=== PATIENT | male | born 1950 | race Caucasian/White ===

== ENCOUNTER → 2016-07-05 | Outpatient (CLI) | payer MEDICAID ==
--- NOTE | 2016-07-05 11:54 | ECHOF ---
Referral Reason:Z95.2 LV functioning bioprosthetic atrial valve replacement MEASUREMENTS -------- HEIGHT: 172.7 cm WEIGHT: 90.7 kg BP: 154/71 RVIDd: 3.3 cm (< 3.3) IVSd: 1.1 cm (0.6 - 1.1) LVIDd: 5.1 cm (3.9 - 5.3) LVPWd: 1.1 cm (0.6 - 1.1) IVSs: 1.7 cm LVIDs: 3.7 cm LVPWs: 2.0 cm LA Diam: 4.1 cm (2.7 - 3.8) LAESV Index (A-L): 22.52 ml/m Ao Diam: 3.2 cm (2.0 - 3.7) AV Cusp: 1.7 cm (1.5 - 2.6) LA Diam: 3.6 cm (2.7 - 3.8) MV EXCURSION: 23.948 mm (> 18.000) MV EF SLOPE: 116 mm/s (70 - 150) EPSS: 1.9 cm MV E Reid: 0.85 m/s MV DecT: 240 ms MV A Reid: 0.82 m/s MV E/A Ratio: 1.04 AV maxP.24 mmHg AV meanP.84 mmHg RAP: 5.00 mmHg RVSP: 23.72 mmHg FINDINGS -------- Sinus rhythm with extra systolic beats. This was a technically adequate study. The left ventricular size is normal. There is borderline concentric left ventricular hypertrophy. Overall left ventricular systolic function is low-normal with, an EF between 50 - 55 %. Basal inferior LV wall motion is hypokinetic. Basal inferoseptal LV wall motion is hypokinetic. The right ventricle is mildly enlarged. The left atrium is normal in size. Normal LA size by volume 22+/-6 ml/m2. The right atrium is normal in size. Peak/mean gradient across the Aortic Valve is 31.24mmHg / 15.84mmHg. There is mild regurgitation of the bioprosthetic aortic valve. The mitral valve leaflets are mildly thickened. Mild mitral annular calcification present. Trace tricuspid regurgitation present. Right ventricular systolic pressure is normal at < 35 mmHg. Trace/mild (physiologic) pulmonic regurgitation. The aortic root size is normal. There is no pericardial effusion. CONCLUSIONS -------- 1. Sinus rhythm with extra systolic beats. 2. The right atrium is normal in size. 3. Peak/mean gradient across the Aortic Valve is 31.24mmHg / 15.84mmHg. 4. There is mild regurgitation of the bioprosthetic aortic valve. 5. The mitral valve leaflets are mildly thickened. 6. Mild mitral annular calcification present. 7. Trace tricuspid regurgitation present. 8. Right ventricular systolic pressure is normal at < 35 mmHg. 9. Trace/mild (physiologic) pulmonic regurgitation. 10. The aortic root size is normal. 11. There is no pericardial effusion. 12. This was a technically adequate study. 13. The left ventricular size is normal. 14. There is borderline concentric left ventricular hypertrophy. 15. Overall left ventricular systolic function is low-normal with, an EF between 50 - 55 %. 16. Basal inferior LV wall motion is hypokinetic. 17. Basal inferoseptal LV wall motion is hypokinetic. 18. The right ventricle is mildly enlarged. 19. Normal LA size by volume 22+/-6 ml/m2. STEREOPLOTTER OPERATOR: Lay Castillo RDCS
== END | disposition home or self-care (01) ==
LOC: RADECHMAIN 08:09
PROVIDERS: ATTEND Internal Medicine Pulmonary Disease
DX: Z09 Encounter for follow-up examination after completed treatment for conditions other than malignant neoplasm (principal); I08.8 Other rheumatic multiple valve diseases; Z95.2 Presence of prosthetic heart valve
CPT/HCPCS: 93306

== ENCOUNTER 2016-07-29 08:07 | Day surgery (SDC) | payer MEDICAID ==
[2016-07-26 14:38] VITALS: BMI 30.4
[~2016-07-29 08:07] MED LIST: LACTATED RINGERS 1,000 ML IV SCH
[2016-07-29 08:36] VITALS: RESP 16; TEMP 98.6
[2016-07-29] MEDS ORDERED: LIDOCAINE 1% 20 ML VIAL (10MG/ML) FOR IV START SQ ONE (08:38)
[2016-07-29] MEDS ORDERED: GLYCOPYRROLATE 0.2 MG/ML 2 ML VIAL ONE (08:54)
[2016-07-29] MEDS ORDERED: ATROPINE SULFATE 0.4 MG/ML 1 ML VIAL ONE (08:54)
[2016-07-29] MEDS ORDERED: PROPOFOL 10 MG/ML 20 ML VIAL IV ONE (08:54)
--- NOTE | 2016-07-29 09:12 | P.PCN ---
Date of Procedure: 07/29/16 Procedure(s) Performed: BRIEF HISTORY: Patient is a 65-year-old pleasant white male, scheduled for an elective colonoscopy as a part of screening for colorectal neoplasia. PROCEDURE PERFORMED: Colonoscopy. PREOPERATIVE DIAGNOSIS: Screening for colon cancer. IV sedation per Anesthesia. PROCEDURE: After informed consent was obtained, the patient, was brought into the endoscopy unit. IV conscious sedation was administered by Anesthesia under continuous monitoring. Digital rectal examination was normal. Initially the Olympus CF-160 flexible video colonoscope was then inserted in the rectum, gradually advanced into the cecum without any difficulty. Careful examination was performed as the scope was gradually being withdrawn. Ileocecal valve and the appendiceal orifice were visualized and appeared normal. Prep was excellent. Mucosa of the cecum, ascending colon, transverse colon, descending colon, sigmoid colon, and rectum appeared normal. Retroflexion was performed in the rectum and no lesions were seen. The patient tolerated the procedure well. IMPRESSION: Normal-appearing colon from rectum to cecum with no evidence of colorectal neoplasia . RECOMMENDATIONS: Findings of this examination were discussed with the patient as well as his family. He was advised to have a repeat screening colonoscopy in 10 years.
[2016-07-29 09:37] VITALS: BP 105/66; PULSE 61
== END 2016-07-29 09:49 | disposition home or self-care (01) ==
LOC: ORWHC2ENDO 08:07
PROVIDERS: ATTEND Internal Medicine Gastroenterology
DX: Z12.11 Encounter for screening for malignant neoplasm of colon (principal); I10 Essential (primary) hypertension; E78.5 Hyperlipidemia, unspecified; I49.9 Cardiac arrhythmia, unspecified; K21.9 Gastro-esophageal reflux disease without esophagitis; Z79.899 Other long term (current) drug therapy
CPT/HCPCS: J0461; J2704; G0121

== ENCOUNTER → 2016-12-23 | Outpatient (CLI) | payer MEDICAID ==
--- NOTE | 2016-12-23 11:26 | EST ---
DATE OF SERVICE: 12/23/2016 CARDIOLITE STRESS TEST INDICATION: Cardiomyopathy BASELINE HEART RATE: 85 BASELINE BLOOD PRESSURE: 134/93 MAXIMUM HEART RATE: 135 MAXIMUM BLOOD PRESSURE: 150/75 85% MPHR: 132 100% MPHR: 156 METS: 10.0 MAXIMUM STAGE REACHED: III TOTAL EXERCISE TIME: 9:00 Baseline EKG shows atrial flutter with nonspecific ST-T wave changes. Patient exercised on Narayan protocol for a total of 9:00 minutes achieving 10 METS, 86% or predicted maximum heart rate without chest pain or diagnostic ST-segment depression. CONCLUSION: 1. Good exercise tolerance. 2. Inconclusive EKG part of the stress test due to baseline EKG abnormalities. MTDD
--- NOTE | 2016-12-23 12:22 | NM ---
EXAMINATION TYPE: NM stress cardiolite complete DATE OF EXAM: 12/23/2016 COMPARISON: NONE HISTORY: 66-year-old male with cardiomyopathy. TECHNIQUE: After the intravenous administration of 10.8 mCi Tc 99m Sestamibi - Rest images obtained 50 minutes post injection. The patient exercised using a MARCELINA protocol and 1 minute prior to peak exercise was injected with 26.7 mCi Tc 99m Sestamibi - Stress images obtained 45 minutes post injecti on. FINDINGS: Targeted heart rate was achieved during performance of the study, 135 bpm (target 132 BPM). Total exe rcise time 9 minutes. The technologist reports shortness of breath after exercise but no chest pain. Review of stress and rest SPECT images show extensive perfusion defect along the inferior and inferol ateral wall. However, this is pronounced on the rest images and improved on stress images. There is a lso subtle left ventricular chamber enlargement. There may be a small area of persistent defect along the apical inferolateral wall on stress images. Gated analysis shows normal global hypokinesis with an estimated left ventricular ejection fraction of 40 %. TID is calculated at 1.05, within normal li mits. IMPRESSION: 1. Dilated cardiomyopathy with global hypokinesis and LVEF of 40%. 2. Suspect prominent diaphragmatic attenuation artifact. A small inferolateral apical wall infarct is difficult to exclude. 3. No convincing scintigraphic evidence for reversible ischemia
== END | disposition home or self-care (01) ==
LOC: RADNMMAIN 07:56
PROVIDERS: ATTEND Internal Medicine Clinical Cardiac Electrophysiology
DX: I42.0 Dilated cardiomyopathy (principal); Z95.3 Presence of xenogenic heart valve
CPT/HCPCS: 93017; 78452; A9500

== ENCOUNTER → 2016-12-29 | Outpatient (CLI) | payer MEDICAID | END | disposition home or self-care (01) | LOC: RADECHMAIN 11:52 | PROVIDERS: ATTEND Internal Medicine Clinical Cardiac Electrophysiology | DX: I49.3 Ventricular premature depolarization (principal); I48.91 Unspecified atrial fibrillation; I47.1 Supraventricular tachycardia; I48.92 Unspecified atrial flutter; I42.9 Cardiomyopathy, unspecified; R00.8 Other abnormalities of heart beat | CPT/HCPCS: 93270; 93271 ==

== ENCOUNTER → 2017-07-11 | Outpatient (CLI) | payer MEDICAID ==
--- NOTE | 2017-07-14 13:52 | HM ---
HOLTER MONITOR REPORT DATE OF SERVICE: 07/11/2017 INDICATION: Arrhythmia. The patient was monitored for 24 hours. The baseline rhythm appeared to be sinus mechanism with a minimum heart rate of 42 beats per minute, max heart rate 130 beats per minute, and average heart rate of average heart rate of 68 beats per minute. Ventricular ectopic events were presented very frequently and presented as ventricular ectopy, including couplets, triplets, bigeminy, and trigeminy. Supraventricular ectopic events were presented as well during this 24 hour monitoring, but it was occasional only. No evidence of sinus pause or sinus arrest. No evidence of sustained tachy or bradyarrhythmia. The patient marker was associated with ventricular ectopy and supraventricular ectopy as well. CONCLUSION: 1. Sinus rhythm as a baseline mechanism. 2. Rare supraventricular ectopic events. 3. Very frequent ventricular ectopic events in the terms of premature ventricular contraction, couplets, triplets, bigeminy, and trigeminy. 4. The patient marker was correlated with the ventricular ectopy. 5. No evidence of sinus pause or sinus arrest. MMODL / IJN: [id number] /
== END | disposition home or self-care (01) ==
LOC: RADECHMAIN 12:18
PROVIDERS: ATTEND Internal Medicine Clinical Cardiac Electrophysiology
DX: I49.3 Ventricular premature depolarization (principal); I48.91 Unspecified atrial fibrillation
CPT/HCPCS: 93225; 93226

== ENCOUNTER 2018-01-16 11:31 | Day surgery (SDC) | payer MEDICAID ==
[~2018-01-16 11:31] MED LIST changes: +MIDAZOLAM 2 MG/2 ML VIAL IV PRN; +ONDANSETRON 4 MG/2 ML VIAL IVP ONE; +SODIUM CHLORIDE 0.9% 1,000 ML IV SCH; +fentaNYL (PF) 50 MCG/ML 2 ML AMP IV PRN
[2018-01-16 12:12] LABS: Basophils % (A) 0 %; Eosinophils # (A) 0.1 k/uL (0-0.7); Eosinophils % (A) 2 %; HCT 47.4 % (39.0-53.0); HGB 15.7 gm/dL (13.0-17.5); Lymphocytes # (A) 1.8 k/uL (1.0-4.8); Lymphocytes % (A) 29 %; MCH 29.3 pg (25.0-35.0); MCV 88.8 fL (80.0-100.0); Mean Platelet Volume 8.7; Monocytes # (A) 0.4 k/uL (0-1.0); Monocytes % (A) 6 %; Neutrophils # (A) 3.8 k/uL (1.3-7.7); Neutrophils % (A) 61 %; Platelet Count 130 k/uL (150-450); RBC 5.34 m/uL (4.30-5.90); RDW 13.5 % (11.5-15.5); WBC 6.2 k/uL (3.8-10.6)
[2018-01-16] MEDS ORDERED: PROPOFOL 10 MG/ML 20 ML VIAL IV ONE (12:32)
[2018-01-16] MEDS ORDERED: MIDAZOLAM 2 MG/2 ML VIAL ONE (12:32)
[2018-01-16] MEDS ORDERED: PROTAMINE SULFATE 10 MG/ML 5 ML VIAL IV ONE (12:32)
[2018-01-16] MEDS ORDERED: LIDOCAINE 1% INJ 10MG/ML (20 ML MDV) ONE ×3 (12:32→13:25)
[2018-01-16] MEDS ORDERED: HEPARIN SODIUM,PORCINE 10,000 UNIT/ML 1 ML VIAL ONE (12:32)
[2018-01-16] MEDS ORDERED: fentaNYL (PF) 50 MCG/ML 2 ML AMP ONE (12:32)
[2018-01-16] MEDS ORDERED: HYDROmorphone (PF) 1 MG/ML ONE (12:32)
[2018-01-16] MEDS ORDERED: ISOPROTERENOL 250 MCG/1.25 ML SYR IV ONE (12:32)
[2018-01-16] MEDS ORDERED: ceFAZolin IN SWFI 2 GM/20 ML SYRINGE IVP STA (13:17)
[2018-01-16] MEDS ORDERED: LIDOCAINE 1% INJ 10MG/ML (20 ML MDV) SQ ONE ×2 (13:31→13:35)
[2018-01-16] MEDS ORDERED: HEPARIN SOD,PORK IN 0.45% NACL 25,000 UNIT in 0.45% NACL 1 500ML.BAG IV ONE (13:45)
[2018-01-16] MEDS ORDERED: HEPARIN SODIUM (1,000 UNIT/ML) 1,000 UNIT in SODIUM CHLORIDE 0.9% 1,000 ML IRRIGATION ONE (14:26)
[2018-01-16] MEDS ORDERED: HYDROcodone/APAP 5-325MG 1 EACH TAB PO PRN (16:48)
[2018-01-16] MEDS ORDERED: ACETAMINOPHEN TAB 325 MG TAB PO PRN (16:48)
[2018-01-16] MEDS ORDERED: LACTATED RINGERS 1,000 ML IV ONE (17:10)
[2018-01-16] MEDS ORDERED: SODIUM CHLORIDE 0.9% 1,000 ML IV ONE (17:10)
--- NOTE | 2018-01-16 17:41 | LTR ---
Dear Dr. Lopez: Wali Monreal has frequent nonsustained ventricular tachycardia and a high PVC burden and he underwent a diagnostic EP study and ablation of this ventricular focus. However, since he has a bioprosthetic aortic valve, the retrograde approach into the left ventricle was avoided and the left ventricle was accessed transseptally and then across the mitral valve. This was a deep focus evident on ECG as well as with intracardiac mapping, but a successful ablation was performed and he should experience a significant reduction in his PVC burden and definitely a reduction in his nonsustained ventricular tachycardia. He will continue all his cardiac medications and I will reassess his LV function in the future. If his LV function does not improve, then he would be a candidate for an ICD implant in the future. Thank you for entrusting me with the care of your patient. Warm regards. Sincerely, TERRANCE / LUTHER: [id number] /
[2018-01-16 17:53] VITALS: BMI 30.2
[2018-01-16] MEDS ORDERED: ACETAMINOPHEN IV (For NPO) 1,000 MG in EMPTY BAG 1 BAG IVPB ONE (18:00)
[2018-01-16] MEDS: CARVEDILOL 6.25 MG TAB PO SCH (18:06)
--- NOTE | 2018-01-16 18:53 | CE ---
CARDIAC ELECTROPHYSIOLOGY REPORT This is a 67-year-old male patient who has valvular heart disease, cardiomyopathy, ejection fraction 35% to 40%, with very frequent PVCs. He has already undergone SVT ablation successfully as well as atrial flutter ablation. He is on anticoagulation. He is brought in because of a high PVC burden and nonsustained ventricular tachycardia and for radiofrequency ablation mostly of the monomorphic PVCs in an attempt to facilitate improvement in LV systolic function and cardiomyopathy. Patient has a bioprosthetic aortic valve; therefore these PVCs are originating in the left ventricle. Since the retrograde route is to be avoided, a transseptal route was planned. Edoxaban was held for 2 days prior to the procedure. The patient was brought to the EP lab in a fasting state. Written informed consent was obtained prior to the procedure. The right and left groins were prepped and draped as per protocol. A 5-Setswana arterial sheath was placed in the right femoral artery for continuous hemodynamic monitoring as well as sampling for maintaining heparin ACT at greater than 300. Venous sheaths were placed in the right and left femoral veins. Diagnostic catheters catheters were positioned in the coronary sinus, high right atrium, His bundle area and RV. Intracardiac echo catheter was used. Mapping and ablation catheter was used. A long sheath was used. First a full diagnostic EP study was performed to see if he had any inducible ventricular tachycardia. The patient was in sinus rhythm at the start of the study. Sinus cycle length 855 milliseconds, QRS 110 milliseconds, AL 179 milliseconds, QT 390 milliseconds. Sinus node recovery times at 600, 500 and 400 milliseconds were 1389, 1299 and 1554 milliseconds, respectively. Corresponding corrected sinus node recovery times were mildly prolonged at the paced cycle length of 400 milliseconds. AV node Wenckebach block 520 milliseconds, VA Wenckebach block 380 milliseconds. Ventricular extrastimulation was performed up to double extrastimuli at [address] No sustained ventricular tachycardia was induced. Burst stimulation was performed from 400 milliseconds down to 200 milliseconds from the RV apex. No sustained arrhythmias were induced. Later, Isuprel was started and burst stimulation was performed. Short bursts of nonsustained VT were induced, but no sustained VT was induced. The HV interval was 58 milliseconds on Isuprel. The patient went into atrial fibrillation and could not be cardioverted back to sinus rhythm. Thereafter, intracardiac echocardiography was performed. Three-D mapping of the left ventricle was performed. The mitral anulus and the papillary muscles were identified and mapped. The inferior wall of the ventricle where the PVCs were originating was mapped in detail. [id number] transseptal catheterization was performed. RA pressure 19/-2/5 mmHg. LA pressure 26/-1/18 mm Hg. Using 120 L HeartSpan sheath after accessing the left atrium on heparin, the catheter was placed across the mitral anulus and the inferior wall was mapped. Three-D electroanatomic mapping was performed. Activation mapping was performed. Scar mapping was performed. The earliest activation was in the base of the inferior wall between the papillary muscle and the mitral anulus, and this area was definitely more hypokinetic as compared to the other segments of the left ventricle. However, there was no evidence for scar in this area, either on bipolar or on unipolar voltage mapping. The PVC morphology was a right bundle branch block morphology with Q-waves in the inferior leads. There was clear delay in the onset of the QRS in the inferior leads and there was a slow slope at the onset of the QRS in the precordial leads consistent with a deep myocardial focus, although overall QRS width was 138 milliseconds. Activation mapping was performed and an early site was noted with a good unipolar electrogram that was just about 10 milliseconds earlier than the onset of the QRS as well as a bipolar signal of similar prematurity. Very early bipolar and unipolar signals could not be seen, and this is consistent with our opinion that this was a deep myocardial focus. RF ablation was applied at this site and lesion was applied around this. Initially with RF ablation slow ventricular tachycardia was consistently induced, whose morphology resembled the clinical PVCs. Slowly this would terminate. When RF ablation was completed in this area, there was no evidence for any further inducible VT with RF. However, the patient continued to have infrequent PVCs. This area was well ablated with good contact force between 7 and 15 grams with a power of up to 35 arguelles. Following that, Isuprel was then started and the patient went into atrial fibrillation. Nonsustained VT could be induced of totally reformed morphology, but sustained VT could not be induced. All catheters were then removed, Isuprel stopped. Heparin was stopped. Sheaths were removed. Hemostasis was assured. RESULT: Successful mapping and ablation of VT/PVC focus in the inferior base of the left ventricle between the mitral anulus and the proximal portion of the posterior septal papillary muscle. PROCEDURES PERFORMED: 1. Comprehensive diagnostic EP study with attempted induction of arrhythmia. 2. Left atrial pacing and recording. 3. Drug stimulation. 4. Three-D mapping. 5. Percutaneous arterial cannulation and catheterization for sampling and monitoring. 6. Ablation for ventricular tachycardia 29460. 7. Intracardiac echocardiography and transseptal puncture. The patient tolerated the procedure well without any acute complications. MMODL / IJN: [id number] /
[2018-01-16] MEDS ORDERED: EDOXABAN TOSYLATE 60 MG TABLET PO SCH (21:00)
[2018-01-17 07:51] VITALS: BP 115/74; PULSE 58; RESP 18; TEMP 98.1
--- NOTE | 2018-01-17 08:18 | P.DS ---
Providers Attending physician: Selvin Perrin Primary care physician: [facility] Course: Patient is doing well. No chest discomfort dizziness lightheadedness or palpitations. He has not had any significant number of PVCs post ablation. He is back in sinus rhythm. 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 I don't see any PVCs on the monitor today his twelve-lead ECG does not show any PVCs either. T- wave inversions are noted in the lateral precordial leads. 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 Patient has valvular heart disease and technically should be on Coumadin. 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 However his insurance company will not cover Savaysa but will cover either Xarelto Pradaxa. I have given her a prescription for Xarelto 20 mg by mouth daily. He will continue his current myopathy medications as before and will see me on January 19. Future plan is a follow-up referral to [place] follow-up 2-D echo in about 8 weeks or so. If his LV function does not improve after reduction of his PVC burden then an ICD should be considered Patient Condition at Discharge: Stable Plan - Discharge Summary Discharge Rx Participant: Yes New Discharge Prescriptions: No Action Spironolactone [Aldactone] 25 mg PO DAILY Rosuvastatin [Crestor] 20 mg PO DAILY Carvedilol [Coreg] 6.25 mg PO BID Aspirin [Adult Low Dose Aspirin EC] 81 mg PO DAILY Edoxaban Tosylate [Savaysa] 60 mg PO HS Losartan [Cozaar] 12.5 mg PO DAILY Duo Fusion 1 tab PO BID PRN PRN Reason: gerd Discharge Medication List Aspirin [Adult Low Dose Aspirin EC] 81 mg PO DAILY 07/26/16 [History] Carvedilol [Coreg] 6.25 mg PO BID 07/26/16 [History] Rosuvastatin [Crestor] 20 mg PO DAILY 07/26/16 [History] Spironolactone [Aldactone] 25 mg PO DAILY 07/26/16 [History] Edoxaban Tosylate [Savaysa] 60 mg PO HS 03/22/17 [History] Losartan [Cozaar] 12.5 mg PO DAILY 03/28/17 [History] Duo Fusion 1 tab PO BID PRN 01/08/18 [History]
[2018-01-17] MEDS: SPIRONOLACTONE 25 MG TAB PO SCH ×2 (08:58→10:31)
[2018-01-17] MEDS: CARVEDILOL 6.25 MG TAB PO SCH (08:58)
[2018-01-17] MEDS ORDERED: LOSARTAN 25 MG TAB PO SCH (09:00)
[2018-01-17] MEDS ORDERED: ASPIRIN 81 MG PO SCH (09:00)
== END 2018-01-17 12:35 | disposition home or self-care (01) ==
LOC: CATHEP 11:31 → 3OBS 16:40 → CATHEP 01-17 12:35
PROVIDERS: ATTEND Internal Medicine Clinical Cardiac Electrophysiology
DX: I49.3 Ventricular premature depolarization (principal); I42.9 Cardiomyopathy, unspecified; E78.5 Hyperlipidemia, unspecified; E78.00 Pure hypercholesterolemia, unspecified; I48.91 Unspecified atrial fibrillation; L40.9 Psoriasis, unspecified; I10 Essential (primary) hypertension; Z95.2 Presence of prosthetic heart valve; I48.0 Paroxysmal atrial fibrillation; Z79.82 Long term (current) use of aspirin; Z79.899 Other long term (current) drug therapy; Z79.01 Long term (current) use of anticoagulants; I47.2 Ventricular tachycardia; Z88.8 Allergy status to other drugs, medicaments and biological substances; E11.9 Type 2 diabetes mellitus without complications; K21.9 Gastro-esophageal reflux disease without esophagitis
CPT/HCPCS: 93623; 93662; 93654; 85347; 85025; C1894 ×2; C1769 ×3; C1730 ×2; C1759; C1893; C1732; J2001; J1644 ×2; J0690

== ENCOUNTER → 2018-04-02 | Outpatient (CLI) | payer MEDICAID ==
--- NOTE | 2018-04-02 19:06 | ECHOF ---
Referral Reason:PVCS I49 MEASUREMENTS -------- HEIGHT: 172.7 cm WEIGHT: 90.7 kg BP: IVSd: 1.2 cm (0.6 - 1.1) LVIDd: 5.2 cm (3.9 - 5.3) LVPWd: 1.5 cm (0.6 - 1.1) IVSs: 1.8 cm LVIDs: 3.4 cm LVPWs: 1.9 cm LA Diam: 4.0 cm (2.7 - 3.8) RVIDd: 3.1 cm (< 3.3) Ao Diam: 4.0 cm (2.0 - 3.7) LA Diam: 3.4 cm (2.7 - 3.8) AV Cusp: 0.7 cm (1.5 - 2.6) EPSS: 1.6 cm MV E Reid: 0.33 m/s MV DecT: 333 ms MV A Reid: 0.72 m/s MV E/A Ratio: 0.46 AV maxP.19 mmHg AV meanP.71 mmHg AR PHT: 457 ms RAP: 5.00 mmHg RVSP: 17.74 mmHg MV EF SLOPE: 65.66 mm/s (70 - 150) MV EXCURSION: 22.13 mm (> 18.000) FINDINGS -------- Undetermined rhythm. This was a techncally difficult study with suboptimal views, , Lumason utilized for enhancement of im ages. There is mild concentric left ventricular hypertrophy. Overall left ventricular systolic function i s mild-moderately impaired with, an EF between 40 - 45 %. Basal inferior LV wall motion is hypokine tic. The right ventricle is normal in size. The left atrial size is normal. The right atrial size is normal. 5.0mg OF Lumason UTLIZED: 2 OR MORE WALL SEGMENTS NOT VISUALIZED. There is mild aortic regurgitation. Peak/mean gradient across the Aortic Valve is 32.19mmHg / 20.71 mmHg. There is mild-moderate stenosis of the bioprosthetic aortic valve. Mild mitral annular calcification present. Mild mitral regurgitation is present. Mild tricuspid regurgitation present. There is mild pulmonary hypertension. The right ventricular systolic pressure, as measured by Doppler, is 17.74mmHg. The pulmonic valve was not well visualized. There is no pericardial effusion. CONCLUSIONS -------- 1. This was a techncally difficult study with suboptimal views, , Lumason utilized for enhancement of images. 2. There is mild concentric left ventricular hypertrophy. 3. Overall left ventricular systolic function is mild-moderately impaired with, an EF between 40 - 45 %. 4. Basal inferior LV wall motion is hypokinetic. 5. The right ventricle is normal in size. 6. The left atrial size is normal. 7. The right atrial size is normal. 8. 5.0mg OF Lumason UTLIZED: 2 OR MORE WALL SEGMENTS NOT VISUALIZED. 9. There is mild aortic regurgitation. 10. Peak/mean gradient across the Aortic Valve is 32.19mmHg / 20.71mmHg. 11. There is mild-moderate stenosis of the bioprosthetic aortic valve. 12. Mild mitral annular calcification present. 13. Mild mitral regurgitation is present. 14. Mild tricuspid regurgitation present. 15. There is mild pulmonary hypertension. 16. The right ventricular systolic pressure, as measured by Doppler, is 17.74mmHg. 17. The pulmonic valve was not well visualized. 18. There is no pericardial effusion. ENGINEER GAS PUMPING STATION: Jessica Neely RDCS
== END | disposition home or self-care (01) ==
LOC: RADECHMAIN 11:29
PROVIDERS: ATTEND Internal Medicine Clinical Cardiac Electrophysiology
DX: I08.3 Combined rheumatic disorders of mitral, aortic and tricuspid valves (principal); I27.20 Pulmonary hypertension, unspecified
CPT/HCPCS: 93225; 93226; 93306; Q9950

== ENCOUNTER → 2019-04-01 | Outpatient (CLI) | payer MEDICAID ==
--- NOTE | 2019-04-05 18:32 | P.PN ---
Subjective Progress Note Date: 04/05/19 This is a report on the 24-hour DCG done on April 01. Baseline rhythm is sinus. Patient remained in sinus rhythm throughout the recording with an average heart rate of 72. The minimum is 49. The maximal 109. There were occasional to frequent PVCs. There were rare couplets and bigeminal pattern. There were occasional APCs. No sustained arrhythmias were noted. Patient did not maintain a diary. Patient Zachary correlated with sinus rhythm. Final impression: #1. Sinus rhythm. #2 episodes of sinus tachycardia and bradycardia #3 occasional APCs. #4. Occasional to frequent PVCs with the occasional couplets and triplets #5. Patient did not maintain a diary
== END | disposition home or self-care (01) ==
LOC: RADECHMAIN 12:06
PROVIDERS: ATTEND Internal Medicine Clinical Cardiac Electrophysiology
DX: R00.0 Tachycardia, unspecified (principal); I49.3 Ventricular premature depolarization
CPT/HCPCS: 93225; 93226

== ENCOUNTER → 2019-04-26 | Outpatient (CLI) | payer MEDICAID ==
--- NOTE | 2019-04-27 15:01 | ECHOF ---
Referral Reason:cardiomyopathy MEASUREMENTS -------- HEIGHT: 172.7 cm WEIGHT: 93.0 kg BP: RVIDd: 3.3 cm (< 3.3) IVSd: 1.1 cm (0.6 - 1.1) LVIDd: 5.2 cm (3.9 - 5.3) LVPWd: 1.9 cm (0.6 - 1.1) IVSs: 1.2 cm LVIDs: 4.4 cm LVPWs: 1.5 cm Ao Diam: 3.1 cm (2.0 - 3.7) AV Cusp: 1.5 cm (1.5 - 2.6) LA Diam: 4.1 cm (2.7 - 3.8) MV EXCURSION: 19.783 mm (> 18.000) MV EF SLOPE: 60 mm/s (70 - 150) EPSS: 1.8 cm MV E Reid: 0.47 m/s MV DecT: 114 ms MV A Reid: 0.60 m/s MV E/A Ratio: 0.79 AV maxP.84 mmHg AV meanP.24 mmHg AR PHT: 653 ms RAP: 5.00 mmHg RVSP: 25.06 mmHg FINDINGS -------- Sinus rhythm. This was a technically difficult study with suboptimal views. The left ventricular size is normal. There is mild concentric left ventricular hypertrophy. Overa ll left ventricular systolic function is mild-moderately impaired with, an EF between 40 - 45 %. The right ventricle is mildly enlarged. The left atrium is mildly dilated. The right atrial size is normal. xx ml of Lumason was utilized for enhancement of images. Aortic valve is trileaflet and is mildly thickened. Peak/mean gradient across the Aortic Valve is 3 4.84mmHg / 23.24mmHg. There is mild regurgitation of the bioprosthetic aortic valve. There is mil d stenosis of the bioprosthetic aortic valve. The mitral valve is normal. There is trace mitral regurgitation. The tricuspid valve appears structurally normal. Trace tricuspid regurgitation present. Right nerissa tricular systolic pressure is normal at < 35 mmHg. Trace/mild (physiologic) pulmonic regurgitation. The aortic root size is normal. Normal inferior vena cava with normal inspiratory collapse consistent with estimated right atrial pre ssure of 5 mmHg. There is no pericardial effusion. CONCLUSIONS -------- 1. Sinus rhythm. 2. This was a technically difficult study with suboptimal views. 3. The left ventricular size is normal. 4. There is mild concentric left ventricular hypertrophy. 5. Overall left ventricular systolic function is mild-moderately impaired with, an EF between 40 - 45 %. 6. The right ventricle is mildly enlarged. 7. The left atrium is mildly dilated. 8. The right atrial size is normal. 9. xx ml of Lumason was utilized for enhancement of images. 10. Aortic valve is trileaflet and is mildly thickened. 11. Peak/mean gradient across the Aortic Valve is 34.84mmHg / 23.24mmHg. 12. There is mild regurgitation of the bioprosthetic aortic valve. 13. There is mild stenosis of the bioprosthetic aortic valve. 14. The mitral valve is normal. 15. There is trace mitral regurgitation. 16. The tricuspid valve appears structurally normal. 17. Trace tricuspid regurgitation present. 18. Right ventricular systolic pressure is normal at < 35 mmHg. 19. Trace/mild (physiologic) pulmonic regurgitation. 20. The aortic root size is normal. 21. Normal inferior vena cava with normal inspiratory collapse consistent with estimated right atrial pressure of 5 mmHg. 22. There is no pericardial effusion. WHEEL MILL OPERATOR: Ludivina Clement RDCS
== END | disposition home or self-care (01) ==
LOC: RADECHMAIN 14:22
PROVIDERS: ATTEND Family Medicine
DX: I37.1 Nonrheumatic pulmonary valve insufficiency (principal); I35.1 Nonrheumatic aortic (valve) insufficiency
CPT/HCPCS: 93306; Q9950

== ENCOUNTER → 2020-04-27 | Outpatient (CLI) | payer MEDICAID ==
--- NOTE | 2020-04-27 15:37 | P.STRESS ---
- Stress Test Note Stress Test Results/Findings: Exam Performed: stress echo exercise with con Exam Date: 04/27/20 Reason for Exam: SVT Height: 5 ft 8 in Weight: 190 kg Protocol: STRESS ECHO Stage: 3 Duration of Exercise: 9 MIN 15 SEC Resting Heart Rate: 68 Resting Blood Pressure: 142/45 Maximum Achieved Heart Rate: 124 Maximum Achieved Blood Pressure: 210/52 85% PMHR: 68 100% PMHR: 152 METS: 10.7 Technologist Comment: Stress Test Results/Findings: Baseline heart rate 68 beats a minute, Baseline blood pressure 142/49 mmHg The Stentor ECG shows sinus rhythm with occasional PVCs, nonspecific flattening of the ST segments inferolaterally Patient exercised on a Narayan protocol for 9 minutes 15 seconds He achieved a peak heart rate of 151 beats a minute Hypertensive response to exercise 210/[address] segment depression with T-wave inversions noted PVCs ventricular couplets and ventricular triplets are noted No sustained ventricular tachycardia noted At peak exercise and early into recovery exercise induced sustained SVT was noted, likely atrial tachycardia This abruptly terminated well into recovery. Baseline echo images were suboptimal. Difficulty contrast was used There was augmentation of over LV contractility without development of any wall motion abnormalities @Recovery regional global LV systolic function with normal Impression Abnormal ECG response with ST depression and T-wave inversions but baseline ST segment abnormalities also noted No clearcut echocardiographic abnormalities of ischemia Good exercise capacity Hypertensive response PVCs ventricular couplets and ventricular triplets noted Sustained SVT likely atrial tachycardia with abrupt termination well into recovery
== END | disposition home or self-care (01) ==
LOC: RADNMMAIN 08:36
PROVIDERS: ATTEND Internal Medicine Clinical Cardiac Electrophysiology
DX: I47.2 Ventricular tachycardia (principal); I42.0 Dilated cardiomyopathy
CPT/HCPCS: 93351; Q9950

== ENCOUNTER 2020-07-21 06:20 | Day surgery (SDC) | payer MEDICAID ==
[2020-07-17 15:35] VITALS: BMI 28.8
[2020-07-21] MEDS ORDERED: LACTATED RINGERS 1,000 ML IV SCH (06:29)
[2020-07-21] MEDS ORDERED: SODIUM CHLORIDE 0.9% 1,000 ML IV SCH (06:29)
[2020-07-21 06:52] LABS: Glucose,Whole Blood 146 mg/dL (75-99)
[2020-07-21] MEDS ORDERED: SODIUM CHLORIDE 0.9% 500 ML 500 ML IV ONE (06:52)
[2020-07-21] MEDS ORDERED: PROPOFOL 10 MG/ML 20 ML VIAL IV ONE (07:25)
[2020-07-21 08:15] VITALS: TEMP 97.1
[2020-07-21 08:16] VITALS: RESP 16
--- NOTE | 2020-07-21 08:33 | P.TEE ---
Description of Procedure(s): Procedure performed: Transesophageal Echocardiogram with color flow doppler, pulsed wave doppler and continuous wave doppler, moderate conscious sedation Moderate conscious sedation: Moderate conscious sedation was supplied by anesthesia, see anesthesia note for full details Complications: none Indications: Symptomatic Afib, CLARK History: Patient is a pleasant 69-year-old male with history of atrial fibrillation, SVT, PVCs status post ablation, hypertension, status post bioprosthetic aortic valve replacement in 2004 who presents for worsening shortness of breath with mild to moderate activity over the past 2 months. He did have echocardiogram performed in 2019 which showed ejection fraction 40-45% with mild aortic stenosis. PROCEDURE: After the risks, benefits and alternatives of the above mentioned procedure was explained in detail with the patient, informed consent was obtained. Patient was brought to the lab in a fasting state. Patient was given sedation by anesthesia. The throat was sprayed with Hurricane to anesthetize the throat. A lubricated Omni probe was then introduced into the esophagus and stomach and multiple views were obtained. 2D echo with color flow doppler, pulsed wave doppler and continuous wave doppler was utilized. Agitated saline bubbles were injected to assess for any intra-atrial shunt. The probe was then removed. Cardioversion was performed by Dr Perrin. Patient tolerated the procedure well. Patient was transferred to the post procedure area in stable and satisfactory condition. FINDINGS: 1. There a bioprosthetic aortic valve with moderate to severe aortic stenosis. Vmax of 3.23m/s, mean gradient of 23.27 however somewhat off angle, planimeter KATY of 1.2cm2 however dimensionless index of 0.22 with possibility of low flow low gradient aortic stenosis. 2. The mitral valve is normal-appearing with moderate central mitral regurgitation. There is systolic blunting of the left upper pulmonary vein however no systolic flow reversal. 3. Tricuspid valve appears to be normal with trace tricuspid regurgitation. 4. The interatrial septum is intact. No evidence of PFO. 5. Left atrial appendage has no thrombus. 6. Left ventricular size appears to be normal. There is global hypokinesis with left ventricular ejection fraction 40-45% 7. Left atrium is mild to moderately dilated.
--- NOTE | 2020-07-21 09:29 | CE ---
CARDIAC ELECTROPHYSIOLOGY REPORT Mr. Monreal is a 69-year-old male patient who has valvular heart disease, status post aortic valve replacement with cardiomyopathy ejection fraction 40% to 45%, who is in atrial fibrillation. It also seen that his bioprosthetic aortic valve showed greater deterioration for the aortic stenosis on transthoracic echo and therefore he was brought in for a PAULINE to evaluate the aortic valve, to assess for left atrial appendage clot, prior to cardioversion and electrical cardioversion. He has symptomatic atrial fibrillation and feels worn down, tired, fatigued. Following PAULINE, which revealed absence of any left atrial appendage thrombus, no evidence for PFO and moderate bioprosthetic valve stenosis and cardiomyopathy ejection fraction of about 40% (please read Dr. Camargo's full dictation). Electrical cardioversion was performed. A 360 joule biphasic shock was used. The patient was successfully cardioverted. However, within the next 15 seconds he had a burst of atrial tachycardia and then went back into atrial fibrillation. Immediate recurrence of atrial fibrillation. He was rate controlled during atrial fibrillation. RESULT: 1. Moderate bioprosthetic valve stenosis. 2. Cardiomyopathy ejection fraction 40%. 3. Moderate mitral regurgitation. 4. No left atrial appendage thrombus. 5. Successful electrical cardioversion but immediate recurrence of atrial fibrillation with a burst of atrial tachycardia (IRAF). PLAN: Consider atrial fibrillation ablation. Continue anticoagulation. Continue all other cardiac medications. I discussed this with the patient and with his . TERRANCE / LUTHER: [id number] /
[2020-07-21 10:34] VITALS: PULSE 86
[2020-07-21 11:03] VITALS: BP 120/58
== END 2020-07-21 10:02 | disposition home or self-care (01) ==
LOC: CATHCVL 06:20
PROVIDERS: ATTEND Internal Medicine
DX: T82.857A Stenosis of other cardiac prosthetic devices, implants and grafts, initial encounter (principal); I08.1 Rheumatic disorders of both mitral and tricuspid valves; I47.1 Supraventricular tachycardia; I10 Essential (primary) hypertension; I49.3 Ventricular premature depolarization; E78.00 Pure hypercholesterolemia, unspecified; E78.5 Hyperlipidemia, unspecified; I50.22 Chronic systolic (congestive) heart failure; I42.0 Dilated cardiomyopathy; Z88.8 Allergy status to other drugs, medicaments and biological substances
CPT/HCPCS: 93312; 93320; 93325; 92960; J2704

== ENCOUNTER 2020-08-02 10:17 | Emergency (ER) | payer MEDICAID, MEDICARE ==
--- NOTE | 2020-08-02 10:40 | ED ---
SOB HPI - General Chief Complaint: Shortness of Breath Stated Complaint: SOB Time Seen by Provider: 08/02/20 10:29 Source: patient, RN notes reviewed Mode of arrival: wheelchair Limitations: no limitations - History of Present Illness Initial Comments: Patient is a 69-year-old male that presents to the emergency department complaining of increased dyspnea. He noted that for the last couple days she's become short of breath with simple test such as running or tight shoes, he can't lay in bed did become shortness restlessness sleeping in a recliner. He noted that he did not sleep at all even in the recliner last night. He does have a past history of atrial fibrillation, recent cardioversion, bovine valve status post 15 years. He noted that he does takes xarelto. She denied any history of clots or pulmonary embolus. He denied any chest pain headache nausea vomiting diarrhea constipation lightheadedness syncope. Patient does have an appointment for ablation on August 31. - Related Data Home Medications Medication Instructions Recorded Confirmed Aspirin [Adult Low Dose Aspirin EC] 81 mg PO DAILY 07/26/16 07/21/20 Spironolactone [Aldactone] 25 mg PO DAILY@1200 07/26/16 07/21/20 Losartan [Cozaar] 12.5 mg PO DAILY 03/28/17 07/21/20 Duo Fusion 1 tab PO BID PRN 01/08/18 07/21/20 Ergocalciferol [Vitamin D2 (1250 1,250 mcg PO WEEKLY 07/17/20 07/21/20 Mcg = 13089 Iu)] Rivaroxaban [Xarelto] 20 mg PO HS 07/17/20 07/21/20 metFORMIN HCL [Glucophage] 1,000 mg PO BID 07/17/20 07/21/20 Metoprolol Succinate [Toprol XL] 100 mg PO DAILY 08/02/20 08/02/20 Rosuvastatin [Crestor] 20 mg PO HS 08/02/20 08/02/20 metFORMIN HCL 1,000 mg PO DAILY@1200 08/02/20 08/02/20 Previous Rx's Medication Instructions Recorded Levofloxacin [Levaquin] 500 mg PO DAILY #10 tab 08/02/20 Allergies Allergy/AdvReac Type Severity Reaction Status Date / Time atorvastatin [From Lipitor] AdvReac muscle Verified 08/02/20 11:32 weakness Review of Systems ROS Statement: Those systems with pertinent positive or pertinent negative responses have been documented in the HPI. ROS Other: All systems not noted in ROS Statement are negative. Past Medical History Past Medical History: Atrial Fibrillation, Diabetes Mellitus, GERD/Reflux, Hyperlipidemia, Hypertension, Musculoskeletal Disorder, Osteoarthritis (OA), Prostate Disorder, Skin Disorder Additional Past Medical History / Comment(s): Bovine Aortic heart valve. 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 Having increased shortness of breath w/ exertion, ongoing AFib. History of Any Multi-Drug Resistant Organisms: None Reported Past Surgical History: Cardiac Ablation, Cardiac Valve Replacement, Heart Catheterization Additional Past Surgical History / Comment(s): Aortic Valve-2005, Anal Fistula Repair, Cardiac Ablation x2 Past Anesthesia/Blood Transfusion Reactions: Family History of Problems w/ Anest hesia Additional Past Anesthesia/Blood Transfusion Reaction / Comment(s): Mother - PONV Past Psychological History: No Psychological Hx Reported Smoking Status: Never smoker Past Alcohol Use History: None Reported Past Drug Use History: None Reported - Past Family History Mother Family Medical History: No Reported History General Exam Limitations: no limitations General appearance: alert, in no apparent distress Head exam: Present: atraumatic, normocephalic, normal inspection Eye exam: Present: normal appearance, PERRL, EOMI. Absent: scleral icterus, conjunctival injection, periorbital swelling ENT exam: Present: normal exam, mucous membranes moist Neck exam: Present: normal inspection. Absent: tenderness, meningismus, lymphadenopathy Respiratory exam: Present: decreased breath sounds (And right lower lobe, progressive lung exam was clear to auscultation bilaterally). Absent: respiratory distress, wheezes, rales, rhonchi, stridor Cardiovascular Exam: Present: normal rhythm, tachycardia, normal heart sounds. Absent: systolic murmur, diastolic murmur, rubs, gallop, clicks GI/Abdominal exam: Present: soft, normal bowel sounds. Absent: distended, tenderness, guarding, rebound, rigid Extremities exam: Present: normal inspection, full ROM, normal capillary refill. Absent: tenderness, pedal edema, joint swelling, calf tenderness Neurological exam: Present: alert, oriented X3, CN II-XII intact Psychiatric exam: Present: normal affect, normal mood Skin exam: Present: warm, dry, intact, normal color. Absent: rash Course Vital Signs 08/02/20 08/02/20 10:23 10:36 Temperature 98.4 F Pulse Rate 102 H Respiratory 20 22 Rate Blood Pressure 146/77 O2 Sat by Pulse 98 Oximetry Medical Decision Making - Medical Decision Making 69-year-old male complaining of increased dyspnea for the past couple days. 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 - Lab Data Result diagrams: 08/02/20 10:53 08/02/20 10:53 Lab Results 08/02/20 08/02/20 08/02/20 Range/Units 10:53 10:53 10:53 WBC 6.8 (3.8-10.6) k/uL RBC 5.08 (4.30-5.90) m/uL Hgb 14.6 (13.0-17.5) gm/dL Hct 44.7 (39.0-53.0) % MCV 88.1 (80.0-100.0) fL MCH 28.7 (25.0-35.0) pg MCHC 32.6 (31.0-37.0) g/dL RDW 14.5 (11.5-15.5) % Plt Count 149 L (150-450) k/uL MPV 10.1 Neutrophils % 69 % Lymphocytes % 22 % Monocytes % 6 % Eosinophils % 1 % Basophils % 0 % Neutrophils # 4.7 (1.3-7.7) k/uL Lymphocytes # 1.5 (1.0-4.8) k/uL Monocytes # 0.4 (0-1.0) k/uL Eosinophils # 0.1 (0-0.7) k/uL Basophils # 0.0 (0-0.2) k/uL PT 12.1 H (9.0-12.0) sec INR 1.2 H (<1.2) APTT 28.3 (22.0-30.0) sec D-Dimer 0.36 (<0.60) mg/L FEU Sodium 135 L (137-145) mmol/L Potassium 4.6 (3.5-5.1) mmol/L Chloride 103 (98-107) mmol/L Carbon Dioxide 24 (22-30) mmol/L Anion Gap 8 mmol/L BUN 20 (9-20) mg/dL Creatinine 0.59 L (0.66-1.25) mg/dL Est GFR (CKD-EPI)AfAm >90 (>60 ml/min/1.73 sqM) Est GFR (CKD-EPI)NonAf >90 (>60 ml/min/1.73 sqM) Glucose 119 H (74-99) mg/dL Plasma Lactic Acid Ham (0.7-2.0) mmol/L Calcium 9.4 (8.4-10.2) mg/dL Magnesium 1.9 (1.6-2.3) mg/dL Total Bilirubin 0.9 (0.2-1.3) mg/dL AST 30 (17-59) U/L ALT 36 (4-49) U/L Alkaline Phosphatase 54 (38-126) U/L Troponin I (0.000-0.034) ng/mL Total Protein 6.9 (6.3-8.2) g/dL Albumin 4.3 (3.5-5.0) g/dL 08/02/20 08/02/20 Range/Units 10:53 10:53 WBC (3.8-10.6) k/uL RBC (4.30-5.90) m/uL Hgb (13.0-17.5) gm/dL Hct (39.0-53.0) % MCV (80.0-100.0) fL MCH (25.0-35.0) pg MCHC (31.0-37.0) g/dL RDW (11.5-15.5) % Plt Count (150-450) k/uL MPV Neutrophils % % Lymphocytes % % Monocytes % % Eosinophils % % Basophils % % Neutrophils # (1.3-7.7) k/uL Lymphocytes # (1.0-4.8) k/uL Monocytes # (0-1.0) k/uL Eosinophils # (0-0.7) k/uL Basophils # (0-0.2) k/uL PT (9.0-12.0) sec INR (<1.2) APTT (22.0-30.0) sec D-Dimer (<0.60) mg/L FEU Sodium (137-145) mmol/L Potassium (3.5-5.1) mmol/L Chloride (98-107) mmol/L Carbon Dioxide (22-30) mmol/L Anion Gap mmol/L BUN (9-20) mg/dL Creatinine (0.66-1.25) mg/dL Est GFR (CKD-EPI)AfAm (>60 ml/min/1.73 sqM) Est GFR (CKD-EPI)NonAf (>60 ml/min/1.73 sqM) Glucose (74-99) mg/dL Plasma Lactic Acid Ham 1.0 (0.7-2.0) mmol/L Calcium (8.4-10.2) mg/dL Magnesium (1.6-2.3) mg/dL Total Bilirubin (0.2-1.3) mg/dL AST (17-59) U/L ALT (4-49) U/L Alkaline Phosphatase (38-126) U/L Troponin I <0.012 (0.000-0.034) ng/mL Total Protein (6.3-8.2) g/dL Albumin (3.5-5.0) g/dL - EKG Data -: EKG Interpreted by Co EKG Comments: Ventricular rate 101 bpm, MI interval *, QRS duration on milliseconds, QT/QTC 360/409 ms, PheartT axes */119/3. Atrial flutter with variable AV block, low voltage QRS, septal infarct age undetermined, lateral infarct age undetermined, abnormal ECG. - Radiology Data Radiology results: report reviewed, image reviewed Correlate for CHF, otherwise consider atypical or interstitial pneumonia. Disposition Clinical Impression: Atypical pneumonia Disposition: HOME SELF-CARE Condition: Stable Instructions (If sedation given, give patient instructions): Pneumonia (ED) Additional Instructions: Please return to the Emergency Department if symptoms worsen or any other concerns. Follow-up with primary care 1-2 days. 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 Take antibiotics as prescribed until complete. Prescriptions: Levofloxacin [Levaquin] 500 mg PO DAILY #10 tab Is patient prescribed a controlled substance at d/c from ED?: No Referrals: Vance Lopez DO [Primary Care Provider] - 1-2 days Time of Disposition: 11:41
[2020-08-02 11:08] LABS: Basophils % (A) 0 %; Eosinophils # (A) 0.1 k/uL (0-0.7); Eosinophils % (A) 1 %; HCT 44.7 % (39.0-53.0); HGB 14.6 gm/dL (13.0-17.5); Lymphocytes # (A) 1.5 k/uL (1.0-4.8); Lymphocytes % (A) 22 %; MCH 28.7 pg (25.0-35.0); MCHC 32.6 g/dL (31.0-37.0); MCV 88.1 fL (80.0-100.0); Mean Platelet Volume 10.1; Monocytes # (A) 0.4 k/uL (0-1.0); Monocytes % (A) 6 %; Neutrophils # (A) 4.7 k/uL (1.3-7.7); Neutrophils % (A) 69 %; Platelet Count 149 k/uL (150-450); RBC 5.08 m/uL (4.30-5.90); RDW 14.5 % (11.5-15.5); WBC 6.8 k/uL (3.8-10.6)
--- NOTE | 2020-08-02 11:08 | XR ---
EXAMINATION TYPE: XR chest 2V DATE OF EXAM: 08/02/2020 COMPARISON: NONE TECHNIQUE: PA and lateral views submitted. HISTORY: Shortness of breath FINDINGS: Heart is enlarged and there is a diffuse interstitial pattern with bilateral infiltrate and small eff usion. No sizable pneumothorax. Arthropathy of the shoulders and diffuse osteopenia. Postsurgical tiffanie nges including prosthetic heart valve. Degenerative change of the spine. IMPRESSION: 1. Correlate for CHF, otherwise consider atypical or interstitial pneumonia.
[2020-08-02 11:17] LABS: ALT 36 U/L (4-49); AST 30 U/L (17-59); African American GFR (CKD) >90 (>60 ml/min/1.73 sqM); Albumin 4.3 g/dL (3.5-5.0); Alkaline Phosphatase 54 U/L (38-126); Anion Gap 8 mmol/L; Blood Urea Nitrogen 20 mg/dL (9-20); Calcium 9.4 mg/dL (8.4-10.2); Carbon Dioxide 24 mmol/L (22-30); Chloride 103 mmol/L (98-107); Glucose 119 mg/dL (74-99); Magnesium 1.9 mg/dL (1.6-2.3); Non-African American GFR(CKD) >90 (>60 ml/min/1.73 sqM); Potassium 4.6 mmol/L (3.5-5.1); Sodium 135 mmol/L (137-145); Total Bilirubin 0.9 mg/dL (0.2-1.3); Total Protein 6.9 g/dL (6.3-8.2)
[2020-08-02 11:26] LABS: D-Dimer 0.36 mg/L FEU (<0.60); INR 1.2 (<1.2); Partial Thromboplastin Time 28.3 sec (22.0-30.0); Prothrombin Time 12.1 sec (9.0-12.0)
[2020-08-02] MEDS ORDERED: cefTRIAXone IN SWFI 1,000 MG/10 ML SYRINGE IVP STA (11:34)
[2020-08-02 12:09] VITALS: BP 110/62; PULSE 84; RESP 18; TEMP 97.9
== END 2020-08-02 12:08 | disposition home or self-care (01) ==
LOC: EC 10:17
DX: J18.9 Pneumonia, unspecified organism (principal); R00.0 Tachycardia, unspecified; I48.91 Unspecified atrial fibrillation; E11.9 Type 2 diabetes mellitus without complications; K21.9 Gastro-esophageal reflux disease without esophagitis; E78.5 Hyperlipidemia, unspecified; I10 Essential (primary) hypertension; M19.90 Unspecified osteoarthritis, unspecified site; N40.0 Benign prostatic hyperplasia without lower urinary tract symptoms; Z79.82 Long term (current) use of aspirin; Z79.84 Long term (current) use of oral hypoglycemic drugs; Z79.899 Other long term (current) drug therapy; Z79.01 Long term (current) use of anticoagulants; Z88.8 Allergy status to other drugs, medicaments and biological substances; Z86.69 Personal history of other diseases of the nervous system and sense organs; Z95.5 Presence of coronary angioplasty implant and graft; Z95.3 Presence of xenogenic heart valve
CPT/HCPCS: 36415; 93005; 85379; 80053; 83605; 83735; 84484; 85025; 85610; 85730; 71046; 99285; 96374; J0696

== ENCOUNTER 2020-09-03 06:45 | Inpatient (IN) | payer MEDICAID, MEDICARE ==
--- NOTE | 2020-09-03 07:07 | ED ---
General Adult HPI - General Chief complaint: Extremity Problem,Nontraumatic Stated complaint: leg swelling Time Seen by Provider: 09/03/20 06:48 Source: patient Mode of arrival: ambulatory Limitations: no limitations - History of Present Illness Initial comments: 69-year-old male patient with past medical history significant for atrial fibrillation, diabetes mellitus, hyperlipidemia, hypertension, cardiac ablation, valve replacements presents to the emergency department today for evaluation of dizziness. He states he was in the shower he became dizzy. States is generally does not happen to him. We will also is reporting increased swelling to the lower extremities. States he has been treated for pneumonia over the last 5 weeks, completed a 10 day course of Levaquin. States he is still coughing and bringing up sputum. States his sputum is clear. Denies significant shortness of breath. States he has been in atrial fibrillation with elevated heart rates and Dr. Perrin wanted to do another ablation but was waiting until the pneumonia was clear. Patient denies any recent rash, fever, chills, chest pain, abdominal pain, nausea, vomiting, diarrhea, constipation, back pain, numbness, tingling, hematuria, dysuria, urinary urgency, urinary frequency, headache, visual changes, or any other complaints. - Related Data Home Medications Medication Instructions Recorded Confirmed Aspirin [Adult Low Dose Aspirin EC] 81 mg PO DAILY@1200 07/26/16 08/02/20 Spironolactone [Aldactone] 25 mg PO DAILY@1200 07/26/16 08/02/20 Losartan [Cozaar] 12.5 mg PO DAILY 03/28/17 08/02/20 Duo Fusion 1 tab PO BID PRN 01/08/18 08/02/20 Ergocalciferol [Vitamin D2 (1250 1,250 mcg PO TU 07/17/20 08/02/20 Mcg = 05981 Iu)] Rivaroxaban [Xarelto] 20 mg PO HS 07/17/20 08/02/20 metFORMIN HCL [Glucophage] 500 mg PO BID 07/17/20 08/02/20 Metoprolol Succinate [Toprol XL] 100 mg PO DAILY 08/02/20 08/02/20 Rosuvastatin [Crestor] 20 mg PO HS 08/02/20 08/02/20 metFORMIN HCL 1,000 mg PO DAILY@1200 08/02/20 08/02/20 Previous Rx's Medication Instructions Recorded Levofloxacin [Levaquin] 500 mg PO DAILY #10 tab 08/02/20 Allergies Allergy/AdvReac Type Severity Reaction Status Date / Time atorvastatin [From Lipitor] AdvReac muscle Verified 09/03/20 06:54 weakness Review of Systems ROS Statement: Those systems with pertinent positive or pertinent negative responses have been documented in the HPI. ROS Other: All systems not noted in ROS Statement are negative. Past Medical History Past Medical History: Atrial Fibrillation, Diabetes Mellitus, GERD/Reflux, Hyperlipidemia, Hypertension, Musculoskeletal Disorder, Osteoarthritis (OA), Prostate Disorder, Skin Disorder Additional Past Medical History / Comment(s): Bovine Aortic heart valve. 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 Having increased shortness of breath w/ exertion, ongoing AFib. History of Any Multi-Drug Resistant Organisms: None Reported Past Surgical History: Cardiac Ablation, Cardiac Valve Replacement, Heart Catheterization Additional Past Surgical History / Comment(s): Aortic Valve-2004, Anal Fistula Repair, Cardiac Ablation x2 Past Anesthesia/Blood Transfusion Reactions: Family History of Problems w/ Anesthesia Additional Past Anesthesia/Blood Transfusion Reaction / Comment(s): Mother - PONV Past Psychological History: No Psychological Hx Reported Smoking Status: Never smoker Past Alcohol Use History: None Reported Past Drug Use History: None Reported - Past Family History Mother Family Medical History: No Reported History General Exam Limitations: no limitations General appearance: alert, in no apparent distress, other (Physical well- developed, well-nourished adult male patient in no acute distress. Vital signs upon presentation are temperature 97.9F, pulse 114, respirations 20, blood pressure 119/84, pulse ox 97% on room air.) Eye exam: Present: normal appearance, PERRL, EOMI. Absent: scleral icterus, conjunctival injection, periorbital swelling ENT exam: Present: normal exam, normal oropharynx, mucous membranes moist Respiratory exam: Present: rales (Left lower lobe). Absent: normal lung sounds bilaterally, respiratory distress, wheezes, rhonchi, stridor Cardiovascular Exam: Present: regular rate, normal rhythm, normal heart sounds. Absent: systolic murmur, diastolic murmur, rubs, gallop, clicks GI/Abdominal exam: Present: soft, normal bowel sounds. Absent: distended, te nderness, guarding, rebound, rigid Extremities exam: Present: full ROM, normal capillary refill, other (Swelling to the lower legs and feet, 2+ pitting. Skin is pink, warm, dry. Cap refill less than 3 seconds. Pedal pulses 2+.). Absent: tenderness, pedal edema, joint swe lling, calf tenderness Neurological exam: Present: alert, oriented X3, CN II-XII intact Psychiatric exam: Present: normal affect, normal mood Skin exam: Present: warm, dry, intact, normal color. Absent: rash Course Vital Signs 09/03/20 09/03/20 06:48 09:06 Temperature 97.9 F Pulse Rate 114 H 98 Respiratory 20 Rate Blood Pressure 119/84 105/84 O2 Sat by Pulse 97 Oximetry EKG Findings - EKG Comments: EKG Findings:: EKG obtained at 659 shows A. fib with RVR. Ventricular rate is 108, QRS duration 100, QT 306, QTc 410. No evidence of ST elevation or depression. Medical Decision Making - Medical Decision Making 69-year-old male patient presents to the emergency department today for evaluation of dizziness, shortness of breath, and lower extremity swelling. Physical examination did reveal 2+ pitting edema to the lower legs. Labs reviewed and did reveal normal white blood cell count. BNP is 12,300, troponin is negative. Tested negative for COVID-19. Chest x-ray did show a nonspecific infiltrates with mild cardiomegaly. Patient symptoms consistent with congestive heart failure. He did have a previous echo that was 40-45% ejection fraction. He does currently take Lasix so his dose was decreased recently. We'll give dose of Lasix here in the emergency department. He'll be admitted to the hospital for further evaluation by cardiology. Dr. Dodson is accepting. Case discussed with Dr. Vega. - Lab Data Result diagrams: 09/03/20 07:07 09/03/20 07:07 Lab Results 09/03/20 09/03/20 09/03/20 Range/Units 07:07 07:07 07:07 WBC 7.2 (3.8-10.6) k/uL RBC 5.06 (4.30-5.90) m/uL Hgb 14.9 (13.0-17.5) gm/dL Hct 45.1 (39.0-53.0) % MCV 89.3 (80.0-100.0) fL MCH 29.4 (25.0-35.0) pg MCHC 32.9 (31.0-37.0) g/dL RDW 14.6 (11.5-15.5) % Plt Count 104 L (150-450) k/uL MPV 11.0 Neutrophils % 73 % Lymphocytes % 18 % Monocytes % 6 % Eosinophils % 1 % Basophils % 1 % Neutrophils # 5.3 (1.3-7.7) k/uL Lymphocytes # 1.3 (1.0-4.8) k/uL Monocytes # 0.4 (0-1.0) k/uL Eosinophils # 0.1 (0-0.7) k/uL Basophils # 0.0 (0-0.2) k/uL PT 14.8 H (9.0-12.0) sec INR 1.5 H (<1.2) APTT 28.2 (22.0-30.0) sec Sodium (137-145) mmol/L Potassium (3.5-5.1) mmol/L Chloride (98-107) mmol/L Carbon Dioxide (22-30) mmol/L Anion Gap mmol/L BUN (9-20) mg/dL Creatinine (0.66-1.25) mg/dL Est GFR (CKD-EPI)AfAm (>60 ml/min/1.73 sqM) Est GFR (CKD-EPI)NonAf (>60 ml/min/1.73 sqM) Glucose (74-99) mg/dL Calcium (8.4-10.2) mg/dL Total Bilirubin (0.2-1.3) mg/dL AST (17-59) U/L ALT (4-49) U/L Alkaline Phosphatase (38-126) U/L Troponin I (0.000-0.034) ng/mL NT-Pro-B Natriuret Pep pg/mL Total Protein (6.3-8.2) g/dL Albumin (3.5-5.0) g/dL Urine Color Yellow Urine Appearance Clear (Clear) Urine pH 5.5 (5.0-8.0) Ur Specific [place] 1.013 (1.001-1.035) Urine Protein 1+ H (Negative) Urine Glucose (UA) Negative (Negative) Urine Ketones Negative (Negative) Urine Blood Negative (Negative) Urine Nitrite Negative (Negative) Urine Bilirubin Negative (Negative) Urine Urobilinogen <2.0 (<2.0) mg/dL Ur Leukocyte Esterase Negative (Negative) Urine RBC 1 (0-5) /hpf Urine WBC 4 (0-5) /hpf Ur Squamous Epith Cells <1 (0-4) /hpf Hyaline Casts 11 H (0-2) /lpf Urine Mucus Few H (None) /hpf Coronavirus (PCR) (Not Detectd) 09/03/20 09/03/20 09/03/20 Range/Units 07:07 07:07 07:07 WBC (3.8-10.6) k/uL RBC (4.30-5.90) m/uL Hgb (13.0-17.5) gm/dL Hct (39.0-53.0) % MCV (80.0-100.0) fL MCH (25.0-35.0) pg MCHC (31.0-37.0) g/dL RDW (11.5-15.5) % Plt Count (150-450) k/uL MPV Neutrophils % % Lymphocytes % % Monocytes % % Eosinophils % % Basophils % % Neutrophils # (1.3-7.7) k/uL Lymphocytes # (1.0-4.8) k/uL Monocytes # (0-1.0) k/uL Eosinophils # (0-0.7) k/uL Basophils # (0-0.2) k/uL PT (9.0-12.0) sec INR (<1.2) APTT (22.0-30.0) sec Sodium 131 L (137-145) mmol/L Potassium 4.5 (3.5-5.1) mmol/L Chloride 101 (98-107) mmol/L Carbon Dioxide 21 L (22-30) mmol/L Anion Gap 9 mmol/L BUN 26 H (9-20) mg/dL Creatinine 0.71 (0.66-1.25) mg/dL Est GFR (CKD-EPI)AfAm >90 (>60 ml/min/1.73 sqM) Est GFR (CKD-EPI)NonAf >90 (>60 ml/min/1.73 sqM) Glucose 204 H (74-99) mg/dL Calcium 8.8 (8.4-10.2) mg/dL Total Bilirubin 1.4 H (0.2-1.3) mg/dL AST 57 (17-59) U/L ALT 78 H (4-49) U/L Alkaline Phosphatase 107 (38-126) U/L Troponin I <0.012 (0.000-0.034) ng/mL NT-Pro-B Natriuret Pep 09578 pg/mL Total Protein 6.4 (6.3-8.2) g/dL Albumin 4.0 (3.5-5.0) g/dL Urine Color Urine Appearance (Clear) Urine pH (5.0-8.0) Ur Specific [place] (1.001-1.035) Urine Protein (Negative) Urine Glucose (UA) (Negative) Urine Ketones (Negative) Urine Blood (Negative) Urine Nitrite (Negative) Urine Bilirubin (Negative) Urine Urobilinogen (<2.0) mg/dL Ur Leukocyte Esterase (Negative) Urine RBC (0-5) /hpf Urine WBC (0-5) /hpf Ur Squamous Epith Cells (0-4) /hpf Hyaline Casts (0-2) /lpf Urine Mucus (None) /hpf Coronavirus (PCR) (Not Detectd) 09/03/20 Range/Units 07:07 WBC (3.8-10.6) k/uL RBC (4.30-5.90) m/uL Hgb (13.0-17.5) gm/dL Hct (39.0-53.0) % MCV (80.0-100.0) fL MCH (25.0-35.0) pg MCHC (31.0-37.0) g/dL RDW (11.5-15.5) % Plt Count (150-450) k/uL MPV Neutrophils % % Lymphocytes % % Monocytes % % Eosinophils % % Basophils % % Neutrophils # (1.3-7.7) k/uL Lymphocytes # (1.0-4.8) k/uL Monocytes # (0-1.0) k/uL Eosinophils # (0-0.7) k/uL Basophils # (0-0.2) k/uL PT (9.0-12.0) sec INR (<1.2) APTT (22.0-30.0) sec Sodium (137-145) mmol/L Potassium (3.5-5.1) mmol/L Chloride (98-107) mmol/L Carbon Dioxide (22-30) mmol/L Anion Gap mmol/L BUN (9-20) mg/dL Creatinine (0.66-1.25) mg/dL Est GFR (CKD-EPI)AfAm (>60 ml/min/1.73 sqM) Est GFR (CKD-EPI)NonAf (>60 ml/min/1.73 sqM) Glucose (74-99) mg/dL Calcium (8.4-10.2) mg/dL Total Bilirubin (0.2-1.3) mg/dL AST (17-59) U/L ALT (4-49) U/L Alkaline Phosphatase (38-126) U/L Troponin I (0.000-0.034) ng/mL NT-Pro-B Natriuret Pep pg/mL Total Protein (6.3-8.2) g/dL Albumin (3.5-5.0) g/dL Urine Color Urine Appearance (Clear) Urine pH (5.0-8.0) Ur Specific [place] (1.001-1.035) Urine Protein (Negative) Urine Glucose (UA) (Negative) Urine Ketones (Negative) Urine Blood (Negative) Urine Nitrite (Negative) Urine Bilirubin (Negative) Urine Urobilinogen (<2.0) mg/dL Ur Leukocyte Esterase (Negative) Urine RBC (0-5) /hpf Urine WBC (0-5) /hpf Ur Squamous Epith Cells (0-4) /hpf Hyaline Casts (0-2) /lpf Urine Mucus (None) /hpf Coronavirus (PCR) Not Detected (Not Detectd) - Radiology Data Radiology results: report reviewed, image reviewed One view x-ray of the chest is obtained. Report was reviewed in its entirety. Impression by Dr. Hartmann shows nonspecific basilar infiltrates. Correlate for atypical pneumonia and subsegmental atelectasis. Mild cardiomegaly. Disposition Clinical Impression: CHF (congestive heart failure), Afib Disposition: ADMITTED IP TO THIS [facility] Condition: Serious Decision to Admit Reason: Admit from EC Decision Date: 09/03/20 Decision Time: 08:53
[2020-09-03 07:29] LABS: Basophils % (A) 1 %; Eosinophils # (A) 0.1 k/uL (0-0.7); Eosinophils % (A) 1 %; HCT 45.1 % (39.0-53.0); HGB 14.9 gm/dL (13.0-17.5); Lymphocytes # (A) 1.3 k/uL (1.0-4.8); Lymphocytes % (A) 18 %; MCH 29.4 pg (25.0-35.0); MCHC 32.9 g/dL (31.0-37.0); MCV 89.3 fL (80.0-100.0); Monocytes # (A) 0.4 k/uL (0-1.0); Monocytes % (A) 6 %; Neutrophils # (A) 5.3 k/uL (1.3-7.7); Neutrophils % (A) 73 %; Platelet Count 104 k/uL (150-450); RBC 5.06 m/uL (4.30-5.90); RDW 14.6 % (11.5-15.5); WBC 7.2 k/uL (3.8-10.6)
[2020-09-03 07:38] LABS: ALT 78 U/L (4-49); African American GFR (CKD) >90 (>60 ml/min/1.73 sqM); Anion Gap 9 mmol/L; Blood Urea Nitrogen 26 mg/dL (9-20); Calcium 8.8 mg/dL (8.4-10.2); Carbon Dioxide 21 mmol/L (22-30); Chloride 101 mmol/L (98-107); Glucose 204 mg/dL (74-99); Non-African American GFR(CKD) >90 (>60 ml/min/1.73 sqM); Sodium 131 mmol/L (137-145); Total Bilirubin 1.4 mg/dL (0.2-1.3); Total Protein 6.4 g/dL (6.3-8.2)
[2020-09-03 07:44] LABS: AST 57 U/L (17-59); Alkaline Phosphatase 107 U/L (38-126); Potassium 4.5 mmol/L (3.5-5.1)
[2020-09-03 07:45] LABS: INR 1.5 (<1.2); Partial Thromboplastin Time 28.2 sec (22.0-30.0); Prothrombin Time 14.8 sec (9.0-12.0)
--- NOTE | 2020-09-03 07:54 | XR ---
EXAMINATION TYPE: XR chest 1V portable DATE OF EXAM: 09/03/2020 COMPARISON: 08/02/2020 INDICATION: Cough and sputum production TECHNIQUE: Single frontal view of the chest is obtained. FINDINGS: The heart size is enlarged. The pulmonary vasculature is normal. Bibasilar infiltrates are present which are nonspecific. Correlate for atelectasis. Atypical pneumoni a could be considered. IMPRESSION: 1. Nonspecific bibasilar infiltrates. Correlate for atypical pneumonia and subsegmental atelectasis. 2. Mild cardiomegaly
[2020-09-03 07:59] LABS: Appearance,Urine Clear (Clear); Bilirubin,Urine Negative (Negative); Blood,Urine Negative (Negative); Color,Urine Yellow; Glucose,Urine (UA) Negative (Negative); Hyaline Casts,Urine 11 /lpf (0-2); Ketones,Urine Negative (Negative); Leukocyte Esterase,Urine Negative (Negative); Mucus,Urine Few /hpf; Nitrite,Urine Negative (Negative); PH, Urine 5.5 (5.0-8.0); Protein,Urine 1+ (Negative); RBC,Urine 1 /hpf (0-5); Specific Gravity,Urine 1.013 (1.001-1.035); Squamous Epithelial Cell,Urine <1 /hpf (0-4); Urobilinogen,Urine <2.0 mg/dL (<2.0); WBC,Urine 4 /hpf (0-5)
[2020-09-03] MEDS ORDERED: FUROSEMIDE 10 MG/ML 4 ML VIAL IV STA (08:03)
[2020-09-03] MEDS ORDERED: NALOXONE 0.4 MG/ML 1 ML VIAL IV PRN (08:50)
[2020-09-03] MEDS ORDERED: METOPROLOL SUCCINATE (ER) 100 MG TAB.ER.24H PO STA (08:50)
[2020-09-03] MEDS ORDERED: LOSARTAN 25 MG TAB PO STA (08:50)
[2020-09-03] MEDS: METOPROLOL SUCCINATE (ER) 100 MG TAB.ER.24H PO SCH (10:56)
[2020-09-03 12:24] LABS: Glucose,Whole Blood 115 mg/dL (75-99)
[2020-09-03] MEDS: POTASSIUM CHLORIDE ER 20 MEQ TAB.ER PO SCH (12:38)
[2020-09-03] MEDS: INSULIN ASPART (NovoLOG) 100 UNIT/ML VIAL SQ SCH ×3 (12:39→21:22)
--- NOTE | 2020-09-03 13:59 | ECHOF ---
Referral Reason:CHF MEASUREMENTS -------- HEIGHT: 172.7 cm WEIGHT: 86.2 kg BP: 119/84 RVIDd: 4.1 cm (< 3.3) IVSd: 1.3 cm (0.6 - 1.1) LVIDd: 6.3 cm (3.9 - 5.3) LVPWd: 1.5 cm (0.6 - 1.1) IVSs: 1.8 cm LVIDs: 4.8 cm LVPWs: 1.6 cm LAESV Index (A-L): 63.54 ml/m IVSd: 1.3 cm (0.6 - 1.1) LVIDd: 7.2 cm (3.9 - 5.3) LVPWd: 1.4 cm (0.6 - 1.1) IVSs: 2.0 cm LVIDs: 5.6 cm LVPWs: 1.8 cm EDV(Teich): 268 ml ESV(Teich): 155 ml EF(Teich): 42 % %FS: 21 % SV(Teich): 113 ml Ao Diam: 3.7 cm (2.0 - 3.7) AV Cusp: 1.0 cm (1.5 - 2.6) MV EXCURSION: 18.742 mm (> 18.000) MV EF SLOPE: 147 mm/s (70 - 150) EPSS: 2.1 cm AV maxP.71 mmHg AV meanP.92 mmHg AR PHT: 317 ms RAP: 5.00 mmHg RVSP: 31.30 mmHg FINDINGS -------- Atrial fibrillation. This was a technically difficult study with suboptimal apical views. The left ventricle is moderately dilated. There is mild concentric left ventricular hypertrophy. Overall left ventricular systolic function is severely impaired with, an EF between 25 - 30 %. Mitr al Doppler inflow pattern suggests diastolic filling abnormality {E/E'}. Global hypokinesis The right ventricle is moderate to severely enlarged. LA is severely dilated >40 ml/m2 The right atrium was not well visualized. Lumason used Interatrial and interventricular septum intact. There is mild regurgitation of the bioprosthetic aortic valve. There is moderate-severe stenosis of the bioprosthetic aortic valve, however dimensionless index of 0.18 concerning for low flow low grad ient severe aortic stenosis. Would recommend low dose dobutamine stress echo or PAULINE to further inves tigate if clinically warranted. Ilchoqol-iv-fhmqnt mitral regurgitation is present. Mild tricuspid regurgitation present. There is no evidence of pulmonary hypertension. The right v entricular systolic pressure, as measured by Doppler, is 31.30mmHg. There is no pulmonic regurgitation present. The aortic root size is normal. IVC Not well visulized. There is a trivial pericardial effusion present. Large Pleural Effusion. CONCLUSIONS -------- 1. The left ventricle is moderately dilated. 2. There is mild concentric left ventricular hypertrophy. 3. Overall left ventricular systolic function is severely impaired with, an EF between 25 - 30 %. 4. Mitral Doppler inflow pattern suggest diastolic filling abnormality {E/E'}. 5. Global hypokinesis 6. The right ventricle is moderate to severely enlarged. 7. LA is severely dilated >40 ml/m2 8. There is mild regurgitation of the bioprosthetic aortic valve. 9. There is moderate-severe stenosis of the bioprosthetic aortic valve, however dimensionless index o f 0.18 concerning for low flow low gradient severe aortic stenosis. Would recommend low dose dobutam ine stress echo or PAULINE to further investigate if clinically warranted. 10. Nhhsagry-fm-fpfqcq mitral regurgitation is present. 11. Mild tricuspid regurgitation present. 12. There is a trivial pericardial effusion present. 13. Large Pleural Effusion. PARTITION ASSEMBLY MACHINE OPERATOR: Niecy Ray RDCS
--- NOTE | 2020-09-03 14:49 | P.HPIM ---
History of Present Illness 69-year-old male came in with complaints of increasing pedal edema orthopnea proximal nocturnal dyspnea exertional shortness of breath with the cough with brownish sputum production. All the symptoms started about 5 weeks ago patient was diagnosed with atypical pneumonia was on levofloxacin for 10 days without any significant improvement. Patient does have history of congestive heart failure previous EF of around 40-45%. Echocardiogram was repeated today which showed EF of around 30-35% patient has a highly elevated BNP elevated JVD elevated to an increased pedal edema. Patient was started on IV Lasix. Review of Systems REVIEW OF SYSTEMS: CONSTITUTIONAL: No fever, no malaise, no fatigue. HEENT: No recent visual problems or hearing problems. Denied any sore throat. CARDIOVASCULAR: No chest pain, no palpitations, no syncope. PULMONARY: no hemoptysis. GASTROINTESTINAL: No diarrhea, no nausea, no vomiting, no abdominal pain. NEUROLOGICAL: No headaches, no weakness, no numbness. HEMATOLOGICAL: Denies any bleeding or petechiae. GENITOURINARY: Denies any burning micturition, frequency, or urgency. MUSCULOSKELETAL/RHEUMATOLOGICAL: Denies any joint pain, swelling, or any muscle pain. ENDOCRINE: Denies any polyuria or polydipsia. The rest of the 14-point review of systems is negative. Past Medical History Past Medical History: Atrial Fibrillation, Diabetes Mellitus, GERD/Reflux, Hyperlipidemia, Hypertension, Musculoskeletal Disorder, Osteoarthritis (OA), Prostate Disorder, Skin Disorder Additional Past Medical History / Comment(s): Bovine Aortic heart valve. 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 Having increased shortness of breath w/ exertion, ongoing AFib. History of Any Multi-Drug Resistant Organisms: None Reported Past Surgical History: Cardiac Ablation, Cardiac Valve Replacement, Heart Catheterization Additional Past Surgical History / Comment(s): Aortic Valve-2004, Anal Fistula Repair, Cardiac Ablation x2 Past Anesthesia/Blood Transfusion Reactions: Family History of Problems w/ Anesthesia Additional Past Anesthesia/Blood Transfusion Reaction / Comment(s): Mother - PONV Past Psychological History: No Psychological Hx Reported Smoking Status: Never smoker Past Alcohol Use History: None Reported Past Drug Use History: None Reported - Past Family History Mother Family Medical History: No Reported History Medications and Allergies Home Medications Medication Instructions Recorded Confirmed Type Aspirin [Adult Low Dose Aspirin EC] 81 mg PO DAILY 07/26/16 09/03/20 History Losartan [Cozaar] 12.5 mg PO DAILY 03/28/17 09/03/20 History Rivaroxaban [Xarelto] 20 mg PO HS 07/17/20 09/03/20 History metFORMIN HCL [Glucophage] 500 mg PO BID 07/17/20 09/03/20 History Metoprolol Succinate [Toprol XL] 100 mg PO DAILY 08/02/20 09/03/20 History Rosuvastatin [Crestor] 20 mg PO HS 08/02/20 09/03/20 History metFORMIN HCL 1,000 mg PO DAILY@1200 08/02/20 09/03/20 History Cholecalciferol [Vitamin D3 (25 50 mcg PO DAILY 09/03/20 09/03/20 History Mcg = 1000 Iu)] Furosemide [Lasix] 40 mg PO BID@0530,1200 09/03/20 09/03/20 History Potassium Chloride [Klor-Con 20] 20 meq PO BID@0530,1200 09/03/20 09/03/20 History Allergies Allergy/AdvReac Type Severity Reaction Status Date / Time atorvastatin [From Lipitor] AdvReac muscle Verified 09/03/20 10:21 weakness Physical Exam Vitals: Vital Signs Temp Pulse Resp BP Pulse Ox 09/03/20 14:00 90 18 98/61 96 09/03/20 13:00 88 18 94/65 96 09/03/20 12:00 88 18 102/61 96 09/03/20 11:15 88 18 102/70 96 09/03/20 09:06 98 105/84 09/03/20 06:48 97.9 F 114 H 20 119/84 97 Intake and Output 09/02/20 09/03/20 09/03/20 22:59 06:59 14:59 Other: Weight 86.183 kg PHYSICAL EXAMINATION: GENERAL: The patient is alert and oriented x3, not in any acute distress. Well developed, well nourished. HEENT: Pupils are round and equally reacting to light. EOMI. No scleral icterus. No conjunctival pallor. Normocephalic, atraumatic. No pharyngeal erythema. No thyromegaly. CARDIOVASCULAR: S1 and S2 present. No murmurs, rubs, or gallops. Elevated JVD irregularly irregular rhythm tachycardic PULMONARY: Chest is clear to auscultation, no wheezing or crackles. ABDOMEN: Soft, nontender, nondistended, normoactive bowel sounds. No palpable organomegaly. MUSCULOSKELETAL: No joint swelling or deformity. EXTREMITIES: No cyanosis, clubbing, 2+ pitting pedal edema extending up to bilat eral knees NEUROLOGICAL: Gross neurological examination did not reveal any focal deficits. SKIN: No rashes. Results CBC & Chem 7: 09/03/20 07:07 09/03/20 07:07 Labs: Abnormal Lab Results - Last 24 Hours (Table) 09/03/20 09/03/20 09/03/20 Range/Units 07:07 07:07 07:07 Plt Count 104 L (150-450) k/uL PT 14.8 H (9.0-12.0) sec INR 1.5 H (<1.2) Sodium (137-145) mmol/L Carbon Dioxide (22-30) mmol/L BUN (9-20) mg/dL Glucose (74-99) mg/dL POC Glucose (mg/dL) (75-99) mg/dL Total Bilirubin (0.2-1.3) mg/dL ALT (4-49) U/L Urine Protein 1+ H (Negative) Hyaline Casts 11 H (0-2) /lpf Urine Mucus Few H (None) /hpf 09/03/20 09/03/20 Range/Units 07:07 12:22 Plt Count (150-450) k/uL PT (9.0-12.0) sec INR (<1.2) Sodium 131 L (137-145) mmol/L Carbon Dioxide 21 L (22-30) mmol/L BUN 26 H (9-20) mg/dL Glucose 204 H (74-99) mg/dL POC Glucose (mg/dL) 115 H (75-99) mg/dL Total Bilirubin 1.4 H (0.2-1.3) mg/dL ALT 78 H (4-49) U/L Urine Protein (Negative) Hyaline Casts (0-2) /lpf Urine Mucus (None) /hpf Assessment and Plan Plan: -Congestive heart failure chronic systolic dysfunction EF of around 30-35% with acute exacerbation: Patient will be continued on IV Lasix because of hypotension patient's losartan will be held temporarily. -Atrial fibrillation with rapid ventricular rate. Patient heart rate is a low 100s at this time will resume metoprolol. Resume anticoagulation. -Gastroesophageal reflux disease 11 hyperlipidemia -Hypertension and patient is presently hypotensive heart failure. Hypervolemic hyponatremia expected improvement IV Lasix -Benign prostatic hypertrophy -History of aortic stenosis with valve replacement and cardiac ablation in the past
[2020-09-03 17:05] LABS: Glucose,Whole Blood 164 mg/dL (75-99)
[2020-09-03] MEDS ORDERED: FUROSEMIDE 10 MG/ML 4 ML VIAL IV SCH (21:00)
[2020-09-03] MEDS: NON FORMULARY DRUG (Rosuvastatin 20 MG Tablet) PO SCH (21:04)
[2020-09-03 21:14] LABS: Glucose,Whole Blood 111 mg/dL (75-99)
[2020-09-03] MEDS: RIVAROXABAN 20 MG TAB PO SCH (21:21)
[2020-09-04 05:34] LABS: ALT 59 U/L (4-49); AST 31 U/L (17-59); African American GFR (CKD) >90 (>60 ml/min/1.73 sqM); Albumin 3.5 g/dL (3.5-5.0); Alkaline Phosphatase 74 U/L (38-126); Anion Gap 5 mmol/L; Blood Urea Nitrogen 29 mg/dL (9-20); Calcium 8.8 mg/dL (8.4-10.2); Carbon Dioxide 29 mmol/L (22-30); Chloride 98 mmol/L (98-107); Glucose 171 mg/dL (74-99); Non-African American GFR(CKD) 89 (>60 ml/min/1.73 sqM); Potassium 4.3 mmol/L (3.5-5.1); Sodium 132 mmol/L (137-145); Total Bilirubin 1.2 mg/dL (0.2-1.3); Total Protein 5.8 g/dL (6.3-8.2)
[2020-09-04 08:55] LABS: Glucose,Whole Blood 135 mg/dL (75-99)
[2020-09-04] MEDS: SPIRONOLACTONE 25 MG TAB PO SCH (09:03)
[2020-09-04] MEDS: POTASSIUM CHLORIDE ER 20 MEQ TAB.ER PO SCH ×2 (09:03→11:25)
[2020-09-04] MEDS: ASPIRIN 81 MG PO SCH (09:03)
[2020-09-04] MEDS: INSULIN ASPART (NovoLOG) 100 UNIT/ML VIAL SQ SCH ×4 (09:04→21:45)
[2020-09-04] MEDS: FUROSEMIDE 10 MG/ML 4 ML VIAL IV SCH ×3 (09:04→23:38)
[2020-09-04] MEDS: METOPROLOL SUCCINATE (ER) 100 MG TAB.ER.24H PO SCH (09:18)
--- NOTE | 2020-09-04 10:07 | P.CRDCN ---
History of Present Illness History of present illness: HISTORY OF PRESENTING ILLNESS This is a pleasant 69-year-old male past medical history significant for bicuspid aortic valve status post bioprosthetic aortic valve replacement, persistent atrial fibrillation s/p failed cardioversion, diabetes mellitus, hypertension, dyslipidemia, SVT s/p ablation, PVC ablation and recent worsening non-ischemic cardiomyopathy thought to be related to afib. He follows in the office with Dr. Perrin. We have been asked to see in consultation for heart failure. He was first noted to be in atrial fibrillation July 03 in the office. His murmur at that time also sounded worse. PAULINE/CV was recommended. PAULINE 07/21/20 revealed bioprosthetic valve with moderate to severe aortic stenosis, a V-max 3.23 with a mean gradient of 23 mmHg with possibility of low flow gradient aortic stenosis. Mitral valve is normal-appearing with moderate central mitral regurgitation. LV systolic function was 40-45% with global hypokinesia noted. The cardioversion was initially successful however he had immediate recurrence of afib. He has been in afib since that time. He has been in and out of the hospital frequently due to pneumonia, afib and heart failure. He states since June he has been tired, weak, short of breath and no appetitie. He has been adjusting his diuretics with his PCP and also finished a course of antibiotics for pneumonia. Last week he was feeling exhausted and still had no appetite so he started drinking pedilyte for a few days. He then started noticing an increase in lower extremity edema, worsening shortness of breath, PND, orthopnea and increased fatigue with even simple activities. Repeat echocardiogram obtained on this admission reveals impaired LV systolic function with EF 25-30%, global LV hypokinesia, moderate-severely enlarged LA and RV, mild regurgitation of the prosthetic aortic valve, moderate-severe stenosis of the AV with dimensions of 0.18 concerning for low flow low gradient severe , moderate- severe MR, mild TR and large pleural effusion noted on the left. He also underwent a stress echo 04/2020 revealing EKG abnormalities with no echocardiographic evidence of ischemia and sustained SVT into recovery. DIAGNOSTICS EKG reveals atrial fibrillation with rate of 108, poor R-wave progression and right axis deviation. Telemetry tracings indicate atrial fibrillation with variable ventricular rates. Chest xray basilar infiltrates, atypical pneumonia. Laboratory reviewed, WBC 7.2, hgb 14.9, plt 104, INR 1.5, sodium 132, potassium 4.3, creatinine 0.87, NTproBNP 12,300 and cardiac enzymes negative x3. Current cardiac medications include losartan 12.5 mg daily, aspirin 81 mg daily, xarelto 20 mg daily, toprol 100 mg daily, rosuvastatin 20 mg daily, lasix 40 mg BID and daily potassium supplementation. REVIEW OF SYSTEMS At the time of my exam: CONSTITUTIONAL: Denies fever or chills. CARDIOVASCULAR: Complains of shortness of breath, orthopnea and PND. Denies chest pain or palpitations. RESPIRATORY: Denies cough. GASTROINTESTINAL: Denies abdominal pain, diarrhea, constipation, nausea or vomiting. MUSCULOSKELETAL: Denies myalgias. NEUROLOGIC: Denies numbness, tingling, headacbe or weakness. ENDOCRINE: Denies fatigue, weight change, polydipsia or polyurina. GENITOURINARY: Denies burning, hematuria or urgency with micturation. HEMATOLOGIC: Denies history of anemia or bleeding. PHYSICAL EXAMINATION Blood pressure 109/55 heart rate 88 afebrile and maintaining oxygen saturation on room air. CONSTITUTIONAL: No apparent distress. HEENT: Head is normocephalic. Pupils are equal, round. Sclerae anicteric. Mucous membranes of the mouth are moist. No JVD. No carotid bruit. CHEST EXAMINATION: Crackles on the left, no wheezes or rhonchi. Clear on the right. No chest wall tenderness is noted on palpation or with deep breathing. HEART EXAMINATION: Irregular rate and rhythm. S1, S2 heard. Systolic and diastolic murmur at the base, no gallops or rub. ABDOMEN: Soft, nontender. Positive bowel sounds. EXTREMITIES: 1+ peripheral pulses, 2+ bilateral lower extremity pitting edema up to the knee and no calf tenderness. NEUROLOGIC EXAMINATION: Patient is awake, alert and oriented x3. ASSESSMENT Acute on chronic systolic heart failure with worsening LV function Non-ischenic cardiomyopathy Possible pneumonia with left sided pleural effusion Persistent atrial fibrillation s/p failed cardioversion Aortic stenosis s/p bioprostheic aortic valve replacement 2004 Mitral regurgitation Hypertension Dyslipidemia PLAN Given his significant symptoms with afib Dr. Perrin has him scheduled for an ablation in early September. Increase lasix to 40 mg TID and add aldactone. Decrease daily potassium intake. Follow renal function and electrolytes in the morning. Document accurate intake and output along with daily weights. Further recommendations to follow based on clinical course. Thank you kindly for this consultation. Nurse Practitioner note has been reviewed, I agree with a documented findings and plan of care. Patient was seen and examined. Past Medical History Past Medical History: Atrial Fibrillation, Diabetes Mellitus, GERD/Reflux, Hyper lipidemia, Hypertension, Musculoskeletal Disorder, Osteoarthritis (OA), Prostate Disorder, Skin Disorder Additional Past Medical History / Comment(s): Recent pneumonia treated with antibiotic, nonischemic cardiomyopathy, mitral valve regurg, NIDDM type II, BPH, occasional migraines, occasional cervical/shoulder pain, lower back pain/DDD, psoriasis, vitamin D deficiency. History of Any Multi-Drug Resistant Organisms: None Reported Past Surgical History: Cardiac Ablation, Cardiac Valve Replacement, Heart Catheterization Additional Past Surgical History / Comment(s): 07/21/20 PAULINE/cardioverson, 2004 Bovine aortic valve, cardiac ablation for SVT and another for PVCs, colonoscopies, anal fistula repair. Past Anesthesia/Blood Transfusion Reactions: Family History of Problems w/ Anesthesia Additional Past Anesthesia/Blood Transfusion Reaction / Comment(s): Mother - PONV Smoking Status: Never smoker - Past Family History Mother Family Medical History: AFIB Additional Family Medical History / Comment(s): Mother lived to be 86yrs old. Father Family Medical History: Congestive Heart Failure (CHF) Medications and Allergies Home Medications Medication Instructions Recorded Confirmed Type Aspirin [Adult Low Dose Aspirin EC] 81 mg PO DAILY 07/26/16 09/03/20 History Losartan [Cozaar] 12.5 mg PO DAILY 03/28/17 09/03/20 History Rivaroxaban [Xarelto] 20 mg PO HS 07/17/20 09/03/20 History metFORMIN HCL [Glucophage] 500 mg PO BID 07/17/20 09/03/20 History Metoprolol Succinate [Toprol XL] 100 mg PO DAILY 08/02/20 09/03/20 History Rosuvastatin [Crestor] 20 mg PO HS 08/02/20 09/03/20 History metFORMIN HCL 1,000 mg PO DAILY@1200 08/02/20 09/03/20 History Cholecalciferol [Vitamin D3 (25 50 mcg PO DAILY 09/03/20 09/03/20 History Mcg = 1000 Iu)] Furosemide [Lasix] 40 mg PO BID@0530,1200 09/03/20 09/03/20 History Potassium Chloride [Klor-Con 20] 20 meq PO BID@0530,1200 09/03/20 09/03/20 History Allergies Allergy/AdvReac Type Severity Reaction Status Date / Time atorvastatin [From Lipitor] AdvReac muscle Verified 09/03/20 10:21 weakness Physical Exam Vitals: Vital Signs Temp Pulse Pulse Resp BP BP Pulse Ox 09/04/20 06:54 97.6 F 88 16 109/55 98 09/04/20 02:00 85 16 107/62 96 09/03/20 20:00 98.1 F 99 19 98/64 97 09/03/20 16:02 97.9 F 87 18 98/67 96 09/03/20 15:00 87 18 98/67 96 09/03/20 14:00 90 18 98/61 96 09/03/20 13:00 88 18 94/65 96 09/03/20 12:00 88 18 102/61 96 09/03/20 11:15 88 18 102/70 96 Intake and Output 09/03/20 09/04/20 09/04/20 22:59 06:59 14:59 Intake Total 480 Balance 480 Intake: Oral 480 Other: Voiding Method Toilet Toilet # Voids 3 Weight 86.183 kg Results 09/03/20 07:07 09/04/20 05:01 Cardiac Enzymes 09/03/20 09/03/20 09/04/20 Range/Units 10:00 12:40 05:01 AST 31 (17-59) U/L Troponin I <0.012 0.013 (0.000-0.034) ng/mL Comprehensive Metabolic Panel 09/04/20 Range/Units 05:01 Sodium 132 L (137-145) mmol/L Potassium 4.3 (3.5-5.1) mmol/L Chloride 98 (98-107) mmol/L Carbon Dioxide 29 (22-30) mmol/L BUN 29 H (9-20) mg/dL Creatinine 0.87 (0.66-1.25) mg/dL Glucose 171 H (74-99) mg/dL Calcium 8.8 (8.4-10.2) mg/dL AST 31 (17-59) U/L ALT 59 H (4-49) U/L Alkaline Phosphatase 74 (38-126) U/L Total Protein 5.8 L (6.3-8.2) g/dL Albumin 3.5 (3.5-5.0) g/dL Current Medications Generic Name Dose Route Start Last Admin Trade Name Freq PRN Reason Stop Dose Admin Aspirin 81 mg 09/04/20 09:00 09/04/20 09:03 Aspirin 81 Mg PO 81 mg DAILY ERIK Administration Furosemide 40 mg 09/04/20 08:00 09/04/20 09:04 Furosemide 10 Mg/Ml 4 Ml Vial IV 40 mg Q8HR ERIK Administration Insulin Aspart 0 unit 09/03/20 12:30 09/03/20 21:22 Insulin Aspart (Novolog) 100 Unit/Ml Vial SQ Not Given ACHS ERIK Protocol Metoprolol Succinate 100 mg 09/03/20 10:30 09/03/20 10:56 Metoprolol Succinate (Er) 100 Mg Tab.Er.24h PO Not Given DAILY ERIK Naloxone HCl 0.2 mg 09/03/20 08:50 Naloxone 0.4 Mg/Ml 1 Ml Vial IV Q2M PRN Opioid Reversal Non-Formulary Medication 20 mg 09/03/20 21:00 09/03/20 21:04 Rosuvastatin PO Not Given HS ERIK Potassium Chloride 20 meq 09/04/20 09:00 09/04/20 09:03 Potassium Chloride Er 20 Meq Tab.Er PO 20 meq DAILY ERIK Administration Rivaroxaban 20 mg 09/03/20 21:00 09/03/20 21:21 Rivaroxaban 20 Mg Tab PO 20 mg HS ERIK Administration Spironolactone 25 mg 09/04/20 09:00 09/04/20 09:03 Spironolactone 25 Mg Tab PO 25 mg DAILY ERIK Administration Intake and Output 09/03/20 09/04/20 09/04/20 22:59 06:59 14:59 Intake Total 480 Balance 480 Intake: Oral 480 Other: Voiding Method Toilet Toilet # Voids 3 Weight 86.183 kg 09/03/20 07:07 09/04/20 05:01
--- NOTE | 2020-09-04 10:40 | US ---
EXAMINATION TYPE: US chest DATE OF EXAM: 09/04/2020 COMPARISON: NONE CLINICAL HISTORY: pleural effusion. TECHNIQUE: Targeted ultrasound of the posterior lower bilateral hemithoraces EXAM MEASUREMENTS: Right Pleural Effusion pocket size: 10.2 cm Right skin surface to fluid distance: 2.2 cm Left Pleural Effusion pocket size: 5.7 cm Left skin surface to fluid distance: 1.8 cm Right side marked for possible thoracentesis outside the dept. Left side marked for possible thoracentesis outside the dept. Pulmonologists are able to review the images in the patient?s EMR. IMPRESSIONS: 1. Bilateral pleural effusions
[2020-09-04 12:03] LABS: Glucose,Whole Blood 176 mg/dL (75-99)
--- NOTE | 2020-09-04 13:45 | P.PN ---
Subjective Patient is admitted for CHF exacerbation patient had an echocardiogram which was repeated again as today which showed EF of around 25-30%. Patient remains on IV Lasix. Patient pedal edema significantly improved patient has significant urine output serum sodium did improve a bit from 131-132. Patient feels much better cough improved. Constitutional: Denied any fatigue denied any fever. Cardio vascular: denied any chest pain, palpitations Gastrointestinal denied any nausea vomiting Pulmonary: Denied any shortness of breath cough Neurologic denied any new focal deficits All inpatient medications were reviewed and appropriate changes in these medications as dictated in the interval history and assessment and plan. Objective - Vital Signs Vital signs: Vital Signs Temp 97.6 F 09/04/20 06:54 Pulse 88 09/04/20 10:52 Resp 16 09/04/20 10:52 BP 109/55 09/04/20 06:54 Pulse Ox 98 09/04/20 06:54 Intake & Output 09/03/20 09/04/20 09/04/20 18:59 06:59 18:59 Intake Total 480 475 Balance 480 475 Weight 86.183 kg Intake: Oral 480 475 Other: Voiding Method Toilet Toilet Toilet # Voids 3 3 # Bowel Movements 0 - Exam PHYSICAL EXAMINATION: GENERAL: The patient is alert and oriented x3, not in any acute distress. Well developed, well nourished. HEENT: Pupils are round and equally reacting to light. EOMI. No scleral icterus. No conjunctival pallor. Normocephalic, atraumatic. No pharyngeal erythema. No thyromegaly. CARDIOVASCULAR: S1 and S2 present. No murmurs, rubs, or gallops. Elevated JVD irregularly irregular rhythm tachycardic PULMONARY: Chest is clear to auscultation, no wheezing or crackles. ABDOMEN: Soft, nontender, nondistended, normoactive bowel sounds. No palpable organomegaly. MUSCULOSKELETAL: No joint swelling or deformity. EXTREMITIES: No cyanosis, clubbing, 2+ pitting pedal edema extending up to bilateral knees, improved compared to yesterday. NEUROLOGICAL: Gross neurological examination did not reveal any focal deficits. SKIN: No rashes. - Labs CBC & Chem 7: 09/03/20 07:07 09/04/20 05:01 Labs: Abnormal Lab Results - Last 24 Hours (Table) 09/03/20 09/03/20 09/04/20 Range/Units 17:04 21:12 05:01 Sodium 132 L (137-145) mmol/L BUN 29 H (9-20) mg/dL Glucose 171 H (74-99) mg/dL POC Glucose (mg/dL) 164 H 111 H (75-99) mg/dL ALT 59 H (4-49) U/L Total Protein 5.8 L (6.3-8.2) g/dL 09/04/20 09/04/20 Range/Units 08:50 12:01 Sodium (137-145) mmol/L BUN (9-20) mg/dL Glucose (74-99) mg/dL POC Glucose (mg/dL) 135 H 176 H (75-99) mg/dL ALT (4-49) U/L Total Protein (6.3-8.2) g/dL Assessment and Plan Plan: -Congestive heart failure chronic systolic dysfunction EF of around 25-30% with acute exacerbation: Patient will be continued on IV Lasix because of hypotension patient's losartan will be held temporarily. Patient has nonischemic cardiomyopathy -Atrial fibrillation with rapid ventricular rate on admission presently better c ontrolledl. On anticoagulation. -Gastroesophageal reflux disease 11 hyperlipidemia -Hypertension and patient is presently hypotensive - aortic stenosis with the bioprosthetic aortic valve replacement. Hypervolemic hyponatremia expected improvement IV Lasix -Benign prostatic hypertrophy -History of aortic stenosis with valve replacement and cardiac ablation in the past
[2020-09-04 18:18] LABS: Glucose,Whole Blood 137 mg/dL (75-99)
[2020-09-04 21:40] LABS: Glucose,Whole Blood 142 mg/dL (75-99)
[2020-09-04] MEDS: RIVAROXABAN 20 MG TAB PO SCH (21:44)
[2020-09-04] MEDS: NON FORMULARY DRUG (Rosuvastatin 20 MG Tablet) PO SCH (21:57)
[2020-09-05 06:19] LABS: Glucose,Whole Blood 141 mg/dL (75-99)
[2020-09-05] MEDS: INSULIN ASPART (NovoLOG) 100 UNIT/ML VIAL SQ SCH ×4 (06:30→20:45)
[2020-09-05 08:27] LABS: African American GFR (CKD) >90 (>60 ml/min/1.73 sqM); Anion Gap 6 mmol/L; Blood Urea Nitrogen 34 mg/dL (9-20); Carbon Dioxide 33 mmol/L (22-30); Chloride 98 mmol/L (98-107); Glucose 130 mg/dL (74-99); Non-African American GFR(CKD) 87 (>60 ml/min/1.73 sqM); Potassium 4.3 mmol/L (3.5-5.1); Sodium 137 mmol/L (137-145)
[2020-09-05] MEDS: METOPROLOL SUCCINATE (ER) 100 MG TAB.ER.24H PO SCH (08:31)
[2020-09-05] MEDS: SPIRONOLACTONE 25 MG TAB PO SCH (08:31)
[2020-09-05] MEDS: POTASSIUM CHLORIDE ER 20 MEQ TAB.ER PO SCH (08:31)
[2020-09-05] MEDS: FUROSEMIDE 10 MG/ML 4 ML VIAL IV SCH ×2 (08:31→16:53)
[2020-09-05] MEDS: ASPIRIN 81 MG PO SCH (08:31)
--- NOTE | 2020-09-05 11:12 | P.CNPUL ---
History of Present Illness Consult date: 09/05/20 Reason for consult: dyspnea, cough, hypoxemia, pleural effusion Chief complaint: Shortness of breath History of present illness: Patient is a pleasant 69-year-old male with the significant history of chronic atrial fibrillation patient has a history of the chronic systolic heart failure ejection fraction now 30-35% patient came in with progressive shortness of breath swelling of the lower extremity not responding to treatment as outpatient, patient noted to have a increase in pulmonary edema has been on Lasix, x-ray and ultrasound of the chest scan shows bilateral pleural effusion right more than the left side, patient is on direct oral anticoagulants Review of Systems All systems: negative Past Medical History Past Medical History: Atrial Fibrillation, Diabetes Mellitus, GERD/Reflux, Hyperlipidemia, Hypertension, Musculoskeletal Disorder, Osteoarthritis (OA), Prostate Disorder, Skin Disorder Additional Past Medical History / Comment(s): Recent pneumonia treated with antibiotic, nonischemic cardiomyopathy, mitral valve regurg, NIDDM type II, BPH, occasional migraines, occasional cervical/shoulder pain, lower back pain/DDD, psoriasis, vitamin D deficiency. History of Any Multi-Drug Resistant Organisms: None Reported Past Surgical History: Cardiac Ablation, Cardiac Valve Replacement, Heart Catheterization Additional Past Surgical History / Comment(s): 07/21/20 PAULINE/cardioverson, 2005 Bovine aortic valve, cardiac ablation for SVT and another for PVCs, colonoscopies, anal fistula repair. Past Anesthesia/Blood Transfusion Reactions: Family History of Problems w/ Anesthesia Additional Past Anesthesia/Blood Transfusion Reaction / Comment(s): Mother - PONV Smoking Status: Never smoker - Past Family History Mother Family Medical History: AFIB Additional Family Medical History / Comment(s): Mother lived to be 86yrs old. Father Family Medical History: Congestive Heart Failure (CHF) Medications and Allergies Home Medications Medication Instructions Recorded Confirmed Type Aspirin [Adult Low Dose Aspirin EC] 81 mg PO DAILY 07/26/16 09/03/20 History Losartan [Cozaar] 12.5 mg PO DAILY 03/28/17 09/03/20 History Rivaroxaban [Xarelto] 20 mg PO HS 07/17/20 09/03/20 History metFORMIN HCL [Glucophage] 500 mg PO BID 07/17/20 09/03/20 History Metoprolol Succinate [Toprol XL] 100 mg PO DAILY 08/02/20 09/03/20 History Rosuvastatin [Crestor] 20 mg PO HS 08/02/20 09/03/20 History metFORMIN HCL 1,000 mg PO DAILY@1200 08/02/20 09/03/20 History Cholecalciferol [Vitamin D3 (25 50 mcg PO DAILY 09/03/20 09/03/20 History Mcg = 1000 Iu)] Furosemide [Lasix] 40 mg PO BID@0530,1200 09/03/20 09/03/20 History Potassium Chloride [Klor-Con 20] 20 meq PO BID@0530,1200 09/03/20 09/03/20 History Allergies Allergy/AdvReac Type Severity Reaction Status Date / Time atorvastatin [From Lipitor] AdvReac muscle Verified 09/03/20 10:21 weakness Physical Exam Vitals: Vital Signs Temp Pulse Resp BP Pulse Ox 09/05/20 04:00 98.0 F 87 16 109/72 99 09/05/20 02:00 89 17 09/05/20 00:00 97.9 F 89 17 103/64 99 09/04/20 20:00 97.7 F 84 18 101/56 97 09/04/20 15:00 98.6 F 92 16 115/55 98 09/04/20 14:00 88 16 Intake and Output 09/04/20 09/05/20 09/05/20 22:59 06:59 14:59 Intake Total 600 Output Total 2275 800 Balance -1675 -800 Intake: Oral 600 Output: Urine 2275 800 Other: Voiding Method Toilet Toilet # Voids 1 - Constitutional General appearance: average body habitus, cooperative, disheveled - EENT Eyes: PERRLA Ears: bilateral: normal - Neck Neck: normal ROM Carotids: bilateral: upstroke normal - Respiratory Respiratory: bilateral: diminished, dullness - Cardiovascular Rhythm: irregularly irregular Heart sounds: normal: S1, S2 - Gastrointestinal General gastrointestinal: normal bowel sounds, soft - Integumentary Integumentary: normal turgor - Neurologic Neurologic: CNII-XII intact - Musculoskeletal Musculoskeletal: gait normal, generalized weakness, strength equal bilaterally - Psychiatric Psychiatric: A&O x's 3, appropriate affect, intact judgment & insight Results - Laboratory Findings CBC and BMP: 09/03/20 07:07 09/05/20 07:38 PT/INR, D-dimer PT 14.8 sec (9.0-12.0) H 09/03/20 07:07 INR 1.5 (<1.2) H 09/03/20 07:07 Abnormal lab findings: Abnormal Labs 09/03/20 09/03/20 09/03/20 07:07 07:07 07:07 Plt Count 104 L PT 14.8 H INR 1.5 H Sodium Carbon Dioxide BUN Glucose POC Glucose (mg/dL) Total Bilirubin ALT Total Protein Urine Protein 1+ H Hyaline Casts 11 H Urine Mucus Few H 09/03/20 09/03/20 09/03/20 07:07 12:22 17:04 Plt Count PT INR Sodium 131 L Carbon Dioxide 21 L BUN 26 H Glucose 204 H POC Glucose (mg/dL) 115 H 164 H Total Bilirubin 1.4 H ALT 78 H Total Protein Urine Protein Hyaline Casts Urine Mucus 09/03/20 09/04/20 09/04/20 21:12 05:01 08:50 Plt Count PT INR Sodium 132 L Carbon Dioxide BUN 29 H Glucose 171 H POC Glucose (mg/dL) 111 H 135 H Total Bilirubin ALT 59 H Total Protein 5.8 L Urine Protein Hyaline Casts Urine Mucus 09/04/20 09/04/20 09/04/20 12:01 18:08 21:36 Plt Count PT INR Sodium Carbon Dioxide BUN Glucose POC Glucose (mg/dL) 176 H 137 H 142 H Total Bilirubin ALT Total Protein Urine Protein Hyaline Casts Urine Mucus 09/05/20 09/05/20 06:18 07:38 Plt Count PT INR Sodium Carbon Dioxide 33 H BUN 34 H Glucose 130 H POC Glucose (mg/dL) 141 H Total Bilirubin ALT Total Protein Urine Protein Hyaline Casts Urine Mucus - Diagnostic Findings Chest x-ray: report reviewed, image reviewed (Finding as noted above) Assessment and Plan Assessment: Bilateral pleural effusion right more than the left Cardiomyopathy with acute on chronic systolic heart failure ejection fraction of 30% now Ongoing progressive shortness of breath Atrial fibrillation with RVR Hypertension hypertensive cardiovascular disease History of aortic stenosis status post valve replacement History of ablation in the past Plan: Continue maximal medical therapy for heart failure Gentle diuresis We will hold direct oral anticoagulant start Lovenox with the last dose on Monday night Ultrasound of the chest bilateral on Monday morning If significant fluid is present plan to do a thoracentesis on Monday, procedure alternative risks and complication explained to the patient Further recommendations pending plan of care as per clinical response of patient Time with Patient: Greater than 30
[2020-09-05 12:02] LABS: Glucose,Whole Blood 140 mg/dL (75-99)
--- NOTE | 2020-09-05 14:47 | P.PN ---
Subjective Progress Note Date: 09/05/20 HISTORY OF PRESENT ILLNESS: his is a pleasant 69-year-old male past medical history significant for bicuspid aortic valve status post bioprosthetic aortic valve replacement, persistent atrial fibrillation s/p failed cardioversion, diabetes mellitus, hypertension, dyslipidemia, SVT s/p ablation, PVC ablation and recent worsening non-ischemic cardiomyopathy thought to be related to afib. He follows in the office with Dr. Perrin. We have been asked to see in consultation for heart failure. He was first noted to be in atrial fibrillation July 03 in the office. His murmur at that time also sounded worse. PAULINE/CV was recommended. PAULINE 07/21/20 revealed bioprosthetic valve with moderate to severe aortic stenosis, a V-max 3.23 with a mean gradient of 23 mmHg with possibility of low flow gradient aortic stenosis. Mitral valve is normal-appearing with moderate central mitral regurgitation. LV systolic function was 40-45% with global hypokinesia noted. The cardioversion was initially successful however he had immediate recurrence of afib. He has been in afib since that time. He has been in and out of the hospital frequently due to pneumonia, afib and heart failure. He states since June he has been tired, weak, short of breath and no appetitie. He has been a djusting his diuretics with his PCP and also finished a course of antibiotics for pneumonia. Last week he was feeling exhausted and still had no appetite so he started drinking pedilyte for a few days. He then started noticing an increase in lower extremity edema, worsening shortness of breath, PND, orthopnea and increased fatigue with even simple activities. Repeat echocardiogram obtained on this admission reveals impaired LV systolic function with EF 25-30%, global LV hypokinesia, moderate-severely enlarged LA and RV, mild regurgitation of the prosthetic aortic valve, moderate-severe stenosis of the AV with dimensions of 0.18 concerning for low flow low gradient severe , moderate- severe MR, mild TR and large pleural effusion noted on the left. He also underwent a stress echo 04/2020 revealing EKG abnormalities with no echocardiographic evidence of ischemia and sustained SVT into recovery. DIAGNOSTICS EKG reveals atrial fibrillation with rate of 108, poor R-wave progression and right axis deviation. Telemetry tracings indicate atrial fibrillation with variable ventricular rates. Chest xray basilar infiltrates, atypical pneumonia. Laboratory reviewed, WBC 7.2, hgb 14.9, plt 104, INR 1.5, sodium 132, potassium 4.3, creatinine 0.87, NTproBNP 12,300 and cardiac enzymes negative x3. Current cardiac medications include losartan 12.5 mg daily, aspirin 81 mg daily, xarelto 20 mg daily, toprol 100 mg daily, rosuvastatin 20 mg daily, lasix 40 mg BID and daily potassium supplementation. 09/05/2020 Patient examined this morning. He is sitting up in the chair. He continues to report shortness of breath. He reports minimal improvement in his lower extremity edema. Patient remains in atrial fibrillation with controlled ventricular rate. He remains on IV Lasix 40 mg every 8 hours. Creatinine 0.90. Fluid balance over the last 24 hours is -2000 mL. PHYSICAL EXAM: VITAL SIGNS: Reviewed. GENERAL: Well-developed in no acute distress. NECK: Supple. No JVD or thyromegaly LUNGS: Respirations even and unlabored. Lungs diminished bilaterally HEART: Irregular rate and rhythm. S1 and S2 heard. Systolic and diastolic murmur noted. EXTREMITIES: Normal range of motion. No clubbing or cyanosis. Peripheral pulses intact. Bilateral lower extremity edema, right greater than left ASSESSMENT: Acute on chronic systolic heart failure with worsening LV function Non-ischenic cardiomyopathy Possible pneumonia with left sided pleural effusion Persistent atrial fibrillation s/p failed cardioversion Aortic stenosis s/p bioprostheic aortic valve replacement 2004 Mitral regurgitation Hypertension Dyslipidemia PLAN: Continue IV Lasix every 8 hours Continue Aldactone Daily weights Accurate I&O Monitor kidney function Pulmonary following. Patient's Xarelto placed on hold. Patient to have ultrasound of the chest on Monday and possible thoracentesis on Monday Further recommendations per patient's course Nurse practitioner note has been reviewed by physician. Signing provider agrees with the documented findings, assessment, and plan of care. Objective - Vital Signs Vital signs: Vital Signs Temp 97.8 F 09/05/20 08:00 Pulse 83 09/05/20 08:00 Resp 16 09/05/20 04:00 BP 100/64 09/05/20 08:00 Pulse Ox 97 09/05/20 08:00 Intake & Output 09/04/20 09/05/20 09/05/20 18:59 06:59 18:59 Intake Total 1075 Output Total 1750 1325 Balance -675 -1325 Weight 87.952 kg Intake: Oral 1075 Output: Urine 1750 1325 Other: Voiding Method Toilet Toilet Toilet # Voids 6 1 # Bowel Movements 0 - Labs CBC & Chem 7: 09/03/20 07:07 09/05/20 07:38 Labs: Abnormal Lab Results - Last 24 Hours (Table) 09/04/20 09/04/20 09/05/20 Range/Units 18:08 21:36 06:18 Carbon Dioxide (22-30) mmol/L BUN (9-20) mg/dL Glucose (74-99) mg/dL POC Glucose (mg/dL) 137 H 142 H 141 H (75-99) mg/dL 09/05/20 09/05/20 Range/Units 07:38 12:00 Carbon Dioxide 33 H (22-30) mmol/L BUN 34 H (9-20) mg/dL Glucose 130 H (74-99) mg/dL POC Glucose (mg/dL) 140 H (75-99) mg/dL
[2020-09-05 17:12] LABS: Glucose,Whole Blood 165 mg/dL (75-99)
--- NOTE | 2020-09-05 17:39 | P.PN ---
Subjective Patient is admitted for CHF exacerbation patient had an echocardiogram which was repeated again as today which showed EF of around 25-30%. Patient remains on IV Lasix. Patient pedal edema significantly improved patient has significant urine output serum sodium did improve a bit from 131-132. Patient feels much better cough improved. 09/05/2020 Patient serum sodium improved patient overall heart failure improved patient has bilateral pleural effusions because of which are pulmonary evaluated the patient plan is to continue with aggressive diuresis and if he continues to have pleural effusions by Monday or Monday patient will undergo paracentesis at that time. Constitutional: Denied any fatigue denied any fever. Cardio vascular: denied any chest pain, palpitations Gastrointestinal denied any nausea vomiting Pulmonary: Denied any shortness of breath cough Neurologic denied any new focal deficits All inpatient medications were reviewed and appropriate changes in these medications as dictated in the interval history and assessment and plan. Objective - Vital Signs Vital signs: Vital Signs Temp 97.8 F 09/05/20 08:00 Pulse 102 H 09/05/20 12:00 Resp 16 09/05/20 04:00 BP 107/57 09/05/20 12:00 Pulse Ox 98 09/05/20 12:00 Intake & Output 09/04/20 09/05/20 09/05/20 18:59 06:59 18:59 Intake Total 1075 480 Output Total 1750 1325 Balance -675 -1325 480 Weight 87.952 kg Intake: Oral 1075 480 Output: Urine 1750 1325 Other: Voiding Method Toilet Toilet Toilet # Voids 6 1 1 # Bowel Movements 0 - Exam PHYSICAL EXAMINATION: GENERAL: The patient is alert and oriented x3, not in any acute distress. Well developed, well nourished. HEENT: Pupils are round and equally reacting to light. EOMI. No scleral icterus. No conjunctival pallor. Normocephalic, atraumatic. No pharyngeal erythema. No thyromegaly. CARDIOVASCULAR: S1 and S2 present. No murmurs, rubs, or gallops. JVD resolved tachycardia resolved PULMONARY: Chest is clear to auscultation, no wheezing or crackles. ABDOMEN: Soft, nontender, nondistended, normoactive bowel sounds. No palpable or ganomegaly. MUSCULOSKELETAL: No joint swelling or deformity. EXTREMITIES: No cyanosis, clubbing, 2+ pitting pedal edema extending up to bilateral knees, improved compared to yesterday. NEUROLOGICAL: Gross neurological examination did not reveal any focal deficits. SKIN: No rashes. - Labs CBC & Chem 7: 09/03/20 07:07 09/05/20 07:38 Labs: Abnormal Lab Results - Last 24 Hours (Table) 09/04/20 09/04/20 09/05/20 Range/Units 18:08 21:36 06:18 Carbon Dioxide (22-30) mmol/L BUN (9-20) mg/dL Glucose (74-99) mg/dL POC Glucose (mg/dL) 137 H 142 H 141 H (75-99) mg/dL 09/05/20 09/05/20 09/05/20 Range/Units 07:38 12:00 17:03 Carbon Dioxide 33 H (22-30) mmol/L BUN 34 H (9-20) mg/dL Glucose 130 H (74-99) mg/dL POC Glucose (mg/dL) 140 H 165 H (75-99) mg/dL Assessment and Plan Plan: -Congestive heart failure chronic systolic dysfunction EF of around 25-30% with acute exacerbation: Patient will be continued on IV Lasix because of hypotension patient's losartan will be held temporarily. Patient has nonischemic cardiomyopathy -Atrial fibrillation with rapid ventricular rate on admission presently better controlledl. On anticoagulation. -Bilateral pleural effusions secondary to CHF patient may or may not need thoracentesis depending on his response to Lasix -Gastroesophageal reflux disease 11 hyperlipidemia -Hypertension and patient is presently hypotensive - aortic stenosis with the bioprosthetic aortic valve replacement. Hypervolemic hyponatremia improved with IV Lasix -Benign prostatic hypertrophy -History of aortic stenosis with valve replacement and cardiac ablation in the past
[2020-09-05 20:19] LABS: Glucose,Whole Blood 202 mg/dL (75-99)
[2020-09-05] MEDS: ENOXAPARIN 40 MG/0.4 ML SYRINGE SQ SCH (20:45)
[2020-09-05] MEDS: NON FORMULARY DRUG (Rosuvastatin 20 MG Tablet) PO SCH (21:00)
[2020-09-06] MEDS: FUROSEMIDE 10 MG/ML 4 ML VIAL IV SCH ×4 (00:04→21:04)
[2020-09-06] MEDS: INSULIN ASPART (NovoLOG) 100 UNIT/ML VIAL SQ SCH ×4 (06:16→21:07)
[2020-09-06 06:47] LABS: Glucose,Whole Blood 122 mg/dL (75-99)
[2020-09-06 08:10] LABS: African American GFR (CKD) >90 (>60 ml/min/1.73 sqM); Anion Gap 5 mmol/L; Blood Urea Nitrogen 32 mg/dL (9-20); Calcium 8.8 mg/dL (8.4-10.2); Carbon Dioxide 33 mmol/L (22-30); Chloride 98 mmol/L (98-107); Glucose 138 mg/dL (74-99); Magnesium 2.2 mg/dL (1.6-2.3); Non-African American GFR(CKD) 88 (>60 ml/min/1.73 sqM); Potassium 3.9 mmol/L (3.5-5.1); Sodium 136 mmol/L (137-145)
--- NOTE | 2020-09-06 08:46 | P.PN ---
Subjective Patient is admitted for CHF exacerbation patient had an echocardiogram which was repeated again as today which showed EF of around 25-30%. Patient remains on IV Lasix. Patient pedal edema significantly improved patient has significant urine output serum sodium did improve a bit from 131-132. Patient feels much better cough improved. 09/05/2020 Patient serum sodium improved patient overall heart failure improved patient has bilateral pleural effusions because of which are pulmonary evaluated the patient plan is to continue with aggressive diuresis and if he continues to have pleural effusions by Monday or Monday patient will undergo paracentesis at that time. 09/06/2020 The patient has significant improvement in CHF still has some edema patient will undergo ultrasound tomorrow if it doesn't show significant pleural effusions then he may not need the procedure patient will be continued on IV Lasix but I'll cut it down to twice a day. Constitutional: Denied any fatigue denied any fever. Cardio vascular: denied any chest pain, palpitations Gastrointestinal denied any nausea vomiting Pulmonary: Denied any shortness of breath cough Neurologic denied any new focal deficits All inpatient medications were reviewed and appropriate changes in these medications as dictated in the interval history and assessment and plan. Objective - Vital Signs Vital signs: Vital Signs Temp 97.9 F 09/06/20 04:00 Pulse 97 09/06/20 04:00 Resp 16 09/06/20 04:00 BP 103/69 09/06/20 04:00 Pulse Ox 98 09/06/20 04:00 Intake & Output 09/05/20 09/06/20 09/06/20 18:59 06:59 18:59 Intake Total 720 Balance 720 Weight 85.6 kg Intake: Oral 720 Other: Voiding Method Toilet Toilet # Voids 1 - Exam PHYSICAL EXAMINATION: GENERAL: The patient is alert and oriented x3, not in any acute distress. Well developed, well nourished. HEENT: Pupils are round and equally reacting to light. EOMI. No scleral icterus. No conjunctival pallor. Normocephalic, atraumatic. No pharyngeal erythema. No thyromegaly. CARDIOVASCULAR: S1 and S2 present. No murmurs, rubs, or gallops. JVD resolved tachycardia resolved PULMONARY: Chest is clear to auscultation, no wheezing or crackles. ABDOMEN: Soft, nontender, nondistended, normoactive bowel sounds. No palpable organomegaly. MUSCULOSKELETAL: No joint swelling or deformity. EXTREMITIES: No cyanosis, clubbing, 2+ pitting pedal edema extending up to bilateral knees, improved compared to yesterday. NEUROLOGICAL: Gross neurological examination did not reveal any focal deficits. SKIN: No rashes. - Labs CBC & Chem 7: 09/03/20 07:07 09/06/20 07:19 Labs: Abnormal Lab Results - Last 24 Hours (Table) 09/05/20 09/05/20 09/05/20 Range/Units 12:00 17:03 20:08 Sodium (137-145) mmol/L Carbon Dioxide (22-30) mmol/L BUN (9-20) mg/dL Glucose (74-99) mg/dL POC Glucose (mg/dL) 140 H 165 H 202 H (75-99) mg/dL 09/06/20 09/06/20 Range/Units 06:08 07:19 Sodium 136 L (137-145) mmol/L Carbon Dioxide 33 H (22-30) mmol/L BUN 32 H (9-20) mg/dL Glucose 138 H (74-99) mg/dL POC Glucose (mg/dL) 122 H (75-99) mg/dL Assessment and Plan Plan: -Congestive heart failure chronic systolic dysfunction EF of around 25-30% with acute exacerbation: Patient will be continued on IV Lasix because of hypotension patient's losartan will be held temporarily. Patient has nonischemic cardiomyopathy -Atrial fibrillation with rapid ventricular rate on admission presently better controlledl. On anticoagulation. -Bilateral pleural effusions secondary to CHF patient may or may not need thoracentesis depending on his response to Lasix -Gastroesophageal reflux disease 11 hyperlipidemia -Hypertension and patient is presently hypotensive - aortic stenosis with the bioprosthetic aortic valve replacement. Hypervolemic hyponatremia improved with IV Lasix -Benign prostatic hypertrophy -History of aortic stenosis with valve replacement and cardiac ablation in the past
[2020-09-06] MEDS: METOPROLOL SUCCINATE (ER) 100 MG TAB.ER.24H PO SCH (08:48)
[2020-09-06] MEDS: ASPIRIN 81 MG PO SCH (08:48)
[2020-09-06] MEDS: SPIRONOLACTONE 25 MG TAB PO SCH (08:48)
[2020-09-06] MEDS: POTASSIUM CHLORIDE ER 20 MEQ TAB.ER PO SCH (08:49)
[2020-09-06] MEDS ORDERED: ENOXAPARIN 40 MG/0.4 ML SYRINGE SQ STA (09:06)
[2020-09-06] MEDS: LOSARTAN 25 MG TAB PO SCH (09:41)
[2020-09-06 12:03] LABS: Glucose,Whole Blood 125 mg/dL (75-99)
--- NOTE | 2020-09-06 12:56 | P.PN ---
Subjective Progress Note Date: 09/06/20 HISTORY OF PRESENT ILLNESS: his is a pleasant 69-year-old male past medical history significant for bicuspid aortic valve status post bioprosthetic aortic valve replacement, persistent atrial fibrillation s/p failed cardioversion, diabetes mellitus, hypertension, dyslipidemia, SVT s/p ablation, PVC ablation and recent worsening non-ischemic cardiomyopathy thought to be related to afib. He follows in the office with Dr. Perrin. We have been asked to see in consultation for heart failure. He was first noted to be in atrial fibrillation July 03 in the office. His murmur at that time also sounded worse. PAULINE/CV was recommended. PAULINE 07/21/20 revealed bioprosthetic valve with moderate to severe aortic stenosis, a V-max 3.23 with a mean gradient of 23 mmHg with possibility of low flow gradient aortic stenosis. Mitral valve is normal-appearing with moderate central mitral regurgitation. LV systolic function was 40-45% with global hypokinesia noted. The cardioversion was initially successful however he had immediate recurrence of afib. He has been in afib since that time. He has been in and out of the hospital frequently due to pneumonia, afib and heart failure. He states since June he has been tired, weak, short of breath and no appetitie. He has been a djusting his diuretics with his PCP and also finished a course of antibiotics for pneumonia. Last week he was feeling exhausted and still had no appetite so he started drinking pedilyte for a few days. He then started noticing an increase in lower extremity edema, worsening shortness of breath, PND, orthopnea and increased fatigue with even simple activities. Repeat echocardiogram obtained on this admission reveals impaired LV systolic function with EF 25-30%, global LV hypokinesia, moderate-severely enlarged LA and RV, mild regurgitation of the prosthetic aortic valve, moderate-severe stenosis of the AV with dimensions of 0.18 concerning for low flow low gradient severe , moderate- severe MR, mild TR and large pleural effusion noted on the left. He also underwent a stress echo 04/2020 revealing EKG abnormalities with no echocardiographic evidence of ischemia and sustained SVT into recovery. DIAGNOSTICS EKG reveals atrial fibrillation with rate of 108, poor R-wave progression and right axis deviation. Telemetry tracings indicate atrial fibrillation with variable ventricular rates. Chest xray basilar infiltrates, atypical pneumonia. Laboratory reviewed, WBC 7.2, hgb 14.9, plt 104, INR 1.5, sodium 132, potassium 4.3, creatinine 0.87, NTproBNP 12,300 and cardiac enzymes negative x3. Current cardiac medications include losartan 12.5 mg daily, aspirin 81 mg daily, xarelto 20 mg daily, toprol 100 mg daily, rosuvastatin 20 mg daily, lasix 40 mg BID and daily potassium supplementation. 09/05/2020 Patient examined this morning. He is sitting up in the chair. He continues to report shortness of breath. He reports minimal improvement in his lower extremity edema. Patient remains in atrial fibrillation with controlled ventricular rate. He remains on IV Lasix 40 mg every 8 hours. Creatinine 0.90. Fluid balance over the last 24 hours is -2000 mL. 09/06/2020 Patient examined this morning. Patient is sitting up in the chair. He appears very comfortable. However he continues to report occasional shortness of breath. He remains on IV Lasix 40 mg every 8 hours. Creatinine 0.89. BUN 32. PHYSICAL EXAM: VITAL SIGNS: Reviewed. GENERAL: Well-developed in no acute distress. NECK: Supple. No JVD or thyromegaly LUNGS: Respirations even and unlabored. Lungs diminished bilaterally HEART: Irregular rate and rhythm. S1 and S2 heard. Systolic and diastolic murmur noted. EXTREMITIES: Normal range of motion. No clubbing or cyanosis. Peripheral pulses intact. 1+ edema of right lower extremity. ASSESSMENT: Acute on chronic systolic heart failure with worsening LV function Nonischemic cardiomyopathy Possible pneumonia with left sided pleural effusion Persistent atrial fibrillation s/p failed cardioversion Aortic stenosis s/p bioprostheic aortic valve replacement 2004 Mitral regurgitation Hypertension Dyslipidemia PLAN: Decrease Lasix to 40 mg every 12 hours Continue Aldactone Daily weights Accurate I&O Monitor kidney function Pulmonary following. Patient's Xarelto placed on hold. Patient to have ultrasound of the chest on Monday and possible thoracentesis on Monday Further recommendations per patient's course Nurse practitioner note has been reviewed by physician. Signing provider agrees with the documented findings, assessment, and plan of care. Objective - Vital Signs Vital signs: Vital Signs Temp 97.1 F L 09/06/20 08:00 Pulse 82 09/06/20 08:00 Resp 16 09/06/20 04:00 BP 110/63 09/06/20 08:00 Pulse Ox 97 09/06/20 08:00 Intake & Output 09/05/20 09/06/20 09/06/20 18:59 06:59 18:59 Intake Total 720 Balance 720 Weight 85.6 kg Intake: Oral 720 Other: Voiding Method Toilet Toilet # Voids 1 - Labs CBC & Chem 7: 09/03/20 07:07 09/06/20 07:19 Labs: Abnormal Lab Results - Last 24 Hours (Table) 09/05/20 09/05/20 09/06/20 Range/Units 17:03 20:08 06:08 Sodium (137-145) mmol/L Carbon Dioxide (22-30) mmol/L BUN (9-20) mg/dL Glucose (74-99) mg/dL POC Glucose (mg/dL) 165 H 202 H 122 H (75-99) mg/dL 09/06/20 09/06/20 Range/Units 07:19 12:02 Sodium 136 L (137-145) mmol/L Carbon Dioxide 33 H (22-30) mmol/L BUN 32 H (9-20) mg/dL Glucose 138 H (74-99) mg/dL POC Glucose (mg/dL) 125 H (75-99) mg/dL
[2020-09-06 17:04] LABS: Glucose,Whole Blood 146 mg/dL (75-99)
--- NOTE | 2020-09-06 19:54 | P.PN ---
Subjective Progress Note Date: 09/06/20 Principal diagnosis: Bilateral pleural effusion right more than the left Cardiomyopathy with acute on chronic systolic heart failure ejection fraction of 30% now Ongoing progressive shortness of breath Atrial fibrillation with RVR Hypertension hypertensive cardiovascular disease History of aortic stenosis status post valve replacement History of ablation in the past 09/06/2020, patient seen eval examined during rounds labs reviewed medications reviewed patient does get short of breath on activity and exertion swelling in the lower extremity appears to have improved, patient is off of direct oral anticoagulants in place he is on Lovenox, patient is scheduled to get her ultrasound tomorrow off chest to look depth of fluid depending upon findings of the ultrasound and amount of fluid consider doing thoracentesis, Patient is a pleasant 69-year-old male with the significant history of chronic atrial fibrillation patient has a history of the chronic systolic heart failure ejection fraction now 30-35% patient came in with progressive shortness of breath swelling of the lower extremity not responding to treatment as outpatient, patient noted to have a increase in pulmonary edema has been on Lasix, x-ray and ultrasound of the chest scan shows bilateral pleural effusion right more than the left side, patient is on direct oral anticoagulants Objective - Vital Signs Vital signs: Vital Signs Temp 97.1 F L 09/06/20 08:00 Pulse 87 09/06/20 16:00 Resp 16 09/06/20 04:00 BP 103/57 09/06/20 16:00 Pulse Ox 95 09/06/20 16:00 Intake & Output 09/06/20 09/06/20 09/07/20 06:59 18:59 06:59 Intake Total 620 Output Total 900 Balance -280 Weight 85.6 kg Intake: Oral 620 Output: Urine 900 Other: Voiding Method Toilet # Voids 1 # Bowel Movements 0 - Exam - Constitutional General appearance: average body habitus, cooperative, disheveled - EENT Eyes: PERRLA Ears: bilateral: normal - Neck Neck: normal ROM Carotids: bilateral: upstroke normal - Respiratory Respiratory: bilateral: diminished, dullness - Cardiovascular Rhythm: irregularly irregular Heart sounds: normal: S1, S2 - Gastrointestinal General gastrointestinal: normal bowel sounds, soft - Integumentary Integumentary: normal turgor - Neurologic Neurologic: CNII-XII intact - Musculoskeletal Musculoskeletal: gait normal, generalized weakness, strength equal bilaterally - Psychiatric Psychiatric: A&O x's 3, appropriate affect, intact judgment & insight - Labs CBC & Chem 7: 09/03/20 07:07 09/06/20 07:19 Labs: Abnormal Lab Results - Last 24 Hours (Table) 09/05/20 09/06/20 09/06/20 Range/Units 20:08 06:08 07:19 Sodium 136 L (137-145) mmol/L Carbon Dioxide 33 H (22-30) mmol/L BUN 32 H (9-20) mg/dL Glucose 138 H (74-99) mg/dL POC Glucose (mg/dL) 202 H 122 H (75-99) mg/dL 09/06/20 09/06/20 Range/Units 12:02 17:02 Sodium (137-145) mmol/L Carbon Dioxide (22-30) mmol/L BUN (9-20) mg/dL Glucose (74-99) mg/dL POC Glucose (mg/dL) 125 H 146 H (75-99) mg/dL Assessment and Plan Assessment: Bilateral pleural effusion right more than the left Cardiomyopathy with acute on chronic systolic heart failure ejection fraction of 30% now Ongoing progressive shortness of breath Atrial fibrillation with RVR Hypertension hypertensive cardiovascular disease History of aortic stenosis status post valve replacement History of ablation in the past Plan: Continue maximal medical therapy for heart failure Gentle diuresis We will hold direct oral anticoagulant continue Lovenox with the last dose tonight Ultrasound of the chest bilateral on tomorrow morning If significant fluid is present plan to do a thoracentesis tomorrow, procedure alternative risks and complication explained to the patient Further recommendations pending plan of care as per clinical response of patient Time with Patient: Greater than 30
[2020-09-06 20:41] LABS: Glucose,Whole Blood 195 mg/dL (75-99)
[2020-09-06] MEDS: NON FORMULARY DRUG (Rosuvastatin 20 MG Tablet) PO SCH (21:07)
[2020-09-06] MEDS: ENOXAPARIN 40 MG/0.4 ML SYRINGE SQ SCH (21:07)
[2020-09-07 06:11] LABS: Glucose,Whole Blood 125 mg/dL (75-99)
[2020-09-07] MEDS: INSULIN ASPART (NovoLOG) 100 UNIT/ML VIAL SQ SCH ×4 (06:30→21:03)
[2020-09-07] MEDS: ASPIRIN 81 MG PO SCH (08:09)
[2020-09-07] MEDS: LOSARTAN 25 MG TAB PO SCH (08:09)
[2020-09-07] MEDS: METOPROLOL SUCCINATE (ER) 100 MG TAB.ER.24H PO SCH (08:09)
[2020-09-07] MEDS: SPIRONOLACTONE 25 MG TAB PO SCH (08:09)
[2020-09-07] MEDS: POTASSIUM CHLORIDE ER 20 MEQ TAB.ER PO SCH (08:09)
[2020-09-07] MEDS: FUROSEMIDE 10 MG/ML 4 ML VIAL IV SCH ×2 (08:11→21:02)
--- NOTE | 2020-09-07 08:35 | US ---
EXAMINATION TYPE: US chest DATE OF EXAM: 09/07/2020 COMPARISON: NONE CLINICAL HISTORY: evaluation of bilateral effusions. TECHNIQUE: Targeted ultrasound of the posterior lower EXAM MEASUREMENTS: Right Pleural Effusion pocket size: 2.7 cm Right skin surface to fluid distance: 7.9 cm Left Pleural Effusion pocket size: 5.7 cm Left skin surface to fluid distance: 2.9 cm Lung within pocket at: 4.3cm Right side marked for possible thoracentesis outside the dept. Left side marked for possible thoracentesis outside the dept. Pulmonologists are able to review the images in the patient?s EMR. IMPRESSIONS: 1. Bilateral pleural effusions
--- NOTE | 2020-09-07 10:16 | P.PN ---
Subjective HISTORY OF PRESENTING ILLNESS This is a pleasant 69-year-old male past medical history significant for bicuspid aortic valve status post bioprosthetic aortic valve replacement, persistent atrial fibrillation s/p failed cardioversion, diabetes mellitus, hypertension, dyslipidemia, SVT s/p ablation, PVC ablation and recent worsening non-ischemic cardiomyopathy thought to be related to afib. He follows in the office with Dr. Perrin. We have been asked to see in consultation for heart failure. He was first noted to be in atrial fibrillation July 03 in the office. His murmur at that time also sounded worse. PAULINE/CV was recommended. PAULINE 07/21/20 revealed bioprosthetic valve with moderate to severe aortic stenosis, a V-max 3.23 with a mean gradient of 23 mmHg with possibility of low flow gradient aortic stenosis. Mitral valve is normal-appearing with moderate central mitral regurgitation. LV systolic function was 40-45% with global hypokinesia noted. The cardioversion was initially successful however he had immediate recurrence of afib. He has been in afib since that time. He has been in and out of the hospital frequently due to pneumonia, afib and heart failure. He states since June he has been tired, weak, short of breath and no appetitie. He has been adjusting his diuretics with his PCP and also finished a course of antibiotics for pneumonia. Last week he was feeling exhausted and still had no appetite so he started drinking pedilyte for a few days. He then started noticing an increase in lower extremity edema, worsening shortness of breath, PND, orthopnea and increased fatigue with even simple activities. Repeat echocardiogram obtained on this admission reveals impaired LV systolic function with EF 25-30%, global LV hypokinesia, moderate-severely enlarged LA and RV, mild regurgitation of the prosthetic aortic valve, moderate-severe stenosis of the AV with dimensions of 0.18 concerning for low flow low gradient severe , moderate- severe MR, mild TR and large pleural effusion noted on the left. He also underwent a stress echo 04/2020 revealing EKG abnormalities with no echocardiographic evidence of ischemia and sustained SVT into recovery. 09/07/2020 Patient is seen and examined sitting up at the bedside eating breakfast in no acute distress. His lower extremity edema has almost entirely resolved however he states he still becomes short of breath and tired with minimal activity. He denies chest pain, dizziness or palpitations. Blood pressure 123/70 heart rate 108 afebrile maintaining oxygen saturation on room air. He continues to be in atrial fibrillation on telemetry. Repeat chest ultrasound this morning revealed right pleural effusion 2.7 and left pleural effusion 5.7. His anticoagulation continues to be on hold pending Dr. Contreras's evaluation for possible thoracentesis. PHYSICAL EXAMINATION CONSTITUTIONAL: No apparent distress. HEENT: Head is normocephalic. Pupils are equal, round. Sclerae anicteric. Mucous membranes of the mouth are moist. No JVD. No carotid bruit. CHEST EXAMINATION: Bibasilar rales, no wheezes or rhonchi. No chest wall tenderness is noted on palpation or with deep breathing. HEART EXAMINATION: Irregular rate and rhythm. S1, S2 heard. Systolic and di astolic murmur at the base, no gallops or rub. EXTREMITIES: 1+ peripheral pulses, no lower extremity edema and no calf tenderness. ASSESSMENT Acute on chronic systolic heart failure with worsening LV function Non-ischenic cardiomyopathy Possible pneumonia with left sided pleural effusion Persistent atrial fibrillation s/p failed cardioversion Aortic stenosis s/p bioprostheic aortic valve replacement 2004 Mitral regurgitation Hypertension Dyslipidemia PLAN Discontinue losartan and initiate entresto 24/26 mg BID tomorrow. Ongoing monitoring and diuresis. Await Dr. Contreras's opinion regarding thoracentesis. Follow renal function and electrolytes in the morning. Accurate documentation of intake and output. Nurse Practitioner note has been reviewed, I agree with a documented findings and plan of care. Patient was seen and examined. Objective - Vital Signs Vital signs: Vital Signs Temp 97.4 F L 09/07/20 08:00 Pulse 108 H 09/07/20 08:00 Resp 18 09/07/20 08:00 BP 123/70 09/07/20 08:00 Pulse Ox 97 09/07/20 08:00 Intake & Output 09/06/20 09/07/20 09/07/20 18:59 06:59 18:59 Intake Total 620 240 Output Total 900 400 950 Balance -280 -400 -710 Weight 85.5 kg Intake: Oral 620 240 Output: Urine 900 400 950 Other: Voiding Method Toilet # Voids 1 1 # Bowel Movements 0 - Labs CBC & Chem 7: 09/03/20 07:07 09/06/20 07:19 Labs: Abnormal Lab Results - Last 24 Hours (Table) 09/06/20 09/06/20 09/06/20 Range/Units 12:02 17:02 20:25 POC Glucose (mg/dL) 125 H 146 H 195 H (75-99) mg/dL 09/07/20 Range/Units 06:02 POC Glucose (mg/dL) 125 H (75-99) mg/dL
--- NOTE | 2020-09-07 11:31 | P.PN ---
Subjective Progress Note Date: 09/07/20 Principal diagnosis: Bilateral pleural effusion right more than the left Cardiomyopathy with acute on chronic systolic heart failure ejection fraction of 30% now Ongoing progressive shortness of breath Atrial fibrillation with RVR Hypertension hypertensive cardiovascular disease History of aortic stenosis status post valve replacement History of ablation in the past 09/07/2020, patient seen eval examined during the rounds labs reviewed medications reviewed ultrasound of the chest reviewed as well small bilateral pleural effusion is present more so on the right side compared to left side, patient has been diuresing well swelling in the lower extremity has improved sh ortness of breath improved will recommend to hold on thoracentesis and continue maximal medical therapy 09/06/2020, patient seen eval examined during rounds labs reviewed medications reviewed patient does get short of breath on activity and exertion swelling in the lower extremity appears to have improved, patient is off of direct oral anticoagulants in place he is on Lovenox, patient is scheduled to get her ultrasound tomorrow off chest to look depth of fluid depending upon findings of the ultrasound and amount of fluid consider doing thoracentesis, Patient is a pleasant 69-year-old male with the significant history of chronic atrial fibrillation patient has a history of the chronic systolic heart failure ejection fraction now 30-35% patient came in with progressive shortness of breath swelling of the lower extremity not responding to treatment as outpatient, patient noted to have a increase in pulmonary edema has been on Lasix, x-ray and ultrasound of the chest scan shows bilateral pleural effusion right more than the left side, patient is on direct oral anticoagulants Objective - Vital Signs Vital signs: Vital Signs Temp 97.4 F L 09/07/20 08:00 Pulse 108 H 09/07/20 08:00 Resp 18 09/07/20 08:00 BP 123/70 09/07/20 08:00 Pulse Ox 97 09/07/20 08:00 Intake & Output 09/06/20 09/07/20 09/07/20 18:59 06:59 18:59 Intake Total 620 240 Output Total 900 400 950 Balance -280 -400 -710 Weight 85.5 kg Intake: Oral 620 240 Output: Urine 900 400 950 Other: Voiding Method Toilet # Voids 1 1 # Bowel Movements 0 - Exam - Constitutional General appearance: average body habitus, cooperative, disheveled - EENT Eyes: PERRLA Ears: bilateral: normal - Neck Neck: normal ROM Carotids: bilateral: upstroke normal - Respiratory Respiratory: bilateral: diminished, dullness - Cardiovascular Rhythm: irregularly irregular Heart sounds: normal: S1, S2 - Gastrointestinal General gastrointestinal: normal bowel sounds, soft - Integumentary Integumentary: normal turgor - Neurologic Neurologic: CNII-XII intact - Musculoskeletal Musculoskeletal: gait normal, generalized weakness, strength equal bilaterally - Psychiatric Psychiatric: A&O x's 3, appropriate affect, intact judgment & insight - Labs CBC & Chem 7: 09/03/20 07:07 09/06/20 07:19 Labs: Abnormal Lab Results - Last 24 Hours (Table) 09/06/20 09/06/20 09/06/20 Range/Units 12:02 17:02 20:25 POC Glucose (mg/dL) 125 H 146 H 195 H (75-99) mg/dL 09/07/20 Range/Units 06:02 POC Glucose (mg/dL) 125 H (75-99) mg/dL Assessment and Plan Assessment: Small Bilateral pleural effusion right more than the left Cardiomyopathy with acute on chronic systolic heart failure ejection fraction of 30% now Ongoing progressive shortness of breath Atrial fibrillation with RVR Hypertension hypertensive cardiovascular disease History of aortic stenosis status post valve replacement History of ablation in the past Plan: Continue maximal medical therapy for heart failure Gentle diuresis P can resume diet oral anticoagulant Ultrasound of the chest bilateral reviewed no plans for thoracentesis given the small amount of fluid Further recommendations pending plan of care as per clinical response of patient Time with Patient: Greater than 30
[2020-09-07 12:02] LABS: Glucose,Whole Blood 170 mg/dL (75-99)
[2020-09-07 17:11] LABS: Glucose,Whole Blood 120 mg/dL (75-99)
[2020-09-07 20:38] LABS: Glucose,Whole Blood 138 mg/dL (75-99)
[2020-09-07] MEDS: NON FORMULARY DRUG (Rosuvastatin 20 MG Tablet) PO SCH (21:02)
[2020-09-07] MEDS: RIVAROXABAN 20 MG TAB PO SCH (21:03)
--- NOTE | 2020-09-07 22:21 | P.PN ---
Subjective Progress Note Date: 09/07/20 Principal diagnosis: CHF Exacerbation Mr. Monreal is 69-year-old male with a past medical history of atrial fibrillation, diabetes mellitus, hypertension, hyperlipidemia, GERD, osteoarthritis coming to the hospital with a chief complaint of lower extremity edema. He was also complaining of exertional dyspnea and cough with brownish sputum production. Patient was recently diagnosed with atypical pneumonia was on levofloxacin for 10 days without significant improvement. Patient has history of congestive heart failure with ejection fraction of 40 to 45%. On 09/07/2020 -patient is seen and examined at bedside. Patient states that his lower extremity edema is improving. He complains of difficulty in breathing with minimal activity. He denies having any chest pain, dizziness or palpitations. Patient is still in atrial fibrillation but rate controlled. He had a chest ultrasound done this morning showing right pleural effusion pocket size 2.7 cm, left pleural effusion pocket size 5.7 cm. As there was a plan for thoracentesis, Xarelto was held. After the patient had the chest ultrasound pulmonary Dr. Contreras decided that he would not proceed with thoracentesis due to small amount of fluid. So the patient's anticoagulation has been restarted again. On reviewing his vital signs patient is saturating at 97% on room air, T-max 97.7, heart rate 100s to 110s atrial fibrillation, blood pressure 123 x 70. No new labs from this morning. On review of systems Constitutional: Denied any fatigue denied any fever. Cardio vascular: denied any chest pain, palpitations Gastrointestinal denied any nausea vomiting Pulmonary: as above Active Medications Aspirin (Aspirin 81 Mg) 81 mg PO DAILY COUNTS INCLUDE 234 BEDS AT THE [facility] Last Admin: 09/07/20 08:09 Dose: 81 mg Documented by: Furosemide (Furosemide 10 Mg/Ml 4 Ml Vial) 40 mg IV BID COUNTS INCLUDE 234 BEDS AT THE [facility] Last Admin: 09/07/20 21:02 Dose: 40 mg Documented by: Insulin Aspart (Insulin Aspart (Novolog) 100 Unit/Ml Vial) 0 unit SQ ACHS COUNTS INCLUDE 234 BEDS AT THE [facility]; Protocol Last Admin: 09/07/20 21:03 Dose: 1 unit Documented by: Metoprolol Succinate (Metoprolol Succinate (Er) 100 Mg Tab.Er.24h) 100 mg PO DAILY COUNTS INCLUDE 234 BEDS AT THE [facility] Last Admin: 09/07/20 08:09 Dose: 100 mg Documented by: Naloxone HCl (Naloxone 0.4 Mg/Ml 1 Ml Vial) 0.2 mg IV Q2M PRN PRN Reason: Opioid Reversal Non-Formulary Medication (Rosuvastatin) 20 mg PO [facility] Last Admin: 09/07/20 21:02 Dose: 20 mg Documented by: Potassium Chloride (Potassium Chloride Er 20 Meq Tab.Er) 20 meq PO DAILY COUNTS INCLUDE 234 BEDS AT THE [facility] Last Admin: 09/07/20 08:09 Dose: 20 meq Documented by: Rivaroxaban (Rivaroxaban 20 Mg Tab) 20 mg PO [facility] Last Admin: 09/07/20 21:03 Dose: 20 mg Documented by: Sacubitril/Valsartan (Sacubitril/Valsartan 24 Mg-26 Mg Tablet) 1 each PO BID COUNTS INCLUDE 234 BEDS AT THE [facility] Spironolactone (Spironolactone 25 Mg Tab) 25 mg PO DAILY COUNTS INCLUDE 234 BEDS AT THE [facility] Last Admin: 09/07/20 08:09 Dose: 25 mg Documented by: Objective - Vital Signs Vital signs: Vital Signs Temp 97.4 F L 09/07/20 08:00 Pulse 93 09/07/20 12:00 Resp 16 09/07/20 12:00 BP 105/69 09/07/20 12:00 Pulse Ox 100 09/07/20 12:00 Intake & Output 09/06/20 09/07/20 09/07/20 18:59 06:59 18:59 Intake Total 620 420 Output Total 900 400 950 Balance -280 -400 -530 Weight 85.5 kg Intake: Oral 620 420 Output: Urine 900 400 950 Other: Voiding Method Toilet # Voids 1 1 # Bowel Movements 0 - Exam PHYSICAL EXAMINATION: GENERAL: The patient is alert and oriented x3, not in any acute distress. Well developed, well nourished. HEENT: Pupils are round and equally reacting to light. EOMI. No scleral icterus. No conjunctival pallor. Normocephalic, atraumatic. No pharyngeal erythema. No thyromegaly. CARDIOVASCULAR: A fibrillation PULMONARY: Chest is clear to auscultation, no wheezing or crackles. ABDOMEN: Soft, nontender, nondistended, normoactive bowel sounds. No palpable organomegaly. MUSCULOSKELETAL: No joint swelling or deformity. EXTREMITIES: No cyanosis, clubbing, 2+ pitting pedal edema extending up to bilateral knees, improving NEUROLOGICAL: Gross neurological examination did not reveal any focal deficits. SKIN: No rashes. - Labs CBC & Chem 7: 09/08/20 06:42 09/08/20 06:42 Labs: Abnormal Lab Results - Last 24 Hours (Table) 09/06/20 09/06/20 09/07/20 Range/Units 17:02 20:25 06:02 POC Glucose (mg/dL) 146 H 195 H 125 H (75-99) mg/dL 09/07/20 Range/Units 12:00 POC Glucose (mg/dL) 170 H (75-99) mg/dL Assessment and Plan Assessment: ASSESSMENT Acute on chronic systolic congestive heart failure Nonischemic cardiomyopathy Bilateral pleural effusion more on left than right next Persistent atrial fibrillation status post failed cardioversion Aortic stenosis status post bioprosthetic aortic valve replacement done in 2004 Mitral regurgitation Hypertension Dyslipidemia Benign prostatic hypertrophy PLAN: As there was a plan for thoracentesis yesterday, patient Xarelto was held. As the chest ultrasound showed small side pleural effusion, the plan for thoracentesis was discontinued. Patient has been restarted on Xarelto. Cardiology discontinued losartan and to initiate Entresto tomorrow morning. Continue with the rest of his current medication regimen. Further recommendations to follow depending on the progress of the patient.
[2020-09-08 06:15] LABS: Glucose,Whole Blood 100 mg/dL (75-99)
[2020-09-08] MEDS: INSULIN ASPART (NovoLOG) 100 UNIT/ML VIAL SQ SCH ×4 (06:31→20:22)
[2020-09-08 07:23] LABS: Basophils % (A) 1 %; Eosinophils # (A) 0.1 k/uL (0-0.7); Eosinophils % (A) 1 %; HCT 46.3 % (39.0-53.0); HGB 14.6 gm/dL (13.0-17.5); Lymphocytes # (A) 2.2 k/uL (1.0-4.8); Lymphocytes % (A) 34 %; MCH 28.5 pg (25.0-35.0); MCHC 31.6 g/dL (31.0-37.0); MCV 90.2 fL (80.0-100.0); Mean Platelet Volume 10.3; Monocytes # (A) 0.5 k/uL (0-1.0); Monocytes % (A) 7 %; Neutrophils # (A) 3.5 k/uL (1.3-7.7); Neutrophils % (A) 55 %; Platelet Count 101 k/uL (150-450); RBC 5.13 m/uL (4.30-5.90); RDW 14.9 % (11.5-15.5); WBC 6.4 k/uL (3.8-10.6)
[2020-09-08 07:49] LABS: African American GFR (CKD) >90 (>60 ml/min/1.73 sqM); Anion Gap 6 mmol/L; Blood Urea Nitrogen 38 mg/dL (9-20); Calcium 8.9 mg/dL (8.4-10.2); Carbon Dioxide 31 mmol/L (22-30); Chloride 100 mmol/L (98-107); Glucose 114 mg/dL (74-99); Non-African American GFR(CKD) >90 (>60 ml/min/1.73 sqM); Potassium 4.4 mmol/L (3.5-5.1); Sodium 137 mmol/L (137-145)
[2020-09-08] MEDS: FUROSEMIDE 10 MG/ML 4 ML VIAL IV SCH (08:50)
[2020-09-08] MEDS: METOPROLOL SUCCINATE (ER) 100 MG TAB.ER.24H PO SCH (08:50)
[2020-09-08] MEDS: SACUBITRIL/VALSARTAN 24 MG-26 MG TABLET PO SCH ×2 (08:50→20:27)
[2020-09-08] MEDS: SPIRONOLACTONE 25 MG TAB PO SCH (08:50)
[2020-09-08] MEDS: ASPIRIN 81 MG PO SCH (08:50)
[2020-09-08] MEDS: POTASSIUM CHLORIDE ER 20 MEQ TAB.ER PO SCH (08:51)
[2020-09-08 12:09] LABS: Glucose,Whole Blood 120 mg/dL (75-99)
--- NOTE | 2020-09-08 13:06 | P.PN ---
Subjective HISTORY OF PRESENTING ILLNESS This is a pleasant 69-year-old male past medical history significant for bicuspid aortic valve status post bioprosthetic aortic valve replacement, persistent atrial fibrillation s/p failed cardioversion, diabetes mellitus, hypertension, dyslipidemia, SVT s/p ablation, PVC ablation and recent worsening non-ischemic cardiomyopathy thought to be related to afib. He follows in the office with Dr. Perrin. We have been asked to see in consultation for heart failure. He was first noted to be in atrial fibrillation July 03 in the office. His murmur at that time also sounded worse. PAULINE/CV was recommended. PAULINE 07/21/20 revealed bioprosthetic valve with moderate to severe aortic stenosis, a V-max 3.23 with a mean gradient of 23 mmHg with possibility of low flow gradient aortic stenosis. Mitral valve is normal-appearing with moderate central mitral regurgitation. LV systolic function was 40-45% with global hypokinesia noted. The cardioversion was initially successful however he had immediate recurrence of afib. He has been in afib since that time. He has been in and out of the hospital frequently due to pneumonia, afib and heart failure. He states since June he has been tired, weak, short of breath and no appetitie. He has been adjusting his diuretics with his PCP and also finished a course of antibiotics for pneumonia. Last week he was feeling exhausted and still had no appetite so he started drinking pedilyte for a few days. He then started noticing an increase in lower extremity edema, worsening shortness of breath, PND, orthopnea and increased fatigue with even simple activities. Repeat echocardiogram obtained on this admission reveals impaired LV systolic function with EF 25-30%, global LV hypokinesia, moderate-severely enlarged LA and RV, mild regurgitation of the prosthetic aortic valve, moderate-severe stenosis of the AV with dimensions of 0.18 concerning for low flow low gradient severe , moderate- severe MR, mild TR and large pleural effusion noted on the left. He also underwent a stress echo 04/2020 revealing EKG abnormalities with no echocardiographic evidence of ischemia and sustained SVT into recovery. 09/08/2020 Patient was seen and examined up ambulating around the room in no acute distress. He states in the previous 24 hours his exertional dyspnea seems to have improved. He denies chest pain, dizziness or palpitations. Blood pressure 98/60 heart rate 88 afebrile maintaining oxygen saturation on room air. Laboratory data reviewed, WBC 6.4, hemoglobin 14.6, platelets 101, sodium 137, potassium 4.4 and creatinine 0.83. PHYSICAL EXAMINATION CONSTITUTIONAL: No apparent distress. HEENT: Head is normocephalic. Pupils are equal, round. Sclerae anicteric. Mucous membranes of the mouth are moist. No JVD. No carotid bruit. CHEST EXAMINATION: Clear to auscultation bilaterally, no rales, wheezes or rhonchi. No chest wall tenderness is noted on palpation or with deep breathing. HEART EXAMINATION: Irregular rate and rhythm. S1, S2 heard. Systolic and diastolic murmur at the base, no gallops or rub. EXTREMITIES: 1+ peripheral pulses, no lower extremity edema and no calf tenderness. ASSESSMENT Acute on chronic systolic heart failure with worsening LV function Non-ischenic cardiomyopathy Possible pneumonia with left sided pleural effusion Persistent atrial fibrillation s/p failed cardioversion Aortic stenosis s/p bioprostheic aortic valve replacement 2004 Mitral regurgitation Hypertension Dyslipidemia PLAN Transition to oral Lasix. No plans for thoracentesis, xarelto has been resumed per pulmonary care team. Continue Entresto as previously ordered. Follow blood pressure and renal function closely. If he continues to improve, expect discharge tomorrow. Nurse Practitioner note has been reviewed, I agree with a documented findings and plan of care. Patient was seen and examined. Objective - Vital Signs Vital signs: Vital Signs Temp 97.6 F 09/08/20 11:54 Pulse 80 09/08/20 11:54 Resp 16 09/08/20 11:54 BP 98/60 09/08/20 11:54 Pulse Ox 96 09/08/20 11:54 Intake & Output 09/07/20 09/08/20 09/08/20 18:59 06:59 18:59 Intake Total 660 240 Output Total 1700 Balance -1040 240 Weight 85.1 kg Intake: Oral 660 240 Output: Urine 1700 Other: Voiding Method Toilet Toilet # Bowel Movements 0 - Labs CBC & Chem 7: 09/08/20 06:42 09/08/20 06:42 Labs: Abnormal Lab Results - Last 24 Hours (Table) 09/07/20 09/07/20 09/08/20 Range/Units 17:09 20:36 06:11 Plt Count (150-450) k/uL Carbon Dioxide (22-30) mmol/L BUN (9-20) mg/dL Glucose (74-99) mg/dL POC Glucose (mg/dL) 120 H 138 H 100 H (75-99) mg/dL 09/08/20 09/08/20 09/08/20 Range/Units 06:42 06:42 12:08 Plt Count 101 L (150-450) k/uL Carbon Dioxide 31 H (22-30) mmol/L BUN 38 H (9-20) mg/dL Glucose 114 H (74-99) mg/dL POC Glucose (mg/dL) 120 H (75-99) mg/dL
--- NOTE | 2020-09-08 13:24 | P.PN ---
Subjective Progress Note Date: 09/08/20 Principal diagnosis: CHF Exacerbation Mr. Monreal is 69-year-old male with a past medical history of atrial fibrillation, diabetes mellitus, hypertension, hyperlipidemia, GERD, osteoarthritis coming to the hospital with a chief complaint of lower extremity edema. He was also complaining of exertional dyspnea and cough with brownish sputum production. Patient was recently diagnosed with atypical pneumonia was on levofloxacin for 10 days without significant improvement. Patient has history of congestive heart failure with ejection fraction of 40 to 45%. On 09/07/2020 -patient is seen and examined at bedside. Patient states that his lower extremity edema is improving. He complains of difficulty in breathing with minimal activity. He denies having any chest pain, dizziness or palpitations. Patient is still in atrial fibrillation but rate controlled. He had a chest ultrasound done this morning showing right pleural effusion pocket size 2.7 cm, left pleural effusion pocket size 5.7 cm. As there was a plan for thoracentesis, Xarelto was held. After the patient had the chest ultrasound pulmonary Dr. Contreras decided that he would not proceed with thoracentesis due to small amount of fluid. So the patient's anticoagulation has been restarted again. 09/08/2020 - S1 was seen and examined at bedside. Patient is comfortably resting in his bed. He states that his lower extremity swelling is improved. He also mentions that his breathing is much better compared to yesterday. He feels like he has less fluid in his lungs. Patient denies having any chest pain or palpitations. No cough or difficulty in breathing. On reviewing his vital signs patient is saturating at 98% on room air, T-max 97.8, heart rate 100s to 110s atrial fibrillation, blood pressure 10 7 x 59, slightly less compared to yesterday. Reviewing his labs hemoglobin 14.6, platelets 101. Sodium 137, potassium 4.4, prior 100, bicarbonate 31, BUN 38, creatinine 0.83. Patient has been started on Entresto this morning by cardiology. On review of systems Constitutional: Denied any fatigue denied any fever. Cardio vascular: denied any chest pain, palpitations Gastrointestinal denied any nausea vomiting Pulmonary: as above Active Medications Aspirin (Aspirin 81 Mg) 81 mg PO DAILY [facility] Last Admin: 09/08/20 08:50 Dose: 81 mg Documented by: Furosemide (Furosemide 40 Mg Tab) 40 mg PO BID@0900,1600 [facility] Insulin Aspart (Insulin Aspart (Novolog) 100 Unit/Ml Vial) 0 unit SQ ACHS [facility]; Protocol Last Admin: 09/08/20 12:21 Dose: Not Given Documented by: Metoprolol Succinate (Metoprolol Succinate (Er) 100 Mg Tab.Er.24h) 100 mg PO DA [facility] Last Admin: 09/08/20 08:50 Dose: 100 mg Documented by: Naloxone HCl (Naloxone 0.4 Mg/Ml 1 Ml Vial) 0.2 mg IV Q2M PRN PRN Reason: Opioid Reversal Non-Formulary Medication (Rosuvastatin) 20 mg PO [facility] Last Admin: 09/07/20 21:02 Dose: 20 mg Documented by: Potassium Chloride (Potassium Chloride Er 20 Meq Tab.Er) 20 meq PO DAILY [facility] Last Admin: 09/08/20 08:51 Dose: 20 meq Documented by: Rivaroxaban (Rivaroxaban 20 Mg Tab) 20 mg PO [facility] Last Admin: 09/07/20 21:03 Dose: 20 mg Documented by: Sacubitril/Valsartan (Sacubitril/Valsartan 24 Mg-26 Mg Tablet) 1 each PO BID [facility] Last Admin: 09/08/20 08:50 Dose: 1 each Documented by: Spironolactone (Spironolactone 25 Mg Tab) 25 mg PO DAILY [facility] Last Admin: 09/08/20 08:50 Dose: 25 mg Documented by: Objective - Vital Signs Vital signs: Vital Signs Temp 97.6 F 09/08/20 11:54 Pulse 80 09/08/20 11:54 Resp 16 09/08/20 11:54 BP 98/60 09/08/20 11:54 Pulse Ox 96 09/08/20 11:54 Intake & Output 09/07/20 09/08/20 09/08/20 18:59 06:59 18:59 Intake Total 660 240 Output Total 1700 Balance -1040 240 Weight 85.1 kg Intake: Oral 660 240 Output: Urine 1700 Other: Voiding Method Toilet Toilet # Bowel Movements 0 - Exam PHYSICAL EXAMINATION: GENERAL: The patient is alert and oriented x3, not in any acute distress. Well developed, well nourished. HEENT: Pupils are round and equally reacting to light. EOMI. No scleral icterus. No conjunctival pallor. CARDIOVASCULAR: A fibrillation PULMONARY: Chest is clear to auscultation, no wheezing or crackles. ABDOMEN: Soft, nontender, nondistended, normoactive bowel sounds. MUSCULOSKELETAL: No joint swelling or deformity. EXTREMITIES: No cyanosis, clubbing, no pedal edema NEUROLOGICAL: Gross neurological examination did not reveal any focal deficits. SKIN: No rashes. - Labs CBC & Chem 7: 09/08/20 06:42 09/08/20 06:42 Labs: Abnormal Lab Results - Last 24 Hours (Table) 09/07/20 09/07/20 09/08/20 Range/Units 17:09 20:36 06:11 Plt Count (150-450) k/uL Carbon Dioxide (22-30) mmol/L BUN (9-20) mg/dL Glucose (74-99) mg/dL POC Glucose (mg/dL) 120 H 138 H 100 H (75-99) mg/dL 09/08/20 09/08/20 09/08/20 Range/Units 06:42 06:42 12:08 Plt Count 101 L (150-450) k/uL Carbon Dioxide 31 H (22-30) mmol/L BUN 38 H (9-20) mg/dL Glucose 114 H (74-99) mg/dL POC Glucose (mg/dL) 120 H (75-99) mg/dL Assessment and Plan Assessment: ASSESSMENT Acute on chronic systolic congestive heart failure Nonischemic cardiomyopathy Bilateral pleural effusion more on left than right next Persistent atrial fibrillation status post failed cardioversion Aortic stenosis status post bioprosthetic aortic valve replacement done in 2004 Mitral regurgitation Hypertension Dyslipidemia Benign prostatic hypertrophy PLAN: As the chest ultrasound showed small side pleural effusion, the plan for thoracentesis was discontinued. Patient has been restarted on Xarelto yesterday. Cardiology discontinued losartan . He has been started on Entrestro this morning, will monitor Blood pressure and Renal function closely. Continue with the rest of his current medication regimen. Further recommendations to follow depending on the progress of the patient.
[2020-09-08] MEDS: FUROSEMIDE 40 MG TAB PO SCH (15:21)
--- NOTE | 2020-09-08 15:31 | P.PN ---
Subjective Progress Note Date: 09/08/20 Principal diagnosis: Bilateral pleural effusion right more than the left Cardiomyopathy with acute on chronic systolic heart failure ejection fraction of 30% now Ongoing progressive shortness of breath Atrial fibrillation with RVR Hypertension hypertensive cardiovascular disease History of aortic stenosis status post valve replacement History of ablation in the past 09/08/2020, patient seen eval examined during the rounds labs reviewed medications reviewed in shortness of breath slightly better now she extremity swelling continued to improve, noted between continue to go up creatinine however is stable, patient continued to be diuresed 09/07/2020, patient seen eval examined during the rounds labs reviewed medications reviewed ultrasound of the chest reviewed as well small bilateral pleural effusion is present more so on the right side compared to left side, p atient has been diuresing well swelling in the lower extremity has improved shortness of breath improved will recommend to hold on thoracentesis and continue maximal medical therapy 09/06/2020, patient seen eval examined during rounds labs reviewed medications reviewed patient does get short of breath on activity and exertion swelling in the lower extremity appears to have improved, patient is off of direct oral anticoagulants in place he is on Lovenox, patient is scheduled to get her ultrasound tomorrow off chest to look depth of fluid depending upon findings of the ultrasound and amount of fluid consider doing thoracentesis, Patient is a pleasant 69-year-old male with the significant history of chronic atrial fibrillation patient has a history of the chronic systolic heart failure ejection fraction now 30-35% patient came in with progressive shortness of breath swelling of the lower extremity not responding to treatment as outpatient, patient noted to have a increase in pulmonary edema has been on Lasix, x-ray and ultrasound of the chest scan shows bilateral pleural effusion right more than the left side, patient is on direct oral anticoagulants Objective - Vital Signs Vital signs: Vital Signs Temp 97.6 F 09/08/20 11:54 Pulse 80 09/08/20 13:22 Resp 16 09/08/20 13:22 BP 98/60 09/08/20 11:54 Pulse Ox 96 09/08/20 11:54 Intake & Output 09/07/20 09/08/20 09/08/20 18:59 06:59 18:59 Intake Total 660 480 Output Total 1700 1000 Balance -1040 -520 Weight 85.1 kg Intake: Oral 660 480 Output: Urine 1700 1000 Other: Voiding Method Toilet Toilet # Bowel Movements 0 - Exam - Constitutional General appearance: average body habitus, cooperative, disheveled - EENT Eyes: PERRLA Ears: bilateral: normal - Neck Neck: normal ROM Carotids: bilateral: upstroke normal - Respiratory Respiratory: bilateral: diminished, dullness - Cardiovascular Rhythm: irregularly irregular Heart sounds: normal: S1, S2 - Gastrointestinal General gastrointestinal: normal bowel sounds, soft - Integumentary Integumentary: normal turgor - Neurologic Neurologic: CNII-XII intact - Musculoskeletal Musculoskeletal: gait normal, generalized weakness, strength equal bilaterally - Psychiatric Psychiatric: A&O x's 3, appropriate affect, intact judgment & insight - Labs CBC & Chem 7: 09/08/20 06:42 09/08/20 06:42 Labs: Abnormal Lab Results - Last 24 Hours (Table) 09/07/20 09/07/20 09/08/20 Range/Units 17:09 20:36 06:11 Plt Count (150-450) k/uL Carbon Dioxide (22-30) mmol/L BUN (9-20) mg/dL Glucose (74-99) mg/dL POC Glucose (mg/dL) 120 H 138 H 100 H (75-99) mg/dL 09/08/20 09/08/20 09/08/20 Range/Units 06:42 06:42 12:08 Plt Count 101 L (150-450) k/uL Carbon Dioxide 31 H (22-30) mmol/L BUN 38 H (9-20) mg/dL Glucose 114 H (74-99) mg/dL POC Glucose (mg/dL) 120 H (75-99) mg/dL Assessment and Plan Assessment: Small Bilateral pleural effusion right more than the left Cardiomyopathy with acute on chronic systolic heart failure ejection fraction of 30% now Ongoing progressive shortness of breath Atrial fibrillation with RVR Hypertension hypertensive cardiovascular disease History of aortic stenosis status post valve replacement History of ablation in the past Plan: Continue maximal medical therapy for heart failure Gentle diuresis P can resume diet oral anticoagulant Ultrasound of the chest bilateral reviewed no plans for thoracentesis given the small amount of fluid Further recommendations pending plan of care as per clinical response of patient Time with Patient: Greater than 30
[2020-09-08 16:46] LABS: Glucose,Whole Blood 293 mg/dL (75-99)
[2020-09-08 19:56] LABS: Glucose,Whole Blood 111 mg/dL (75-99)
[2020-09-08] MEDS: RIVAROXABAN 20 MG TAB PO SCH (20:27)
[2020-09-08] MEDS: NON FORMULARY DRUG (Rosuvastatin 20 MG Tablet) PO SCH (20:27)
[2020-09-09 05:53] LABS: Glucose,Whole Blood 119 mg/dL (75-99)
[2020-09-09] MEDS: INSULIN ASPART (NovoLOG) 100 UNIT/ML VIAL SQ SCH ×2 (06:36→12:04)
[2020-09-09 08:23] VITALS: RESP 16
[2020-09-09] MEDS: ASPIRIN 81 MG PO SCH (08:27)
[2020-09-09] MEDS: FUROSEMIDE 40 MG TAB PO SCH (08:27)
[2020-09-09] MEDS: SACUBITRIL/VALSARTAN 24 MG-26 MG TABLET PO SCH (08:27)
[2020-09-09] MEDS: METOPROLOL SUCCINATE (ER) 100 MG TAB.ER.24H PO SCH (08:27)
[2020-09-09] MEDS: POTASSIUM CHLORIDE ER 20 MEQ TAB.ER PO SCH (08:27)
[2020-09-09] MEDS: SPIRONOLACTONE 25 MG TAB PO SCH (08:27)
[2020-09-09 10:17] LABS: African American GFR (CKD) >90 (>60 ml/min/1.73 sqM); Anion Gap 8 mmol/L; Blood Urea Nitrogen 38 mg/dL (9-20); Calcium 8.6 mg/dL (8.4-10.2); Carbon Dioxide 29 mmol/L (22-30); Chloride 96 mmol/L (98-107); Glucose 277 mg/dL (74-99); Non-African American GFR(CKD) >90 (>60 ml/min/1.73 sqM); Potassium 4.3 mmol/L (3.5-5.1); Sodium 133 mmol/L (137-145)
[2020-09-09 11:38] VITALS: BP 127/58; PULSE 87; TEMP 97.9
[2020-09-09 11:47] LABS: Glucose,Whole Blood 245 mg/dL (75-99)
--- NOTE | 2020-09-09 12:37 | P.PN ---
Progress Note - Text Patient admitted with congestive heart failure and further reduction in LV systolic function EF 25-30%, global hypokinesis LV moderately dilated Microcytic aortic valve Moderate to severe mitral regurgitation Likely low flow across the aortic valve on account of severe LV dysfunction Persistent atrial fibrillation Sodium 133, potassium 4.3, BUN 38 and creatinine 0.77 Started on ENTRESTO. Losartan stopped Today the dose of Lasix was reduced to 40 mg once daily Aldactone continued Beta blockers continue The patient is awaiting ablation on september, A. fib ablation I will reassess him in a week's time Past history of PVCs Past history of AV antelmo reentry status post ablation Past history of atrial flutter status post successful ablation Past history of adenopathy with an ejection fraction of 40-45% Bioprosthetic aortic valve Mildly enlarged ascending aorta Consideration for dofetilide versus A. fib ablation
--- NOTE | 2020-09-09 13:58 | P.PN ---
Subjective HISTORY OF PRESENTING ILLNESS This is a pleasant 69-year-old male past medical history significant for bicuspid aortic valve status post bioprosthetic aortic valve replacement, persistent atrial fibrillation s/p failed cardioversion, diabetes mellitus, hypertension, dyslipidemia, SVT s/p ablation, PVC ablation and recent worsening non-ischemic cardiomyopathy thought to be related to afib. He follows in the office with Dr. Perrin. We have been asked to see in consultation for heart failure. He was first noted to be in atrial fibrillation July 03 in the office. His murmur at that time also sounded worse. PAULINE/CV was recommended. PAULINE 07/21/20 revealed bioprosthetic valve with moderate to severe aortic stenosis, a V-max 3.23 with a mean gradient of 23 mmHg with possibility of low flow gradient aortic stenosis. Mitral valve is normal-appearing with moderate central mitral regurgitation. LV systolic function was 40-45% with global hypokinesia noted. The cardioversion was initially successful however he had immediate recurrence of afib. He has been in afib since that time. He has been in and out of the hospital frequently due to pneumonia, afib and heart failure. He states since June he has been tired, weak, short of breath and no appetitie. He has been adjusting his diuretics with his PCP and also finished a course of antibiotics for pneumonia. Last week he was feeling exhausted and still had no appetite so he started drinking pedilyte for a few days. He then started noticing an increase in lower extremity edema, worsening shortness of breath, PND, orthopnea and increased fatigue with even simple activities. Repeat echocardiogram obtained on this admission reveals impaired LV systolic function with EF 25-30%, global LV hypokinesia, moderate-severely enlarged LA and RV, mild regurgitation of the prosthetic aortic valve, moderate-severe stenosis of the AV with dimensions of 0.18 concerning for low flow low gradient severe , moderate- severe MR, mild TR and large pleural effusion noted on the left. He also underwent a stress echo 04/2020 revealing EKG abnormalities with no echocardiographic evidence of ischemia and sustained SVT into recovery. 09/09/2020 Patient seen and examined up ambulating in the room in no acute distress. He feels like his tongue is dry and he feels mildly weak. He has no chest pain, shortness of breath, dizziness or palpitations. Blood pressure 127/58 heart rate 87 afebrile maintaining oxygen saturation on room air. Laboratory data reviewed, sodium 133, potassium 4.3, creatinine 0.77 and magnesium 2.3. PHYSICAL EXAMINATION CONSTITUTIONAL: No apparent distress. HEENT: Head is normocephalic. Pupils are equal, round. Sclerae anicteric. Mucous membranes of the mouth are moist. No JVD. No carotid bruit. CHEST EXAMINATION: Clear to auscultation bilaterally, no rales, wheezes or rhonchi. No chest wall tenderness is noted on palpation or with deep breathing. HEART EXAMINATION: Irregular rate and rhythm. S1, S2 heard. Systolic and diastolic murmur at the base, no gallops or rub. EXTREMITIES: 1+ peripheral pulses, no lower extremity edema and no calf tenderness. ASSESSMENT Acute on chronic systolic heart failure with worsening LV function Non-ischenic cardiomyopathy Possible pneumonia with left sided pleural effusion Persistent atrial fibrillation s/p failed cardioversion Aortic stenosis s/p bioprostheic aortic valve replacement 2004 Mitral regurgitation Hypertension Dyslipidemia Nonsustained ventricular tachycardia PLAN Decrease Lasix to daily dosing. Continue Entresto as previously ordered. Continue Toprol 100 mg daily. Advised the patient to have a BMP drawn in one week and follow-up with Dr. Perrin thereafter. Long-term plan to have A. fib ablation September 24 as previously scheduled. Nurse Practitioner note has been reviewed, I agree with a documented findings and plan of care. Patient was seen and examined. Objective - Vital Signs Vital signs: Vital Signs Temp 97.9 F 09/09/20 11:36 Pulse 87 09/09/20 13:09 Resp 16 09/09/20 13:09 BP 127/58 09/09/20 11:36 Pulse Ox 97 09/09/20 11:36 Intake & Output 09/08/20 09/09/20 09/09/20 18:59 06:59 18:59 Intake Total 720 222 Output Total 1000 Balance -280 222 Weight 85.4 kg Intake: Oral 720 222 Output: Urine 1000 Other: Voiding Method Toilet Toilet Toilet # Voids 1 1 # Bowel Movements 0 - Labs CBC & Chem 7: 09/08/20 06:42 09/09/20 09:16 Labs: Abnormal Lab Results - Last 24 Hours (Table) 09/08/20 09/08/20 09/09/20 Range/Units 16:33 19:54 05:51 Sodium (137-145) mmol/L Chloride (98-107) mmol/L BUN (9-20) mg/dL Glucose (74-99) mg/dL POC Glucose (mg/dL) 293 H 111 H 119 H (75-99) mg/dL 09/09/20 09/09/20 Range/Units 09:16 11:45 Sodium 133 L (137-145) mmol/L Chloride 96 L (98-107) mmol/L BUN 38 H (9-20) mg/dL Glucose 277 H (74-99) mg/dL POC Glucose (mg/dL) 245 H (75-99) mg/dL
--- NOTE | 2020-09-09 15:23 | P.PN ---
Subjective Progress Note Date: 09/09/20 Principal diagnosis: Bilateral pleural effusion right more than the left Cardiomyopathy with acute on chronic systolic heart failure ejection fraction of 30% now Ongoing progressive shortness of breath Atrial fibrillation with RVR Hypertension hypertensive cardiovascular disease History of aortic stenosis status post valve replacement History of ablation in the past 09/09/2020, patient seen eval examined during the rounds labs reviewed medications reviewed care plan discussed with patient and at length, patient has been ambulating at the room without any room air oxygen have been stable hemodynamics stable swelling in the lower extremity improved, shortness of breath on activity and exertion improve, patient is scheduled to get ablation therapy I have discussed with him at length about effusion which appears to be resolving with conservative care will keep an eye on it on the other hand he must be evaluated for sleep disorder breathing and sleep apnea given his significant history of cardiovascular problem atrial fibrillation, patient does have a history of snoring and excessive daytime sleepiness, suggestive of sleep disorder breathing and sleep apnea 09/08/2020, patient seen eval examined during the rounds labs reviewed medications reviewed in shortness of breath slightly better now she extremity swelling continued to improve, noted between continue to go up creatinine however is stable, patient continued to be diuresed 09/07/2020, patient seen eval examined during the rounds labs reviewed medications reviewed ultrasound of the chest reviewed as well small bilateral pleural effusion is present more so on the right side compared to left side, patient has been diuresing well swelling in the lower extremity has improved shortness of breath improved will recommend to hold on thoracentesis and continue maximal medical therapy 09/06/2020, patient seen eval examined during rounds labs reviewed medications reviewed patient does get short of breath on activity and exertion swelling in the lower extremity appears to have improved, patient is off of direct oral anticoagulants in place he is on Lovenox, patient is scheduled to get her u ltrasound tomorrow off chest to look depth of fluid depending upon findings of the ultrasound and amount of fluid consider doing thoracentesis, Patient is a pleasant 69-year-old male with the significant history of chronic atrial fibrillation patient has a history of the chronic systolic heart failure ejection fraction now 30-35% patient came in with progressive shortness of breath swelling of the lower extremity not responding to treatment as outpatient, patient noted to have a increase in pulmonary edema has been on Lasix, x-ray and ultrasound of the chest scan shows bilateral pleural effusion right more than the left side, patient is on direct oral anticoagulants Objective - Vital Signs Vital signs: Vital Signs Temp 97.9 F 09/09/20 11:36 Pulse 87 09/09/20 13:09 Resp 16 09/09/20 13:09 BP 127/58 09/09/20 11:36 Pulse Ox 97 09/09/20 11:36 Intake & Output 09/08/20 09/09/20 09/09/20 18:59 06:59 18:59 Intake Total 720 458 Output Total 1000 950 Balance -280 -492 Weight 85.4 kg Intake: Oral 720 458 Output: Urine 1000 950 Other: Voiding Method Toilet Toilet Toilet # Voids 1 1 # Bowel Movements 0 - Exam - Constitutional General appearance: average body habitus, cooperative, disheveled - EENT Eyes: PERRLA Ears: bilateral: normal - Neck Neck: normal ROM Carotids: bilateral: upstroke normal - Respiratory Respiratory: bilateral: diminished, dullness - Cardiovascular Rhythm: irregularly irregular Heart sounds: normal: S1, S2 - Gastrointestinal General gastrointestinal: normal bowel sounds, soft - Integumentary Integumentary: normal turgor - Neurologic Neurologic: CNII-XII intact - Musculoskeletal Musculoskeletal: gait normal, generalized weakness, strength equal bilaterally - Psychiatric Psychiatric: A&O x's 3, appropriate affect, intact judgment & insight - Labs CBC & Chem 7: 09/08/20 06:42 09/09/20 09:16 Labs: Abnormal Lab Results - Last 24 Hours (Table) 09/08/20 09/08/20 09/09/20 Range/Units 16:33 19:54 05:51 Sodium (137-145) mmol/L Chloride (98-107) mmol/L BUN (9-20) mg/dL Glucose (74-99) mg/dL POC Glucose (mg/dL) 293 H 111 H 119 H (75-99) mg/dL 09/09/20 09/09/20 Range/Units 09:16 11:45 Sodium 133 L (137-145) mmol/L Chloride 96 L (98-107) mmol/L BUN 38 H (9-20) mg/dL Glucose 277 H (74-99) mg/dL POC Glucose (mg/dL) 245 H (75-99) mg/dL Assessment and Plan Assessment: Sleep disorder breathing and sleep apnea Small Bilateral pleural effusion right more than the left Cardiomyopathy with acute on chronic systolic heart failure ejection fraction of 30% now Ongoing progressive shortness of breath Atrial fibrillation with RVR Hypertension hypertensive cardiovascular disease History of aortic stenosis status post valve replacement History of ablation in the past Plan: Continue maximal medical therapy for heart failure Gentle diuresis Continue direct oral anticoagulant Ultrasound of the chest bilateral reviewed no plans for thoracentesis given the small amount of fluid Further recommendations pending plan of care as per clinical response of patient Sleep study as outpatient
--- NOTE | 2020-09-09 17:25 | P.DS ---
Providers Date of admission: 09/05/20 06:40 Expected date of discharge: 09/09/20 Attending physician: Yoseph Dodson MD Consults: 09/03/20 08:51 Consult Physician Routine Consulting Provider: Selvin Perrin Consult Reason/Comments: CHF; AFib w/RVR Do you want consulting provider notified?: Yes 09/04/20 12:39 Consult Physician Routine Consulting Provider: Flip Contreras Consult Reason/Comments: Bilatral Pleural effusions Do you want consulting provider notified?: Yes Primary care physician: Vance Lopez Hospital Course: HPI - This is a pleasant 69-year-old male past medical history significant for bicuspid aortic valve status post bioprosthetic aortic valve replacement, persistent atrial fibrillation s/p failed cardioversion, diabetes mellitus, hypertension, dyslipidemia, SVT s/p ablation, PVC ablation and recent worsening non-ischemic cardiomyopathy thought to be related to afib. He follows in the office with Dr. Perrin. He was first noted to be in atrial fibrillation July 03 in the office. His murmur at that time also sounded worse. PAULINE/CV was recommended. PAULINE 07/21/20 revealed bioprosthetic valve with moderate to severe aortic stenosis, a V-max 3.23 with a mean gradient of 23 mmHg with possibility of low flow gradient aortic stenosis. Mitral valve is normal-appearing with moderate central mitral regurgitation. LV systolic function was 40-45% with global hypokinesia noted. The cardioversion was initially successful however he had immediate recurrence of afib. He has been in afib since that time. He has been in and out of the hospital frequently due to pneumonia, afib and heart failure. He states since June he has been tired, weak, short of breath and no appetitie. He has been adjusting his diuretics with his PCP and also finished a course of antibiotics for pneumonia. Last week he was feeling exhausted and still had no appetite so he started drinking pedilyte for a few days. He then started noticing an increase in lower extremity edema, worsening shortness of breath, PND, orthopnea and increased fatigue with even simple activities. Hospital course - Repeat echocardiogram obtained on this admission reveals impaired LV systolic function with EF 25-30%, global LV hypokinesia, moderate- severely enlarged LA and RV, mild regurgitation of the prosthetic aortic valve, moderate-severe stenosis of the AV with dimensions of 0.18 concerning for low flow low gradient severe , moderate-severe MR, mild TR and large pleural effusion noted on the left. Patient's anticoagulation with Xaralto was on hold as Dr. Contreras was planning for thoracentesis. Then patient had a repeat chest ultrasound revealed right pleural effusion 2.7 and left pleural effusion 5.7. So thoracentesis was held. Patient's symptoms improved. He was also started on Entresto on 09/08/2020. Patient was doing good in terms of his renal function after initiation of this medication. So he was cleared by cardiology to be discharged, and have follow-up in outpatient setting, for possible cardiac ablation. He was also advised to get a BMP checked in 1 week. Vital Signs 09/09/20 09/09/20 11:36 13:09 Temperature 97.9 F Pulse Rate [ 87 87 Pulse Oximetery ] Respiratory 16 16 Rate Blood Pressure 127/58 [Left Arm] O2 Sat by Pulse 97 Oximetry PHYSICAL EXAMINATION CONSTITUTIONAL: No apparent distress. HEENT: Head is normocephalic. Pupils are equal, round. Sclerae anicteric. Mucous membranes of the mouth are moist. No JVD. No carotid bruit. CHEST EXAMINATION: Clear to auscultation bilaterally, no rales, wheezes or rhonchi. No chest wall tenderness is noted on palpation or with deep breathing. HEART EXAMINATION: Irregular rate and rhythm. S1, S2 heard. Systolic and diastolic murmur at the base, no gallops or rub. EXTREMITIES: 1+ peripheral pulses, no lower extremity edema and no calf tenderness. DISCHARGE DIAGNOSIS Acute on chronic systolic congestive heart failure Nonischemic cardiomyopathy Bilateral pleural effusion more on left than right next Persistent atrial fibrillation status post failed cardioversion Aortic stenosis status post bioprosthetic aortic valve replacement done in 2004 Mitral regurgitation Hypertension Dyslipidemia Benign prostatic hypertrophy FOLLOW-up: Patient is advised to get his BMP checked in 1 week's time. He is advised to follow-up with cardiology in one week's time. Advised follow-up with his primary care physician in 2-3 days. More than 35 minutes spent towards the discharge of the patient. Patient Condition at Discharge: Fair Plan - Discharge Summary Discharge Rx Participant: No New Discharge Prescriptions: New Spironolactone [Aldactone] 25 mg PO DAILY #90 tab Sacubitril/Valsartan [Entresto 24 mg-26 mg Tablet] 1 each PO BID #60 tablet Furosemide [Lasix] 40 mg PO DAILY tab Continue Aspirin [Adult Low Dose Aspirin EC] 81 mg PO DAILY metFORMIN HCL [Glucophage] 500 mg PO BID Rivaroxaban [Xarelto] 20 mg PO HS Rosuvastatin [Crestor] 20 mg PO HS Metoprolol Succinate [Toprol XL] 100 mg PO DAILY Potassium Chloride [Klor-Con 20] 20 meq PO BID@0530,1200 Cholecalciferol [Vitamin D3 (25 Mcg = 1000 Iu)] 50 mcg PO DAILY Discontinued Losartan [Cozaar] 12.5 mg PO DAILY metFORMIN HCL 1,000 mg PO DAILY@1200 Furosemide [Lasix] 40 mg PO BID@0530,1200 Discharge Medication List Aspirin [Adult Low Dose Aspirin EC] 81 mg PO DAILY 07/26/16 [History] Rivaroxaban [Xarelto] 20 mg PO HS 07/17/20 [History] metFORMIN HCL [Glucophage] 500 mg PO BID 07/17/20 [History] Metoprolol Succinate [Toprol XL] 100 mg PO DAILY 08/02/20 [History] Rosuvastatin [Crestor] 20 mg PO HS 08/02/20 [History] Cholecalciferol [Vitamin D3 (25 Mcg = 1000 Iu)] 50 mcg PO DAILY 09/03/20 [History] Potassium Chloride [Klor-Con 20] 20 meq PO BID@0530,1200 09/03/20 [History] Furosemide [Lasix] 40 mg PO DAILY tab 09/09/20 [Rx] Sacubitril/Valsartan [Entresto 24 mg-26 mg Tablet] 1 each PO BID #60 tablet 09/09/20 [Rx] Spironolactone [Aldactone] 25 mg PO DAILY #90 tab 09/09/20 [Rx] Follow up Appointment(s)/Referral(s): Selvin Perrin MD [Family Provider] - 1 Week (Office will call with appointment day and time. ) Vance Lopez DO [Primary Care Provider] - 1-2 days Patient Instructions/Handouts: Heart Failure (DC), A-fib (Atrial Fibrillation) (DC) Discharge Disposition: HOME SELF-CARE
[2020-09-10] MEDS ORDERED: FUROSEMIDE 40 MG TAB PO SCH (09:00)
== END 2020-09-09 15:14 | disposition home or self-care (01) | DRG 291 ==
LOC: EC 06:45 → 6NMEDSUR 09:04 → 1SOBS 15:58 → 3SCARD 09-04 22:09 → OBSVTOIN 09-05 06:40
PROVIDERS: ADMIT Internal Medicine; ATTEND Internal Medicine
DX: I11.0 Hypertensive heart disease with heart failure (principal); J18.9 Pneumonia, unspecified organism; I48.19 Other persistent atrial fibrillation; I47.2 Ventricular tachycardia; E87.1 Hypo-osmolality and hyponatremia; I95.9 Hypotension, unspecified; I50.23 Acute on chronic systolic (congestive) heart failure; I42.8 Other cardiomyopathies; E11.9 Type 2 diabetes mellitus without complications; Z20.822 Contact with and (suspected) exposure to COVID-19; E55.9 Vitamin D deficiency, unspecified; G43.909 Migraine, unspecified, not intractable, without status migrainosus; E78.5 Hyperlipidemia, unspecified; G47.30 Sleep apnea, unspecified; I34.0 Nonrheumatic mitral (valve) insufficiency; L40.9 Psoriasis, unspecified; K21.9 Gastro-esophageal reflux disease without esophagitis; M50.30 Other cervical disc degeneration, unspecified cervical region; N40.0 Benign prostatic hyperplasia without lower urinary tract symptoms; M54.5 Low back pain; M19.90 Unspecified osteoarthritis, unspecified site; Z79.82 Long term (current) use of aspirin; Z79.01 Long term (current) use of anticoagulants; Z79.84 Long term (current) use of oral hypoglycemic drugs; Z79.899 Other long term (current) drug therapy; Z95.3 Presence of xenogenic heart valve; Z87.01 Personal history of pneumonia (recurrent); Z86.79 Personal history of other diseases of the circulatory system; Z87.19 Personal history of other diseases of the digestive system; Z98.890 Other specified postprocedural states; Z88.8 Allergy status to other drugs, medicaments and biological substances; Z82.49 Family history of ischemic heart disease and other diseases of the circulatory system
CPT/HCPCS: 36415; 71045; 76604; 80048; 80053; 81001; 83735; 83880; 84484; 85025; 85610; 85730; 87635; 93005; 93306; 96374; 99285

== ENCOUNTER 2020-09-13 05:09 | Inpatient (IN) | payer MEDICARE, MEDICAID ==
--- NOTE | 2020-09-13 06:36 | ED ---
General Adult HPI - General Chief complaint: Shortness of Breath Stated complaint: WAQAS Time Seen by Provider: 09/13/20 06:02 Source: patient, EMS, RN notes reviewed, old records reviewed Mode of arrival: EMS Limitations: no limitations - History of Present Illness Initial comments: Wali is a 69-year-old male presents emergency department today with his for complaints of worsening shortness of breath. He reports he was recently admitted for acute exacerbation of chronic heart failure. He reports he has a history of atrial fibrillation and is planning to have a ablation completed early September. At his recent hospitalization and he was placed on IV Lasix and started on interest toe. He reports since his discharge she feels that he is "filling up with fluid in his lungs". He reports coughing up white frothy sputum. He states that he has not had a significant weight gain on his home scale however questions a differential between the scale the hospital. Patient reports that he has been feeling significantly winded with short exertional distances. - Related Data Home Medications Medication Instructions Recorded Confirmed Aspirin [Adult Low Dose Aspirin EC] 81 mg PO DAILY 07/26/16 09/13/20 Rivaroxaban [Xarelto] 20 mg PO HS 07/17/20 09/13/20 metFORMIN HCL [Glucophage] 500 mg PO BID@0800,1200 07/17/20 09/13/20 Metoprolol Succinate [Toprol XL] 100 mg PO DAILY 08/02/20 09/13/20 Rosuvastatin [Crestor] 20 mg PO HS 08/02/20 09/13/20 Cholecalciferol [Vitamin D3 (25 50 mcg PO DAILY 09/03/20 09/13/20 Mcg = 1000 Iu)] Potassium Chloride [Klor-Con 20] 20 meq PO BID@0530,1200 09/03/20 09/13/20 Sacubitril/Valsartan [Entresto 24 1 tab PO BID 09/13/20 09/13/20 mg-26 mg Tablet] Previous Rx's Medication Instructions Recorded Furosemide [Lasix] 40 mg PO DAILY tab 09/09/20 Spironolactone [Aldactone] 25 mg PO DAILY #90 tab 09/09/20 Allergies Allergy/AdvReac Type Severity Reaction Status Date / Time atorvastatin [From Lipitor] AdvReac muscle Verified 09/13/20 07:43 weakness Review of Systems ROS Statement: Those systems with pertinent positive or pertinent negative responses have been documented in the HPI. ROS Other: All systems not noted in ROS Statement are negative. Past Medical History Past Medical History: Atrial Fibrillation, Diabetes Mellitus, GERD/Reflux, Hyperlipidemia, Hypertension, Musculoskeletal Disorder, Osteoarthritis (OA), Prostate Disorder, Skin Disorder Additional Past Medical History / Comment(s): Recent pneumonia treated with antibiotic, nonischemic cardiomyopathy, mitral valve regurg, NIDDM type II, BPH, occasional migraines, occasional cervical/shoulder pain, lower back pain/DDD, psoriasis, vitamin D deficiency. History of Any Multi-Drug Resistant Organisms: None Reported Past Surgical History: Cardiac Ablation, Cardiac Valve Replacement, Heart Catheterization Additional Past Surgical History / Comment(s): 07/21/20 PAULINE/cardioverson, 2005 Bovine aortic valve, cardiac ablation for SVT and another for PVCs, colonoscopies, anal fistula repair. Past Anesthesia/Blood Transfusion Reactions: Family History of Problems w/ Anesthesia Additional Past Anesthesia/Blood Transfusion Reaction / Comment(s): Mother - PONV Past Psychological History: No Psychological Hx Reported Smoking Status: Never smoker Past Alcohol Use History: Occasional Past Drug Use History: None Reported - Past Family History Mother Family Medical History: AFIB Additional Family Medical History / Comment(s): Mother lived to be 86yrs old. Father Family Medical History: Congestive Heart Failure (CHF) General Exam - General Exam Comments Initial Comments: 69-year-old male. No distress Limitations: no limitations General appearance: alert, in no apparent distress Head exam: Present: atraumatic, normocephalic, normal inspection Eye exam: Present: normal appearance ENT exam: Present: normal exam, mucous membranes moist Neck exam: Present: normal inspection. Absent: tenderness, meningismus, lymphadenopathy Respiratory exam: Present: decreased breath sounds. Absent: normal lung sounds bilaterally, respiratory distress, wheezes, rales, rhonchi, stridor Cardiovascular Exam: Present: regular rate GI/Abdominal exam: Present: soft, normal bowel sounds. Absent: distended, tenderness, guarding, rebound, rigid Extremities exam: Present: normal inspection, full ROM, normal capillary refill. Absent: tenderness, pedal edema, joint swelling, calf tenderness Back exam: Present: normal inspection Neurological exam: Present: alert Psychiatric exam: Present: normal affect, normal mood Skin exam: Present: warm, dry, intact, normal color. Absent: rash Course Vital Signs 09/13/20 09/13/20 09/13/20 05:20 06:04 06:33 Temperature 97.4 F L Pulse Rate 98 76 Respiratory 18 18 18 Rate Blood Pressure 103/68 97/67 O2 Sat by Pulse 94 L 94 L Oximetry Medical Decision Making - Medical Decision Making 61-year-old male with a history of CHF recent admission for CHF exacerbation as well as pneumonia. He states he is now having worsening shortness of breath with exertion, but denies any chest pain. Patient's chest x-ray shows evidence of right lower lobe opacity concerning for atelectasis. Does have elevated BNP 15,000. He was given low-dose Lasix 2 to lower blood pressure 97/60 and started on 50 mL's an hour of normal saline. Patient advised concern for acute CHF exacerbation will be admitted. Discussed this with Dr. Dodson. Will consult Dr. Perrin. - Lab Data Result diagrams: 09/13/20 06:30 09/13/20 07:29 Lab Results 09/13/20 09/13/20 09/13/20 Range/Units 06:30 06:30 06:30 WBC 7.0 (3.8-10.6) k/uL RBC 5.39 (4.30-5.90) m/uL Hgb 15.8 (13.0-17.5) gm/dL Hct 47.4 (39.0-53.0) % MCV 88.0 (80.0-100.0) fL MCH 29.4 (25.0-35.0) pg MCHC 33.4 (31.0-37.0) g/dL RDW 14.9 (11.5-15.5) % Plt Count 112 L (150-450) k/uL MPV 11.5 Neutrophils % 70 % Lymphocytes % 21 % Monocytes % 7 % Eosinophils % 1 % Basophils % 1 % Neutrophils # 4.9 (1.3-7.7) k/uL Lymphocytes # 1.5 (1.0-4.8) k/uL Monocytes # 0.5 (0-1.0) k/uL Eosinophils # 0.1 (0-0.7) k/uL Basophils # 0.0 (0-0.2) k/uL PT 14.4 H (9.0-12.0) sec INR 1.4 H (<1.2) APTT 28.0 (22.0-30.0) sec Sodium (137-145) mmol/L Potassium (3.5-5.1) mmol/L Chloride (98-107) mmol/L Carbon Dioxide (22-30) mmol/L Anion Gap mmol/L BUN (9-20) mg/dL Creatinine (0.66-1.25) mg/dL Est GFR (CKD-EPI)AfAm (>60 ml/min/1.73 sqM) Est GFR (CKD-EPI)NonAf (>60 ml/min/1.73 sqM) Glucose (74-99) mg/dL Plasma Lactic Acid Ham 1.6 (0.7-2.0) mmol/L Calcium (8.4-10.2) mg/dL Magnesium (1.6-2.3) mg/dL Total Bilirubin (0.2-1.3) mg/dL AST (17-59) U/L ALT (4-49) U/L Alkaline Phosphatase (38-126) U/L Troponin I (0.000-0.034) ng/mL NT-Pro-B Natriuret Pep pg/mL Total Protein (6.3-8.2) g/dL Albumin (3.5-5.0) g/dL 09/13/20 09/13/20 09/13/20 Range/Units 06:30 06:30 07:29 WBC (3.8-10.6) k/uL RBC (4.30-5.90) m/uL Hgb (13.0-17.5) gm/dL Hct (39.0-53.0) % MCV (80.0-100.0) fL MCH (25.0-35.0) pg MCHC (31.0-37.0) g/dL RDW (11.5-15.5) % Plt Count (150-450) k/uL MPV Neutrophils % % Lymphocytes % % Monocytes % % Eosinophils % % Basophils % % Neutrophils # (1.3-7.7) k/uL Lymphocytes # (1.0-4.8) k/uL Monocytes # (0-1.0) k/uL Eosinophils # (0-0.7) k/uL Basophils # (0-0.2) k/uL PT (9.0-12.0) sec INR (<1.2) APTT (22.0-30.0) sec Sodium 135 L (137-145) mmol/L Potassium 5.1 (3.5-5.1) mmol/L Chloride 104 (98-107) mmol/L Carbon Dioxide 22 (22-30) mmol/L Anion Gap 9 mmol/L BUN 28 H (9-20) mg/dL Creatinine 0.84 (0.66-1.25) mg/dL Est GFR (CKD-EPI)AfAm >90 (>60 ml/min/1.73 sqM) Est GFR (CKD-EPI)NonAf >90 (>60 ml/min/1.73 sqM) Glucose 144 H (74-99) mg/dL Plasma Lactic Acid Ham (0.7-2.0) mmol/L Calcium 9.2 (8.4-10.2) mg/dL Magnesium 2.3 (1.6-2.3) mg/dL Total Bilirubin 1.1 (0.2-1.3) mg/dL AST 45 (17-59) U/L ALT 63 H (4-49) U/L Alkaline Phosphatase 87 (38-126) U/L Troponin I 0.013 (0.000-0.034) ng/mL NT-Pro-B Natriuret Pep 83528 pg/mL Total Protein 6.2 L (6.3-8.2) g/dL Albumin 3.8 (3.5-5.0) g/dL 09/13/20 07:08 EKG performed at 542 shows atrial flutter with AV block with premature in Yassine conducted complex's. Low voltage QRS. Septal infarct age undetermined. Lateral infarct age undetermined. Abnormal EKG. Jugular rate of 96 bpm. Goals unaffected. QRS duration is 102 ms. QT QTc is 370/477 ms. - Radiology Data Radiology results: report reviewed Abnormal opacification of the medial posterior aspect of the right lower lobe which may represent infiltration or atelectasis. Disposition Clinical Impression: CHF (congestive heart failure), A-fib, Pleural effusion Disposition: ADMITTED IP TO THIS HOSP Condition: Stable Is patient prescribed a controlled substance at d/c from ED?: No Referrals: Vance Lopez DO [Primary Care Provider] - 1-2 days Time of Disposition: 08:10
[2020-09-13 06:39] LABS: Basophils % (A) 1 %; Eosinophils # (A) 0.1 k/uL (0-0.7); Eosinophils % (A) 1 %; HCT 47.4 % (39.0-53.0); HGB 15.8 gm/dL (13.0-17.5); Lymphocytes # (A) 1.5 k/uL (1.0-4.8); Lymphocytes % (A) 21 %; MCH 29.4 pg (25.0-35.0); MCHC 33.4 g/dL (31.0-37.0); Mean Platelet Volume 11.5; Monocytes # (A) 0.5 k/uL (0-1.0); Monocytes % (A) 7 %; Neutrophils # (A) 4.9 k/uL (1.3-7.7); Neutrophils % (A) 70 %; Platelet Count 112 k/uL (150-450); RBC 5.39 m/uL (4.30-5.90); RDW 14.9 % (11.5-15.5)
[2020-09-13] MEDS: FUROSEMIDE 10 MG/ML 4 ML VIAL IV STA ×2 (06:48→07:46)
[2020-09-13 06:59] LABS: INR 1.4 (<1.2); Prothrombin Time 14.4 sec (9.0-12.0)
--- NOTE | 2020-09-13 07:01 | XR ---
EXAM: XR Chest, 2 Views CLINICAL HISTORY: : difficulty breathing TECHNIQUE: Frontal and lateral views of the chest. COMPARISON: No relevant prior studies available. FINDINGS: Lungs: Abnormal opacification of the medial posterior aspect of the right lower lobe which may represent infiltration or atelectasis. Pleural space: Unremarkable. No pneumothorax. No pleural fluid. Heart: Cardiomegaly. Heart valve replacement. Mediastinum: Unremarkable. Bones/joints: Previous sternotomy. IMPRESSION: Abnormal opacification of the medial posterior aspect of the right lower lobe which may represent infiltration or atelectasis.
[2020-09-13] MEDS ORDERED: FUROSEMIDE 10 MG/ML 2 ML VIAL IV STA (07:28)
[2020-09-13] MEDS ORDERED: ACETAMINOPHEN TAB 500 MG TAB PO STA (07:36)
[2020-09-13 07:45] LABS: ALT 63 U/L (4-49); AST 45 U/L (17-59); African American GFR (CKD) >90 (>60 ml/min/1.73 sqM); Albumin 3.8 g/dL (3.5-5.0); Alkaline Phosphatase 87 U/L (38-126); Anion Gap 9 mmol/L; Blood Urea Nitrogen 28 mg/dL (9-20); Calcium 9.2 mg/dL (8.4-10.2); Carbon Dioxide 22 mmol/L (22-30); Chloride 104 mmol/L (98-107); Glucose 144 mg/dL (74-99); Magnesium 2.3 mg/dL (1.6-2.3); Non-African American GFR(CKD) >90 (>60 ml/min/1.73 sqM); Potassium 5.1 mmol/L (3.5-5.1); Sodium 135 mmol/L (137-145); Total Bilirubin 1.1 mg/dL (0.2-1.3); Total Protein 6.2 g/dL (6.3-8.2)
[2020-09-13] MEDS: SODIUM CHLORIDE 0.9% 1,000 ML IV SCH (07:48)
[2020-09-13] MEDS ORDERED: ASPIRIN 325 MG TAB PO STA (08:10)
[2020-09-13] MEDS: CHOLECALCIFEROL 25 MCG (1000 IU) TABLET PO SCH (09:42)
[2020-09-13] MEDS: SPIRONOLACTONE 25 MG TAB PO SCH (09:43)
[2020-09-13] MEDS: RIVAROXABAN 20 MG TAB PO SCH (09:43)
[2020-09-13] MEDS: SACUBITRIL/VALSARTAN 24 MG-26 MG TABLET PO SCH (09:44)
[2020-09-13] MEDS: METOPROLOL SUCCINATE (ER) 100 MG TAB.ER.24H PO SCH (09:45)
[2020-09-13] MEDS: NITROGLYCERIN OINT 1 INCH/GM PACKET TOPICAL SCH ×3 (09:48→21:07)
[2020-09-13] MEDS: metFORMIN 500 MG TAB PO SCH (12:32)
[2020-09-13] MEDS: POTASSIUM CHLORIDE ER 20 MEQ TAB.ER PO SCH (12:32)
[2020-09-13] MEDS: FUROSEMIDE 10 MG/ML 4 ML VIAL IV SCH (16:00)
--- NOTE | 2020-09-13 18:41 | P.HPIM ---
History of Present Illness H&P Date: 09/13/20 Chief Complaint: Exertional dyspnea Mr. Monreal is a history pleasant 69-year-old male with a past medical history of bicuspid aortic wall status post bioprosthetic aortic wall replacement, persistent atrial fibrillation status post failed cardioversion, diabetes mellitus, hypertension, dyslipidemia, SVT s/p ablation, PVC ablation and recent worsening non-ischemic cardiomyopathy thought to be related to afib, who follows in the office with Dr. Perrin coming in with a chief complaint of exertional dyspnea. Patient was recently in the hospital from 09/05/2020 to 09/09/2020. During his hospital stay patient had large left pleural effusion. He was managed with IV Lasix, his symptoms improved and eventually the patient was started on Entresto, by cardiology and discharged home. Patient states that since being discharged he noticed that his difficulty in breathing has worsened along with his cough. Patient states that his cough that he has been having for the past 1 month is improving. He is bringing up white thick sputum. Patient denies having any fevers chills or rigors. He denies having orthopnea PND. He states that his lower extremity swelling has worsened. Patient denies having any abdominal pain, but states that he has feeling of butterflies in his belly when he takes metformin. He also states that for the past 2-3 days he has been having generalized weakness and fatigue. Patient denies having any nausea vomiting or diarrhea. No dysuria or hematuria. Denies having any sick contacts. In the ER, patient had a chest x-ray showing evidence of right lower lobe opacity concerning for atelectasis and an elevated BNP of 15,000. He was given a low dose of Lasix due to his low blood pressure and eventually started on 50 mL of IV normal saline and admitted for further management. On reviewing his labs white count of 7 hemoglobin 15.8, platelets 112. Sodium 135, potassium 5.14, chloride 104, bicarbonate 22, BUN 20, [place] [address]. Troponin 0.013. Review of Systems REVIEW OF SYSTEMS: CONSTITUTIONAL: No fever, no malaise, no fatigue. HEENT: No recent visual problems or hearing problems. Denied any sore throat. CARDIOVASCULAR: As per HPI PULMONARY: As per HPI GASTROINTESTINAL: No diarrhea, no nausea, no vomiting, no abdominal pain. NEUROLOGICAL: No headaches, no weakness, no numbness. HEMATOLOGICAL: Denies any bleeding or petechiae. GENITOURINARY: Denies any burning micturition, frequency, or urgency. MUSCULOSKELETAL/RHEUMATOLOGICAL: Denies any joint pain, swelling, or any muscle pain. ENDOCRINE: Denies any polyuria or polydipsia. The rest of the 14-point review of systems is negative. Past Medical History Past Medical History: Atrial Fibrillation, Diabetes Mellitus, GERD/Reflux, Hyperlipidemia, Hypertension, Musculoskeletal Disorder, Osteoarthritis (OA), Prostate Disorder, Skin Disorder Additional Past Medical History / Comment(s): Recent pneumonia treated with antibiotic, nonischemic cardiomyopathy, mitral valve regurg, NIDDM type II, BPH, occasional migraines, occasional cervical/shoulder pain, lower back pain/DDD, psoriasis, vitamin D deficiency. History of Any Multi-Drug Resistant Organisms: None Reported Past Surgical History: Cardiac Ablation, Cardiac Valve Replacement, Heart Catheterization Additional Past Surgical History / Comment(s): 07/21/20 PAULINE/cardioverson, 2005 Bovine aortic valve, cardiac ablation for SVT and another for PVCs, colonoscopies, anal fistula repair. Past Anesthesia/Blood Transfusion Reactions: Family History of Problems w/ Anesthesia Additional Past Anesthesia/Blood Transfusion Reaction / Comment(s): Mother - PONV Past Psychological History: No Psychological Hx Reported Smoking Status: Never smoker Past Alcohol Use History: Occasional Past Drug Use History: None Reported - Past Family History Mother Family Medical History: AFIB Additional Family Medical History / Comment(s): Mother lived to be 86yrs old. Father Family Medical History: Congestive Heart Failure (CHF) Medications and Allergies Home Medications Medication Instructions Recorded Confirmed Type Aspirin [Adult Low Dose Aspirin EC] 81 mg PO DAILY 07/26/16 09/13/20 History Rivaroxaban [Xarelto] 20 mg PO HS 07/17/20 09/13/20 History metFORMIN HCL [Glucophage] 500 mg PO BID@0800,1200 07/17/20 09/13/20 History Metoprolol Succinate [Toprol XL] 100 mg PO DAILY 08/02/20 09/13/20 History Rosuvastatin [Crestor] 20 mg PO HS 08/02/20 09/13/20 History Cholecalciferol [Vitamin D3 (25 50 mcg PO DAILY 09/03/20 09/13/20 History Mcg = 1000 Iu)] Potassium Chloride [Klor-Con 20] 20 meq PO BID@0530,1200 09/03/20 09/13/20 History Furosemide [Lasix] 40 mg PO DAILY tab 09/09/20 09/13/20 Rx Spironolactone [Aldactone] 25 mg PO DAILY #90 tab 09/09/20 09/13/20 Rx Sacubitril/Valsartan [Entresto 24 1 tab PO BID 09/13/20 09/13/20 History mg-26 mg Tablet] Allergies Allergy/AdvReac Type Severity Reaction Status Date / Time atorvastatin [From Lipitor] AdvReac muscle Verified 09/13/20 07:43 weakness Physical Exam Vitals: Vital Signs Temp Pulse Resp BP Pulse Ox 09/13/20 15:59 92 18 105/62 97 09/13/20 12:33 92 18 100/62 97 09/13/20 09:49 97.6 F 82 18 106/62 98 09/13/20 09:18 97.6 F 77 18 108/65 99 09/13/20 06:33 76 18 97/67 94 L 09/13/20 06:04 18 09/13/20 05:20 97.4 F L 98 18 103/68 94 L Intake and Output 09/13/20 09/13/20 09/13/20 06:59 14:59 22:59 Other: Weight 85.275 kg PHYSICAL EXAMINATION: GENERAL: The patient is alert and oriented x3, not in any acute distress. Well developed, well nourished. HEENT: Pupils are round and equally reacting to light. EOMI. No scleral icterus. No conjunctival pallor. Normocephalic, atraumatic. CARDIOVASCULAR: Elevated JVD. Irregularly irregular. PULMONARY: Bilateral basilar crackles. ABDOMEN: Soft, nontender, nondistended, normoactive bowel sounds. No palpable organomegaly. MUSCULOSKELETAL: No joint swelling or deformity. EXTREMITIES: No cyanosis, clubbing, pitting edema about the level of compression stockings that he is wearing NEUROLOGICAL: Gross neurological examination did not reveal any focal deficits. SKIN: No rashes. Results CBC & Chem 7: 09/13/20 06:30 09/13/20 07:29 Labs: Abnormal Lab Results - Last 24 Hours (Table) 09/13/20 09/13/20 09/13/20 Range/Units 06:30 06:30 07:29 Plt Count 112 L (150-450) k/uL PT 14.4 H (9.0-12.0) sec INR 1.4 H (<1.2) Sodium 135 L (137-145) mmol/L BUN 28 H (9-20) mg/dL Glucose 144 H (74-99) mg/dL ALT 63 H (4-49) U/L Total Protein 6.2 L (6.3-8.2) g/dL Assessment and Plan Assessment: ASSESSMENT Acute exacerbation of chronic systolic heart failure Systolic heart failure with ejection fraction 30-35% Nonischemic cardiomyopathy Persistent atrial fibrillation Thrombocytopenia Hypertension GERD Diabetes mellitus Recent pleural effusion BPH Migraine headaches Scoliosis Chronic low back pain Vitamin D deficiency PLAN: Patient coming in with exertional dyspnea could be exacerbation of his underlying congestive heart failure, which could be due to persistent atrial fibrillation versus recent initiation of Entresto (started on 09/08/2020). Patient was given a dose of low-dose of Lasix and started on IV fluids due to low blood pressures. We will stop Entresto, until cardiology evaluation. Patient will be restarted on his home medications. Further recommendations to follow depending on the progress of the patient.
[2020-09-13] MEDS: NON FORMULARY DRUG (Rosuvastatin 20 MG Tablet) PO SCH (21:07)
[2020-09-14] MEDS: NITROGLYCERIN OINT 1 INCH/GM PACKET TOPICAL SCH ×2 (00:32→08:55)
[2020-09-14] MEDS: FUROSEMIDE 10 MG/ML 4 ML VIAL IV SCH ×4 (01:00→20:48)
[2020-09-14] MEDS ORDERED: ONDANSETRON 4 MG/2 ML VIAL IVP STA (01:15)
[2020-09-14] MEDS: SODIUM CHLORIDE 0.9% 1,000 ML IV SCH (05:41)
[2020-09-14] MEDS: POTASSIUM CHLORIDE ER 20 MEQ TAB.ER PO SCH ×2 (05:41→15:11)
[2020-09-14] MEDS: ASPIRIN 81 MG PO SCH (08:54)
[2020-09-14] MEDS: metFORMIN 500 MG TAB PO SCH ×2 (08:54→15:10)
[2020-09-14] MEDS: SPIRONOLACTONE 25 MG TAB PO SCH (08:54)
[2020-09-14] MEDS: CHOLECALCIFEROL 25 MCG (1000 IU) TABLET PO SCH (08:54)
[2020-09-14] MEDS ORDERED: ASPIRIN 325 MG TAB PO SCH (09:00)
[2020-09-14 09:13] LABS: Glucose,Whole Blood 128 mg/dL (75-99)
[2020-09-14 09:24] LABS: African American GFR (CKD) 106.4 (60.0-200.0); Anion Gap 7.7 mmol/L (4.00-12.00); BUN/Creat Ratio 36.25 Ratio (12.00-20.00); Calcium 8.7 mg/dL (8.7-10.3); Carbon Dioxide 21.3 mmol/L (21.6-31.8); Non-African American GFR(CKD) 91.8 (60.0-200.0); Potassium 4.7 mmol/L (3.5-5.5)
[2020-09-14] MEDS: METOPROLOL SUCCINATE (ER) 100 MG TAB.ER.24H PO SCH (10:09)
--- NOTE | 2020-09-14 14:05 | P.CRDCN ---
History of Present Illness History of present illness: HISTORY OF PRESENTING ILLNESS This is a pleasant 69-year-old male past medical history significant for bicuspid aortic valve status post bioprosthetic aortic valve replacement, persistent atrial fibrillation s/p failed cardioversion, diabetes mellitus, hypertension, dyslipidemia, SVT s/p ablation, PVC ablation and recent worsening non-ischemic cardiomyopathy thought to be related to afib. He follows in the office with Dr. Perrin. We have been asked to see in consultation for heart failure. He was first noted to be in atrial fibrillation July 03 in the office. His murmur at that time also sounded worse. PAULINE/CV was recommended. PAULINE 07/21/20 revealed bioprosthetic valve with moderate to severe aortic stenosis, a V-max 3.23 with a mean gradient of 23 mmHg with possibility of low flow gradient aortic stenosis. Mitral valve is normal-appearing with moderate central mitral regurgitation. LV systolic function was 40-45% with global hypokinesia noted. The cardioversion was initially successful however he had immediate recurrence of afib. He has been in and out of the hospital frequently due to pneumonia, afib and heart failure. Recent admission 09/04/2020-09/09/2020- Echocardiogram obtained on 09/03/2020- revealed impaired LV systolic function with EF 25-30%, global LV hypokinesia, moderate-severely enlarged LA and RV, mild regurgitation of the prosthetic aortic valve, moderate-severe stenosis of the AV with dimensions of 0.18 concerning for low flow low gradient severe , moderate- severe MR, mild TR and large pleural effusion noted on the left. Patient was ma naged on IV Lasix. He was discharged with the plan to decrease Lasix to daily dosing, continue Entresto and Toprol 100 mg daily. Patient was advised to follow up with Dr. Perrin with the Long-term plan to have A. fib ablation September 24 as previously scheduled. Patient states since his discharge he has been feeling increased shortness of breath and abdominal pain. He feels as if his abdomen is more full. He hasnt been sleeping well, increased shortness of breath when lying flat. Denies chest pain, palpitations, dizziness, lightheadedness, or worsening lower extremity edema. DIAGNOSTICS EKG reveals atrial fibrillation with rate of 96, poor R-wave progression and right axis deviation. Telemetry tracings indicate atrial fibrillation with variable ventricular rates. At bedside appears to be in the 80s. Chest xray- RLL infilatration vs atelectasis Laboratory reviewed sodium 133, potassium 4.7, creatinine 0.8, troponin negative 1, BNP 06713, covid-19 negative Current cardiac medications include spinonolactone 25mg daily, Entrestor 24mg- 26mg BID, Rosuvastatin 20mg nightly, Xarelto 20mg nightly, Potassium chloride 20meq BID, Toprol 100mg daily, Lasix 40mg daily, Aspirin 81mg daily. REVIEW OF SYSTEMS At the time of my exam: CONSTITUTIONAL: Denies fever or chills. CARDIOVASCULAR: Complains of shortness of breath, orthopnea and PND. Denies chest pain or palpitations. RESPIRATORY: Denies cough. GASTROINTESTINAL: Denies abdominal pain, diarrhea, constipation, nausea or vomiting. MUSCULOSKELETAL: Denies myalgias. NEUROLOGIC: Denies numbness, tingling, headacbe or weakness. ENDOCRINE: Denies fatigue, weight change, polydipsia or polyurina. GENITOURINARY: Denies burning, hematuria or urgency with micturation. HEMATOLOGIC: Denies history of anemia or bleeding. PHYSICAL EXAMINATION Blood pressure 110/70 heart rate 85 afebrile and maintaining oxygen saturation on room air. CONSTITUTIONAL: No apparent distress. HEENT: Head is normocephalic. Pupils are equal, round. Sclerae anicteric. Mucous membranes of the mouth are moist. No JVD. No carotid bruit. CHEST EXAMINATION: Crackles on the left base, no wheezes or rhonchi. Clear on the right. No chest wall tenderness is noted on palpation or with deep breathing. HEART EXAMINATION: Irregular rate and rhythm. S1, S2 heard. Systolic and diastolic murmur at the base, no gallops or rub. ABDOMEN: Soft, some tenderness with palpation. Positive bowel sounds. EXTREMITIES: 2+ peripheral pulses, no bilateral lower extremity pitting edema up to the knee and no calf tenderness. NEUROLOGIC EXAMINATION: Patient is awake, alert and oriented x3. ASSESSMENT Acute on chronic systolic heart failure with worsening LV function Non-ischenic cardiomyopathy Possible pneumonia with left sided pleural effusion Persistent atrial fibrillation s/p failed cardioversion Aortic stenosis s/p bioprostheic aortic valve replacement 2004 Mitral regurgitation Hypertension Dyslipidemia PLAN -Spoke to Dr. Perrin, Patient will be admitted to [facility] and be started on Dofetil carlos enrique. -Continue aspirin 81mg daily, Toprol 100mg daily, statin, Xarelto 20mg nightly, spironolactone 25mg daily -Will continue IV Lasix today -Follow renal function and electrolytes in the morning. -Document accurate intake and output along with daily weights. -Further recommendations to follow based on clinical course. Thank you kindly for this consultation. Nurse Practitioner note has been reviewed, I agree with a documented findings and plan of care. Patient was seen and examined. Past Medical History Past Medical History: Atrial Fibrillation, Diabetes Mellitus, GERD/Reflux, Hyperlipidemia, Hypertension, Musculoskeletal Disorder, Osteoarthritis (OA), Prostate Disorder, Skin Disorder Additional Past Medical History / Comment(s): Recent pneumonia treated with antibiotic, nonischemic cardiomyopathy, mitral valve regurg, NIDDM type II, BPH, occasional migraines, occasional cervical/shoulder pain, lower back pain/DDD, psoriasis, vitamin D deficiency. History of Any Multi-Drug Resistant Organisms: None Reported Past Surgical History: Cardiac Ablation, Cardiac Valve Replacement, Heart Catheterization Additional Past Surgical History / Comment(s): 07/21/20 PAULINE/cardioverson, 2005 Bovine aortic valve, cardiac ablation for SVT and another for PVCs, colonoscopies, anal fistula repair. Past Anesthesia/Blood Transfusion Reactions: Family History of Problems w/ Anesthesia Additional Past Anesthesia/Blood Transfusion Reaction / Comment(s): Mother - PONV Past Psychological History: No Psychological Hx Reported Smoking Status: Never smoker Past Alcohol Use History: Occasional Past Drug Use History: None Reported - Past Family History Mother Family Medical History: AFIB Additional Family Medical History / Comment(s): Mother lived to be 86yrs old. Father Family Medical History: Congestive Heart Failure (CHF) Medications and Allergies Home Medications Medication Instructions Recorded Confirmed Type Aspirin [Adult Low Dose Aspirin EC] 81 mg PO DAILY 07/26/16 09/13/20 History Rivaroxaban [Xarelto] 20 mg PO HS 07/17/20 09/13/20 History metFORMIN HCL [Glucophage] 500 mg PO BID@0800,1200 07/17/20 09/13/20 History Metoprolol Succinate [Toprol XL] 100 mg PO DAILY 08/02/20 09/13/20 History Rosuvastatin [Crestor] 20 mg PO HS 08/02/20 09/13/20 History Cholecalciferol [Vitamin D3 (25 50 mcg PO DAILY 09/03/20 09/13/20 History Mcg = 1000 Iu)] Potassium Chloride [Klor-Con 20] 20 meq PO BID@0530,1200 09/03/20 09/13/20 History Furosemide [Lasix] 40 mg PO DAILY tab 09/09/20 09/13/20 Rx Spironolactone [Aldactone] 25 mg PO DAILY #90 tab 09/09/20 09/13/20 Rx Sacubitril/Valsartan [Entresto 24 1 tab PO BID 09/13/20 09/13/20 History mg-26 mg Tablet] Allergies Allergy/AdvReac Type Severity Reaction Status Date / Time atorvastatin [From Lipitor] AdvReac muscle Verified 09/13/20 07:43 weakness Physical Exam Vitals: Vital Signs Temp Pulse Resp BP Pulse Ox 09/13/20 12:33 92 18 100/62 97 09/13/20 09:49 97.6 F 82 18 106/62 98 09/13/20 09:18 97.6 F 77 18 108/65 99 09/13/20 06:33 76 18 97/67 94 L 09/13/20 06:04 18 09/13/20 05:20 97.4 F L 98 18 103/68 94 L Intake and Output 09/13/20 09/13/20 09/13/20 06:59 14:59 22:59 Other: Weight 85.275 kg Results 09/13/20 06:30 09/14/20 05:33 Cardiac Enzymes 09/13/20 09/13/20 Range/Units 06:30 07:29 AST 45 (17-59) U/L Troponin I 0.013 (0.000-0.034) ng/mL Coagulation 09/13/20 Range/Units 06:30 PT 14.4 H (9.0-12.0) sec APTT 28.0 (22.0-30.0) sec CBC 09/13/20 Range/Units 06:30 WBC 7.0 (3.8-10.6) k/uL RBC 5.39 (4.30-5.90) m/uL Hgb 15.8 (13.0-17.5) gm/dL Hct 47.4 (39.0-53.0) % Plt Count 112 L (150-450) k/uL Comprehensive Metabolic Panel 09/13/20 Range/Units 07:29 Sodium 135 L (137-145) mmol/L Potassium 5.1 (3.5-5.1) mmol/L Chloride 104 (98-107) mmol/L Carbon Dioxide 22 (22-30) mmol/L BUN 28 H (9-20) mg/dL Creatinine 0.84 (0.66-1.25) mg/dL Glucose 144 H (74-99) mg/dL Calcium 9.2 (8.4-10.2) mg/dL AST 45 (17-59) U/L ALT 63 H (4-49) U/L Alkaline Phosphatase 87 (38-126) U/L Total Protein 6.2 L (6.3-8.2) g/dL Albumin 3.8 (3.5-5.0) g/dL Current Medications Generic Name Dose Route Start Last Admin Trade Name Freq PRN Reason Stop Dose Admin Aspirin 81 mg 09/14/20 09:00 Aspirin 81 Mg PO DAILY ERIK Cholecalciferol 50 mcg 09/13/20 09:00 09/13/20 09:42 Cholecalciferol 25 Mcg (1000 Iu) Tablet PO 50 mcg DAILY ERIK Administration Furosemide 40 mg 09/13/20 16:00 Furosemide 10 Mg/Ml 4 Ml Vial IV Q8HR ERIK Sodium Chloride 1,000 mls @ 50 mls/hr 09/13/20 07:30 09/13/20 07:48 Saline 0.9% IV 50 mls/hr .Q20H ERIK Administration Metformin HCl 500 mg 09/13/20 12:00 09/13/20 12:32 Metformin 500 Mg Tab PO 500 mg BID@0800,1200 ERIK Administration Metoprolol Succinate 100 mg 09/13/20 09:00 09/13/20 09:45 Metoprolol Succinate (Er) 100 Mg Tab.Er.24h PO 100 mg DAILY ERIK Administration Nitroglycerin 0.5 inch 09/13/20 09:00 09/13/20 09:48 Nitroglycerin Oint 1 Inch/Gm Packet TOPICAL 0.5 inch QID ERIK Administration Non-Formulary Medication 20 mg 09/13/20 21:00 Rosuvastatin PO HS ERIK Potassium Chloride 20 meq 09/13/20 12:00 09/13/20 12:32 Potassium Chloride Er 20 Meq Tab.Er PO 20 meq BID@0530,1200 ERIK Administration Rivaroxaban 20 mg 09/13/20 21:00 09/13/20 09:43 Rivaroxaban 20 Mg Tab PO 20 mg HS ERIK Administration Sacubitril/Valsartan 1 each 09/13/20 09:00 09/13/20 09:44 Sacubitril/Valsartan 24 Mg-26 Mg Tablet PO 1 each BID ERIK Administration Spironolactone 25 mg 09/13/20 09:00 09/13/20 09:43 Spironolactone 25 Mg Tab PO 25 mg DAILY ERIK Administration Intake and Output 09/13/20 09/13/20 09/13/20 06:59 14:59 22:59 Other: Weight 85.275 kg 09/13/20 06:30 09/13/20 07:29
--- NOTE | 2020-09-14 15:01 | P.PN ---
Subjective Mr. Monreal is a history pleasant 69-year-old male with a past medical history of bicuspid aortic wall status post bioprosthetic aortic wall replacement, persistent atrial fibrillation status post failed cardioversion, diabetes mellitus, hypertension, dyslipidemia, SVT s/p ablation, PVC ablation and recent worsening non-ischemic cardiomyopathy thought to be related to afib, who follows in the office with Dr. Perrin coming in with a chief complaint of exertional dyspnea. Patient was recently in the hospital from 09/05/2020 to 09/09/2020. During his hospital stay patient had large left pleural effusion. He was managed with IV Lasix, his symptoms improved and eventually the patient was started on Entresto, by cardiology and discharged home. Patient states that since being discharged he noticed that his difficulty in breathing has worsened along with his cough. Patient states that his cough that he has been having for the past 1 month is improving. He is bringing up white thick sputum. Patient denies having any fevers chills or rigors. He denies having orthopnea PND. He states that his lower extremity swelling has worsened. Patient denies having any abdominal pain, but states that he has feeling of butterflies in his belly when he takes metformin. He also states that for the past 2-3 days he has been having generalized weakness and fatigue. Patient denies having any nausea vomiting or diarrhea. No dysuria or hematuria. Denies having any sick contacts. In the ER, patient had a chest x-ray showing evidence of right lower lobe opacity concerning for atelectasis and an elevated BNP of 15,000. He was given a low dose of Lasix due to his low blood pressure and eventually started on 50 mL of IV normal saline and admitted for further management. On reviewing his labs white count of 7 hemoglobin 15.8, platelets 112. Sodium 135, potassium 5.14, chloride 104, bicarbonate 22, BUN 20, [place] [address]. Troponin 0.013. 09/14/2020 Patient remains on IV Lasix patient still has significant swelling in bilateral lower extremities patient is found to have persistent atrial fibrillation which may be contributing to his heart failure exacerbations. Cardiology evaluated the patient is recommending admitting the patient and starting patient on dofetilide. Patient was started back on Entresto. Patient the shortness of breath significantly improved and patient was apparently having abdominal discom fort at home and he believes it secondary to metformin and this discomfort completely resolved Constitutional: Denied any fatigue denied any fever. Cardio vascular: denied any chest pain, palpitations Gastrointestinal denied any nausea vomiting Pulmonary: As mentioned in HPI Neurologic denied any new focal deficits All inpatient medications were reviewed and appropriate changes in these medications as dictated in the interval history and assessment and plan. Objective - Vital Signs Vital signs: Vital Signs Temp 97.7 F 09/14/20 01:05 Pulse 98 09/14/20 14:19 Resp 18 09/14/20 14:19 BP 108/70 09/14/20 14:19 Pulse Ox 97 09/14/20 14:19 Intake & Output 09/13/20 09/14/20 09/14/20 18:59 06:59 18:59 Output Total 1100 Balance -1100 Output: Urine 1100 - Exam PHYSICAL EXAMINATION: GENERAL: The patient is alert and oriented x3, not in any acute distress. Well developed, well nourished. HEENT: Pupils are round and equally reacting to light. EOMI. No scleral icterus. No conjunctival pallor. Normocephalic, atraumatic. No pharyngeal erythema. No thyromegaly. CARDIOVASCULAR: S1 and S2 present. No murmurs, rubs, or gallops. PULMONARY: Chest is clear to auscultation, no wheezing or crackles. ABDOMEN: Soft, nontender, nondistended, normoactive bowel sounds. No palpable organomegaly. MUSCULOSKELETAL: No joint swelling or deformity. EXTREMITIES: No cyanosis, clubbing, significant pedal edema bilateral lower expertise 2+ extending up to bilateral knees NEUROLOGICAL: Gross neurological examination did not reveal any focal deficits. SKIN: No rashes. - Labs CBC & Chem 7: 09/13/20 06:30 09/14/20 05:33 Labs: Abnormal Lab Results - Last 24 Hours (Table) 09/14/20 09/14/20 Range/Units 05:33 08:53 Sodium 133 L (135-145) mmol/L Carbon Dioxide 21.3 L (21.6-31.8) mmol/L BUN 29.0 H (9.0-27.0) mg/dL BUN/Creatinine Ratio 36.25 H (12.00-20.00) Ratio Glucose 123 H (70-110) mg/dL POC Glucose (mg/dL) 128 H (75-99) mg/dL Assessment and Plan Plan: Acute exacerbation of chronic systolic heart failure: The patient has significant improvement in her symptoms patient is presently on IV Lasix which will be continued and patient was started back on an Entresto. Continue to closely monitor Systolic heart failure with ejection fraction 30-35% Nonischemic cardiomyopathy Persistent atrial fibrillation and patient will be started on dofetilide. Thrombocytopenia Hypertension GERD Diabetes mellitus Recent pleural effusion BPH Migraine headaches Scoliosis Chronic low back pain Vitamin D deficiency
[2020-09-14 17:11] LABS: Glucose,Whole Blood 232 mg/dL (75-99)
[2020-09-14] MEDS: FAMOTIDINE 20 MG TAB PO SCH (17:29)
[2020-09-14] MEDS: MAGNESIUM OXIDE 400 MG TAB PO SCH (17:29)
[2020-09-14] MEDS: INSULIN ASPART (NovoLOG) 100 UNIT/ML VIAL SQ SCH ×2 (17:29→20:41)
[2020-09-14] MEDS: DOFETILIDE 250 MCG CAP PO SCH (18:24)
[2020-09-14] MEDS ORDERED: MAGNESIUM SULFATE-D5W PMX 1 GM in DEXTROSE/WATER 1 100ML.BAG IVPB ONE (18:37)
[2020-09-14 20:25] LABS: Glucose,Whole Blood 89 mg/dL (75-99)
[2020-09-14] MEDS: NON FORMULARY DRUG (Rosuvastatin 20 MG Tablet) PO SCH (20:42)
[2020-09-14] MEDS: RIVAROXABAN 20 MG TAB PO SCH (20:48)
[2020-09-14] MEDS: SACUBITRIL/VALSARTAN 24 MG-26 MG TABLET PO SCH (21:33)
[2020-09-15] MEDS: DOFETILIDE 250 MCG CAP PO SCH ×2 (06:10→18:02)
[2020-09-15] MEDS: POTASSIUM CHLORIDE ER 20 MEQ TAB.ER PO SCH ×2 (06:10→12:26)
[2020-09-15 06:16] LABS: Glucose,Whole Blood 116 mg/dL (75-99)
[2020-09-15] MEDS: INSULIN ASPART (NovoLOG) 100 UNIT/ML VIAL SQ SCH ×4 (06:27→22:55)
[2020-09-15] MEDS: FUROSEMIDE 10 MG/ML 4 ML VIAL IV SCH ×2 (08:02→22:09)
[2020-09-15] MEDS: FAMOTIDINE 20 MG TAB PO SCH (08:02)
[2020-09-15] MEDS: METOPROLOL SUCCINATE (ER) 100 MG TAB.ER.24H PO SCH (08:02)
[2020-09-15] MEDS: ASPIRIN 81 MG PO SCH (08:02)
[2020-09-15] MEDS: SPIRONOLACTONE 25 MG TAB PO SCH (08:02)
[2020-09-15] MEDS: MAGNESIUM OXIDE 400 MG TAB PO SCH (08:03)
--- NOTE | 2020-09-15 08:22 | PN ---
PROGRESS NOTE Wali Monreal is my patient who came back once again with heart failure symptoms despite being maximized on Entresto. He remains in atrial fibrillation with mild RVR. His BNP has increased. Yesterday I evaluated him and started dofetilide 250 mcg twice daily. Potassium is normal. Renal function was normal. Magnesium was normal. Baseline QT interval was less than 440 milliseconds. He received a dose last evening and then again this morning. The EKG from last evening was evaluated and absolute QT interval was about 440, although it was difficult to see where the T wave ends on account of his coarse fibrillatory waves. The plan is to continue dofetilide and perhaps perform an electrical cardioversion either on or Monday after about 5 doses. Thereafter re-evaluate him from a heart failure standpoint. He has aortic regurgitation and his diastolic murmur is quite evident on examination. He did have a PAULINE recently which suggested moderate AI, but I think we need to reassess this because he is behaving clinically as severe AI. He does have a bioprosthetic aortic valve that was implanted many years back. I will re-evaluate his PAULINE and once he is in sinus rhythm, his aortic valve will be re-evaluated once again with transthoracic echo. Please see the full dictation by the nurse practitioner. MMODL / IJN: [id number] /
[2020-09-15 08:59] LABS: African American GFR (CKD) >90 (>60 ml/min/1.73 sqM); Anion Gap 8 mmol/L; Blood Urea Nitrogen 29 mg/dL (9-20); Carbon Dioxide 25 mmol/L (22-30); Chloride 102 mmol/L (98-107); Glucose 137 mg/dL (74-99); Potassium 4.7 mmol/L (3.5-5.1); Sodium 135 mmol/L (137-145)
[2020-09-15 09:00] LABS: Calcium 8.9 mg/dL (8.4-10.2); Non-African American GFR(CKD) 87 (>60 ml/min/1.73 sqM)
[2020-09-15] MEDS: CHOLECALCIFEROL 25 MCG (1000 IU) TABLET PO SCH (09:30)
[2020-09-15] MEDS: SACUBITRIL/VALSARTAN 24 MG-26 MG TABLET PO SCH ×2 (09:30→23:50)
[2020-09-15 11:11] VITALS: BMI 28.3
[2020-09-15 12:13] LABS: Glucose,Whole Blood 119 mg/dL (75-99)
[2020-09-15] MEDS: metFORMIN 500 MG TAB PO SCH (12:26)
[2020-09-15 17:27] LABS: Glucose,Whole Blood 219 mg/dL (75-99)
[2020-09-15 20:04] LABS: Glucose,Whole Blood 107 mg/dL (75-99)
[2020-09-15] MEDS: RIVAROXABAN 20 MG TAB PO SCH (22:09)
[2020-09-15] MEDS: NON FORMULARY DRUG (Rosuvastatin 20 MG Tablet) PO SCH (23:50)
[2020-09-16] MEDS: DOFETILIDE 250 MCG CAP PO SCH ×2 (06:07→18:07)
[2020-09-16] MEDS: POTASSIUM CHLORIDE ER 20 MEQ TAB.ER PO SCH ×2 (06:07→12:06)
[2020-09-16] MEDS: INSULIN ASPART (NovoLOG) 100 UNIT/ML VIAL SQ SCH ×4 (06:09→21:09)
[2020-09-16 06:14] LABS: Glucose,Whole Blood 88 mg/dL (75-99)
[2020-09-16 08:00] LABS: Anion Gap 5 mmol/L; Blood Urea Nitrogen 33 mg/dL (9-20); Carbon Dioxide 28 mmol/L (22-30); Chloride 100 mmol/L (98-107); Glucose 91 mg/dL (74-99); Potassium 4.9 mmol/L (3.5-5.1); Sodium 133 mmol/L (137-145)
[2020-09-16 08:19] LABS: African American GFR (CKD) >90 (>60 ml/min/1.73 sqM); Non-African American GFR(CKD) 80 (>60 ml/min/1.73 sqM)
[2020-09-16] MEDS: ASPIRIN 81 MG PO SCH (09:45)
[2020-09-16] MEDS: METOPROLOL SUCCINATE (ER) 100 MG TAB.ER.24H PO SCH (09:45)
[2020-09-16] MEDS: MAGNESIUM OXIDE 400 MG TAB PO SCH (09:45)
[2020-09-16] MEDS: FUROSEMIDE 10 MG/ML 4 ML VIAL IV SCH (09:46)
[2020-09-16] MEDS: FAMOTIDINE 20 MG TAB PO SCH (09:46)
[2020-09-16] MEDS: SPIRONOLACTONE 25 MG TAB PO SCH (09:46)
[2020-09-16] MEDS: metFORMIN 500 MG TAB PO SCH ×2 (09:46→12:06)
[2020-09-16] MEDS: CHOLECALCIFEROL 25 MCG (1000 IU) TABLET PO SCH (09:46)
--- NOTE | 2020-09-16 10:50 | P.PN ---
Subjective This is a pleasant 69-year-old male past medical history significant for systolic heart failure, atrial fibrillation and valvular heart disease s/p aortic valve replacement. He follows in the office with Dr. Perrin. He is currently admitted to the hospital for initiation of tikosyn. He is currently in atrial flutter with rates in the 70-80s. Blood pressure 95/50 heart rate 71 afebrile and maintaining oxygen saturation on room air. He denies chest pain, dizziness or shortness of breath. Laboratory data reviewed, sodium 133, potassi um 4.9, BUN 33, creatinine 0.98, magnesium 2.0. QT intervals approximately 420ms. GENERAL: Well-appearing, well-nourished and in no acute distress. NECK: Supple without JVD or thyromegaly. LUNGS: Breath sounds clear to auscultation bilaterally. Respiration equal and unlabored. No wheezes, rales or rhonchi. HEART: Irregular rate and rhythm with systolic and diastolic murmur at the base and apex, no rubs or gallops. S1 and S2 heard. EXTREMITIES: Normal range of motion, no edema. No clubbing or cyanosis. Peripheral pulses intact. ASSESSMENT Acute on chronic systolic heart failure Non-ischemic cardiomyopathy Persistent atrial fibrillation s/p failed cardioversion Valvular heart disease s/p aortic valve replacement Mitral regurgitation Hypertension Dyslipidemia PLAN Continue tikosyn at 250 mcg BID. Plan for cardioversion tomorrow if he does not convert on his own. NPO after midnight tonight, however tikosyn and xarelto should be given. This has been communicated to the nursing staff. Transition to oral diuretics. Follow renal function and electrolytes in the morning. Nurse Practitioner note has been reviewed, I agree with a documented findings and plan of care. Patient was seen and examined. Objective - Vital Signs Vital signs: Vital Signs Temp 97.5 F L 09/16/20 04:00 Pulse 71 09/16/20 04:00 Resp 16 09/16/20 04:00 BP 95/50 09/16/20 04:00 Pulse Ox 95 09/16/20 04:00 Intake & Output 09/15/20 09/16/20 09/16/20 18:59 06:59 18:59 Intake Total 210 240 Output Total 875 1311 Balance -875 -1101 240 Weight 84.5 kg 84.368 kg Intake: Oral 210 240 Output: Urine 875 1311 Other: Voiding Method Toilet Toilet Urinal Urinal # Voids 1 - Labs CBC & Chem 7: 09/13/20 06:30 09/16/20 07:19 Labs: Abnormal Lab Results - Last 24 Hours (Table) 09/15/20 09/15/20 09/15/20 Range/Units 11:45 17:07 20:02 Sodium (137-145) mmol/L BUN (9-20) mg/dL POC Glucose (mg/dL) 119 H 219 H 107 H (75-99) mg/dL 09/16/20 Range/Units 07:19 Sodium 133 L (137-145) mmol/L BUN 33 H (9-20) mg/dL POC Glucose (mg/dL) (75-99) mg/dL
[2020-09-16 11:49] LABS: Glucose,Whole Blood 206 mg/dL (75-99)
[2020-09-16] MEDS: SACUBITRIL/VALSARTAN 24 MG-26 MG TABLET PO SCH ×2 (12:12→21:09)
--- NOTE | 2020-09-16 14:41 | P.PN ---
Subjective Progress Note Date: 09/15/20 Mr. Monreal is a history pleasant 69-year-old male with a past medical history of bicuspid aortic wall status post bioprosthetic aortic wall replacement, persistent atrial fibrillation status post failed cardioversion, diabetes mellitus, hypertension, dyslipidemia, SVT s/p ablation, PVC ablation and recent worsening non-ischemic cardiomyopathy thought to be related to afib, who follows in the office with Dr. Perrin coming in with a chief complaint of exertional dyspnea. Patient was recently in the hospital from 09/05/2020 to 09/09/2020. During his hospital stay patient had large left pleural effusion. He was managed with IV Lasix, his symptoms improved and eventually the patient was started on Entresto, by cardiology and discharged home. Patient states that since being discharged he noticed that his difficulty in breathing has worsened along with his cough. Patient states that his cough that he has been having for the past 1 month is improving. He is bringing up white thick sputum. Patient denies having any fevers chills or rigors. He denies having orthopnea PND. He states that his lower extremity swelling has worsened. Patient denies having any abdominal pain, but states that he has feeling of butterflies in his belly when he takes metformin. He also states that for the past 2-3 days he has been having generalized weakness and fatigue. Patient denies having any nausea vom iting or diarrhea. No dysuria or hematuria. Denies having any sick contacts. In the ER, patient had a chest x-ray showing evidence of right lower lobe opacity concerning for atelectasis and an elevated BNP of 15,000. He was given a low dose of Lasix due to his low blood pressure and eventually started on 50 mL of IV normal saline and admitted for further management. On reviewing his labs white count of 7 hemoglobin 15.8, platelets 112. Sodium 135, potassium 5.14, chloride 104, bicarbonate 22, BUN 20, [place] [address]. Troponin 0.013. 09/14/2020 Patient remains on IV Lasix patient still has significant swelling in bilateral lower extremities patient is found to have persistent atrial fibrillation which may be contributing to his heart failure exacerbations. Cardiology evaluated the patient is recommending admitting the patient and starting patient on dofetilide. Patient was started back on Entresto. Patient the shortness of breath significantly improved and patient was apparently having abdominal discomfort at home and he believes it secondary to metformin and this discomfort completely resolved 09/15/2020 Patient's pedal edema significant improved. Patient is being started on dofetilide Constitutional: Denied any fatigue denied any fever. Cardio vascular: denied any chest pain, palpitations Gastrointestinal denied any nausea vomiting Pulmonary: As mentioned in HPI Neurologic denied any new focal deficits All inpatient medications were reviewed and appropriate changes in these medications as dictated in the interval history and assessment and plan. Objective - Vital Signs Vital signs: Vital Signs Temp 97.5 F L 09/16/20 04:00 Pulse 71 09/16/20 04:00 Resp 16 09/16/20 04:00 BP 95/50 09/16/20 04:00 Pulse Ox 95 09/16/20 04:00 Intake & Output 09/15/20 09/16/20 09/16/20 18:59 06:59 18:59 Intake Total 210 240 Output Total 875 1311 Balance -875 -1101 240 Weight 84.5 kg 84.368 kg Intake: Oral 210 240 Output: Urine 875 1311 Other: Voiding Method Toilet Toilet Urinal Urinal # Voids 1 - Exam PHYSICAL EXAMINATION: GENERAL: The patient is alert and oriented x3, not in any acute distress. Well developed, well nourished. HEENT: Pupils are round and equally reacting to light. EOMI. No scleral icterus. No conjunctival pallor. Normocephalic, atraumatic. No pharyngeal erythema. No thyromegaly. CARDIOVASCULAR: S1 and S2 present. No murmurs, rubs, or gallops. PULMONARY: Chest is clear to auscultation, no wheezing or crackles. ABDOMEN: Soft, nontender, nondistended, normoactive bowel sounds. No palpable organomegaly. MUSCULOSKELETAL: No joint swelling or deformity. EXTREMITIES: No cyanosis, clubbing, significant pedal edema bilateral lower expertise 2+ extending up to bilateral knees NEUROLOGICAL: Gross neurological examination did not reveal any focal deficits. SKIN: No rashes. - Labs CBC & Chem 7: 09/13/20 06:30 09/16/20 07:19 Labs: Abnormal Lab Results - Last 24 Hours (Table) 09/15/20 09/15/20 09/16/20 Range/Units 17:07 20:02 07:19 Sodium 133 L (137-145) mmol/L BUN 33 H (9-20) mg/dL POC Glucose (mg/dL) 219 H 107 H (75-99) mg/dL 09/16/20 Range/Units 11:47 Sodium (137-145) mmol/L BUN (9-20) mg/dL POC Glucose (mg/dL) 206 H (75-99) mg/dL Assessment and Plan Plan: Acute exacerbation of chronic systolic heart failure: The patient has significant improvement in her symptoms patient is presently on IV Lasix which will be continued and patient was started back on an Entresto. Continue to closely monitor Systolic heart failure with ejection fraction 30-35% Nonischemic cardiomyopathy Persistent atrial fibrillation and patient will be started on dofetilide. Thrombocytopenia Hypertension GERD Diabetes mellitus Recent pleural effusion BPH Migraine headaches Scoliosis Chronic low back pain Vitamin D deficiency
--- NOTE | 2020-09-16 14:44 | P.PN ---
Subjective Mr. Monreal is a history pleasant 69-year-old male with a past medical history of bicuspid aortic wall status post bioprosthetic aortic wall replacement, persistent atrial fibrillation status post failed cardioversion, diabetes mellitus, hypertension, dyslipidemia, SVT s/p ablation, PVC ablation and recent worsening non-ischemic cardiomyopathy thought to be related to afib, who follows in the office with Dr. Perrin coming in with a chief complaint of exertional dyspnea. Patient was recently in the hospital from 09/05/2020 to 09/09/2020. During his hospital stay patient had large left pleural effusion. He was managed with IV Lasix, his symptoms improved and eventually the patient was started on Entresto, by cardiology and discharged home. Patient states that since being discharged he noticed that his difficulty in breathing has worsened along with his cough. Patient states that his cough that he has been having for the past 1 month is improving. He is bringing up white thick sputum. Patient denies having any fevers chills or rigors. He denies having orthopnea PND. He states that his lower extremity swelling has worsened. Patient denies having any abdominal pain, but states that he has feeling of butterflies in his belly when he takes metformin. He also states that for the past 2-3 days he has been having generalized weakness and fatigue. Patient denies having any nausea vomiting or diarrhea. No dysuria or hematuria. Denies having any sick contacts. In the ER, patient had a chest x-ray showing evidence of right lower lobe opacity concerning for atelectasis and an elevated BNP of 15,000. He was given a low dose of Lasix due to his low blood pressure and eventually started on 50 mL of IV normal saline and admitted for further management. On reviewing his labs white count of 7 hemoglobin 15.8, platelets 112. Sodium 135, potassium 5.14, chloride 104, bicarbonate 22, BUN 20, [place] [address]. Troponin 0.013. 09/14/2020 Patient remains on IV Lasix patient still has significant swelling in bilateral lower extremities patient is found to have persistent atrial fibrillation which may be contributing to his heart failure exacerbations. Cardiology evaluated the patient is recommending admitting the patient and starting patient on dofetilide. Patient was started back on Entresto. Patient the shortness of breath significantly improved and patient was apparently having abdominal discom fort at home and he believes it secondary to metformin and this discomfort completely resolved 09/15/2020 Patient's pedal edema significant improved. Patient is being started on dofetilide 09/16/2020 Patient will undergo cardioversion tomorrow patient is euvolemic patient was switched to oral Lasix. Constitutional: Denied any fatigue denied any fever. Cardio vascular: denied any chest pain, palpitations Gastrointestinal denied any nausea vomiting Pulmonary: As mentioned in HPI Neurologic denied any new focal deficits All inpatient medications were reviewed and appropriate changes in these medications as dictated in the interval history and assessment and plan. Objective - Vital Signs Vital signs: Vital Signs Temp 97.5 F L 09/16/20 04:00 Pulse 71 09/16/20 04:00 Resp 16 09/16/20 04:00 BP 95/50 09/16/20 04:00 Pulse Ox 95 09/16/20 04:00 Intake & Output 09/15/20 09/16/20 09/16/20 18:59 06:59 18:59 Intake Total 210 240 Output Total 875 1311 Balance -875 -1101 240 Weight 84.5 kg 84.368 kg Intake: Oral 210 240 Output: Urine 875 1311 Other: Voiding Method Toilet Toilet Urinal Urinal # Voids 1 - Exam PHYSICAL EXAMINATION: GENERAL: The patient is alert and oriented x3, not in any acute distress. Well d eveloped, well nourished. HEENT: Pupils are round and equally reacting to light. EOMI. No scleral icterus. No conjunctival pallor. Normocephalic, atraumatic. No pharyngeal erythema. No thyromegaly. CARDIOVASCULAR: S1 and S2 present. No murmurs, rubs, or gallops. PULMONARY: Chest is clear to auscultation, no wheezing or crackles. ABDOMEN: Soft, nontender, nondistended, normoactive bowel sounds. No palpable organomegaly. MUSCULOSKELETAL: No joint swelling or deformity. EXTREMITIES: No cyanosis, clubbing, significant pedal edema bilateral lower expertise 2+ extending up to bilateral knees NEUROLOGICAL: Gross neurological examination did not reveal any focal deficits. SKIN: No rashes. - Labs CBC & Chem 7: 09/13/20 06:30 09/16/20 07:19 Labs: Abnormal Lab Results - Last 24 Hours (Table) 09/15/20 09/15/20 09/16/20 Range/Units 17:07 20:02 07:19 Sodium 133 L (137-145) mmol/L BUN 33 H (9-20) mg/dL POC Glucose (mg/dL) 219 H 107 H (75-99) mg/dL 09/16/20 Range/Units 11:47 Sodium (137-145) mmol/L BUN (9-20) mg/dL POC Glucose (mg/dL) 206 H (75-99) mg/dL Assessment and Plan Plan: Acute exacerbation of chronic systolic heart failure: The patient has significant improvement in her symptoms patient is presently on IV Lasix which will be continued and patient was started back on an Entresto. Continue to closely monitor Systolic heart failure with ejection fraction 30-35% Nonischemic cardiomyopathy Persistent atrial fibrillation and patient will be started on dofetilide. Thrombocytopenia Hypertension GERD Diabetes mellitus Recent pleural effusion BPH Migraine headaches Scoliosis Chronic low back pain Vitamin D deficiency
[2020-09-16] MEDS ORDERED: MAGNESIUM SULFATE-D5W PMX 1 GM in DEXTROSE/WATER 1 100ML.BAG IVPB ONE (15:12)
[2020-09-16 17:03] LABS: Glucose,Whole Blood 112 mg/dL (75-99)
[2020-09-16 20:32] LABS: Glucose,Whole Blood 202 mg/dL (75-99)
[2020-09-16] MEDS: NON FORMULARY DRUG (Rosuvastatin 20 MG Tablet) PO SCH (21:09)
[2020-09-16] MEDS: RIVAROXABAN 20 MG TAB PO SCH (21:09)
[2020-09-17] MEDS: POTASSIUM CHLORIDE ER 20 MEQ TAB.ER PO SCH ×2 (06:01→13:40)
[2020-09-17] MEDS: DOFETILIDE 250 MCG CAP PO SCH ×2 (06:01→17:55)
[2020-09-17] MEDS: INSULIN ASPART (NovoLOG) 100 UNIT/ML VIAL SQ SCH ×4 (06:20→21:50)
[2020-09-17 06:23] LABS: Glucose,Whole Blood 102 mg/dL (75-99)
[2020-09-17 10:41] LABS: African American GFR (CKD) >90 (>60 ml/min/1.73 sqM); Anion Gap 4 mmol/L; Blood Urea Nitrogen 30 mg/dL (9-20); Calcium 8.9 mg/dL (8.4-10.2); Carbon Dioxide 29 mmol/L (22-30); Chloride 101 mmol/L (98-107); Glucose 104 mg/dL (74-99); Magnesium 2.2 mg/dL (1.6-2.3); Non-African American GFR(CKD) 90 (>60 ml/min/1.73 sqM); Potassium 4.9 mmol/L (3.5-5.1); Sodium 134 mmol/L (137-145)
[2020-09-17] MEDS ORDERED: PROPOFOL 10 MG/ML 20 ML VIAL IV ONE (11:50)
[2020-09-17] MEDS ORDERED: IV FLUID CONTINUATION 500 ML IV ONE (11:50)
[2020-09-17] MEDS ORDERED: PHENYLEPHRINE-0.9% NACL SYG 1,000 MCG/10 ML SYRINGE ONE (11:50)
[2020-09-17] MEDS ORDERED: fentaNYL (PF) 50 MCG/ML 2 ML AMP ONE (11:50)
[2020-09-17] MEDS ORDERED: MIDAZOLAM 2 MG/2 ML VIAL ONE (11:50)
--- NOTE | 2020-09-17 13:04 | P.EPPROC ---
- EP Procedure Note Electrophysiology Procedure Note: Procedure Electrical cardioversion after dofetilide indecision, 250 g twice daily Diagnoses Symptomatic persistent atrial fibrillation Congestive heart failure, acute on chronic exacerbation Systolic LV dysfunction Bioprosthetic aortic valve with aortic regurgitation Details 360 J biphasic shock in the AP configuration converted the patient to sinus rhythm Short runs of slow atrial tachycardia post cardioversion PVCs noted Conscious sedation provided by [employer] Twelve-lead EKG postprocedure shows sinus rhythm with occasional PVCs Absolute QT interval less than 440 ms Plan Heart failure assessment while in sinus rhythm Reassessment of the aortic valve, bioprosthetic, with regurgitation while in sinus rhythm Limited 2-D echo Doppler ordered for today
[2020-09-17] MEDS: metFORMIN 500 MG TAB PO SCH ×2 (13:24→13:40)
[2020-09-17] MEDS: SACUBITRIL/VALSARTAN 24 MG-26 MG TABLET PO SCH ×2 (13:25→21:49)
[2020-09-17] MEDS: METOPROLOL SUCCINATE (ER) 100 MG TAB.ER.24H PO SCH ×2 (13:38→18:42)
[2020-09-17] MEDS: MAGNESIUM OXIDE 400 MG TAB PO SCH (13:40)
[2020-09-17] MEDS: FAMOTIDINE 20 MG TAB PO SCH (13:40)
[2020-09-17] MEDS: CHOLECALCIFEROL 25 MCG (1000 IU) TABLET PO SCH (13:40)
[2020-09-17] MEDS: ASPIRIN 81 MG PO SCH (13:40)
[2020-09-17] MEDS: SPIRONOLACTONE 25 MG TAB PO SCH (14:38)
[2020-09-17] MEDS: FUROSEMIDE 40 MG TAB PO SCH (14:38)
--- NOTE | 2020-09-17 16:43 | P.PN ---
Subjective Mr. Monreal is a history pleasant 69-year-old male with a past medical history of bicuspid aortic wall status post bioprosthetic aortic wall replacement, persistent atrial fibrillation status post failed cardioversion, diabetes mellitus, hypertension, dyslipidemia, SVT s/p ablation, PVC ablation and recent worsening non-ischemic cardiomyopathy thought to be related to afib, who follows in the office with Dr. Perrin coming in with a chief complaint of exertional dyspnea. Patient was recently in the hospital from 09/05/2020 to 09/09/2020. During his hospital stay patient had large left pleural effusion. He was managed with IV Lasix, his symptoms improved and eventually the patient was started on Entresto, by cardiology and discharged home. Patient states that since being discharged he noticed that his difficulty in breathing has worsened along with his cough. Patient states that his cough that he has been having for the past 1 month is improving. He is bringing up white thick sputum. Patient denies having any fevers chills or rigors. He denies having orthopnea PND. He states that his lower extremity swelling has worsened. Patient denies having any abdominal pain, but states that he has feeling of butterflies in his belly when he takes metformin. He also states that for the past 2-3 days he has been having generalized weakness and fatigue. Patient denies having any nausea vomiting or diarrhea. No dysuria or hematuria. Denies having any sick contacts. In the ER, patient had a chest x-ray showing evidence of right lower lobe opacity concerning for atelectasis and an elevated BNP of 15,000. He was given a low dose of Lasix due to his low blood pressure and eventually started on 50 mL of IV normal saline and admitted for further management. On reviewing his labs white count of 7 hemoglobin 15.8, platelets 112. Sodium 135, potassium 5.14, chloride 104, bicarbonate 22, BUN 20, [place] [address]. Troponin 0.013. 09/14/2020 Patient remains on IV Lasix patient still has significant swelling in bilateral lower extremities patient is found to have persistent atrial fibrillation which may be contributing to his heart failure exacerbations. Cardiology evaluated the patient is recommending admitting the patient and starting patient on dofetilide. Patient was started back on Entresto. Patient the shortness of breath significantly improved and patient was apparently having abdominal discom fort at home and he believes it secondary to metformin and this discomfort completely resolved 09/15/2020 Patient's pedal edema significant improved. Patient is being started on dofetilide 09/16/2020 Patient will undergo cardioversion tomorrow patient is euvolemic patient was switched to oral Lasix. 09/17/2020 Patient underwent cardioversion presently and opiate allied which will be continued presently sinus rhythm patient will be monitored overnight possibility of discharge tomorrow patient remains on oral Lasix Constitutional: Denied any fatigue denied any fever. Cardio vascular: denied any chest pain, palpitations Gastrointestinal denied any nausea vomiting Pulmonary: As mentioned in HPI Neurologic denied any new focal deficits All inpatient medications were reviewed and appropriate changes in these medications as dictated in the interval history and assessment and plan. Objective - Vital Signs Vital signs: Vital Signs Temp 97.5 F L 09/17/20 16:24 Pulse 84 09/17/20 16:24 Resp 18 09/17/20 16:24 BP 96/54 09/17/20 16:24 Pulse Ox 89 L 09/17/20 16:24 Intake & Output 09/16/20 09/17/20 09/17/20 18:59 06:59 18:59 Intake Total 890 222 Output Total 775 900 180 Balance 115 -900 42 Intake: IV 30 Invasive Line 1 30 Oral 860 222 Output: Urine 775 900 180 Other: Voiding Method Toilet Toilet Urinal Urinal - Exam PHYSICAL EXAMINATION: GENERAL: The patient is alert and oriented x3, not in any acute distress. Well developed, well nourished. HEENT: Pupils are round and equally reacting to light. EOMI. No scleral icterus. No conjunctival pallor. Normocephalic, atraumatic. No pharyngeal erythema. No thyromegaly. CARDIOVASCULAR: S1 and S2 present. No murmurs, rubs, or gallops. Patient is presently sinus rhythm PULMONARY: Chest is clear to auscultation, no wheezing or crackles. ABDOMEN: Soft, nontender, nondistended, normoactive bowel sounds. No palpable organomegaly. MUSCULOSKELETAL: No joint swelling or deformity. EXTREMITIES: No cyanosis, clubbing, significant pedal edema bilateral lower expertise 2+ extending up to bilateral knees NEUROLOGICAL: Gross neurological examination did not reveal any focal deficits. SKIN: No rashes. - Labs CBC & Chem 7: 09/13/20 06:30 09/17/20 10:02 Labs: Abnormal Lab Results - Last 24 Hours (Table) 09/16/20 09/16/20 09/17/20 Range/Units 16:59 20:31 06:13 Sodium (137-145) mmol/L BUN (9-20) mg/dL Glucose (74-99) mg/dL POC Glucose (mg/dL) 112 H 202 H 102 H (75-99) mg/dL 09/17/20 Range/Units 10:02 Sodium 134 L (137-145) mmol/L BUN 30 H (9-20) mg/dL Glucose 104 H (74-99) mg/dL POC Glucose (mg/dL) (75-99) mg/dL Assessment and Plan Plan: Acute exacerbation of chronic systolic heart failure: She is presently on oral Lasix patient is status post cardioversion, sinus rhythm, patient is on dofetilide Systolic heart failure with ejection fraction 30-35% Nonischemic cardiomyopathy Persistent atrial fibrillation on dofetilide. Thrombocytopenia Hypertension GERD Diabetes mellitus Recent pleural effusion BPH Migraine headaches Scoliosis Chronic low back pain Vitamin D deficiency
[2020-09-17 17:15] LABS: Glucose,Whole Blood 117 mg/dL (75-99)
[2020-09-17 21:14] LABS: Glucose,Whole Blood 189 mg/dL (75-99)
[2020-09-17] MEDS: RIVAROXABAN 20 MG TAB PO SCH (21:49)
[2020-09-17] MEDS: NON FORMULARY DRUG (Rosuvastatin 20 MG Tablet) PO SCH (21:50)
[2020-09-18] MEDS: DOFETILIDE 250 MCG CAP PO SCH ×2 (06:15→17:42)
[2020-09-18] MEDS: POTASSIUM CHLORIDE ER 20 MEQ TAB.ER PO SCH (06:15)
[2020-09-18 06:18] LABS: Glucose,Whole Blood 150 mg/dL (75-99)
[2020-09-18] MEDS: INSULIN ASPART (NovoLOG) 100 UNIT/ML VIAL SQ SCH ×4 (06:33→20:43)
[2020-09-18] MEDS: ASPIRIN 81 MG PO SCH (08:59)
[2020-09-18] MEDS: CHOLECALCIFEROL 25 MCG (1000 IU) TABLET PO SCH (08:59)
[2020-09-18] MEDS: FUROSEMIDE 40 MG TAB PO SCH (09:00)
[2020-09-18] MEDS: MAGNESIUM OXIDE 400 MG TAB PO SCH (09:00)
[2020-09-18] MEDS: FAMOTIDINE 20 MG TAB PO SCH (09:00)
[2020-09-18] MEDS: METOPROLOL SUCCINATE (ER) 100 MG TAB.ER.24H PO SCH (09:01)
[2020-09-18] MEDS: SACUBITRIL/VALSARTAN 24 MG-26 MG TABLET PO SCH (09:01)
[2020-09-18] MEDS: SPIRONOLACTONE 25 MG TAB PO SCH (09:02)
[2020-09-18] MEDS: metFORMIN 500 MG TAB PO SCH ×2 (09:05→11:10)
[2020-09-18 09:30] LABS: Basophils # (A) 0.1 k/uL (0-0.2); Basophils % (A) 1 %; Eosinophils # (A) 0.1 k/uL (0-0.7); Eosinophils % (A) 1 %; HCT 49.2 % (39.0-53.0); HGB 15.9 gm/dL (13.0-17.5); Lymphocytes # (A) 1.8 k/uL (1.0-4.8); Lymphocytes % (A) 26 %; MCH 29.1 pg (25.0-35.0); MCHC 32.3 g/dL (31.0-37.0); MCV 90.2 fL (80.0-100.0); Mean Platelet Volume 10.6; Monocytes # (A) 0.5 k/uL (0-1.0); Monocytes % (A) 7 %; Neutrophils # (A) 4.3 k/uL (1.3-7.7); Neutrophils % (A) 64 %; Platelet Count 120 k/uL (150-450); RBC 5.46 m/uL (4.30-5.90); RDW 14.9 % (11.5-15.5); WBC 6.8 k/uL (3.8-10.6)
[2020-09-18 09:38] LABS: African American GFR (CKD) >90 (>60 ml/min/1.73 sqM); Anion Gap 7 mmol/L; Blood Urea Nitrogen 35 mg/dL (9-20); Calcium 9.2 mg/dL (8.4-10.2); Carbon Dioxide 25 mmol/L (22-30); Chloride 101 mmol/L (98-107); Glucose 129 mg/dL (74-99); Non-African American GFR(CKD) 85 (>60 ml/min/1.73 sqM); Sodium 133 mmol/L (137-145)
[2020-09-18 09:53] LABS: Magnesium 2.4 mg/dL (1.6-2.3); Potassium 6.2 mmol/L (3.5-5.1)
--- NOTE | 2020-09-18 10:00 | ECHOF ---
Referral Reason:assess bioprosthetic aortic valve, AI MEASUREMENTS -------- HEIGHT: 172.7 cm WEIGHT: 84.4 kg BP: AV maxP.86 mmHg AV meanP.05 mmHg FINDINGS -------- Pt had Echo 09/03/20, John 07/21/20: Limited Echo to access Bioprosthetic Valve. There is severe global hypokinesis of LV . Overall left ventricular systolic function is severely i mpaired with, an EF < 20%. Peak/mean gradient across the Aortic Valve is 41.86mmHg / 29.05mmHg. Bioprosthetic Stenosis: Gradie nt is underestimated due to decrease EF. Small Pleural Effusion. CONCLUSIONS -------- 1. Pt had Echo 09/03/20, John 07/21/20: Limited Echo to access Bioprosthetic Valve. 2. There is severe global hypokinesis of LV . 3. Overall left ventricular systolic function is severely impaired with, an EF < 20%. 4. Peak/mean gradient across the Aortic Valve is 41.86mmHg / 29.05mmHg. 5. Bioprosthetic Stenosis: Gradient is underestimated due to decrease EF. 6. Small Pleural Effusion. CRM FUNCTIONAL ANALYST: Jessica Neely RDCS
[2020-09-18 11:43] LABS: Glucose,Whole Blood 155 mg/dL (75-99)
[2020-09-18] MEDS ORDERED: SODIUM POLYSTYRENE SULFONATE 15 GM/60 ML BOTTLE PO STA (12:02)
--- NOTE | 2020-09-18 13:20 | P.PN ---
Subjective Mr. Monreal is a history pleasant 69-year-old male with a past medical history of bicuspid aortic wall status post bioprosthetic aortic wall replacement, persistent atrial fibrillation status post failed cardioversion, diabetes mellitus, hypertension, dyslipidemia, SVT s/p ablation, PVC ablation and recent worsening non-ischemic cardiomyopathy thought to be related to afib, who follows in the office with Dr. Perrin coming in with a chief complaint of exertional dyspnea. Patient was recently in the hospital from 09/05/2020 to 09/09/2020. During his hospital stay patient had large left pleural effusion. He was managed with IV Lasix, his symptoms improved and eventually the patient was started on Entresto, by cardiology and discharged home. Patient states that since being discharged he noticed that his difficulty in breathing has worsened along with his cough. Patient states that his cough that he has been having for the past 1 month is improving. He is bringing up white thick sputum. Patient denies having any fevers chills or rigors. He denies having orthopnea PND. He states that his lower extremity swelling has worsened. Patient denies having any abdominal pain, but states that he has feeling of butterflies in his belly when he takes metformin. He also states that for the past 2-3 days he has been having generalized weakness and fatigue. Patient denies having any nausea vomiting or diarrhea. No dysuria or hematuria. Denies having any sick contacts. In the ER, patient had a chest x-ray showing evidence of right lower lobe opacity concerning for atelectasis and an elevated BNP of 15,000. He was given a low dose of Lasix due to his low blood pressure and eventually started on 50 mL of IV normal saline and admitted for further management. On reviewing his labs white count of 7 hemoglobin 15.8, platelets 112. Sodium 135, potassium 5.14, chloride 104, bicarbonate 22, BUN 20, [place] [address]. Troponin 0.013. 09/14/2020 Patient remains on IV Lasix patient still has significant swelling in bilateral lower extremities patient is found to have persistent atrial fibrillation which may be contributing to his heart failure exacerbations. Cardiology evaluated the patient is recommending admitting the patient and starting patient on dofetilide. Patient was started back on Entresto. Patient the shortness of breath significantly improved and patient was apparently having abdominal discom fort at home and he believes it secondary to metformin and this discomfort completely resolved 09/15/2020 Patient's pedal edema significant improved. Patient is being started on dofetilide 09/16/2020 Patient will undergo cardioversion tomorrow patient is euvolemic patient was switched to oral Lasix. 09/17/2020 Patient underwent cardioversion presently and opiate allied which will be continued presently sinus rhythm patient will be monitored overnight possibility of discharge tomorrow patient remains on oral Lasix. 09/18/2020 Patient potassium is high at around 6 mildly hemolyzed. We will hold off on Entresto and Aldactone for now. Constitutional: Denied any fatigue denied any fever. Cardio vascular: denied any chest pain, palpitations Gastrointestinal denied any nausea vomiting Pulmonary: As mentioned in HPI Neurologic denied any new focal deficits All inpatient medications were reviewed and appropriate changes in these medications as dictated in the interval history and assessment and plan. Objective - Vital Signs Vital signs: Vital Signs Temp 97.8 F 09/18/20 13:07 Pulse 78 09/18/20 13:07 Resp 17 09/18/20 13:07 BP 112/68 09/18/20 13:07 Pulse Ox 100 09/18/20 13:07 Intake & Output 09/17/20 09/18/20 09/18/20 18:59 06:59 18:59 Intake Total 346 0 Output Total 180 Balance 166 0 Intake: Oral 346 0 Output: Urine 180 Other: Voiding Method Toilet Toilet Toilet - Exam PHYSICAL EXAMINATION: GENERAL: The patient is alert and oriented x3, not in any acute distress. Well developed, well nourished. HEENT: Pupils are round and equally reacting to light. EOMI. No scleral icterus. No conjunctival pallor. Normocephalic, atraumatic. No pharyngeal erythema. No thyromegaly. CARDIOVASCULAR: S1 and S2 present. No murmurs, rubs, or gallops. Patient is presently sinus rhythm PULMONARY: Chest is clear to auscultation, no wheezing or crackles. ABDOMEN: Soft, nontender, nondistended, normoactive bowel sounds. No palpable organomegaly. MUSCULOSKELETAL: No joint swelling or deformity. EXTREMITIES: No cyanosis, clubbing, significant pedal edema bilateral lower expertise 2+ extending up to bilateral knees NEUROLOGICAL: Gross neurological examination did not reveal any focal deficits. SKIN: No rashes. - Labs CBC & Chem 7: 09/18/20 08:34 09/18/20 10:23 Labs: Abnormal Lab Results - Last 24 Hours (Table) 09/17/20 09/17/20 09/18/20 Range/Units 17:13 21:13 06:15 Plt Count (150-450) k/uL Sodium (137-145) mmol/L Potassium (3.5-5.1) mmol/L BUN (9-20) mg/dL Glucose (74-99) mg/dL POC Glucose (mg/dL) 117 H 189 H 150 H (75-99) mg/dL Magnesium (1.6-2.3) mg/dL 09/18/20 09/18/20 09/18/20 Range/Units 08:34 08:34 10:23 Plt Count 120 L (150-450) k/uL Sodium 133 L (137-145) mmol/L Potassium 6.2 H* 6.0 H (3.5-5.1) mmol/L BUN 35 H (9-20) mg/dL Glucose 129 H (74-99) mg/dL POC Glucose (mg/dL) (75-99) mg/dL Magnesium 2.4 H (1.6-2.3) mg/dL 09/18/20 Range/Units 11:40 Plt Count (150-450) k/uL Sodium (137-145) mmol/L Potassium (3.5-5.1) mmol/L BUN (9-20) mg/dL Glucose (74-99) mg/dL POC Glucose (mg/dL) 155 H (75-99) mg/dL Magnesium (1.6-2.3) mg/dL Assessment and Plan Plan: Acute exacerbation of chronic systolic heart failure: She is presently on oral Lasix patient is status post cardioversion, sinus rhythm, patient is on dofetilide Systolic heart failure with ejection fraction 30-35% was treated for heart failure exacerbation -Hyperkalemia: Hold off on Aldactone and Entresto Nonischemic cardiomyopathy Persistent atrial fibrillation on dofetilide. Thrombocytopenia Hypertension GERD Diabetes mellitus Recent pleural effusion BPH Migraine headaches Scoliosis Chronic low back pain Vitamin D deficiency
--- NOTE | 2020-09-18 14:16 | P.PN ---
Subjective Progress Note Date: 09/18/20 HISTORY OF PRESENT ILLNESS: Patient examined this morning at the bedside. He is status post cardioversion yesterday. He remains in sinus mechanism. He continues to report shortness of breath with exertion. He also reports feeling nauseated today. He remains on Xarelto. Echocardiogram completed reveals severe global hypokinesis of LV, ejection fraction less than 20%, small pleural effusion. Potassium 6.0. Patient is due to receive Kayexalate today. Blood pressure this morning with a systolic in the 90s. PHYSICAL EXAM: VITAL SIGNS: Reviewed. GENERAL: Well-developed in no acute distress. NECK: Supple. No JVD or thyromegaly LUNGS: Respirations even and unlabored. Lungs diminished bilaterally. HEART: Regular rate and rhythm. S1 and S2 heard. Systolic murmur noted. EXTREMITIES: Normal range of motion. No clubbing or cyanosis. Peripheral pulse s intact. Trace bilateral lower extremity edema ASSESSMENT: Acute on chronic systolic heart failure Non-ischemic cardiomyopathy Persistent atrial fibrillation, s/p cardioversion, maintaining sinus mechanism History of failed cardioversion Valvular heart disease s/p aortic valve replacement Mitral regurgitation Hypertension Dyslipidemia PLAN: Continue current cardiac medications Continue Dofetilide. EKG to be performed at 2100 Monitor potassium Further recommendations pending patient course Nurse practitioner note has been reviewed by physician. Signing provider agrees with the documented findings, assessment, and plan of care. Objective - Vital Signs Vital signs: Vital Signs Temp 97.8 F 09/18/20 13:07 Pulse 78 09/18/20 13:07 Resp 17 09/18/20 13:07 BP 112/68 09/18/20 13:07 Pulse Ox 100 09/18/20 13:07 Intake & Output 09/17/20 09/18/20 09/18/20 18:59 06:59 18:59 Intake Total 346 0 Output Total 180 Balance 166 0 Intake: Oral 346 0 Output: Urine 180 Other: Voiding Method Toilet Toilet Toilet - Labs CBC & Chem 7: 09/18/20 08:34 09/18/20 10:23 Labs: Abnormal Lab Results - Last 24 Hours (Table) 09/17/20 09/17/20 09/18/20 Range/Units 17:13 21:13 06:15 Plt Count (150-450) k/uL Sodium (137-145) mmol/L Potassium (3.5-5.1) mmol/L BUN (9-20) mg/dL Glucose (74-99) mg/dL POC Glucose (mg/dL) 117 H 189 H 150 H (75-99) mg/dL Magnesium (1.6-2.3) mg/dL 09/18/20 09/18/20 09/18/20 Range/Units 08:34 08:34 10:23 Plt Count 120 L (150-450) k/uL Sodium 133 L (137-145) mmol/L Potassium 6.2 H* 6.0 H (3.5-5.1) mmol/L BUN 35 H (9-20) mg/dL Glucose 129 H (74-99) mg/dL POC Glucose (mg/dL) (75-99) mg/dL Magnesium 2.4 H (1.6-2.3) mg/dL 09/18/20 Range/Units 11:40 Plt Count (150-450) k/uL Sodium (137-145) mmol/L Potassium (3.5-5.1) mmol/L BUN (9-20) mg/dL Glucose (74-99) mg/dL POC Glucose (mg/dL) 155 H (75-99) mg/dL Magnesium (1.6-2.3) mg/dL
[2020-09-18 17:00] LABS: Glucose,Whole Blood 134 mg/dL (75-99)
[2020-09-18 20:21] LABS: Glucose,Whole Blood 138 mg/dL (75-99)
[2020-09-18] MEDS: RIVAROXABAN 20 MG TAB PO SCH (20:41)
[2020-09-18] MEDS: NON FORMULARY DRUG (Rosuvastatin 20 MG Tablet) PO SCH (20:41)
[2020-09-19] MEDS: DOFETILIDE 250 MCG CAP PO SCH ×2 (06:01→17:14)
[2020-09-19 06:28] LABS: Glucose,Whole Blood 154 mg/dL (75-99)
[2020-09-19] MEDS: INSULIN ASPART (NovoLOG) 100 UNIT/ML VIAL SQ SCH ×4 (06:42→20:08)
[2020-09-19] MEDS: metFORMIN 500 MG TAB PO SCH ×2 (09:10→12:05)
[2020-09-19] MEDS: FAMOTIDINE 20 MG TAB PO SCH (09:10)
[2020-09-19] MEDS: CHOLECALCIFEROL 25 MCG (1000 IU) TABLET PO SCH (09:14)
[2020-09-19] MEDS: MAGNESIUM OXIDE 400 MG TAB PO SCH (09:14)
[2020-09-19] MEDS: FUROSEMIDE 40 MG TAB PO SCH (09:14)
[2020-09-19] MEDS: METOPROLOL SUCCINATE (ER) 100 MG TAB.ER.24H PO SCH (09:14)
[2020-09-19] MEDS: ASPIRIN 81 MG PO SCH (09:14)
[2020-09-19 10:16] LABS: Basophils % (A) 1 %; Eosinophils % (A) 1 %; HCT 47.4 % (39.0-53.0); HGB 15.2 gm/dL (13.0-17.5); Lymphocytes # (A) 1.2 k/uL (1.0-4.8); Lymphocytes % (A) 18 %; MCH 28.8 pg (25.0-35.0); Mean Platelet Volume 10.4; Monocytes # (A) 0.4 k/uL (0-1.0); Monocytes % (A) 6 %; Neutrophils % (A) 74 %; Platelet Count 103 k/uL (150-450); RBC 5.27 m/uL (4.30-5.90); RDW 14.9 % (11.5-15.5); WBC 6.8 k/uL (3.8-10.6)
[2020-09-19 10:24] LABS: African American GFR (CKD) >90 (>60 ml/min/1.73 sqM); Anion Gap 6 mmol/L; Blood Urea Nitrogen 34 mg/dL (9-20); Calcium 8.6 mg/dL (8.4-10.2); Carbon Dioxide 28 mmol/L (22-30); Chloride 98 mmol/L (98-107); Glucose 261 mg/dL (74-99); Magnesium 2.2 mg/dL (1.6-2.3); Non-African American GFR(CKD) 85 (>60 ml/min/1.73 sqM); Potassium 4.3 mmol/L (3.5-5.1); Sodium 132 mmol/L (137-145)
[2020-09-19 11:44] LABS: Glucose,Whole Blood 203 mg/dL (75-99)
--- NOTE | 2020-09-19 13:50 | P.PN ---
Subjective Progress Note Date: 09/19/20 HISTORY OF PRESENT ILLNESS: 09/18/2020 Patient examined this morning at the bedside. He is status post cardioversion yesterday. He remains in sinus mechanism. He continues to report shortness of breath with exertion. He also reports feeling nauseated today. He remains on Xarelto. Echocardiogram completed reveals severe global hypokinesis of LV, ejection fraction less than 20%, small pleural effusion. Potassium 6.0. Patient is due to receive Kayexalate today. Blood pressure this morning with a systolic in the 90s. 09/19/2020 Patient continues to report shortness of breath and nausea this morning. Patient's blood pressure 95/57. Heart rate in the 80s. He remains in sinus mechanism. Patients entresto was held yesterday and Aldactone was discontinued secondary to hyperkalemia. The patient received a dose of Kayexalate. Potassium this morning 4.3. PHYSICAL EXAM: VITAL SIGNS: Reviewed. GENERAL: Well-developed in no acute distress. NECK: Supple. No JVD or thyromegaly LUNGS: Respirations even and unlabored. Lungs diminished bilaterally. HEART: Regular rate and rhythm. S1 and S2 heard. Systolic murmur noted. EXTREMITIES: Normal range of motion. No clubbing or cyanosis. Peripheral pulses intact. Trace bilateral lower extremity edema ASSESSMENT: Acute on chronic systolic heart failure Non-ischemic cardiomyopathy Persistent atrial fibrillation, s/p cardioversion, maintaining sinus mechanism History of failed cardioversion Valvular heart disease s/p aortic valve replacement Mitral regurgitation Hypertension Dyslipidemia PLAN: Continue current cardiac medications Continue telemetry monitoring Dr. Perrin will be in to see patient this afternoon and will make further recommendations pending patients plan of care. Nurse practitioner note has been reviewed by physician. Signing provider agrees with the documented findings, assessment, and plan of care. Objective - Vital Signs Vital signs: Vital Signs Temp 97.5 F L 09/19/20 08:20 Pulse 87 09/19/20 08:20 Resp 16 09/19/20 08:20 BP 95/57 09/19/20 08:20 Pulse Ox 97 09/19/20 08:20 Intake & Output 09/18/20 09/19/20 09/19/20 18:59 06:59 18:59 Intake Total 702 280 Output Total 1000 Balance 702 -1000 280 Weight 84.8 kg Intake: Oral 702 280 Output: Urine 1000 Other: Voiding Method Toilet Toilet # Voids 1 - Labs CBC & Chem 7: 09/19/20 09:16 09/19/20 09:16 Labs: Abnormal Lab Results - Last 24 Hours (Table) 09/18/20 09/18/20 09/19/20 Range/Units 16:40 20:19 06:27 Plt Count (150-450) k/uL Sodium (137-145) mmol/L BUN (9-20) mg/dL Glucose (74-99) mg/dL POC Glucose (mg/dL) 134 H 138 H 154 H (75-99) mg/dL 09/19/20 09/19/20 09/19/20 Range/Units 09:16 09:16 11:43 Plt Count 103 L (150-450) k/uL Sodium 132 L (137-145) mmol/L BUN 34 H (9-20) mg/dL Glucose 261 H (74-99) mg/dL POC Glucose (mg/dL) 203 H (75-99) mg/dL
[2020-09-19 16:47] LABS: Glucose,Whole Blood 180 mg/dL (75-99)
--- NOTE | 2020-09-19 17:21 | P.PN ---
Subjective Mr. Monreal is a history pleasant 69-year-old male with a past medical history of bicuspid aortic wall status post bioprosthetic aortic wall replacement, persistent atrial fibrillation status post failed cardioversion, diabetes mellitus, hypertension, dyslipidemia, SVT s/p ablation, PVC ablation and recent worsening non-ischemic cardiomyopathy thought to be related to afib, who follows in the office with Dr. Perrin coming in with a chief complaint of exertional dyspnea. Patient was recently in the hospital from 09/05/2020 to 09/09/2020. During his hospital stay patient had large left pleural effusion. He was managed with IV Lasix, his symptoms improved and eventually the patient was started on Entresto, by cardiology and discharged home. Patient states that since being discharged he noticed that his difficulty in breathing has worsened along with his cough. Patient states that his cough that he has been having for the past 1 month is improving. He is bringing up white thick sputum. Patient denies having any fevers chills or rigors. He denies having orthopnea PND. He states that his lower extremity swelling has worsened. Patient denies having any abdominal pain, but states that he has feeling of butterflies in his belly when he takes metformin. He also states that for the past 2-3 days he has been having generalized weakness and fatigue. Patient denies having any nausea vomiting or diarrhea. No dysuria or hematuria. Denies having any sick contacts. In the ER, patient had a chest x-ray showing evidence of right lower lobe opacity concerning for atelectasis and an elevated BNP of 15,000. He was given a low dose of Lasix due to his low blood pressure and eventually started on 50 mL of IV normal saline and admitted for further management. On reviewing his labs white count of 7 hemoglobin 15.8, platelets 112. Sodium 135, potassium 5.14, chloride 104, bicarbonate 22, BUN 20, [place] [address]. Troponin 0.013. 09/14/2020 Patient remains on IV Lasix patient still has significant swelling in bilateral lower extremities patient is found to have persistent atrial fibrillation which may be contributing to his heart failure exacerbations. Cardiology evaluated the patient is recommending admitting the patient and starting patient on dofetilide. Patient was started back on Entresto. Patient the shortness of breath significantly improved and patient was apparently having abdominal discom fort at home and he believes it secondary to metformin and this discomfort completely resolved 09/15/2020 Patient's pedal edema significant improved. Patient is being started on dofetilide 09/16/2020 Patient will undergo cardioversion tomorrow patient is euvolemic patient was switched to oral Lasix. 09/17/2020 Patient underwent cardioversion presently and opiate allied which will be continued presently sinus rhythm patient will be monitored overnight possibility of discharge tomorrow patient remains on oral Lasix. 09/18/2020 Patient potassium is high at around 6 mildly hemolyzed. We will hold off on Entresto and Aldactone for now. 09/19/2020 Patient's potassium has come down patient appeared to be evaluated by electrophysiology unfortunately cannot discharge this patient as patient was not evaluated by Dr. Lopez yet. Constitutional: Denied any fatigue denied any fever. Cardio vascular: denied any chest pain, palpitations Gastrointestinal denied any nausea vomiting Pulmonary: As mentioned in HPI Neurologic denied any new focal deficits All inpatient medications were reviewed and appropriate changes in these medications as dictated in the interval history and assessment and plan. Objective - Vital Signs Vital signs: Vital Signs Temp 97.8 F 09/19/20 15:05 Pulse 84 09/19/20 15:05 Resp 18 09/19/20 15:05 BP 113/59 09/19/20 15:05 Pulse Ox 98 09/19/20 15:05 Intake & Output 09/18/20 09/19/20 09/19/20 18:59 06:59 18:59 Intake Total 702 780 Output Total 1000 Balance 702 -1000 780 Weight 84.8 kg Intake: Oral 702 780 Output: Urine 1000 Other: Voiding Method Toilet Toilet # Voids 1 - Exam PHYSICAL EXAMINATION: GENERAL: The patient is alert and oriented x3, not in any acute distress. Well developed, well nourished. HEENT: Pupils are round and equally reacting to light. EOMI. No scleral icterus. No conjunctival pallor. Normocephalic, atraumatic. No pharyngeal erythema. No thyromegaly. CARDIOVASCULAR: S1 and S2 present. No murmurs, rubs, or gallops. Patient is presently sinus rhythm PULMONARY: Chest is clear to auscultation, no wheezing or crackles. ABDOMEN: Soft, nontender, nondistended, normoactive bowel sounds. No palpable organomegaly. MUSCULOSKELETAL: No joint swelling or deformity. EXTREMITIES: No cyanosis, clubbing, significant pedal edema bilateral lower expertise 2+ extending up to bilateral knees NEUROLOGICAL: Gross neurological examination did not reveal any focal deficits. SKIN: No rashes. - Labs CBC & Chem 7: 09/19/20 09:16 09/19/20 09:16 Labs: Abnormal Lab Results - Last 24 Hours (Table) 09/18/20 09/19/20 09/19/20 Range/Units 20:19 06:27 09:16 Plt Count 103 L (150-450) k/uL Sodium (137-145) mmol/L BUN (9-20) mg/dL Glucose (74-99) mg/dL POC Glucose (mg/dL) 138 H 154 H (75-99) mg/dL 09/19/20 09/19/20 09/19/20 Range/Units 09:16 11:43 16:46 Plt Count (150-450) k/uL Sodium 132 L (137-145) mmol/L BUN 34 H (9-20) mg/dL Glucose 261 H (74-99) mg/dL POC Glucose (mg/dL) 203 H 180 H (75-99) mg/dL Assessment and Plan Plan: Acute exacerbation of chronic systolic heart failure: She is presently on oral Lasix patient is status post cardioversion, sinus rhythm, patient is on dofetilide Systolic heart failure with ejection fraction 30-35% was treated for heart failure exacerbation -Hyperkalemia: Hold off on Aldactone and Entresto improved now Nonischemic cardiomyopathy Persistent atrial fibrillation on dofetilide. Thrombocytopenia Hypertension GERD Diabetes mellitus Recent pleural effusion BPH Migraine headaches Scoliosis Chronic low back pain Vitamin D deficiency
[2020-09-19 19:51] LABS: Glucose,Whole Blood 145 mg/dL (75-99)
[2020-09-19] MEDS: NON FORMULARY DRUG (Rosuvastatin 20 MG Tablet) PO SCH (20:07)
[2020-09-19] MEDS: RIVAROXABAN 20 MG TAB PO SCH (20:07)
[2020-09-19] MEDS: MELATONIN 3 MG TABLET PO SCH (23:16)
[2020-09-20] MEDS: DOFETILIDE 250 MCG CAP PO SCH ×2 (05:59→18:38)
[2020-09-20 06:14] LABS: Glucose,Whole Blood 132 mg/dL (75-99)
[2020-09-20] MEDS: INSULIN ASPART (NovoLOG) 100 UNIT/ML VIAL SQ SCH ×4 (06:40→21:40)
[2020-09-20 08:11] LABS: Albumin 3.4 g/dL (3.5-5.0); Calcium 8.9 mg/dL (8.4-10.2); Magnesium 2.3 mg/dL (1.6-2.3); Total Bilirubin 1.1 mg/dL (0.2-1.3); Total Protein 5.8 g/dL (6.3-8.2)
[2020-09-20] MEDS: metFORMIN 500 MG TAB PO SCH ×2 (08:20→13:30)
[2020-09-20 08:27] LABS: Basophils % (A) 1 %; Eosinophils % (A) 1 %; HCT 46.8 % (39.0-53.0); HGB 14.8 gm/dL (13.0-17.5); Lymphocytes # (A) 1.4 k/uL (1.0-4.8); Lymphocytes % (A) 22 %; MCH 28.4 pg (25.0-35.0); MCHC 31.7 g/dL (31.0-37.0); MCV 89.5 fL (80.0-100.0); Mean Platelet Volume 10.3; Monocytes # (A) 0.5 k/uL (0-1.0); Monocytes % (A) 9 %; Neutrophils # (A) 4.1 k/uL (1.3-7.7); Neutrophils % (A) 66 %; Platelet Count 103 k/uL (150-450); RBC 5.23 m/uL (4.30-5.90); RDW 15.3 % (11.5-15.5); WBC 6.1 k/uL (3.8-10.6)
[2020-09-20] MEDS: CHOLECALCIFEROL 25 MCG (1000 IU) TABLET PO SCH (09:46)
[2020-09-20] MEDS: ASPIRIN 81 MG PO SCH (09:46)
[2020-09-20] MEDS: MAGNESIUM OXIDE 400 MG TAB PO SCH (09:46)
[2020-09-20] MEDS: FAMOTIDINE 20 MG TAB PO SCH (09:47)
[2020-09-20] MEDS: METOPROLOL SUCCINATE (ER) 100 MG TAB.ER.24H PO SCH (09:47)
[2020-09-20] MEDS: FUROSEMIDE 40 MG TAB PO SCH (09:47)
[2020-09-20] MEDS ORDERED: ALPRAZolam 0.5 MG TAB PO PRN (10:38)
[2020-09-20] MEDS ORDERED: NITROGLYCERIN SL TABS 0.4 MG TAB SUBLINGUAL PRN (10:38)
--- NOTE | 2020-09-20 11:35 | P.PN ---
Subjective Progress Note Date: 09/20/20 HISTORY OF PRESENT ILLNESS: 09/18/2020 Patient examined this morning at the bedside. He is status post cardioversion yesterday. He remains in sinus mechanism. He continues to report shortness of breath with exertion. He also reports feeling nauseated today. He remains on Xarelto. Echocardiogram completed reveals severe global hypokinesis of LV, ejection fraction less than 20%, small pleural effusion. Potassium 6.0. Patient is due to receive Kayexalate today. Blood pressure this morning with a systolic in the 90s. 09/19/2020 Patient continues to report shortness of breath and nausea this morning. Patient's blood pressure 95/57. Heart rate in the 80s. He remains in sinus mechanism. Patients entresto was held yesterday and Aldactone was discontinued secondary to hyperkalemia. The patient received a dose of Kayexalate. Potassium this morning 4.3. 09/20/2020 Patient examined this morning at the bedside. Patient continues to report shortness of breath. He denies chest pain or pressure. Blood pressure 108/58. Heart rate in the 80s. He is on room air with oxygen saturations greater than 92%. PHYSICAL EXAM: VITAL SIGNS: Reviewed. GENERAL: Well-developed in no acute distress. NECK: Supple. No JVD or thyromegaly LUNGS: Respirations even and unlabored. Lungs diminished bilaterally. HEART: Regular rate and rhythm. S1 and S2 heard. Systolic murmur noted. EXTREMITIES: Normal range of motion. No clubbing or cyanosis. Peripheral pulses intact. Trace bilateral lower extremity edema ASSESSMENT: Acute on chronic systolic heart failure Non-ischemic cardiomyopathy Persistent atrial fibrillation, s/p cardioversion, maintaining sinus mechanism History of failed cardioversion Valvular heart disease s/p aortic valve replacement Mitral regurgitation Hypertension Dyslipidemia PLAN: Continue current cardiac medications Continue telemetry monitoring Hold Xarelto tonight Nothing by mouth at midnight Patient to undergo left and right heart cath tomorrow with Dr. Camargo Further recommendations pending patient's course Nurse practitioner note has been reviewed by physician. Signing provider agrees with the documented findings, assessment, and plan of care. Objective - Vital Signs Vital signs: Vital Signs Temp 97.5 F L 09/20/20 08:00 Pulse 85 09/20/20 08:00 Resp 18 09/20/20 08:00 BP 108/58 09/20/20 08:00 Pulse Ox 95 09/20/20 08:00 Intake & Output 09/19/20 09/20/20 09/20/20 18:59 06:59 18:59 Intake Total 880 240 Balance 880 240 Weight 85.8 kg Intake: Oral 880 240 Other: Voiding Method Toilet Toilet Toilet - Labs CBC & Chem 7: 09/20/20 07:19 09/20/20 07:19 Labs: Abnormal Lab Results - Last 24 Hours (Table) 09/19/20 09/19/20 09/19/20 Range/Units 11:43 16:46 19:49 Plt Count (150-450) k/uL Sodium (137-145) mmol/L BUN (9-20) mg/dL Glucose (74-99) mg/dL POC Glucose (mg/dL) 203 H 180 H 145 H (75-99) mg/dL Total Protein (6.3-8.2) g/dL Albumin (3.5-5.0) g/dL 09/20/20 09/20/20 09/20/20 Range/Units 05:59 07:19 07:19 Plt Count 103 L (150-450) k/uL Sodium 133 L (137-145) mmol/L BUN 38 H (9-20) mg/dL Glucose 131 H (74-99) mg/dL POC Glucose (mg/dL) 132 H (75-99) mg/dL Total Protein 5.8 L (6.3-8.2) g/dL Albumin 3.4 L (3.5-5.0) g/dL
[2020-09-20 11:43] LABS: Glucose,Whole Blood 175 mg/dL (75-99)
--- NOTE | 2020-09-20 15:20 | P.PN ---
Subjective Mr. Monreal is a history pleasant 69-year-old male with a past medical history of bicuspid aortic wall status post bioprosthetic aortic wall replacement, persistent atrial fibrillation status post failed cardioversion, diabetes mellitus, hypertension, dyslipidemia, SVT s/p ablation, PVC ablation and recent worsening non-ischemic cardiomyopathy thought to be related to afib, who follows in the office with Dr. Perrin coming in with a chief complaint of exertional dyspnea. Patient was recently in the hospital from 09/05/2020 to 09/09/2020. During his hospital stay patient had large left pleural effusion. He was managed with IV Lasix, his symptoms improved and eventually the patient was started on Entresto, by cardiology and discharged home. Patient states that since being discharged he noticed that his difficulty in breathing has worsened along with his cough. Patient states that his cough that he has been having for the past 1 month is improving. He is bringing up white thick sputum. Patient denies having any fevers chills or rigors. He denies having orthopnea PND. He states that his lower extremity swelling has worsened. Patient denies having any abdominal pain, but states that he has feeling of butterflies in his belly when he takes metformin. He also states that for the past 2-3 days he has been having generalized weakness and fatigue. Patient denies having any nausea vomiting or diarrhea. No dysuria or hematuria. Denies having any sick contacts. In the ER, patient had a chest x-ray showing evidence of right lower lobe opacity concerning for atelectasis and an elevated BNP of 15,000. He was given a low dose of Lasix due to his low blood pressure and eventually started on 50 mL of IV normal saline and admitted for further management. On reviewing his labs white count of 7 hemoglobin 15.8, platelets 112. Sodium 135, potassium 5.14, chloride 104, bicarbonate 22, BUN 20, [place] [address]. Troponin 0.013. 09/14/2020 Patient remains on IV Lasix patient still has significant swelling in bilateral lower extremities patient is found to have persistent atrial fibrillation which may be contributing to his heart failure exacerbations. Cardiology evaluated the patient is recommending admitting the patient and starting patient on dofetilide. Patient was started back on Entresto. Patient the shortness of breath significantly improved and patient was apparently having abdominal discom fort at home and he believes it secondary to metformin and this discomfort completely resolved 09/15/2020 Patient's pedal edema significant improved. Patient is being started on dofetilide 09/16/2020 Patient will undergo cardioversion tomorrow patient is euvolemic patient was switched to oral Lasix. 09/17/2020 Patient underwent cardioversion presently and opiate allied which will be continued presently sinus rhythm patient will be monitored overnight possibility of discharge tomorrow patient remains on oral Lasix. 09/18/2020 Patient potassium is high at around 6 mildly hemolyzed. We will hold off on Entresto and Aldactone for now. 09/19/2020 Patient's potassium has come down patient appeared to be evaluated by electrophysiology unfortunately cannot discharge this patient as patient was not evaluated by Dr. Lopez yet. 09/20/2020 patient will undergo right heart catheterization patient's sodium is on 133 today. Patient is complaining of constipation and was started on MiraLAX Constitutional: Denied any fatigue denied any fever. Cardio vascular: denied any chest pain, palpitations Gastrointestinal denied any nausea vomiting Pulmonary: As mentioned in HPI Neurologic denied any new focal deficits All inpatient medications were reviewed and appropriate changes in these medications as dictated in the interval history and assessment and plan. Objective - Vital Signs Vital signs: Vital Signs Temp 97.2 F L 09/20/20 11:55 Pulse 89 09/20/20 11:55 Resp 18 09/20/20 11:55 BP 99/57 09/20/20 11:55 Pulse Ox 99 09/20/20 11:55 Intake & Output 09/19/20 09/20/20 09/20/20 18:59 06:59 18:59 Intake Total 880 240 Balance 880 240 Weight 85.8 kg Intake: Oral 880 240 Other: Voiding Method Toilet Toilet Toilet - Exam PHYSICAL EXAMINATION: GENERAL: The patient is alert and oriented x3, not in any acute distress. Well developed, well nourished. HEENT: Pupils are round and equally reacting to light. EOMI. No scleral icterus. No conjunctival pallor. Normocephalic, atraumatic. No pharyngeal erythema. No thyromegaly. CARDIOVASCULAR: S1 and S2 present. No murmurs, rubs, or gallops. Patient is presently sinus rhythm PULMONARY: Chest is clear to auscultation, no wheezing or crackles. ABDOMEN: Soft, nontender, nondistended, normoactive bowel sounds. No palpable organomegaly. MUSCULOSKELETAL: No joint swelling or deformity. EXTREMITIES: No cyanosis, clubbing, significant pedal edema bilateral lower expertise 2+ extending up to bilateral knees NEUROLOGICAL: Gross neurological examination did not reveal any focal deficits. SKIN: No rashes. - Labs CBC & Chem 7: 09/20/20 07:19 09/20/20 07:19 Labs: Abnormal Lab Results - Last 24 Hours (Table) 09/19/20 09/19/20 09/20/20 Range/Units 16:46 19:49 05:59 Plt Count (150-450) k/uL Sodium (137-145) mmol/L BUN (9-20) mg/dL Glucose (74-99) mg/dL POC Glucose (mg/dL) 180 H 145 H 132 H (75-99) mg/dL Total Protein (6.3-8.2) g/dL Albumin (3.5-5.0) g/dL 09/20/20 09/20/20 09/20/20 Range/Units 07:19 07:19 11:42 Plt Count 103 L (150-450) k/uL Sodium 133 L (137-145) mmol/L BUN 38 H (9-20) mg/dL Glucose 131 H (74-99) mg/dL POC Glucose (mg/dL) 175 H (75-99) mg/dL Total Protein 5.8 L (6.3-8.2) g/dL Albumin 3.4 L (3.5-5.0) g/dL Assessment and Plan Plan: Acute exacerbation of chronic systolic heart failure: She is presently on oral Lasix patient is status post cardioversion, sinus rhythm, patient is on dofetilide. Will undergo right heart catheterization tomorrow Systolic heart failure with ejection fraction 30-35% was treated for heart failure exacerbation -Hyperkalemia: Hold off on Aldactone and Entresto improved now Nonischemic cardiomyopathy Persistent atrial fibrillation on dofetilide. Thrombocytopenia Hypertension GERD Diabetes mellitus Recent pleural effusion BPH Migraine headaches Scoliosis Chronic low back pain Vitamin D deficiency
[2020-09-20 16:52] LABS: Glucose,Whole Blood 172 mg/dL (75-99)
[2020-09-20 20:20] LABS: Glucose,Whole Blood 149 mg/dL (75-99)
[2020-09-20] MEDS ORDERED: LORazepam 1 MG TAB PO PRN (21:23)
[2020-09-20] MEDS ORDERED: MAGNESIUM SULFATE-D5W PMX 1 GM in DEXTROSE/WATER 1 100ML.BAG IVPB ONE (21:23)
[2020-09-20] MEDS: NON FORMULARY DRUG (Rosuvastatin 20 MG Tablet) PO SCH (21:40)
[2020-09-20] MEDS ORDERED: SODIUM CHLORIDE 0.9% 1,000 ML in EMPTY BAG 1 BAG IV ONE (23:30)
[2020-09-21] MEDS: MELATONIN 3 MG TABLET PO SCH ×2 (02:28→20:53)
[2020-09-21 06:10] LABS: Glucose,Whole Blood 108 mg/dL (75-99)
[2020-09-21] MEDS: INSULIN ASPART (NovoLOG) 100 UNIT/ML VIAL SQ SCH ×4 (06:16→20:53)
[2020-09-21] MEDS: DOFETILIDE 250 MCG CAP PO SCH ×2 (06:17→13:33)
[2020-09-21] MEDS ORDERED: ASPIRIN 325 MG TAB PO ONE (07:00)
[2020-09-21] MEDS ORDERED: HEPARIN SODIUM,PORCINE 10,000 UNIT in SODIUM CHLORIDE 0.9% 1,000 ML IRRIGATION PRN (07:00)
[2020-09-21] MEDS ORDERED: ATORVASTATIN 80 MG TAB PO ONE (07:00)
[2020-09-21] MEDS ORDERED: HEPARIN SODIUM,PORCINE 2,500 UNIT in SODIUM CHLORIDE 0.9% 250 ML IRRIGATION PRN (07:00)
[2020-09-21] MEDS: metFORMIN 500 MG TAB PO SCH ×2 (07:06→13:33)
[2020-09-21 08:57] LABS: Calcium 9.1 mg/dL (8.4-10.2); Magnesium 2.7 mg/dL (1.6-2.3); Potassium 5.2 mmol/L (3.5-5.1)
[2020-09-21] MEDS ORDERED: IV FLUID CONTINUATION 1,000 ML IV ONE (11:32)
--- NOTE | 2020-09-21 11:34 | P.PN ---
Subjective Mr. Monreal is a history pleasant 69-year-old male with a past medical history of bicuspid aortic wall status post bioprosthetic aortic wall replacement, persistent atrial fibrillation status post failed cardioversion, diabetes mellitus, hypertension, dyslipidemia, SVT s/p ablation, PVC ablation and recent worsening non-ischemic cardiomyopathy thought to be related to afib, who follows in the office with Dr. Perrin coming in with a chief complaint of exertional dyspnea. Patient was recently in the hospital from 09/05/2020 to 09/09/2020. During his hospital stay patient had large left pleural effusion. He was managed with IV Lasix, his symptoms improved and eventually the patient was started on Entresto, by cardiology and discharged home. Patient states that since being discharged he noticed that his difficulty in breathing has worsened along with his cough. Patient states that his cough that he has been having for the past 1 month is improving. He is bringing up white thick sputum. Patient denies having any fevers chills or rigors. He denies having orthopnea PND. He states that his lower extremity swelling has worsened. Patient denies having any abdominal pain, but states that he has feeling of butterflies in his belly when he takes metformin. He also states that for the past 2-3 days he has been having generalized weakness and fatigue. Patient denies having any nausea vomiting or diarrhea. No dysuria or hematuria. Denies having any sick contacts. In the ER, patient had a chest x-ray showing evidence of right lower lobe opacity concerning for atelectasis and an elevated BNP of 15,000. He was given a low dose of Lasix due to his low blood pressure and eventually started on 50 mL of IV normal saline and admitted for further management. On reviewing his labs white count of 7 hemoglobin 15.8, platelets 112. Sodium 135, potassium 5.14, chloride 104, bicarbonate 22, BUN 20, [place] [address]. Troponin 0.013. 09/14/2020 Patient remains on IV Lasix patient still has significant swelling in bilateral lower extremities patient is found to have persistent atrial fibrillation which may be contributing to his heart failure exacerbations. Cardiology evaluated the patient is recommending admitting the patient and starting patient on dofetilide. Patient was started back on Entresto. Patient the shortness of breath significantly improved and patient was apparently having abdominal discom fort at home and he believes it secondary to metformin and this discomfort completely resolved 09/15/2020 Patient's pedal edema significant improved. Patient is being started on dofetilide 09/16/2020 Patient will undergo cardioversion tomorrow patient is euvolemic patient was switched to oral Lasix. 09/17/2020 Patient underwent cardioversion presently and opiate allied which will be continued presently sinus rhythm patient will be monitored overnight possibility of discharge tomorrow patient remains on oral Lasix. 09/18/2020 Patient potassium is high at around 6 mildly hemolyzed. We will hold off on Entresto and Aldactone for now. 09/19/2020 Patient's potassium has come down patient appeared to be evaluated by electrophysiology unfortunately cannot discharge this patient as patient was not evaluated by Dr. Lopez yet. 09/20/2020 patient will undergo right heart catheterization patient's sodium is on 133 today. Patient is complaining of constipation and was started on MiraLAX 09/21/2020 patient will undergo right heart catheterization today, had Bowel movements yesterday. Patient's serum sodium is 133 stable at this level potassium is 5.2. Constitutional: Denied any fatigue denied any fever. Cardio vascular: denied any chest pain, palpitations Gastrointestinal denied any nausea vomiting Pulmonary: As mentioned in HPI Neurologic denied any new focal deficits All inpatient medications were reviewed and appropriate changes in these medications as dictated in the interval history and assessment and plan. Objective - Vital Signs Vital signs: Vital Signs Temp 97.6 F 09/21/20 08:00 Pulse 76 09/21/20 11:23 Resp 18 09/21/20 11:23 BP 108/71 09/21/20 11:23 Pulse Ox 98 09/21/20 11:23 Intake & Output 09/20/20 09/21/20 09/21/20 18:59 06:59 18:59 Intake Total 240 Output Total 100 Balance 240 -100 Weight 86.5 kg Intake: Oral 240 Output: Urine 100 Other: Voiding Method Toilet Toilet Toilet # Voids 1 # Bowel Movements 1 - Exam PHYSICAL EXAMINATION: GENERAL: The patient is alert and oriented x3, not in any acute distress. Well developed, well nourished. HEENT: Pupils are round and equally reacting to light. EOMI. No scleral icterus. No conjunctival pallor. Normocephalic, atraumatic. No pharyngeal erythema. No thyromegaly. CARDIOVASCULAR: S1 and S2 present. No murmurs, rubs, or gallops. Patient is presently sinus rhythm PULMONARY: Chest is clear to auscultation, no wheezing or crackles. ABDOMEN: Soft, nontender, nondistended, normoactive bowel sounds. No palpable organomegaly. MUSCULOSKELETAL: No joint swelling or deformity. EXTREMITIES: No cyanosis, clubbing, significant pedal edema bilateral lower expertise 2+ extending up to bilateral knees NEUROLOGICAL: Gross neurological examination did not reveal any focal deficits. SKIN: No rashes. - Labs CBC & Chem 7: 09/20/20 07:19 09/21/20 07:15 Labs: Abnormal Lab Results - Last 24 Hours (Table) 09/20/20 09/20/20 09/20/20 Range/Units 11:42 16:51 20:19 Sodium (137-145) mmol/L Potassium (3.5-5.1) mmol/L BUN (9-20) mg/dL Glucose (74-99) mg/dL POC Glucose (mg/dL) 175 H 172 H 149 H (75-99) mg/dL Magnesium (1.6-2.3) mg/dL 09/21/20 09/21/20 Range/Units 06:08 07:15 Sodium 133 L (137-145) mmol/L Potassium 5.2 H (3.5-5.1) mmol/L BUN 46 H (9-20) mg/dL Glucose 115 H (74-99) mg/dL POC Glucose (mg/dL) 108 H (75-99) mg/dL Magnesium 2.7 H (1.6-2.3) mg/dL Assessment and Plan Plan: Acute exacerbation of chronic systolic heart failure: She is presently on oral Lasix patient is status post cardioversion, sinus rhythm, patient is on dofetilide. Will undergo right heart catheterization tomorrow Systolic heart failure with ejection fraction 30-35% was treated for heart failu re exacerbation -Hyperkalemia: Hold off on Aldactone and Entresto improved now Nonischemic cardiomyopathy Persistent atrial fibrillation on dofetilide. Thrombocytopenia Hypertension GERD Diabetes mellitus Recent pleural effusion BPH Migraine headaches Scoliosis Chronic low back pain Vitamin D deficiency
[2020-09-21] MEDS ORDERED: MIDAZOLAM 2 MG/2 ML VIAL IV ONE (11:56)
[2020-09-21] MEDS ORDERED: fentaNYL (PF) 50 MCG/ML 2 ML AMP IV ONE (11:57)
[2020-09-21] MEDS ORDERED: LIDOCAINE 1% INJ 10MG/ML (20 ML MDV) SQ ONE ×2 (11:58)
[2020-09-21] MEDS ORDERED: VERAPAMIL SYRINGE (5 MG/10 ML) INTRAARTER ONE (12:04)
[2020-09-21] MEDS ORDERED: HEPARIN SODIUM 1,000 UN/ML (10ML VL) IV ONE (12:22)
[2020-09-21 12:37] LABS: O2 Sat Blood Gas 40.1 %
[2020-09-21 12:39] LABS: O2 Sat Blood Gas 52.1 %
[2020-09-21] MEDS ORDERED: IOPAMIDOL-370 125ML BTL INJ ONE (12:41)
[2020-09-21] MEDS ORDERED: IOPAMIDOL-370 50ML BTL INJ ONE (12:47)
[2020-09-21] MEDS: ASPIRIN 81 MG PO SCH (13:32)
[2020-09-21 13:49] LABS: Glucose,Whole Blood 85 mg/dL (75-99)
[2020-09-21] MEDS: MAGNESIUM OXIDE 400 MG TAB PO SCH (13:56)
[2020-09-21] MEDS: FAMOTIDINE 20 MG TAB PO SCH (14:08)
[2020-09-21] MEDS: FUROSEMIDE 40 MG TAB PO SCH (14:08)
[2020-09-21] MEDS: CHOLECALCIFEROL 25 MCG (1000 IU) TABLET PO SCH (14:08)
[2020-09-21] MEDS: METOPROLOL SUCCINATE (ER) 100 MG TAB.ER.24H PO SCH (14:08)
[2020-09-21 16:34] LABS: Glucose,Whole Blood 154 mg/dL (75-99)
--- NOTE | 2020-09-21 19:37 | P.CARDCATH ---
Description of Procedure: PROCEDURES PERFORMED: Left heart catheterization, bilateral coronary angiography, Aortogram INDICATION: moderate to severe aortic stenosis, cardiomyopathy HISTORY: Patient is a pleasant 69 year old male with history of bioprosthetic aortic valve replacement with at least moderate to severe aortic stenosis, persistent atrial fibrillation, hypertension, hyperlipidemia. He has been having worsened SOB and found to have worsening of LV function. He was attempted to have PAULINE cardioversion a few months back however did not stay in sinus. PAULINE was concerning of low flow gradient and there is concern of aortic insufficiency. Given worsened LV function and what appeared to be significant valvular disease, RHC, LHC and PAULINE were recommended. CONSENT:I have discussed the risks, benefits and alternative therapies for the above-mentioned procedure and for both sedation/analgesia as well as necessary blood product administration, if indicated, as they pertain to this patient. The patient has indicated understanding and acceptance of the risks and procedures discussed. PROCEDURE: After the risks, benefits and alternatives of the above mentioned procedure explained in detail with the patient, informed consent was obtained. Patient was taken to the catheterization lab and prepped and draped in usual fashion. 1% lidocaine was used to anesthetize the right radial artery. A 6- Israeli sheath was placed in the right radial artery using modified Seldinger technique. 1% lidocaine was used to anesthetize the right brachial area. A 6 Fr Brist[place] Aminah catheter was advanced into the RA, RV, PA and PCWP and pressure measurements were obtained. Oxygen saturations were obtained in the PA, RA and from the right radial artery for ANTON CO calculation. The Bristow Aminah catheter was then removed. A 6-Israeli sheath was placed in the right brachial vein using modified Seldinger technique and ultrasound guidance. Left coronary angiography was performed with a 5-Israeli JL 3.5 catheter and right coronary angiography was performed with a 5-Israeli JR5 catheter in various views. A 6Fr pigtail catheter was positioned in the ascending aorta and an aortogram was performed in the HERNANDEZ projection. The right radial sheath was removed and a TR band was placed with hemostasis achieved. The right brachial sheath was removed and pressure was held with hemostasis achieved. Small oxygen saturation "step up" not appreciated until after procedure complete due to saturations being sent to lab and therefore full oxygen saturation not performed. The patient tolerated the procedure well. Patient was transported back to the post catheterization holding area in stable condition. Conscious Sedation: Patient was monitored under the direct supervision of vision of myself for conscious sedation using Versed and fentanyl for a total duration of 55 minutes RIGHT HEART CATHETERIZATION: RA: 14/11 (9) mmHg RV: 45/2, (12) PA: 40/22 (31) mmHg PCWP: 23/24, with a V wave of 37 mmHg Ao: 102/51 (74) mmHg RA oxygen saturation: 40.1% PA oxygen saturation: 52.1% Right radial oxygen saturation: 96% Cardiac output by ANTON: 2.89 L/min Cardiac Index by ANTON: 1.42 L/min/m2 SELECTIVE CORONARY ARTERIOGRAPHY: LEFT MAIN: The left main is a large caliber vessel which bifurcates into the LAD, and circumflex. There is no significant stenosis. LEFT ANTERIOR DESCENDING CORONARY ARTERY: LAD is a large caliber vessel which wraps around to the apex. There is proximal 30% stenosis and otherwise normal coronary arteries. LEFT CIRCUMFLEX CORONARY ARTERY: Left circumflex is a large caliber vessel with no significant stenosis. RIGHT CORONARY ARTERY: The right coronary artery is a moderate caliber vessel which gives off a PDA and is the dominant vessel. There is no significant stenosis. Aortogram: The ascending aorta appears mildly dilated without dissection noted. There are prior surgical clips noted from likely prior aortic root intervention. There is 4+ aortic insufficiency. FINAL IMPRESSION: 1. Relatively normal coronary arteries with only mild proximal LAD 30% stenosis. 2. Elevated left and right sided filling pressures 3. 4+ severe aortic insufficiency 4. Mildly dilated aortic root 5. Decreased cardiac output and cardiac index PLAN: 1. Aggressive risk factor modification per most recent ACC/AHA guidelines. 2. Diuresis as able. May consider inotropes if diuresis not adequate. 3. Would recommend aortic valve intervention given severe symptomatic aortic stenosis/ aortic insufficiency with decreased in LV function.
[2020-09-21] MEDS ORDERED: RX INFO: IV CONTRAST WAS GIVEN 1 EACH MISC MISCELLANE PRN (19:47)
[2020-09-21] MEDS: RIVAROXABAN 20 MG TAB PO SCH (19:53)
--- NOTE | 2020-09-21 20:06 | P.PN ---
Progress Note - Text Spoke to the patient and his Spoke to Dr. Guaman Patient has a 25 mm bovine pericardial heart valve, [employer] Spoke to Dr. Camargo Normal coronary arteries Severity Disease Awaiting final report of right and left heart cath We will proceed with ordering PFT, carotid ultrasound and CT of the chest with contrast and include upper abdomen Patient has severe prosthetic aortic regurgitation, valvular At least moderate MR with projects Severe LV dysfunction Severe worsening recurrent heart failure Hospital admissions for heart failure exacerbation despite maximal medical treatment Early readmission for recurrent heart failure with worsening BNP despite ENTRESTO beta blockers and diuretics No improvement in sinus rhythm with dofetilide Plan Discontinue dofetilide Proceed with aortic valve and mitral valve surgery
[2020-09-21 20:14] LABS: Glucose,Whole Blood 206 mg/dL (75-99)
[2020-09-21] MEDS: NON FORMULARY DRUG (Rosuvastatin 20 MG Tablet) PO SCH (20:53)
[2020-09-21] MEDS: BISMUTH SUBSALICYLATE 4,192 MG/240 ML BOTTLE PO PRN (21:26)
[2020-09-21] MEDS: ALPRAZolam 0.25 MG TAB PO PRN (23:01)
[2020-09-22 06:08] LABS: Glucose,Whole Blood 101 mg/dL (75-99)
[2020-09-22] MEDS: INSULIN ASPART (NovoLOG) 100 UNIT/ML VIAL SQ SCH ×4 (06:16→21:01)
--- NOTE | 2020-09-22 07:38 | CT ---
EXAMINATION TYPE: CT chest abdomen w con DATE OF EXAM: 09/22/2020 COMPARISON: None HISTORY: assess aorta size CT DLP: 1131.3 mGycm CONTRAST: CT scan of the chest, abdomen is performed without Oral Contrast and with IV Contrast, patient inject ed with 100 mL of Isovue 300. CT Chest: LUNGS: The Groundglass nodular density left upper lobe measures 8 mm. Pleural-based nodularity left u pper lobe anteriorly measures 6.5 mm. Scattered groundglass infiltrates of uncertain etiology. Bilate ral pleural effusions right greater than left. Right-sided effusion is moderate in size. Basilar comp ressive atelectasis. MEDIASTINUM: Ascending thoracic aorta is aneurysmal at 4.2 cm. The aortic arch and descending thoraci c aorta are of normal caliber. There is at least moderate cardiomegaly noted. No evidence for mediast inal mass or adenopathy. HILAR STRUCTURES: No evidence for mass. No hilar adenopathy is appreciated. OTHER: No significant abnormality. CONTRAST CT ABDOMEN AND PELVIS FINDINGS: LIVER/GB: No calcified gallstones. No space occupying hepatic lesion. Biliary tree is of normal ca liber. PANCREAS: No inflammation. No distinct mass. SPLEEN: No splenic enlargement. No lesion seen. ADRENALS: No nodule. No thickening. KIDNEYS/BLADDER: No hydronephrosis. No nephrolithiasis. No distinct renal mass. BOWEL: Visualized bowel loops are grossly unremarkable. LYMPH NODES: No greater than 1cm abdominal or pelvic lymph nodes are appreciated. AORTA: No significant abnormality. OSSEOUS STRUCTURES: No significant abnormality is seen. OTHER: Small amount of ascites noted are scattered throughout the abdomen. IMPRESSION: 1. No acute intra-abdominal process seen. Small amounts of ascites noted. 2. Ascending thoracic aortic aneurysm. At least moderate cardiomegaly. 3. Bilateral pleural effusions right greater than left with scattered areas of groundglass opacity co uld reflect acute inflammatory process versus a degree of congestion. Correlate clinically.
[2020-09-22 09:37] LABS: HCT 54.8 % (39.0-53.0); HGB 17.7 gm/dL (13.0-17.5); MCH 29.2 pg (25.0-35.0); MCHC 32.2 g/dL (31.0-37.0); MCV 90.5 fL (80.0-100.0); Mean Platelet Volume 10.7; Platelet Count 105 k/uL (150-450); RBC 6.05 m/uL (4.30-5.90); RDW 15.4 % (11.5-15.5); WBC 8.4 k/uL (3.8-10.6)
[2020-09-22 09:54] LABS: African American GFR (CKD) 76 (>60 ml/min/1.73 sqM); Anion Gap 15 mmol/L; Blood Urea Nitrogen 53 mg/dL (9-20); Calcium 9.1 mg/dL (8.4-10.2); Carbon Dioxide 17 mmol/L (22-30); Chloride 102 mmol/L (98-107); Cholesterol 116 mg/dL (<200); Glucose 117 mg/dL (74-99); HDL Cholesterol 40 mg/dL (40-60); LDL Cholesterol,Calculated 62 mg/dL (0-99); Non-African American GFR(CKD) 66 (>60 ml/min/1.73 sqM); Sodium 134 mmol/L (137-145); Triglycerides 72 mg/dL (<150)
[2020-09-22 10:02] LABS: ALT 1330 U/L (4-49)
[2020-09-22 10:04] LABS: INR 1.7 (<1.2); Prothrombin Time 16.5 sec (9.0-12.0)
[2020-09-22 10:14] LABS: Partial Thromboplastin Time 21.3 sec (22.0-30.0)
--- NOTE | 2020-09-22 10:16 | US ---
EXAMINATION TYPE: US carotid duplex BILAT DATE OF EXAM: 09/22/2020 COMPARISON: US 2013 CLINICAL HISTORY: pre CT surgery, AVr. EXAM MEASUREMENTS: RIGHT: Peak Systolic Velocity (PSV) cm/sec ----- Right CCA: 31.0 ----- Right ICA: 57.9 ----- Right ECA: 30.7 ICA/CCA ratio: 1.9 RIGHT: End Diastole cm/sec ----- Right CCA: 5.8 ----- Right ICA: 7.3 ----- Right ECA: 0.0 LEFT: Peak Systolic Velocity (PSV) cm/sec ----- Left CCA: 40.9 ----- Left ICA: 71.3 ----- Left ECA: 42.8 ICA/CCA ratio: 1.7 LEFT: End Diastole cm/sec ----- Left CCA: 0.0 ----- Left ICA: 8.7 ----- Left ECA: 0.0 VERTEBRALS (direction of flow): Right Vertebral: Antegrade Left Vertebral: Antegrade Rhythm: Normal No significant stenosis seen. Dampened waveforms throughout. Plaque noted at bulb. IMPRESSION: No hemodynamically significant stenosis identified. Criteria for Assigning % of Stenosis / Diameter reduction (Estimation based on the indirect measurements of the internal carotid artery velocities (ICA PSV). 1. Normal (no stenosis)=ICA PSV < 125 cm/s: ratio < 2.0: ICA EDV<40 cm/s. 2. Less than 50% stenosis=ICA PSV < 125 cm/s: ratio < 2.0: ICA EDV<40 cm/s. 3. 50 to 69% stenosis=ICA PSV of 125 to 230 cm/s: ration 2.0 ? 4.0: ICA EDV 40-100 cm/s. 4. Greater than 70% stenosis to near occlusion= ICA PSV > 230 cm/s: ratio > 4.0: ICA EDV > 100 cm/s. 5. Near occlusion= ICA PSV velocities may be low or undetectable: variable ratio and ICA EDV. 6. Total occlusion=unable to detect flow.
[2020-09-22] MEDS: BISMUTH SUBSALICYLATE 4,192 MG/240 ML BOTTLE PO PRN ×2 (10:17→20:58)
[2020-09-22 10:28] LABS: AST >1500 U/L (17-59); Albumin 4.1 g/dL (3.5-5.0); Alkaline Phosphatase 185 U/L (38-126); Magnesium 2.6 mg/dL (1.6-2.3); Potassium 5.9 mmol/L (3.5-5.1); Total Protein 6.8 g/dL (6.3-8.2)
[2020-09-22] MEDS ORDERED: SODIUM POLYSTYRENE SULFONATE 15 GM/60 ML BOTTLE PO STA (10:33)
[2020-09-22] MEDS: MAGNESIUM OXIDE 400 MG TAB PO SCH (11:11)
[2020-09-22] MEDS: CHOLECALCIFEROL 25 MCG (1000 IU) TABLET PO SCH (11:12)
[2020-09-22] MEDS: ASPIRIN 81 MG PO SCH (11:12)
[2020-09-22] MEDS: METOPROLOL SUCCINATE (ER) 100 MG TAB.ER.24H PO SCH (11:13)
[2020-09-22] MEDS: FUROSEMIDE 40 MG TAB PO SCH (11:13)
[2020-09-22] MEDS: FAMOTIDINE 20 MG TAB PO SCH (11:13)
[2020-09-22 11:35] LABS: Appearance,Urine Clear (Clear); Bilirubin,Urine Negative (Negative); Blood,Urine Trace (Negative); Color,Urine Yellow; Glucose,Urine (UA) Negative (Negative); Ketones,Urine Negative (Negative); Leukocyte Esterase,Urine Negative (Negative); Mucus,Urine Occasional /hpf; Nitrite,Urine Negative (Negative); PH, Urine 5.5 (5.0-8.0); Protein,Urine 1+ (Negative); RBC,Urine 6 /hpf (0-5); Sperm,Urine Moderate /hpf; Urobilinogen,Urine <2.0 mg/dL (<2.0); WBC,Urine 7 /hpf (0-5)
[2020-09-22 12:01] LABS: Specific Gravity,Urine >1.050 (1.001-1.035)
[2020-09-22 12:41] LABS: Glucose,Whole Blood 188 mg/dL (75-99)
--- NOTE | 2020-09-22 12:57 | CT ---
EXAMINATION TYPE: CT Panorex DATE OF EXAM: 09/22/2020 COMPARISON: None HISTORY: Preoperative valve surgery Unenhanced CT of the mandible was performed in the axial and coronal planes. 3-D reconstruction was p erformed at a separate workstation. FINDINGS: There is no evidence for fracture. No osseous lesions are noted. Temporomandibular joints. BE well se ated. Visualized dental structures appear to be free of dental caries. IMPRESSION: 1. No distinct abnormality on this Panorex of the mandible.
--- NOTE | 2020-09-22 13:01 | P.GSCN ---
History of Present Illness Consult date: 09/22/20 Reason for Consult: 4+ Severe aortic valve insufficiency, history of bioprosthetic valve replacement with moderate to severe aortic valve stenosis. Requesting physician: Selvin Perrin History of present illness: This is a 69-year-old gentleman who is followed by Dr. Giles Lopez for primary care on an outpatient basis and Dr. Selvin Perrin for his cardiology care. He is a past medical history significant for a bicuspid aortic valve status post bioprosthetic aortic valve replacement by Dr. Riley'magdy in 2005, pe rsistent atrial fibrillation status post failed cardioversion and status post 2 previous ablations, hypertension, hyperlipidemia, diabetes mellitus type 2, nonischemic cardiomyopathy, osteoarthritis, prostate disorder and GERD. On 09/13/2020 the patient presented to the emergency department here at [facility] with complaints of exertional dyspnea. The patient is also complaining of generalized weakness, fatigue, lack of appetite and a dry nonproductive cough. He denies any recent fever, chills, nausea, diarrhea, headache, chest pain, chest pressure dizziness, palpitations, presyncope or syncope. The patient reports he did have a recent hospitalization from 09/05/2020 to 09/09/2020 for similar complaints. The patient underwent a transesophageal echocardiogram in July 2020 which demonstrated a bioprosthetic aortic valve with moderate to severe aortic valve stenosis, a V max of 3.23 m/s, a mean gradient of 23.27, a planimeter KATY of 1.2 cm, with mitral valve showing moderate central mitral valve regurgitation, trace tricuspid valve regurgitation and an overall left ventricular size to be normal with global hypokinesis with a left ventricular ejection fraction of 40-45%. During his hospitalization on 09/03/2020 a transthoracic 2-D echocardiogram was completed which showed his left ventricle to be moderately dilated, mild concentric left ventricular hypertrophy, and an overall left ventricular systolic function to be severely impaired with an ejection fraction between 25 and 30%, global hypokinesis, mild regurgitation of his aortic bioprosthetic valve, moderate to severe stenosis of the bioprosthetic aortic valve, moderate to severe mitral valve regurgitation, mild tricuspid valve regurgitation and a trivial pericardial effusion and a large pleural effusion. This admission a chest x-ray was completed which showed an abnormal opacification in the medial posterior aspect of the right lower lobe which was suggestive of an infiltration or atelectasis. A 12-lead EKG was also completed which showed atrial fibrillation with a heart rate of 96, poor R-wave progression and right axis deviation. Currently his remote telemetry is showing normal sinus rhythm heart rate 72 BPM. Due to the patient's atrial fibrillation and his symptoms on presentation to the hospital he underwent an electrical cardioversion performed by Dr. Perrin on 09/13/2020. The cardioversion was successful and the patient was in normal sinus rhythm post cardioversion. On 09/17/2020 the patient underwent a limited 2-D echocardiogram which showed severe global hypokinesis of the left ventricle, and overall left ventricular systolic function to be severely impaired with an ejection fraction less than 20%, a peak/mean gradient across aortic valve of 41.86 mmHg and 29.05 mmHg. It also showed bioprosthetic stenosis with an underestimated gradient due to his decreased ejection fraction and a small pleural effusion. For further evaluation the patient underwent a ca rdiac catheterization yesterday 09/21/[address] Camargo which demonstrated relatively normal coronary arteries with a mild proximal LAD stenosis of 30%, elevated left and right filling pressures, 4+ severe aortic valve insufficiency, mildly dilated aortic root and decreased cardiac output and cardiac index. The cardiac output by Myrna calculation was 2.89 L/m and his cardiac index by Myrna calculation was 1.42 L/m/m. The patient also underwent a computed tomography scan of his chest/abdomen this morning which demonstrated no acute inter-abdominal process, small amounts of ascites, and ascending thoracic aorta measuring 4.2 cm, and bilateral pleural effusions right greater than left with scattered areas of groundglass opacity and a nodular density to his left upper lobe measuring 8 mm and a pleural-based nodularity left upper lobe anteriorly measuring 6.5 mm. subsequently, due to the patient's presenting symptoms, and findings on his above-mentioned studies a consult was placed to Dr. Sami Guaman from cardiothoracic surgery for further evaluation and treatment recommendations including aortic valve replacement and mitral valve surgery. Review of Systems A 14 point review of systems was completed and was negative except as mentioned in the HPI. Past Medical History Past Medical History: Atrial Fibrillation, Heart Failure, Diabetes Mellitus, GERD/Reflux, Hyperlipidemia, Hypertension, Musculoskeletal Disorder, Osteoarthritis (OA), Prostate Disorder, Respiratory Disorder (History of pleural effusions), Skin Disorder Additional Past Medical History / Comment(s): Recent pneumonia treated with antibiotic, nonischemic cardiomyopathy, mitral valve regurg, NIDDM type II, BPH, occasional migraines, occasional cervical/shoulder pain, lower back pain/DDD, psoriasis, vitamin D deficiency. History of Any Multi-Drug Resistant Organisms: None Reported Past Surgical History: Cardiac Ablation, Cardiac Valve Replacement, Heart Ca theterization Additional Past Surgical History / Comment(s): 07/21/20 PAULINE/cardioverson, 2005 Bovine aortic valve, cardiac ablation for SVT and another for PVCs, colonoscopies, anal fistula repair. Past Anesthesia/Blood Transfusion Reactions: Family History of Problems w/ Anesthesia Additional Past Anesthesia/Blood Transfusion Reaction / Comm: Mother - PONV Past Psychological History: No Psychological Hx Reported Smoking Status: Never smoker Past Alcohol Use History: Occasional Past Drug Use History: None Reported - Past Family History Mother Family Medical History: AFIB Additional Family Medical History / Comment(s): Mother lived to be 86yrs old. Father Family Medical History: Congestive Heart Failure (CHF) Brother(s) Family Medical History: AFIB Sister(s) Family Medical History: AFIB Medications and Allergies Home Medications Medication Instructions Recorded Confirmed Type Aspirin [Adult Low Dose Aspirin EC] 81 mg PO DAILY 07/26/16 09/13/20 History Rivaroxaban [Xarelto] 20 mg PO HS 07/17/20 09/13/20 History metFORMIN HCL [Glucophage] 500 mg PO BID@0800,1200 07/17/20 09/13/20 History Metoprolol Succinate [Toprol XL] 100 mg PO DAILY 08/02/20 09/13/20 History Rosuvastatin [Crestor] 20 mg PO HS 08/02/20 09/13/20 History Cholecalciferol [Vitamin D3 (25 50 mcg PO DAILY 09/03/20 09/13/20 History Mcg = 1000 Iu)] Potassium Chloride [Klor-Con 20] 20 meq PO BID@0530,1200 09/03/20 09/13/20 History Furosemide [Lasix] 40 mg PO DAILY tab 09/09/20 09/13/20 Rx Spironolactone [Aldactone] 25 mg PO DAILY #90 tab 09/09/20 09/13/20 Rx Sacubitril/Valsartan [Entresto 24 1 tab PO BID 09/13/20 09/13/20 History mg-26 mg Tablet] Allergies Allergy/AdvReac Type Severity Reaction Status Date / Time atorvastatin [From Lipitor] AdvReac muscle Verified 09/13/20 07:43 weakness Surgical - Exam Vital Signs Temp Pulse Resp BP Pulse Ox 97.4 F L 98 18 103/68 94 L 09/13/20 05:20 09/13/20 05:20 09/13/20 05:20 09/13/20 05:20 09/13/20 05:20 - General No apparent distress. well developed, well nourished, no distress, no pain, chronically ill, obese - Eyes PERRL, normal ocular movement, no icteric - ENT normal pinna, normal nares, normal mucosa, no hearing loss, no congestion - Neck Neck is supple, no lymphadenopathy. Positive bilateral JVD. no masses, no bruits, trachea midline, no no venous distension - Respiratory Lung sounds with few scattered crackles throughout, diminished to his bilateral bases. No wheezes or rhonchi. Respirations are symmetrical and nonlabored. 2 L nasal cannula with oxygen saturations 100%. - Cardiovascular Regular rhythm and rate. S1 and S2 present, negative for S3 or gallop. Positive systolic and diastolic murmur 4/6 heard best to his left sternal border. - Abdomen Abdomen is soft, nontender and nondistended. Active bowel sounds present in all 4 abdominal quadrants. No guarding or rigidity. No organomegaly appreciated. - Genitourinary Deferred - Rectum Deferred - Integumentary no rash, no growths, no abnormal pigmentation - Neurologic Cranial nerves II through XII intact. No focal or motor deficits. - Musculoskeletal normal gait, normal posture - Psychiatric oriented to time, oriented to person, oriented to place, speech is normal, memory intact Results - Labs 09/22/20 09:10 09/22/20 09:10 Abnormal Lab Results - Last 24 Hours (Table) 09/21/20 09/21/20 09/22/20 Range/Units 16:33 20:12 06:06 POC Glucose (mg/dL) 154 H 206 H 101 H (75-99) mg/dL - Imaging Chest x-ray: report reviewed, image reviewed CT scan - abdomen: report reviewed, image reviewed CT scan - chest: report reviewed, image reviewed EKG: image reviewed Assessment and Plan Assessment: 1. Moderate to severe aortic bioprosthetic stenosis 2. Mild to moderate mitral valve regurgitation 3. Nonischemic cardiomyopathy 4. 4+ severe aortic valve insufficiency 5. Mildly dilated aortic root 6. Decreased cardiac output and cardiac index, 2.89 L/m and 1.42 L/m/m 7. Atrial fibrillation status post electrical cardioversion on 09/17/2020, currently in normal sinus rhythm 8. Acute on chronic systolic heart failure, with an ejection fraction of less than 20% per recent 2-D echocardiogram 9. History of bicuspid aortic valve status post bioprosthetic aortic valve replacement in 2004 10. Bilateral pleural effusions, right greater than left 11. Hypertension 12. Dyslipidemia 13. Diabetes mellitus type 2 14. Prostate disorder 15. GERD 16. Vitamin D deficiency Plan: The patient was seen and examined at his bedside on the cardiac stepdown unit. His chart and diagnostics were reviewed. This case was discussed in detail with Dr. Shelby Langley from cardiothoracic surgery. Preoperative testing and preoperative teaching initiated. Consult placed to Dr. Tobias for dental clearance. Panorex CT ordered. Dr. Contreras from pulmonary medicine consulted for his bilateral pleural effusions. Continue to maximize medical therapy with aspirin, statin and beta blockers. Once his preoperative testing has been completed and obtained more recommendations to follow based on patient's clinical course. The patient was seen and examined by Dr Langley. When stable he will need a TAVR gated CT scan. We will obatin a 5 Meter walk test and calculate an STS risk score once his preoperative testing has been completed. Thank you Dr. Perrin for this consult and we look forward to working with you in the care of this patient. Time with Patient: Greater than 30
[2020-09-22] MEDS: HEPARIN SOD,PORK IN 0.45% NACL 25,000 UNIT in 0.45% NACL 1 250ML.BAG IV SCH (13:31)
--- NOTE | 2020-09-22 13:54 | P.GSCN ---
History of Present Illness Consult date: 09/22/20 Reason for Consult: Dental Clearance for surgery Past Medical History Past Medical History: Atrial Fibrillation, Heart Failure, Diabetes Mellitus, GERD/Reflux, Hyperlipidemia, Hypertension, Musculoskeletal Disorder, Osteoarthritis (OA), Prostate Disorder, Respiratory Disorder (History of pleural effusions), Skin Disorder Additional Past Medical History / Comment(s): Recent pneumonia treated with antibiotic, nonischemic cardiomyopathy, mitral valve regurg, NIDDM type II, BPH, occasional migraines, occasional cervical/shoulder pain, lower back pain/DDD, psoriasis, vitamin D deficiency. History of Any Multi-Drug Resistant Organisms: None Reported Past Surgical History: Cardiac Ablation, Cardiac Valve Replacement, Heart Catheterization Additional Past Surgical History / Comment(s): 07/21/20 PAULINE/cardioverson, 2005 Bovine aortic valve, cardiac ablation for SVT and another for PVCs, colonoscopies, anal fistula repair. Past Anesthesia/Blood Transfusion Reactions: Family History of Problems w/ Anesthesia Additional Past Anesthesia/Blood Transfusion Reaction / Comm: Mother - PONV Past Psychological History: No Psychological Hx Reported Smoking Status: Never smoker Past Alcohol Use History: Occasional Past Drug Use History: None Reported - Past Family History Mother Family Medical History: AFIB Additional Family Medical History / Comment(s): Mother lived to be 86yrs old. Father Family Medical History: Congestive Heart Failure (CHF) Brother(s) Family Medical History: AFIB Sister(s) Family Medical History: AFIB Medications and Allergies Home Medications Medication Instructions Recorded Confirmed Type Aspirin [Adult Low Dose Aspirin EC] 81 mg PO DAILY 07/26/16 09/13/20 History Rivaroxaban [Xarelto] 20 mg PO HS 07/17/20 09/13/20 History metFORMIN HCL [Glucophage] 500 mg PO BID@0800,1200 07/17/20 09/13/20 History Metoprolol Succinate [Toprol XL] 100 mg PO DAILY 08/02/20 09/13/20 History Rosuvastatin [Crestor] 20 mg PO HS 08/02/20 09/13/20 History Cholecalciferol [Vitamin D3 (25 50 mcg PO DAILY 09/03/20 09/13/20 History Mcg = 1000 Iu)] Potassium Chloride [Klor-Con 20] 20 meq PO BID@0530,1200 09/03/20 09/13/20 History Furosemide [Lasix] 40 mg PO DAILY tab 09/09/20 09/13/20 Rx Spironolactone [Aldactone] 25 mg PO DAILY #90 tab 09/09/20 09/13/20 Rx Sacubitril/Valsartan [Entresto 24 1 tab PO BID 09/13/20 09/13/20 History mg-26 mg Tablet] Allergies Allergy/AdvReac Type Severity Reaction Status Date / Time atorvastatin [From Lipitor] AdvReac muscle Verified 09/13/20 07:43 weakness Surgical - Exam Vital Signs Temp Pulse Resp BP Pulse Ox 97.4 F L 98 18 103/68 94 L 09/13/20 05:20 09/13/20 05:20 09/13/20 05:20 09/13/20 05:20 09/13/20 05:20 Exam revealed no intra/extraoral swelling. Tooth #2 has a lost [place] catholic with no pain and no periapical radiolucency. There is no mobility detected on any teeth. Pt does have gross plaque and calculus that will require a routine prophylaxis. Pt states history of regular 6 month prophylaxis with exam. Pt is currently due for cleaning/exam as of August 2020. No periapical radiolucencies noted on panoramic radiograph. Results No intra/extraoral infections noted. Patient is cleared dentally for surgery. - Labs 09/22/20 09:10 09/22/20 09:10 Abnormal Lab Results - Last 24 Hours (Table) 09/21/20 09/21/20 09/22/20 Range/Units 16:33 20:12 06:06 RBC (4.30-5.90) m/uL Hgb (13.0-17.5) gm/dL Hct (39.0-53.0) % Plt Count (150-450) k/uL PT (9.0-12.0) sec INR (<1.2) APTT (22.0-30.0) sec Sodium (137-145) mmol/L Potassium (3.5-5.1) mmol/L Carbon Dioxide (22-30) mmol/L BUN (9-20) mg/dL Glucose (74-99) mg/dL POC Glucose (mg/dL) 154 H 206 H 101 H (75-99) mg/dL Magnesium (1.6-2.3) mg/dL Total Bilirubin (0.2-1.3) mg/dL AST (17-59) U/L ALT (4-49) U/L Alkaline Phosphatase (38-126) U/L Ur Specific [place] (1.001-1.035) Urine Protein (Negative) Urine Blood (Negative) Urine RBC (0-5) /hpf Urine WBC (0-5) /hpf Urine Mucus (None) /hpf Urine Sperm (None) /hpf 09/22/20 09/22/20 09/22/20 Range/Units 09:10 09:10 09:10 RBC 6.05 H (4.30-5.90) m/uL Hgb 17.7 H (13.0-17.5) gm/dL Hct 54.8 H (39.0-53.0) % Plt Count 105 L (150-450) k/uL PT 16.5 H (9.0-12.0) sec INR 1.7 H (<1.2) APTT 21.3 L (22.0-30.0) sec Sodium 134 L (137-145) mmol/L Potassium 5.9 H (3.5-5.1) mmol/L Carbon Dioxide 17 L (22-30) mmol/L BUN 53 H (9-20) mg/dL Glucose 117 H (74-99) mg/dL POC Glucose (mg/dL) (75-99) mg/dL Magnesium 2.6 H (1.6-2.3) mg/dL Total Bilirubin 2.0 H (0.2-1.3) mg/dL AST >1500 H (17-59) U/L ALT 1330 H (4-49) U/L Alkaline Phosphatase 185 H (38-126) U/L Ur Specific [place] (1.001-1.035) Urine Protein (Negative) Urine Blood (Negative) Urine RBC (0-5) /hpf Urine WBC (0-5) /hpf Urine Mucus (None) /hpf Urine Sperm (None) /hpf 09/22/20 09/22/20 Range/Units 10:45 12:38 RBC (4.30-5.90) m/uL Hgb (13.0-17.5) gm/dL Hct (39.0-53.0) % Plt Count (150-450) k/uL PT (9.0-12.0) sec INR (<1.2) APTT (22.0-30.0) sec Sodium (137-145) mmol/L Potassium (3.5-5.1) mmol/L Carbon Dioxide (22-30) mmol/L BUN (9-20) mg/dL Glucose (74-99) mg/dL POC Glucose (mg/dL) 188 H (75-99) mg/dL Magnesium (1.6-2.3) mg/dL Total Bilirubin (0.2-1.3) mg/dL AST (17-59) U/L ALT (4-49) U/L Alkaline Phosphatase (38-126) U/L Ur Specific [place] >1.050 H (1.001-1.035) Urine Protein 1+ H (Negative) Urine Blood Trace H (Negative) Urine RBC 6 H (0-5) /hpf Urine WBC 7 H (0-5) /hpf Urine Mucus Occasional H (None) /hpf Urine Sperm Moderate H (None) /hpf Diabetes panel 09/22/20 Range/Units 09:10 Sodium 134 L (137-145) mmol/L Potassium 5.9 H (3.5-5.1) mmol/L Chloride 102 (98-107) mmol/L Carbon Dioxide 17 L (22-30) mmol/L BUN 53 H (9-20) mg/dL Creatinine 1.15 (0.66-1.25) mg/dL Glucose 117 H (74-99) mg/dL Calcium 9.1 (8.4-10.2) mg/dL AST >1500 H (17-59) U/L ALT 1330 H (4-49) U/L Alkaline Phosphatase 185 H (38-126) U/L Total Protein 6.8 (6.3-8.2) g/dL Albumin 4.1 (3.5-5.0) g/dL Triglycerides 72 (<150) mg/dL HDL Cholesterol 40 (40-60) mg/dL Thyroid panel 09/22/20 Range/Units 09:10 TSH 4.220 (0.465-4.680) mIU/L Calcium panel 09/22/20 Range/Units 09:10 Calcium 9.1 (8.4-10.2) mg/dL Albumin 4.1 (3.5-5.0) g/dL Pituitary panel 09/22/20 Range/Units 09:10 Sodium 134 L (137-145) mmol/L Potassium 5.9 H (3.5-5.1) mmol/L Chloride 102 (98-107) mmol/L Carbon Dioxide 17 L (22-30) mmol/L BUN 53 H (9-20) mg/dL Creatinine 1.15 (0.66-1.25) mg/dL Glucose 117 H (74-99) mg/dL Calcium 9.1 (8.4-10.2) mg/dL TSH 4.220 (0.465-4.680) mIU/L Adrenal panel 09/22/20 Range/Units 09:10 Sodium 134 L (137-145) mmol/L Potassium 5.9 H (3.5-5.1) mmol/L Chloride 102 (98-107) mmol/L Carbon Dioxide 17 L (22-30) mmol/L BUN 53 H (9-20) mg/dL Creatinine 1.15 (0.66-1.25) mg/dL Glucose 117 H (74-99) mg/dL Calcium 9.1 (8.4-10.2) mg/dL Total Bilirubin 2.0 H (0.2-1.3) mg/dL AST >1500 H (17-59) U/L ALT 1330 H (4-49) U/L Alkaline Phosphatase 185 H (38-126) U/L Total Protein 6.8 (6.3-8.2) g/dL Albumin 4.1 (3.5-5.0) g/dL
--- NOTE | 2020-09-22 14:38 | P.PN ---
Subjective Mr. Monreal is a history pleasant 69-year-old male with a past medical history of bicuspid aortic wall status post bioprosthetic aortic wall replacement, persistent atrial fibrillation status post failed cardioversion, diabetes mellitus, hypertension, dyslipidemia, SVT s/p ablation, PVC ablation and recent worsening non-ischemic cardiomyopathy thought to be related to afib, who follows in the office with Dr. Perrin coming in with a chief complaint of exertional dyspnea. Patient was recently in the hospital from 09/05/2020 to 09/09/2020. During his hospital stay patient had large left pleural effusion. He was managed with IV Lasix, his symptoms improved and eventually the patient was started on Entresto, by cardiology and discharged home. Patient states that since being discharged he noticed that his difficulty in breathing has worsened along with his cough. Patient states that his cough that he has been having for the past 1 month is improving. He is bringing up white thick sputum. Patient denies having any fevers chills or rigors. He denies having orthopnea PND. He states that his lower extremity swelling has worsened. Patient denies having any abdominal pain, but states that he has feeling of butterflies in his belly when he takes metformin. He also states that for the past 2-3 days he has been having generalized weakness and fatigue. Patient denies having any nausea vomiting or diarrhea. No dysuria or hematuria. Denies having any sick contacts. In the ER, patient had a chest x-ray showing evidence of right lower lobe opacity concerning for atelectasis and an elevated BNP of 15,000. He was given a low dose of Lasix due to his low blood pressure and eventually started on 50 mL of IV normal saline and admitted for further management. On reviewing his labs white count of 7 hemoglobin 15.8, platelets 112. Sodium 135, potassium 5.14, chloride 104, bicarbonate 22, BUN 20, [place] [address]. Troponin 0.013. 09/14/2020 Patient remains on IV Lasix patient still has significant swelling in bilateral lower extremities patient is found to have persistent atrial fibrillation which may be contributing to his heart failure exacerbations. Cardiology evaluated the patient is recommending admitting the patient and starting patient on dofetilide. Patient was started back on Entresto. Patient the shortness of breath significantly improved and patient was apparently having abdominal discom fort at home and he believes it secondary to metformin and this discomfort completely resolved 09/15/2020 Patient's pedal edema significant improved. Patient is being started on dofetilide 09/16/2020 Patient will undergo cardioversion tomorrow patient is euvolemic patient was switched to oral Lasix. 09/17/2020 Patient underwent cardioversion presently and opiate allied which will be continued presently sinus rhythm patient will be monitored overnight possibility of discharge tomorrow patient remains on oral Lasix. 09/18/2020 Patient potassium is high at around 6 mildly hemolyzed. We will hold off on Entresto and Aldactone for now. 09/19/2020 Patient's potassium has come down patient appeared to be evaluated by electrophysiology unfortunately cannot discharge this patient as patient was not evaluated by Dr. Lopez yet. 09/20/2020 patient will undergo right heart catheterization patient's sodium is on 133 today. Patient is complaining of constipation and was started on MiraLAX 09/21/2020 patient will undergo right heart catheterization today, had Bowel movements yesterday. Patient's serum sodium is 133 stable at this level potassium is 5.2. 09/22/2020 Appears to be in heart failure today patient is coming of shortness of breath patient does have increased pedal edema also has elevated JVD and that did gain weight patient had a CT of the chest as part of workup for cardiac valve surgery or intervention which showed bilateral pleural effusions appears to have pulm onary edema on the CAT scan CAT scan was reviewed by me. Patient had a cardiac catheterization yesterday which showed severe diuretic insufficiency with mildly dilated aortic root. Cardio thoracic surgeries a valid in the patient patient has highly elevated liver enzymes probably secondary to hepatic congestion worse and the creatinine to 1.15 patient does appear to have acidosis with anion gap of 15. hyponatremic. Hyperkalemic although patient had hemolysis patient will be on low potassium diet. Ultrasound of the liver was ordered because of elevated liver enzymes Constitutional: Denied any fatigue denied any fever. Cardio vascular: denied any chest pain, palpitations Gastrointestinal denied any nausea vomiting Pulmonary: As mentioned in HPI Neurologic denied any new focal deficits All inpatient medications were reviewed and appropriate changes in these medications as dictated in the interval history and assessment and plan. Objective - Vital Signs Vital signs: Vital Signs Temp 94.4 F L 09/22/20 12:00 Pulse 66 09/22/20 12:00 Resp 17 09/22/20 12:00 BP 91/54 09/22/20 12:00 Pulse Ox 90 L 09/22/20 12:00 Intake & Output 09/21/20 09/22/20 09/22/20 18:59 06:59 18:59 Intake Total 460 10 Output Total 300 Balance 160 10 Weight 87.6 kg Intake: IV 100 10 0.9 10 Oral 360 Output: Urine 300 Other: Voiding Method Toilet Toilet Toilet # Voids 1 2 - Exam PHYSICAL EXAMINATION: GENERAL: The patient is alert and oriented x3, not in any acute distress. Well developed, well nourished. HEENT: Pupils are round and equally reacting to light. EOMI. No scleral icterus. No conjunctival pallor. Normocephalic, atraumatic. No pharyngeal erythema. No thyromegaly. CARDIOVASCULAR: S1 and S2 present. No murmurs, rubs, or gallops. Patient is presently sinus rhythm by elevated JVD PULMONARY: Bibasilar crackles ABDOMEN: Soft, nontender, nondistended, normoactive bowel sounds. No palpable organomegaly. MUSCULOSKELETAL: No joint swelling or deformity. EXTREMITIES: No cyanosis, clubbing, decreased bilateral pedal edema NEUROLOGICAL: Gross neurological examination did not reveal any focal deficits. SKIN: No rashes. - Labs CBC & Chem 7: 09/22/20 09:10 09/22/20 09:10 Labs: Abnormal Lab Results - Last 24 Hours (Table) 09/21/20 09/21/20 09/22/20 Range/Units 16:33 20:12 06:06 RBC (4.30-5.90) m/uL Hgb (13.0-17.5) gm/dL Hct (39.0-53.0) % Plt Count (150-450) k/uL PT (9.0-12.0) sec INR (<1.2) APTT (22.0-30.0) sec Sodium (137-145) mmol/L Potassium (3.5-5.1) mmol/L Carbon Dioxide (22-30) mmol/L BUN (9-20) mg/dL Glucose (74-99) mg/dL POC Glucose (mg/dL) 154 H 206 H 101 H (75-99) mg/dL Magnesium (1.6-2.3) mg/dL Total Bilirubin (0.2-1.3) mg/dL AST (17-59) U/L ALT (4-49) U/L Alkaline Phosphatase (38-126) U/L Ur Specific Saxton (1.001-1.035) Urine Protein (Negative) Urine Blood (Negative) Urine RBC (0-5) /hpf Urine WBC (0-5) /hpf Urine Mucus (None) /hpf Urine Sperm (None) /hpf 09/22/20 09/22/20 09/22/20 Range/Units 09:10 09:10 09:10 RBC 6.05 H (4.30-5.90) m/uL Hgb 17.7 H (13.0-17.5) gm/dL Hct 54.8 H (39.0-53.0) % Plt Count 105 L (150-450) k/uL PT 16.5 H (9.0-12.0) sec INR 1.7 H (<1.2) APTT 21.3 L (22.0-30.0) sec Sodium 134 L (137-145) mmol/L Potassium 5.9 H (3.5-5.1) mmol/L Carbon Dioxide 17 L (22-30) mmol/L BUN 53 H (9-20) mg/dL Glucose 117 H (74-99) mg/dL POC Glucose (mg/dL) (75-99) mg/dL Magnesium 2.6 H (1.6-2.3) mg/dL Total Bilirubin 2.0 H (0.2-1.3) mg/dL AST >1500 H (17-59) U/L ALT 1330 H (4-49) U/L Alkaline Phosphatase 185 H (38-126) U/L Ur Specific Saxton (1.001-1.035) Urine Protein (Negative) Urine Blood (Negative) Urine RBC (0-5) /hpf Urine WBC (0-5) /hpf Urine Mucus (None) /hpf Urine Sperm (None) /hpf 09/22/20 09/22/20 Range/Units 10:45 12:38 RBC (4.30-5.90) m/uL Hgb (13.0-17.5) gm/dL Hct (39.0-53.0) % Plt Count (150-450) k/uL PT (9.0-12.0) sec INR (<1.2) APTT (22.0-30.0) sec Sodium (137-145) mmol/L Potassium (3.5-5.1) mmol/L Carbon Dioxide (22-30) mmol/L BUN (9-20) mg/dL Glucose (74-99) mg/dL POC Glucose (mg/dL) 188 H (75-99) mg/dL Magnesium (1.6-2.3) mg/dL Total Bilirubin (0.2-1.3) mg/dL AST (17-59) U/L ALT (4-49) U/L Alkaline Phosphatase (38-126) U/L Ur Specific Saxton >1.050 H (1.001-1.035) Urine Protein 1+ H (Negative) Urine Blood Trace H (Negative) Urine RBC 6 H (0-5) /hpf Urine WBC 7 H (0-5) /hpf Urine Mucus Occasional H (None) /hpf Urine Sperm Moderate H (None) /hpf Assessment and Plan Plan: Acute exacerbation of chronic systolic heart failure: She and is in acute exacerbation again today patient will be switched to IV Lasix patient is status post cardioversion, sinus rhythm, patient is on dofetilide. And had cardiac catheterization which showed severe aortic insufficiency with a dilated aortic root. Systolic heart failure with ejection fraction 30-35% was treated for heart failure exacerbation -Hyperkalemia: Partly secondary to hemolysis expected to improve with Lasix Nonischemic cardiomyopathy Persistent atrial fibrillation status post cardioversion Thrombocytopenia Hypertension GERD Diabetes mellitus Recent pleural effusion BPH Migraine headaches Scoliosis Chronic low back pain Vitamin D deficiency
--- NOTE | 2020-09-22 14:54 | US ---
EXAMINATION TYPE: US gallbladder DATE OF EXAM: 09/22/2020 COMPARISON: CT CLINICAL HISTORY: elevated liver enzymes. EXAM MEASUREMENTS: Liver Length: 15.0 cm Gallbladder Wall: 0.3 cm CBD: 0.4 cm Right Kidney: 9.8 X 5.5 X 5.6 cm Technically difficult study due to midline bowel gas, and patient unable to lay flat, exam performed with patient semi upright. Patient is short of breath. Pancreas: not visualized due to midline bowel gas Liver: wnl Gallbladder: No stones seen Evidence for sonographic Santana's sign: No CBD: wnl Right Kidney: No hydronephrosis or masses seen Incidental note is made of right pleural effusion. IMPRESSION: Small right-sided pleural effusion. Otherwise unremarkable study.
--- NOTE | 2020-09-22 15:37 | P.PN ---
Subjective This is a pleasant 69-year-old male past medical history significant for bicuspid aortic valve status post bioprosthetic aortic valve replacement, persistent atrial fibrillation s/p failed cardioversion, diabetes mellitus, hypertension, dyslipidemia, SVT s/p ablation, PVC ablation and recent worsening non-ischemic cardiomyopathy thought to be related to afib. He follows in the office with Dr. Perrin. Patient was recently in the hospital from 09/05/2020 to 09/09/2020. During his hospital stay patient had large left pleural effusion . He was managed with IV Lasix, his symptoms improved and eventually the patient was started on Entresto, by cardiology and discharged home. We have been asked to see in consultation for heart failure. Patient admitted on 09/15/20. In the ER, patient had a chest x-ray showing evidence of right lower lobe opacity concerning for atelectasis and an elevated BNP of 15,000. Patient was seen by Dr. Perrin, Tikosyn was initiated on 09/14/20. Patient was started back on Entresto. Patient underwent cardioversion on 09/17/20 with successful conversion to sinus rhythm. Tikosyn was stopped on 09/21/20 morning. Limited Echocardiogram on 09/17/20: severe global hypokinesis of LV, EF <20%. 09/18- patient was hyperkalemic - enresto and Aldactone was held 09/22/2020 Patient examined this morning at the bedside. He is status post cardiac catheterization with Dr. Camargo yesterday that revealed mild proximal LAD 30% stenosis, elevated left and right filling pressures, 4+ severe aortic insufficiency, mildly dilated aortic root, decreased cardiac output and cardiac index. Patient complaining of shortness of breath and 1+ lower extremity edema, and JVD noted. Per chart also with weight gain 87.6kg from 84kg. Telemetry reviewed- currently in sinus mechanism with occasional PVCs. HR 70s. Laboratory data reviewed, Sodium 134, K 5.9, sCr 1.15, BUN 53, Mag 2.6, Liver enzymes elevated previous normal on 09/20/20, AST >1500, ALD 1330, Alk Phos 185. PHYSICAL EXAM: VITAL SIGNS: BP 91/54 HR 60s, on 2L nasal cannula, afebrile GENERAL: Patient appears short of breath. No acute distress on exam NECK: +JVD LUNGS: Respirations even and unlabored. Left lower base with crackles, other lung lees clear HEART: Regular rate and rhythm. S1 and S2 heard. Systolic murmur noted. EXTREMITIES: Normal range of motion. No clubbing or cyanosis. Peripheral pulses intact. 1+ bilateral lower extremity edema ASSESSMENT: Acute on chronic heart failure with reduced EF Non-ischemic cardiomyopathy Elevated Liver Enzymes - most likely hepatic congestion due to heart failure Persistent atrial fibrillation, s/p cardioversion, maintaining sinus mechanism History of failed cardioversion Valvular heart disease s/p aortic valve replacement Mitral regurgitation history of Hypertension- currently hypotensive Dyslipidemia PLAN: -Continue IV Lasix -Patient is currently being worked up for cardiac valve surgery -Continue current cardiac medication -Will make further recommendations based on clinic course Nurse practitioner note has been reviewed by physician. Signing provider agrees with the documented findings, assessment, and plan of care. Objective - Vital Signs Vital signs: Vital Signs Temp 97.5 F L 09/22/20 07:57 Pulse 68 09/22/20 07:57 Resp 18 09/22/20 07:57 BP 109/68 09/22/20 07:57 Pulse Ox 100 09/22/20 07:57 Intake & Output 09/21/20 09/22/20 09/22/20 18:59 06:59 18:59 Intake Total 460 10 Output Total 300 Balance 160 10 Weight 87.6 kg Intake: IV 100 10 0.9 10 Oral 360 Output: Urine 300 Other: Voiding Method Toilet Toilet Toilet # Voids 1 - Labs CBC & Chem 7: 09/22/20 09:10 09/22/20 09:10 Labs: Abnormal Lab Results - Last 24 Hours (Table) 09/21/20 09/21/20 09/22/20 Range/Units 16:33 20:12 06:06 POC Glucose (mg/dL) 154 H 206 H 101 H (75-99) mg/dL
[2020-09-22] MEDS: FUROSEMIDE 10 MG/ML 4 ML VIAL IV SCH ×2 (16:06→20:51)
[2020-09-22 16:48] LABS: Glucose,Whole Blood 139 mg/dL (75-99)
[2020-09-22 18:54] LABS: Hepatitis A Antibody IgM Non-Reactive (Non-Reactive); Hepatitis B Core IgM Non-Reactive (Non-Reactive); Hepatitis B Surface Antigen Non-Reactive (Non-Reactive); Hepatitis C IgG Antibody Non-Reactive (Non-Reactive)
--- NOTE | 2020-09-22 19:05 | US ---
EXAMINATION TYPE: US chest DATE OF EXAM: 09/22/2020 COMPARISON: US 09/07/2020 CLINICAL HISTORY: Pleural Effusions. Pleural effusions per order. TECHNIQUE: Targeted ultrasound of the posterior lower bilateral hemithoraces EXAM MEASUREMENTS: Right Pleural Effusion pocket size: 9.74 cm Right skin surface to fluid distance: 4.44 cm -Septation/tissue seen. Arrow shown in image. Left Pleural Effusion pocket size: 2.48 cm Left skin surface to fluid distance: 3.12 cm Right side marked for possible thoracentesis outside the dept. Left side not marked for possible thoracentesis outside the dept. Pulmonologists are able to review the images in the patient?s EMR. IMPRESSIONS: 1. Bilateral pleural effusions greater on the right.
--- NOTE | 2020-09-22 20:00 | P.CNPUL ---
History of Present Illness Consult date: 09/22/20 Reason for consult: dyspnea, pleural effusion Chief complaint: Shortness of breath History of present illness: Patient is a 69-year-old male with the prior medical history of bicuspid aortic valve status post to the bioprosthetic valve placement, patient has chronic atrial fibrillation, also has prior medical problems including diabetes mellitus hypertension hypertensive cardiovascular disease status post ablation, patient has a nonischemic cardiomyopathy thought to be related to A. fib, patient was hospitalized in August for shortness of breath found to have pleural effusion however responded well with conservative management, patient has been on direct oral anticoagulants which have been nonstop currently patient is on heparin, on arrival patient noted to have a right-sided pleural effusion some on the left s carlos enrique, are sound performed revealed moderate right-sided effusion also very small left-sided effusion, patient noted to have elevated AST and ALT with total bilirubin of 2, AST is 1500 ALT is 1330 alk phos 185, recent cardiac cath and angiogram shows mild coronary artery disease with LAD of 30% stenosis elevated right and left-sided pressures, 4+ severe aortic insufficiency, decreased carbonate output and cardiac index were noted, off respectively 2.89 and 1.4 to Review of Systems All systems: negative Past Medical History Past Medical History: Atrial Fibrillation, Heart Failure, Diabetes Mellitus, GERD/Reflux, Hyperlipidemia, Hypertension, Musculoskeletal Disorder, Osteoarthritis (OA), Prostate Disorder, Respiratory Disorder (History of pleural effusions), Skin Disorder Additional Past Medical History / Comment(s): Recent pneumonia treated with antibiotic, nonischemic cardiomyopathy, mitral valve regurg, NIDDM type II, BPH, occasional migraines, occasional cervical/shoulder pain, lower back pain/DDD, psoriasis, vitamin D deficiency. History of Any Multi-Drug Resistant Organisms: None Reported Past Surgical History: Cardiac Ablation, Cardiac Valve Replacement, Heart Catheterization Additional Past Surgical History / Comment(s): 07/21/20 PAULINE/cardioverson, 2005 Bovine aortic valve, cardiac ablation for SVT and another for PVCs, colonoscopies, anal fistula repair. Past Anesthesia/Blood Transfusion Reactions: Family History of Problems w/ Anesthesia Additional Past Anesthesia/Blood Transfusion Reaction / Comment(s): Mother - PONV Past Psychological History: No Psychological Hx Reported Smoking Status: Never smoker Past Alcohol Use History: Occasional Past Drug Use History: None Reported - Past Family History Mother Family Medical History: AFIB Additional Family Medical History / Comment(s): Mother lived to be 86yrs old. Father Family Medical History: Congestive Heart Failure (CHF) Brother(s) Family Medical History: AFIB Sister(s) Family Medical History: AFIB Medications and Allergies Home Medications Medication Instructions Recorded Confirmed Type Aspirin [Adult Low Dose Aspirin EC] 81 mg PO DAILY 07/26/16 09/13/20 History Rivaroxaban [Xarelto] 20 mg PO HS 07/17/20 09/13/20 History metFORMIN HCL [Glucophage] 500 mg PO BID@0800,1200 07/17/20 09/13/20 History Metoprolol Succinate [Toprol XL] 100 mg PO DAILY 08/02/20 09/13/20 History Rosuvastatin [Crestor] 20 mg PO HS 08/02/20 09/13/20 History Cholecalciferol [Vitamin D3 (25 50 mcg PO DAILY 09/03/20 09/13/20 History Mcg = 1000 Iu)] Potassium Chloride [Klor-Con 20] 20 meq PO BID@0530,1200 09/03/20 09/13/20 History Furosemide [Lasix] 40 mg PO DAILY tab 09/09/20 09/13/20 Rx Spironolactone [Aldactone] 25 mg PO DAILY #90 tab 09/09/20 09/13/20 Rx Sacubitril/Valsartan [Entresto 24 1 tab PO BID 09/13/20 09/13/20 History mg-26 mg Tablet] Allergies Allergy/AdvReac Type Severity Reaction Status Date / Time atorvastatin [From Lipitor] AdvReac muscle Verified 09/13/20 07:43 weakness Physical Exam Vitals: Vital Signs Temp Pulse Resp BP BP Pulse Ox 09/22/20 15:55 97.2 F L 66 18 100/65 99 09/22/20 12:00 94.4 F L 66 17 91/54 90 L 09/22/20 07:57 97.5 F L 68 18 109/68 100 09/22/20 03:45 98.0 F 72 18 95/61 97 09/22/20 01:43 64 18 09/21/20 23:45 97.7 F 64 18 95/63 99 09/21/20 20:00 97.5 F L 74 18 98/64 96 Intake and Output 09/22/20 09/22/20 09/22/20 06:59 14:59 22:59 Other: Voiding Method Toilet Toilet # Voids 2 Weight 87.6 kg - Constitutional General appearance: average body habitus, cooperative, disheveled - EENT Eyes: PERRLA Ears: bilateral: normal - Neck Neck: normal ROM Carotids: bilateral: upstroke normal Thyroid: bilateral: normal size - Respiratory Respiratory: bilateral: diminished - Cardiovascular Heart sounds: normal: S1, S2 - Gastrointestinal General gastrointestinal: decreased bowel sounds - Integumentary Integumentary: decreased turgor - Neurologic Neurologic: CNII-XII intact - Musculoskeletal Musculoskeletal: gait normal, generalized weakness, strength equal bilaterally - Psychiatric Psychiatric: A&O x's 3, appropriate affect, intact judgment & insight Results - Laboratory Findings CBC and BMP: 09/22/20 09:10 09/22/20 09:10 PT/INR, D-dimer PT 16.5 sec (9.0-12.0) H 09/22/20 09:10 INR 1.7 (<1.2) H 09/22/20 09:10 Abnormal lab findings: Abnormal Labs 09/13/20 09/13/20 09/13/20 06:30 06:30 07:29 RBC Hgb Hct Plt Count 112 L PT 14.4 H INR 1.4 H APTT Sodium 135 L Potassium Carbon Dioxide BUN 28 H BUN/Creatinine Ratio Glucose 144 H POC Glucose (mg/dL) Magnesium Total Bilirubin AST ALT 63 H Alkaline Phosphatase Total Protein 6.2 L Albumin Ur Specific [place] Urine Protein Urine Blood Urine RBC Urine WBC Urine Mucus Urine Sperm 09/14/20 09/14/20 09/14/20 05:33 08:53 16:41 RBC Hgb Hct Plt Count PT INR APTT Sodium 133 L Potassium Carbon Dioxide 21.3 L BUN 29.0 H BUN/Creatinine Ratio 36.25 H Glucose 123 H POC Glucose (mg/dL) 128 H 232 H Magnesium Total Bilirubin AST ALT Alkaline Phosphatase Total Protein Albumin Ur Specific [place] Urine Protein Urine Blood Urine RBC Urine WBC Urine Mucus Urine Sperm 09/15/20 09/15/20 09/15/20 06:15 07:39 11:45 RBC Hgb Hct Plt Count PT INR APTT Sodium 135 L Potassium Carbon Dioxide BUN 29 H BUN/Creatinine Ratio Glucose 137 H POC Glucose (mg/dL) 116 H 119 H Magnesium Total Bilirubin AST ALT Alkaline Phosphatase Total Protein Albumin Ur Specific [place] Urine Protein Urine Blood Urine RBC Urine WBC Urine Mucus Urine Sperm 09/15/20 09/15/20 09/16/20 17:07 20:02 07:19 RBC Hgb Hct Plt Count PT INR APTT Sodium 133 L Potassium Carbon Dioxide BUN 33 H BUN/Creatinine Ratio Glucose POC Glucose (mg/dL) 219 H 107 H Magnesium Total Bilirubin AST ALT Alkaline Phosphatase Total Protein Albumin Ur Specific [place] Urine Protein Urine Blood Urine RBC Urine WBC Urine Mucus Urine Sperm 09/16/20 09/16/20 09/16/20 11:47 16:59 20:31 RBC Hgb Hct Plt Count PT INR APTT Sodium Potassium Carbon Dioxide BUN BUN/Creatinine Ratio Glucose POC Glucose (mg/dL) 206 H 112 H 202 H Magnesium Total Bilirubin AST ALT Alkaline Phosphatase Total Protein Albumin Ur Specific [place] Urine Protein Urine Blood Urine RBC Urine WBC Urine Mucus Urine Sperm 09/17/20 09/17/20 09/17/20 06:13 10:02 17:13 RBC Hgb Hct Plt Count PT INR APTT Sodium 134 L Potassium Carbon Dioxide BUN 30 H BUN/Creatinine Ratio Glucose 104 H POC Glucose (mg/dL) 102 H 117 H Magnesium Total Bilirubin AST ALT Alkaline Phosphatase Total Protein Albumin Ur Specific [place] Urine Protein Urine Blood Urine RBC Urine WBC Urine Mucus Urine Sperm 09/17/20 09/18/20 09/18/20 21:13 06:15 08:34 RBC Hgb Hct Plt Count 120 L PT INR APTT Sodium Potassium Carbon Dioxide BUN BUN/Creatinine Ratio Glucose POC Glucose (mg/dL) 189 H 150 H Magnesium Total Bilirubin AST ALT Alkaline Phosphatase Total Protein Albumin Ur Specific [place] Urine Protein Urine Blood Urine RBC Urine WBC Urine Mucus Urine Sperm 09/18/20 09/18/20 09/18/20 08:34 10:23 11:40 RBC Hgb Hct Plt Count PT INR APTT Sodium 133 L Potassium 6.2 H* 6.0 H Carbon Dioxide BUN 35 H BUN/Creatinine Ratio Glucose 129 H POC Glucose (mg/dL) 155 H Magnesium 2.4 H Total Bilirubin AST ALT Alkaline Phosphatase Total Protein Albumin Ur Specific [place] Urine Protein Urine Blood Urine RBC Urine WBC Urine Mucus Urine Sperm 09/18/20 09/18/20 09/19/20 16:40 20:19 06:27 RBC Hgb Hct Plt Count PT INR APTT Sodium Potassium Carbon Dioxide BUN BUN/Creatinine Ratio Glucose POC Glucose (mg/dL) 134 H 138 H 154 H Magnesium Total Bilirubin AST ALT Alkaline Phosphatase Total Protein Albumin Ur Specific [place] Urine Protein Urine Blood Urine RBC Urine WBC Urine Mucus Urine Sperm 09/19/20 09/19/20 09/19/20 09:16 09:16 11:43 RBC Hgb Hct Plt Count 103 L PT INR APTT Sodium 132 L Potassium Carbon Dioxide BUN 34 H BUN/Creatinine Ratio Glucose 261 H POC Glucose (mg/dL) 203 H Magnesium Total Bilirubin AST ALT Alkaline Phosphatase Total Protein Albumin Ur Specific [place] Urine Protein Urine Blood Urine RBC Urine WBC Urine Mucus Urine Sperm 09/19/20 09/19/20 09/20/20 16:46 19:49 05:59 RBC Hgb Hct Plt Count PT INR APTT Sodium Potassium Carbon Dioxide BUN BUN/Creatinine Ratio Glucose POC Glucose (mg/dL) 180 H 145 H 132 H Magnesium Total Bilirubin AST ALT Alkaline Phosphatase Total Protein Albumin Ur Specific [place] Urine Protein Urine Blood Urine RBC Urine WBC Urine Mucus Urine Sperm 09/20/20 09/20/20 09/20/20 07:19 07:19 11:42 RBC Hgb Hct Plt Count 103 L PT INR APTT Sodium 133 L Potassium Carbon Dioxide BUN 38 H BUN/Creatinine Ratio Glucose 131 H POC Glucose (mg/dL) 175 H Magnesium Total Bilirubin AST ALT Alkaline Phosphatase Total Protein 5.8 L Albumin 3.4 L Ur Specific [place] Urine Protein Urine Blood Urine RBC Urine WBC Urine Mucus Urine Sperm 09/20/20 09/20/20 09/21/20 16:51 20:19 06:08 RBC Hgb Hct Plt Count PT INR APTT Sodium Potassium Carbon Dioxide BUN BUN/Creatinine Ratio Glucose POC Glucose (mg/dL) 172 H 149 H 108 H Magnesium Total Bilirubin AST ALT Alkaline Phosphatase Total Protein Albumin Ur Specific [place] Urine Protein Urine Blood Urine RBC Urine WBC Urine Mucus Urine Sperm 09/21/20 09/21/20 09/21/20 07:15 16:33 20:12 RBC Hgb Hct Plt Count PT INR APTT Sodium 133 L Potassium 5.2 H Carbon Dioxide BUN 46 H BUN/Creatinine Ratio Glucose 115 H POC Glucose (mg/dL) 154 H 206 H Magnesium 2.7 H Total Bilirubin AST ALT Alkaline Phosphatase Total Protein Albumin Ur Specific [place] Urine Protein Urine Blood Urine RBC Urine WBC Urine Mucus Urine Sperm 09/22/20 09/22/20 09/22/20 06:06 09:10 09:10 RBC 6.05 H Hgb 17.7 H Hct 54.8 H Plt Count 105 L PT 16.5 H INR 1.7 H APTT 21.3 L Sodium Potassium Carbon Dioxide BUN BUN/Creatinine Ratio Glucose POC Glucose (mg/dL) 101 H Magnesium Total Bilirubin AST ALT Alkaline Phosphatase Total Protein Albumin Ur Specific [place] Urine Protein Urine Blood Urine RBC Urine WBC Urine Mucus Urine Sperm 09/22/20 09/22/20 09/22/20 09:10 10:45 12:38 RBC Hgb Hct Plt Count PT INR APTT Sodium 134 L Potassium 5.9 H Carbon Dioxide 17 L BUN 53 H BUN/Creatinine Ratio Glucose 117 H POC Glucose (mg/dL) 188 H Magnesium 2.6 H Total Bilirubin 2.0 H AST >1500 H ALT 1330 H Alkaline Phosphatase 185 H Total Protein Albumin Ur Specific [place] >1.050 H Urine Protein 1+ H Urine Blood Trace H Urine RBC 6 H Urine WBC 7 H Urine Mucus Occasional H Urine Sperm Moderate H 09/22/20 09/22/20 16:47 19:02 RBC Hgb Hct Plt Count PT INR APTT 45.9 H Sodium Potassium Carbon Dioxide BUN BUN/Creatinine Ratio Glucose POC Glucose (mg/dL) 139 H Magnesium Total Bilirubin AST ALT Alkaline Phosphatase Total Protein Albumin Ur Specific [place] Urine Protein Urine Blood Urine RBC Urine WBC Urine Mucus Urine Sperm - Diagnostic Findings Chest x-ray: report reviewed, image reviewed CT scan - chest: report reviewed, image reviewed Assessment and Plan Assessment: Ongoing persistent shortness of breath Severe aortic bioprosthetic valve stenosis and severe aortic regurgitation Reduced cardiac output with cardiomyopathy ejection fraction of 20% Small to moderate right pleural effusion Very small left-sided pleural effusion Chronic atrial fibrillation Plan: It appears that major reason for shortness of breath is valvular heart disease with small contribution from pleural effusion however diagnostic and therapeutic tap can be performed on the right side will discuss with cardiothoracic surgery as well ultrasound of the chest has been reviewed further recommendations pending lab of care as per clinical response of the patient Time with Patient: Greater than 30
[2020-09-22 20:22] LABS: Glucose,Whole Blood 157 mg/dL (75-99)
[2020-09-22] MEDS: MELATONIN 3 MG TABLET PO SCH (20:51)
[2020-09-22] MEDS: MUPIROCIN 2% OINT 22 GM TUBE NASAL SCH (20:51)
[2020-09-23 06:15] LABS: Glucose,Whole Blood 120 mg/dL (75-99)
[2020-09-23] MEDS: INSULIN ASPART (NovoLOG) 100 UNIT/ML VIAL SQ SCH ×4 (06:36→21:07)
[2020-09-23] MEDS: FAMOTIDINE 20 MG TAB PO SCH (08:12)
[2020-09-23] MEDS: CHOLECALCIFEROL 25 MCG (1000 IU) TABLET PO SCH (08:12)
[2020-09-23] MEDS: BISMUTH SUBSALICYLATE 4,192 MG/240 ML BOTTLE PO PRN (08:12)
[2020-09-23] MEDS: METOPROLOL SUCCINATE (ER) 50 MG TAB.ER.24H PO SCH (08:13)
[2020-09-23] MEDS: FUROSEMIDE 10 MG/ML 4 ML VIAL IV SCH ×2 (08:14→21:07)
[2020-09-23] MEDS: MUPIROCIN 2% OINT 22 GM TUBE NASAL SCH ×2 (08:17→21:08)
--- NOTE | 2020-09-23 10:07 | P.PN ---
Subjective Progress Note Date: 09/23/20 Principal diagnosis: 4+ Severe aortic valve insufficiency, history of bioprosthetic valve replacement with moderate to severe aortic valve stenosis, moderate mitral valve regurgita tion, mildly dilated aortic root measuring 4.2 cm on most recent computed tomography scan of the chest, decreased cardiac output and cardiac index, acute on chronic systolic heart failure with a ejection fraction of less than 20% on most recent 2-D echocardiogram and bilateral pleural effusions right greater than left. Past medical history significant for a bicuspid aortic valve status post bioprosthetic aortic valve replacement by Dr. Riley'magdy in 2004, persistent atrial fibrillation status post failed cardioversion and status post 2 previous ablations, hypertension, hyperlipidemia, diabetes mellitus type 2, nonischemic cardiomyopathy, osteoarthritis, prostate disorder and GERD. The patient was seen in follow-up today 09/23/2020 at his bedside on the cardiac stepdown unit. Currently he is sitting up to the bedside chair. He is awake, alert and oriented 3. He is in no acute apparent distress. He remains hemodynamically stable and is currently on no inotropic or pressor support. Den ies any complaints of pain at this time although is complaining of some episodes of shortness of breath even with minimal activity. Oxygen saturation are 98% on room air and he is achieving 1000 mL on his incentive spirometry. He underwent a CT scan of his chest/abdomen with contrast yesterday which demonstrated no acute intra-abdominal process, small amount of ascites, ascending thoracic aortic aneurysm measuring 4.2 cm, moderate cardiomegaly, bilateral pleural effusions right greater than left with scattered areas of groundglass opacities. Due to the findings of pleural effusion a consult was placed to Dr. Contreras from pulmonary medicine for possible thoracentesis. For further evaluation of the pleural effusions he underwent a ultrasound of his chest which demonstrated a right pleural effusion pocket measuring 9.74 cm and a left pleural effusion pocket measuring 2.48 cm. A 5 m walk test was also completed with the patient today with time 1 showing 16.20 seconds, time 2 showing 13.10 seconds and time 3 showing 11.42 seconds. During the 5 m walk test the patient was quite short of breath and had to take several breaks in between his walk test. The patient also underwent a full PFTs yesterday and his FEV1 demonstrated a predicted value of 40% and post bronchodilation showed an FEV1 predicted value of 44%. The patient remains afebrile the last 24 hours and his remote telemetry showing atrial fibrillation heart rate 72 bpm this morning. Laboratory results this morning remain pending, is labs from yesterday showed a WBC count 8.4, hemoglobin 17.7, hematocrit 54.8, platelets 105, INR 1.7, PT 16.5, PTT 21.3, sodium 134, potassium 5.9, CO2 17, BUN 53, creatinine 1.15, hemoglobin A1c 7.3%, AST greater than 1500 and ALT 1330. Objective - Vital Signs Vital signs: Vital Signs Temp 97.4 F L 09/23/20 07:53 Pulse 76 09/23/20 07:53 Resp 18 09/23/20 07:53 BP 94/52 09/23/20 07:53 Pulse Ox 98 09/23/20 07:53 Intake & Output 09/22/20 09/23/20 09/23/20 18:59 06:59 18:59 Intake Total 170.748 Balance 170.748 Weight 87.6 kg 87.7 kg Intake: Intake, IV Titration 170.748 Amount Heparin Sod,Pork in 0.45% 170.748 NaCl 25,000 unit In 0.45 % NaCl 1 250ml.bag @ 11. 41 UNITS/KG/HR 9.995 mls/ hr IV .Q24H [facility] Rx#: [id number] Other: Voiding Method Toilet Toilet # Voids 2 - Constitutional General appearance: Present: cooperative, no acute distress, obese - EENT Eyes: Present: normal appearance. Absent: scleral icterus ENT: Present: hearing grossly normal - Neck Details: Neck is supple, positive bilateral JVD. No lymphadenopathy. - Respiratory Details: Lung sounds with few scattered crackles throughout, diminished to his bilateral bases right greater than left. No wheezes or rhonchi. Respirations are symmetrical and nonlabored. Oxygen saturation are 98% on room air and he is achieving 1000 mL on his incentive spirometry. - Cardiovascular Details: Irregular rhythm and controlled rate. S1 and S2 present, negative for S3 or gallop. Positive systolic and diastolic murmur 4/6 heard best to his left sternal border. +1 edema to his bilateral lower extremities. - Gastrointestinal Gastrointestinal Comment(s): Abdomen is soft, nontender and slightly distended. Active bowel sounds present in all 4 abdominal quadrants. No guarding or rigidity. No organomegaly appreciated. Obese. - Genitourinary Genitourinary Comment(s): Continues to void. - Integumentary Integumentary Comment(s): Skin is warm and dry. No clubbing or cyanosis is present. - Neurologic Neurologic: Present: CNII-XII intact. Absent: focal deficits - Musculoskeletal Musculoskeletal: Present: gait normal, generalized weakness, strength equal bilaterally - Psychiatric Psychiatric: Present: A&O x's 3, appropriate affect, intact judgment & insight - Allied health notes Allied health notes reviewed: nursing - Labs CBC & Chem 7: 09/22/20 09:10 09/22/20 09:10 Labs: Abnormal Lab Results - Last 24 Hours (Table) 09/22/20 09/22/20 09/22/20 Range/Units 09:10 09:10 09:10 RBC 6.05 H (4.30-5.90) m/uL Hgb 17.7 H (13.0-17.5) gm/dL Hct 54.8 H (39.0-53.0) % Plt Count 105 L (150-450) k/uL PT 16.5 H (9.0-12.0) sec INR 1.7 H (<1.2) APTT 21.3 L (22.0-30.0) sec Sodium 134 L (137-145) mmol/L Potassium 5.9 H (3.5-5.1) mmol/L Carbon Dioxide 17 L (22-30) mmol/L BUN 53 H (9-20) mg/dL Glucose 117 H (74-99) mg/dL POC Glucose (mg/dL) (75-99) mg/dL Hemoglobin A1c (4.0-6.0) % Magnesium 2.6 H (1.6-2.3) mg/dL Total Bilirubin 2.0 H (0.2-1.3) mg/dL AST >1500 H (17-59) U/L ALT 1330 H (4-49) U/L Alkaline Phosphatase 185 H (38-126) U/L Ur Specific [place] (1.001-1.035) Urine Protein (Negative) Urine Blood (Negative) Urine RBC (0-5) /hpf Urine WBC (0-5) /hpf Urine Mucus (None) /hpf Urine Sperm (None) /hpf 09/22/20 09/22/20 09/22/20 Range/Units 09:10 10:45 12:38 RBC (4.30-5.90) m/uL Hgb (13.0-17.5) gm/dL Hct (39.0-53.0) % Plt Count (150-450) k/uL PT (9.0-12.0) sec INR (<1.2) APTT (22.0-30.0) sec Sodium (137-145) mmol/L Potassium (3.5-5.1) mmol/L Carbon Dioxide (22-30) mmol/L BUN (9-20) mg/dL Glucose (74-99) mg/dL POC Glucose (mg/dL) 188 H (75-99) mg/dL Hemoglobin A1c 7.3 H (4.0-6.0) % Magnesium (1.6-2.3) mg/dL Total Bilirubin (0.2-1.3) mg/dL AST (17-59) U/L ALT (4-49) U/L Alkaline Phosphatase (38-126) U/L Ur Specific [place] >1.050 H (1.001-1.035) Urine Protein 1+ H (Negative) Urine Blood Trace H (Negative) Urine RBC 6 H (0-5) /hpf Urine WBC 7 H (0-5) /hpf Urine Mucus Occasional H (None) /hpf Urine Sperm Moderate H (None) /hpf 09/22/20 09/22/20 09/22/20 Range/Units 16:47 19:02 20:20 RBC (4.30-5.90) m/uL Hgb (13.0-17.5) gm/dL Hct (39.0-53.0) % Plt Count (150-450) k/uL PT (9.0-12.0) sec INR (<1.2) APTT 45.9 H (22.0-30.0) sec Sodium (137-145) mmol/L Potassium (3.5-5.1) mmol/L Carbon Dioxide (22-30) mmol/L BUN (9-20) mg/dL Glucose (74-99) mg/dL POC Glucose (mg/dL) 139 H 157 H (75-99) mg/dL Hemoglobin A1c (4.0-6.0) % Magnesium (1.6-2.3) mg/dL Total Bilirubin (0.2-1.3) mg/dL AST (17-59) U/L ALT (4-49) U/L Alkaline Phosphatase (38-126) U/L Ur Specific [place] (1.001-1.035) Urine Protein (Negative) Urine Blood (Negative) Urine RBC (0-5) /hpf Urine WBC (0-5) /hpf Urine Mucus (None) /hpf Urine Sperm (None) /hpf 09/23/20 Range/Units 06:13 RBC (4.30-5.90) m/uL Hgb (13.0-17.5) gm/dL Hct (39.0-53.0) % Plt Count (150-450) k/uL PT (9.0-12.0) sec INR (<1.2) APTT (22.0-30.0) sec Sodium (137-145) mmol/L Potassium (3.5-5.1) mmol/L Carbon Dioxide (22-30) mmol/L BUN (9-20) mg/dL Glucose (74-99) mg/dL POC Glucose (mg/dL) 120 H (75-99) mg/dL Hemoglobin A1c (4.0-6.0) % Magnesium (1.6-2.3) mg/dL Total Bilirubin (0.2-1.3) mg/dL AST (17-59) U/L ALT (4-49) U/L Alkaline Phosphatase (38-126) U/L Ur Specific [place] (1.001-1.035) Urine Protein (Negative) Urine Blood (Negative) Urine RBC (0-5) /hpf Urine WBC (0-5) /hpf Urine Mucus (None) /hpf Urine Sperm (None) /hpf Microbiology - Last 24 Hours (Table) 09/22/20 17:14 Nasal Screen MRSA/MSSA - Preliminary Nasal Swab - Imaging and Cardiology Chest x-ray: report reviewed, image reviewed Assessment and Plan Assessment: 1. Moderate to severe aortic bioprosthetic stenosis 2. Mild to moderate mitral valve regurgitation 3. Nonischemic cardiomyopathy 4. 4+ severe aortic valve insufficiency 5. Mildly dilated aortic root 6. Decreased cardiac output and cardiac index, 2.89 L/m and 1.42 L/m/m 7. Atrial fibrillation status post electrical cardioversion on 09/17/2020, currently in atrial fibrillation with controlled rate 8. Acute on chronic systolic heart failure, with an ejection fraction of less than 20% per recent 2-D echocardiogram 9. History of bicuspid aortic valve status post bioprosthetic aortic valve replacement in 2004 10. Bilateral pleural effusions, right greater than left 11. Hypertension 12. Dyslipidemia 13. Diabetes mellitus type 2 14. Prostate disorder 15. GERD 16. Vitamin D deficiency 17. Elevated transaminase enzymes, AST greater than 1500 and ALT 1330 18. Generalized debilitation and weakness, 5 Meter walk test time 1: 16.2 seconds, time 2: 13.1 seconds, time 3: 11.42 seconds 19. Dyspnea Plan: 1. Continue to optimize medical management with aspirin, and beta crissy. 2. Statin is currently on hold due to his elevated AST and ALT. Continue to monitor liver enzymes. 3. Obtain transesophageal echocardiogram for reevaluation of his valves. 4. The patient would be considered a high risk candidate for redo sternotomy and surgical aortic valve replacement. STS risk score was calculated and discussed with the patient by Dr. Shelby Langley. The patient will add some point need a gated computed tomography scan per TAVR protocol. 5. Atrial fibrillation and heparin drip management per cardiology recommendations. Xarelto currently on hold. 6. Pleural effusion management per pulmonary medicine recommendations. 7. Increase activity as tolerated. Cardiac rehab is following. 8. Encourage use of his incentive spirometry 10 times every hour while awake. 10. More recommendations to follow based on patient's clinical course. Time with Patient: Greater than 30
[2020-09-23 10:41] LABS: INR 1.7 (<1.2); Partial Thromboplastin Time 25.3 sec (22.0-30.0); Prothrombin Time 16.9 sec (9.0-12.0)
[2020-09-23 10:50] LABS: Albumin 3.6 g/dL (3.5-5.0); Calcium 8.6 mg/dL (8.4-10.2); Potassium 4.9 mmol/L (3.5-5.1); Total Bilirubin 1.4 mg/dL (0.2-1.3); Total Protein 5.8 g/dL (6.3-8.2)
[2020-09-23 11:43] LABS: Glucose,Whole Blood 146 mg/dL (75-99)
[2020-09-23] MEDS: ASPIRIN 81 MG PO SCH (13:48)
--- NOTE | 2020-09-23 14:35 | P.PN ---
Subjective Mr. Monreal is a history pleasant 69-year-old male with a past medical history of bicuspid aortic wall status post bioprosthetic aortic wall replacement, persistent atrial fibrillation status post failed cardioversion, diabetes mellitus, hypertension, dyslipidemia, SVT s/p ablation, PVC ablation and recent worsening non-ischemic cardiomyopathy thought to be related to afib, who follows in the office with Dr. Perrin coming in with a chief complaint of exertional dyspnea. Patient was recently in the hospital from 09/05/2020 to 09/09/2020. During his hospital stay patient had large left pleural effusion. He was managed with IV Lasix, his symptoms improved and eventually the patient was started on Entresto, by cardiology and discharged home. Patient states that since being discharged he noticed that his difficulty in breathing has worsened along with his cough. Patient states that his cough that he has been having for the past 1 month is improving. He is bringing up white thick sputum. Patient denies having any fevers chills or rigors. He denies having orthopnea PND. He states that his lower extremity swelling has worsened. Patient denies having any abdominal pain, but states that he has feeling of butterflies in his belly when he takes metformin. He also states that for the past 2-3 days he has been having generalized weakness and fatigue. Patient denies having any nausea vomiting or diarrhea. No dysuria or hematuria. Denies having any sick contacts. In the ER, patient had a chest x-ray showing evidence of right lower lobe opacity concerning for atelectasis and an elevated BNP of 15,000. He was given a low dose of Lasix due to his low blood pressure and eventually started on 50 mL of IV normal saline and admitted for further management. On reviewing his labs white count of 7 hemoglobin 15.8, platelets 112. Sodium 135, potassium 5.14, chloride 104, bicarbonate 22, BUN 20, [place] [address]. Troponin 0.013. 09/14/2020 Patient remains on IV Lasix patient still has significant swelling in bilateral lower extremities patient is found to have persistent atrial fibrillation which may be contributing to his heart failure exacerbations. Cardiology evaluated the patient is recommending admitting the patient and starting patient on dofetilide. Patient was started back on Entresto. Patient the shortness of breath significantly improved and patient was apparently having abdominal discom fort at home and he believes it secondary to metformin and this discomfort completely resolved 09/15/2020 Patient's pedal edema significant improved. Patient is being started on dofetilide 09/16/2020 Patient will undergo cardioversion tomorrow patient is euvolemic patient was switched to oral Lasix. 09/17/2020 Patient underwent cardioversion presently and opiate allied which will be continued presently sinus rhythm patient will be monitored overnight possibility of discharge tomorrow patient remains on oral Lasix. 09/18/2020 Patient potassium is high at around 6 mildly hemolyzed. We will hold off on Entresto and Aldactone for now. 09/19/2020 Patient's potassium has come down patient appeared to be evaluated by electrophysiology unfortunately cannot discharge this patient as patient was not evaluated by Dr. Lopez yet. 09/20/2020 patient will undergo right heart catheterization patient's sodium is on 133 today. Patient is complaining of constipation and was started on MiraLAX 09/21/2020 patient will undergo right heart catheterization today, had Bowel movements yesterday. Patient's serum sodium is 133 stable at this level potassium is 5.2. 09/22/2020 Appears to be in heart failure today patient is coming of shortness of breath patient does have increased pedal edema also has elevated JVD and that did gain weight patient had a CT of the chest as part of workup for cardiac valve surgery or intervention which showed bilateral pleural effusions appears to have pulm onary edema on the CAT scan CAT scan was reviewed by me. Patient had a cardiac catheterization yesterday which showed severe diuretic insufficiency with mildly dilated aortic root. Cardio thoracic surgeries a valid in the patient patient has highly elevated liver enzymes probably secondary to hepatic congestion worse and the creatinine to 1.15 patient does appear to have acidosis with anion gap of 15. hyponatremic. Hyperkalemic although patient had hemolysis patient will be on low potassium diet. Ultrasound of the liver was ordered because of elevated liver enzymes 09/23/2020 Patient clinically looks okay but that definitely in heart failure clinically patient's went down a bit to 132 creatinine went up to 1.5 patient will be continued on IV Lasix. Patient still appears to have significant hepatic congestion with elevated AST and ALT although AST did improve a bit patient bilirubin is elevated as well and INR is elevated to 1.7 all secondary to hepatic congestion. Ultrasound of the gallbladder essentially within normal limits which is not expected. Patient was evaluated by pulmonary and patient will undergo thoracentesis on the right side patient does have bilateral pleural effusions. Constitutional: Denied any fatigue denied any fever. Cardio vascular: denied any chest pain, palpitations Gastrointestinal denied any nausea vomiting Pulmonary: As mentioned in HPI Neurologic denied any new focal deficits All inpatient medications were reviewed and appropriate changes in these medications as dictated in the interval history and assessment and plan. Objective - Vital Signs Vital signs: Vital Signs Temp 96.4 F L 09/23/20 11:00 Pulse 66 09/23/20 11:00 Resp 22 09/23/20 11:00 BP 102/54 09/23/20 11:00 Pulse Ox 97 09/23/20 11:00 Intake & Output 09/22/20 09/23/20 09/23/20 18:59 06:59 18:59 Intake Total 170.748 Output Total 400 Balance 170.748 -400 Weight 87.6 kg 87.7 kg Intake: Intake, IV Titration 170.748 Amount Heparin Sod,Pork in 0.45% 170.748 NaCl 25,000 unit In 0.45 % NaCl 1 250ml.bag @ 11. 41 UNITS/KG/HR 9.995 mls/ hr IV .Q24H [facility] Rx#: [id number] Output: Urine 400 Other: Voiding Method Toilet Toilet Toilet # Voids 2 # Bowel Movements 1 - Exam PHYSICAL EXAMINATION: GENERAL: The patient is alert and oriented x3, not in any acute distress. Well developed, well nourished. HEENT: Pupils are round and equally reacting to light. EOMI. No scleral icterus. No conjunctival pallor. Normocephalic, atraumatic. No pharyngeal erythema. No thyromegaly. CARDIOVASCULAR: S1 and S2 present. No murmurs, rubs, or gallops. Patient is presently sinus rhythm by elevated JVD PULMONARY: Bibasilar crackles ABDOMEN: Soft, nontender, nondistended, normoactive bowel sounds. No palpable organomegaly. MUSCULOSKELETAL: No joint swelling or deformity. EXTREMITIES: No cyanosis, clubbing, decreased bilateral pedal edema NEUROLOGICAL: Gross neurological examination did not reveal any focal deficits. SKIN: No rashes. - Labs CBC & Chem 7: 09/22/20 09:10 09/23/20 10:02 Labs: Abnormal Lab Results - Last 24 Hours (Table) 09/22/20 09/22/20 09/22/20 Range/Units 09:10 16:47 19:02 PT (9.0-12.0) sec INR (<1.2) APTT 45.9 H (22.0-30.0) sec Sodium (137-145) mmol/L BUN (9-20) mg/dL Creatinine (0.66-1.25) mg/dL Glucose (74-99) mg/dL POC Glucose (mg/dL) 139 H (75-99) mg/dL Hemoglobin A1c 7.3 H (4.0-6.0) % Total Bilirubin (0.2-1.3) mg/dL AST (17-59) U/L ALT (4-49) U/L Alkaline Phosphatase (38-126) U/L Total Protein (6.3-8.2) g/dL 09/22/20 09/23/20 09/23/20 Range/Units 20:20 06:13 10:02 PT 16.9 H (9.0-12.0) sec INR 1.7 H (<1.2) APTT (22.0-30.0) sec Sodium (137-145) mmol/L BUN (9-20) mg/dL Creatinine (0.66-1.25) mg/dL Glucose (74-99) mg/dL POC Glucose (mg/dL) 157 H 120 H (75-99) mg/dL Hemoglobin A1c (4.0-6.0) % Total Bilirubin (0.2-1.3) mg/dL AST (17-59) U/L ALT (4-49) U/L Alkaline Phosphatase (38-126) U/L Total Protein (6.3-8.2) g/dL 09/23/20 09/23/20 Range/Units 10:02 11:38 PT (9.0-12.0) sec INR (<1.2) APTT (22.0-30.0) sec Sodium 132 L (137-145) mmol/L BUN 61 H (9-20) mg/dL Creatinine 1.50 H (0.66-1.25) mg/dL Glucose 202 H (74-99) mg/dL POC Glucose (mg/dL) 146 H (75-99) mg/dL Hemoglobin A1c (4.0-6.0) % Total Bilirubin 1.4 H (0.2-1.3) mg/dL AST 1317 H (17-59) U/L ALT 1580 H (4-49) U/L Alkaline Phosphatase 176 H (38-126) U/L Total Protein 5.8 L (6.3-8.2) g/dL Microbiology - Last 24 Hours (Table) 09/22/20 17:14 Nasal Screen MRSA/MSSA - Preliminary Nasal Swab Assessment and Plan Plan: Acute exacerbation of chronic systolic heart failure: She and is in acute exacerbation again today patient is on IV Lasix patient is status post cardio version, sinus rhythm, And had cardiac catheterization which showed severe aortic insufficiency with a dilated aortic root. Patient went back into heart failure now again and went into atrial fibrillation again, patient probably undergo the at that time even undergo cardioversion. Systolic heart failure with ejection fraction less than 20% was treated for heart failure exacerbation -Severe aortic regurgitation patient had a reticulocyte valvular surgery in the past and will need either valve replacement or TAVR -Hyperkalemia: Improved now Nonischemic cardiomyopathy Persistent atrial fibrillation status post cardioversion, patient of fluid back to atrial fibrillation again because of hypoxemia and CHF Thrombocytopenia Hypertension GERD Diabetes mellitus Recent pleural effusion BPH Migraine headaches Scoliosis Chronic low back pain Vitamin D deficiency
--- NOTE | 2020-09-23 15:34 | P.PN ---
Subjective This is a pleasant 69-year-old male past medical history significant for bicuspid aortic valve status post bioprosthetic aortic valve replacement, persistent atrial fibrillation s/p failed cardioversion, diabetes mellitus, hypertension, dyslipidemia, SVT s/p ablation, PVC ablation and recent worsening non-ischemic cardiomyopathy thought to be related to afib. He follows in the office with Dr. Perrin. Patient was recently in the hospital from 09/05/2020 to 09/09/2020. During his hospital stay patient had large left pleural effusion . He was managed with IV Lasix, his symptoms improved and eventually the patient was started on Entresto, by cardiology and discharged home. We have been asked to see in consultation for heart failure. Patient admitted on 09/15/20. In the ER, patient had a chest x-ray showing evidence of right lower lobe opacity concerning for atelectasis and an elevated BNP of 15,000. Patient was seen by Dr. Perrin, Tikosyn was initiated on 09/14/20. Patient was started back on Entresto. Patient underwent cardioversion on 09/17/20 with successful conversion to sinus rhythm. Tikosyn was stopped on 09/21/20 morning. Limited Echocardiogram on 09/17/20: severe global hypokinesis of LV, EF <20%. 09/18- patient was hyperkalemic - enresto and Aldactone was held 09/22/2020 Patient examined this morning at the bedside. He is status post cardiac catheterization with Dr. Camargo yesterday that revealed mild proximal LAD 30% stenosis, elevated left and right filling pressures, 4+ severe aortic insufficiency, mildly dilated aortic root, decreased cardiac output and cardiac index. Patient complaining of shortness of breath and 1+ lower extremity edema, and JVD noted. Per chart also with weight gain 87.6kg from 84kg. Telemetry reviewed- currently in sinus mechanism with occasional PVCs. HR 70s. Laboratory data reviewed, Sodium 134, K 5.9, sCr 1.15, BUN 53, Mag 2.6, Liver enzymes elevated previous normal on 09/20/20, AST >1500, ALD 1330, Alk Phos 185. 09/23/2020: Patient examined this morning at the bedside. States he feels better but continues to have ongoing consistent SOB. 1+lower extremity and edema and JVD. ultrasound of the chest- bilateral pleural effusions greater on the right. Lab data reviewed, sodium 132, serum creatinine 1.50 which has increased from 1.15 yesterday, total bilirubin 1.4, AST 1017, ALT 1580, alkaline phosphatase 176. Ultrasound the gallbladder within normal limits. Telemetry reviewed- patient in atrial fibrillation, heart rate 6070s PHYSICAL EXAM: VITAL SIGNS: BP 90/60 HR 60s, maintaining oxygen saturation is on room air. GENERAL: Patient appears short of breath. No acute distress on exam NECK: +JVD LUNGS: Respirations even and unlabored. Left lower base with crackles, other lung lees clear HEART: Regular rate and rhythm. S1 and S2 heard. Systolic murmur noted. EXTREMITIES: Normal range of motion. No clubbing or cyanosis. Peripheral pulses intact. 1+ bilateral lower extremity edema ASSESSMENT: Acute on chronic heart failure with reduced EF Non-ischemic cardiomyopathy Elevated Liver Enzymes - most likely hepatic congestion due to heart failure Persistent atrial fibrillation, s/p cardioversion, maintaining sinus mechanism - currently on heparin gtt 4+ severe aortic insufficiency Mildly dialted aortic root Pleural Effusions- pulmonary following Decreased cardiac output History of failed cardioversion Valvular heart disease s/p aortic valve replacement Mitral regurgitation history of Hypertension- currently hypotensive Dyslipidemia PLAN: -Continue IV Lasix -Patient is currently being worked up for cardiac valve surgery -Pulmonary is also following patient- plan to do a right sided therapeutic thoracentesis -Plan for PAULINE with Dr. Camargo tomorrow -NPO at midnight -Statin on hold for elevated liver enzymes -Cardiothoracic surgery is following -Pulmonary is following -Will make further recommendations based on clinic course Nurse practitioner note has been reviewed by physician. Signing provider agrees with the documented findings, assessment, and plan of care. Objective - Vital Signs Vital signs: Vital Signs Temp 96.4 F L 09/23/20 11:00 Pulse 66 09/23/20 11:00 Resp 22 09/23/20 11:00 BP 102/54 09/23/20 11:00 Pulse Ox 97 09/23/20 11:00 Intake & Output 09/22/20 09/23/20 09/23/20 18:59 06:59 18:59 Intake Total 170.748 Output Total 400 Balance 170.748 -400 Weight 87.6 kg 87.7 kg Intake: Intake, IV Titration 170.748 Amount Heparin Sod,Pork in 0.45% 170.748 NaCl 25,000 unit In 0.45 % NaCl 1 250ml.bag @ 11. 41 UNITS/KG/HR 9.995 mls/ hr IV .Q24H [facility] Rx#: [id number] Output: Urine 400 Other: Voiding Method Toilet Toilet Toilet # Voids 2 # Bowel Movements 1 - Labs CBC & Chem 7: 09/22/20 09:10 09/23/20 10:02 Labs: Abnormal Lab Results - Last 24 Hours (Table) 09/22/20 09/22/20 09/22/20 Range/Units 09:10 16:47 19:02 PT (9.0-12.0) sec INR (<1.2) APTT 45.9 H (22.0-30.0) sec Sodium (137-145) mmol/L BUN (9-20) mg/dL Creatinine (0.66-1.25) mg/dL Glucose (74-99) mg/dL POC Glucose (mg/dL) 139 H (75-99) mg/dL Hemoglobin A1c 7.3 H (4.0-6.0) % Total Bilirubin (0.2-1.3) mg/dL AST (17-59) U/L ALT (4-49) U/L Alkaline Phosphatase (38-126) U/L Total Protein (6.3-8.2) g/dL 09/22/20 09/23/20 09/23/20 Range/Units 20:20 06:13 10:02 PT 16.9 H (9.0-12.0) sec INR 1.7 H (<1.2) APTT (22.0-30.0) sec Sodium (137-145) mmol/L BUN (9-20) mg/dL Creatinine (0.66-1.25) mg/dL Glucose (74-99) mg/dL POC Glucose (mg/dL) 157 H 120 H (75-99) mg/dL Hemoglobin A1c (4.0-6.0) % Total Bilirubin (0.2-1.3) mg/dL AST (17-59) U/L ALT (4-49) U/L Alkaline Phosphatase (38-126) U/L Total Protein (6.3-8.2) g/dL 09/23/20 09/23/20 Range/Units 10:02 11:38 PT (9.0-12.0) sec INR (<1.2) APTT (22.0-30.0) sec Sodium 132 L (137-145) mmol/L BUN 61 H (9-20) mg/dL Creatinine 1.50 H (0.66-1.25) mg/dL Glucose 202 H (74-99) mg/dL POC Glucose (mg/dL) 146 H (75-99) mg/dL Hemoglobin A1c (4.0-6.0) % Total Bilirubin 1.4 H (0.2-1.3) mg/dL AST 1317 H (17-59) U/L ALT 1580 H (4-49) U/L Alkaline Phosphatase 176 H (38-126) U/L Total Protein 5.8 L (6.3-8.2) g/dL Microbiology - Last 24 Hours (Table) 09/22/20 17:14 Nasal Screen MRSA/MSSA - Preliminary Nasal Swab
[2020-09-23 17:07] LABS: Glucose,Whole Blood 124 mg/dL (75-99)
--- NOTE | 2020-09-23 17:16 | P.PN ---
Subjective Progress Note Date: 09/23/20 Principal diagnosis: Ongoing persistent shortness of breath Severe aortic bioprosthetic valve stenosis and severe aortic regurgitation Reduced cardiac output with cardiomyopathy ejection fraction of 20% Small to moderate right pleural effusion Very small left-sided pleural effusion Chronic atrial fibrillation 09/23/2020, patient seen eval examined during the rounds labs reviewed medications reviewed, denies any chest pain but have cough and severe shortness of breath, surgical service evaluating however the valve surgery likely will occur a few weeks later, patient is being planned for PAULINE tomorrow patient would like to pursue and proceed with a right thoracentesis for diagnostic and therapeutic purposes Patient is a 69-year-old male with the prior medical history of bicuspid aortic valve status post to the bioprosthetic valve placement, patient has chronic atr ial fibrillation, also has prior medical problems including diabetes mellitus hypertension hypertensive cardiovascular disease status post ablation, patient has a nonischemic cardiomyopathy thought to be related to A. fib, patient was hospitalized in August for shortness of breath found to have pleural effusion however responded well with conservative management, patient has been on direct oral anticoagulants which have been nonstop currently patient is on heparin, on arrival patient noted to have a right-sided pleural effusion some on the left side, are sound performed revealed moderate right-sided effusion also very small left-sided effusion, patient noted to have elevated AST and ALT with total bilirubin of 2, AST is 1500 ALT is 1330 alk phos 185, recent cardiac cath and angiogram shows mild coronary artery disease with LAD of 30% stenosis elevated right and left-sided pressures, 4+ severe aortic insufficiency, decreased carbonate output and cardiac index were noted, off respectively 2.89 and 1.4 to Objective - Vital Signs Vital signs: Vital Signs Temp 96.4 F L 09/23/20 11:00 Pulse 66 09/23/20 11:00 Resp 22 09/23/20 11:00 BP 102/54 09/23/20 11:00 Pulse Ox 97 09/23/20 11:00 Intake & Output 09/22/20 09/23/20 09/23/20 18:59 06:59 18:59 Intake Total 170.748 Output Total 400 Balance 170.748 -400 Weight 87.6 kg 87.7 kg Intake: Intake, IV Titration 170.748 Amount Heparin Sod,Pork in 0.45% 170.748 NaCl 25,000 unit In 0.45 % NaCl 1 250ml.bag @ 11. 41 UNITS/KG/HR 9.995 mls/ hr IV .Q24H [facility] Rx#: [id number] Output: Urine 400 Other: Voiding Method Toilet Toilet Toilet # Voids 2 # Bowel Movements 1 - Exam - Constitutional General appearance: average body habitus, cooperative, disheveled - EENT Eyes: PERRLA Ears: bilateral: normal - Neck Neck: normal ROM Carotids: bilateral: upstroke normal Thyroid: bilateral: normal size - Respiratory Respiratory: bilateral: diminished - Cardiovascular Heart sounds: normal: S1, S2 - Gastrointestinal General gastrointestinal: decreased bowel sounds - Integumentary Integumentary: decreased turgor - Neurologic Neurologic: CNII-XII intact - Musculoskeletal Musculoskeletal: gait normal, generalized weakness, strength equal bilaterally - Psychiatric Psychiatric: A&O x's 3, appropriate affect, intact judgment & insight - Labs CBC & Chem 7: 09/22/20 09:10 09/23/20 10:02 Labs: Abnormal Lab Results - Last 24 Hours (Table) 09/22/20 09/22/20 09/22/20 Range/Units 09:10 19:02 20:20 PT (9.0-12.0) sec INR (<1.2) APTT 45.9 H (22.0-30.0) sec Sodium (137-145) mmol/L BUN (9-20) mg/dL Creatinine (0.66-1.25) mg/dL Glucose (74-99) mg/dL POC Glucose (mg/dL) 157 H (75-99) mg/dL Hemoglobin A1c 7.3 H (4.0-6.0) % Total Bilirubin (0.2-1.3) mg/dL AST (17-59) U/L ALT (4-49) U/L Alkaline Phosphatase (38-126) U/L Total Protein (6.3-8.2) g/dL 09/23/20 09/23/20 09/23/20 Range/Units 06:13 10:02 10:02 PT 16.9 H (9.0-12.0) sec INR 1.7 H (<1.2) APTT (22.0-30.0) sec Sodium 132 L (137-145) mmol/L BUN 61 H (9-20) mg/dL Creatinine 1.50 H (0.66-1.25) mg/dL Glucose 202 H (74-99) mg/dL POC Glucose (mg/dL) 120 H (75-99) mg/dL Hemoglobin A1c (4.0-6.0) % Total Bilirubin 1.4 H (0.2-1.3) mg/dL AST 1317 H (17-59) U/L ALT 1580 H (4-49) U/L Alkaline Phosphatase 176 H (38-126) U/L Total Protein 5.8 L (6.3-8.2) g/dL 09/23/20 09/23/20 Range/Units 11:38 16:56 PT (9.0-12.0) sec INR (<1.2) APTT (22.0-30.0) sec Sodium (137-145) mmol/L BUN (9-20) mg/dL Creatinine (0.66-1.25) mg/dL Glucose (74-99) mg/dL POC Glucose (mg/dL) 146 H 124 H (75-99) mg/dL Hemoglobin A1c (4.0-6.0) % Total Bilirubin (0.2-1.3) mg/dL AST (17-59) U/L ALT (4-49) U/L Alkaline Phosphatase (38-126) U/L Total Protein (6.3-8.2) g/dL Microbiology - Last 24 Hours (Table) 09/22/20 17:14 Nasal Screen MRSA/MSSA - Preliminary Nasal Swab Assessment and Plan Assessment: Ongoing persistent shortness of breath Severe aortic bioprosthetic valve stenosis and severe aortic regurgitation Reduced cardiac output with cardiomyopathy ejection fraction of 20% moderate right pleural effusion Very small left-sided pleural effusion Chronic atrial fibrillation Plan: Proceed with a right thoracentesis procedure risk alternative complication expla ined to the patient patient understand would like to proceed with a Time with Patient: Greater than 30
[2020-09-23] MEDS: HEPARIN SOD,PORK IN 0.45% NACL 25,000 UNIT in 0.45% NACL 1 250ML.BAG IV SCH (18:37)
--- NOTE | 2020-09-23 18:49 | P.PCN ---
Date of Procedure: 09/23/20 Preoperative Diagnosis: Right pleural effusion, shortness of breath, Postoperative Diagnosis: As above Procedure(s) Performed: Right thoracentesis Anesthesia: local Surgeon: Flip Contreras Estimated Blood Loss (ml): 2 Disposition: floor Indications for Procedure: As above Operative Findings: As below Description of Procedure: Patient prepared and draped in a usual fashion, ultrasound was utilized to look at the maximum depth of the fluid, 1% lidocaine was infiltrated in mid scapular line eighth intercostal space, after that needle was introduced unable to aspirate pleural fluid, asked for assistance from ultrasound, stat ultrasound was done with the assistance of real-time ultrasound, through the stab incision, catheter in needle was placed needle was withdrawn, 1.4 L of light yellow straw-colored color fluid obtained, patient tolerated procedure well no complication noted, however at the end of procedure patient suddenly took deep breath, had some chest and shoulder pain afterwards, stat chest x-ray has been ordered, pain however noted to be easing up
[2020-09-23 20:07] LABS: Glucose,Whole Blood 162 mg/dL (75-99)
--- NOTE | 2020-09-23 20:34 | XR ---
EXAMINATION TYPE: XR chest 1V portable DATE OF EXAM: 09/23/2020 COMPARISON: 09/13/2020. HISTORY: Status post right thoracentesis. TECHNIQUE: Single frontal view of the chest is obtained. FINDINGS: There is moderate perihilar and bibasilar hazy opacities. No significant pleural effusion, or pneumothorax seen. The cardiac silhouette size is enlarged. Prior cardiothoracic postsurgical ch anges. The osseous structures are intact. IMPRESSION: Moderate opacities. No pneumothorax.
[2020-09-23] MEDS: ALPRAZolam 0.25 MG TAB PO PRN (21:05)
[2020-09-23] MEDS: MELATONIN 3 MG TABLET PO SCH (21:07)
--- NOTE | 2020-09-23 22:47 | US ---
EXAMINATION TYPE: US chest DATE OF EXAM: 09/23/2020 COMPARISON: US CLINICAL HISTORY: thoracentisis. Pleural effusion. Patient to have thoracentesis. Re-scan after naomi ng 09/22/2020. TECHNIQUE: Targeted ultrasound of the posterior lower right hemithorax. Sterile probe cover used. EXAM MEASUREMENTS: Right Pleural Effusion pocket size: 9.54cm. Right skin surface to fluid distance: 3.89 cm. No marking performed per physician. Dr. Contreras was present for exam to see where fluid pocket was visual ized as shown on images. IMPRESSIONS: Right pleural effusion as described.
[2020-09-24 06:02] LABS: Glucose,Whole Blood 96 mg/dL (75-99)
[2020-09-24 06:47] LABS: HCT 43.9 % (39.0-53.0); MCH 29.2 pg (25.0-35.0); MCHC 33.1 g/dL (31.0-37.0); MCV 88.1 fL (80.0-100.0); Mean Platelet Volume 11.3; Platelet Count 94 k/uL (150-450); RBC 4.98 m/uL (4.30-5.90); RDW 15.3 % (11.5-15.5); WBC 5.2 k/uL (3.8-10.6)
[2020-09-24 07:01] LABS: Calcium 8.6 mg/dL (8.4-10.2); Potassium 4.2 mmol/L (3.5-5.1); Total Bilirubin 1.1 mg/dL (0.2-1.3); Total Protein 5.2 g/dL (6.3-8.2)
[2020-09-24 07:02] LABS: HGB 14.5 gm/dL (13.0-17.5)
[2020-09-24] MEDS: INSULIN ASPART (NovoLOG) 100 UNIT/ML VIAL SQ SCH ×4 (08:07→20:40)
[2020-09-24] MEDS: FUROSEMIDE 10 MG/ML 4 ML VIAL IV SCH ×2 (09:08→20:41)
[2020-09-24] MEDS: ASPIRIN 81 MG PO SCH (09:08)
[2020-09-24] MEDS: METOPROLOL SUCCINATE (ER) 50 MG TAB.ER.24H PO SCH (09:09)
[2020-09-24] MEDS: CHOLECALCIFEROL 25 MCG (1000 IU) TABLET PO SCH (09:09)
[2020-09-24] MEDS: MUPIROCIN 2% OINT 22 GM TUBE NASAL SCH ×2 (09:09→20:42)
[2020-09-24] MEDS: FAMOTIDINE 20 MG TAB PO SCH (09:09)
--- NOTE | 2020-09-24 10:27 | P.PN ---
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 Previous medical history of persistent atrial fibrillation status post failed cardioversion and 2 ablations, chronic systolic heart failure with an ejection fraction < 20%, bicuspid aortic valve status post bioprosthetic aortic valve replacement in 2004, hypertension, hyperlipidemia, diabetes mellitus type 2, prostate disorder, GERD, vitamin D deficiency, generalized debilitation and weakness Patient's currently sitting up in a recliner on the cardiac stepdown unit in no acute distress. Denies any pain, states shortness of breath has significantly improved since thoracentesis, he is currently on room air with adequate oxygenat ion. Currently nothing by mouth for PAULINE to be completed today. No new questions. Objective - Vital Signs Vital signs: Vital Signs Temp 98.0 F 09/24/20 03:29 Pulse 84 09/24/20 03:29 Resp 20 09/24/20 03:29 BP 89/59 09/24/20 03:29 Pulse Ox 94 L 09/24/20 03:29 Intake & Output 09/23/20 09/24/20 09/24/20 18:59 06:59 18:59 Intake Total 0 Output Total 400 Balance -400 0 Weight 86.2 kg Intake: Oral 0 Output: Urine 400 Other: Voiding Method Toilet Toilet # Bowel Movements 1 0 - Exam CONSTITUTIONAL: Appears comfortable, cooperative, no acute distress RESPIRATORY: Lungs sounds diminished bilaterally. Respirations even, nonlabored. Currently on room air with oxygen saturation 94%. Strong dry cough. CARDIOVASCULAR: S1, S2 present. Irregular rate and rhythm, controlled atrial fibrillation on telemetry. Sternum stable. Palpable peripheral pulses bilaterally. Trace bilateral lower extremity edema present. No calf pain or tenderness noted. GASTROINTESTINAL: Abdomen soft, nontender, nondistended. Active bowel sounds present 4 quadrants. Currently nothing by mouth for PAULINE GENITOURINARY: Continues to void clear, yellow urine. INTEGUMENTARY: Skin is warm and dry with evidence of good perfusion. NEUROLOGIC: Cranial nerves II through XII intact MUSKULOSKELETAL: Able to move all extremities, strength equal bilaterally, gait normal PSYCHIATRIC: Alert and oriented to person place and time, appropriate affect, intact judgment and insight - Allied health notes Allied health notes reviewed: nursing - Labs CBC & Chem 7: 09/24/20 05:59 09/24/20 05:59 Labs: Abnormal Lab Results - Last 24 Hours (Table) 09/23/20 09/23/20 09/23/20 Range/Units 10:02 10:02 11:38 Plt Count (150-450) k/uL PT 16.9 H (9.0-12.0) sec INR 1.7 H (<1.2) Sodium 132 L (137-145) mmol/L Carbon Dioxide (22-30) mmol/L BUN 61 H (9-20) mg/dL Creatinine 1.50 H (0.66-1.25) mg/dL Glucose 202 H (74-99) mg/dL POC Glucose (mg/dL) 146 H (75-99) mg/dL Total Bilirubin 1.4 H (0.2-1.3) mg/dL AST 1317 H (17-59) U/L ALT 1580 H (4-49) U/L Alkaline Phosphatase 176 H (38-126) U/L Total Protein 5.8 L (6.3-8.2) g/dL Albumin (3.5-5.0) g/dL 09/23/20 09/23/20 09/24/20 Range/Units 16:56 19:59 05:59 Plt Count 94 L (150-450) k/uL PT (9.0-12.0) sec INR (<1.2) Sodium (137-145) mmol/L Carbon Dioxide (22-30) mmol/L BUN (9-20) mg/dL Creatinine (0.66-1.25) mg/dL Glucose (74-99) mg/dL POC Glucose (mg/dL) 124 H 162 H (75-99) mg/dL Total Bilirubin (0.2-1.3) mg/dL AST (17-59) U/L ALT (4-49) U/L Alkaline Phosphatase (38-126) U/L Total Protein (6.3-8.2) g/dL Albumin (3.5-5.0) g/dL 09/24/20 Range/Units 05:59 Plt Count (150-450) k/uL PT (9.0-12.0) sec INR (<1.2) Sodium (137-145) mmol/L Carbon Dioxide 32 H (22-30) mmol/L BUN 48 H (9-20) mg/dL Creatinine (0.66-1.25) mg/dL Glucose (74-99) mg/dL POC Glucose (mg/dL) (75-99) mg/dL Total Bilirubin (0.2-1.3) mg/dL AST 522 H (17-59) U/L ALT 1151 H (4-49) U/L Alkaline Phosphatase 144 H (38-126) U/L Total Protein 5.2 L (6.3-8.2) g/dL Albumin 3.0 L (3.5-5.0) g/dL Microbiology - Last 24 Hours (Table) 09/22/20 17:14 Nasal Screen MRSA/MSSA - Final Nasal Swab Assessment and Plan Assessment: 1. 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 Mild to moderate mitral valve regurgitation 3. Nonischemic cardiomyopathy, severe global hypokinesis of the LV 4. Acute on chronic systolic heart failure, BNP 15,500 on admission 5. Elevated transaminase enzymes, trending down 6. Dyspnea 7. Bilateral pleural effusions right greater than left, status post right sided thoracentesis with removal of 1.4 L fluid 8. History of persistent atrial fibrillation status post failed cardioversion and 2 ablations 9. Chronic systolic heart failure with an ejection fraction < 20% 10. History of bicuspid aortic valve status post bioprosthetic aortic valve replacement in 2004 11. Hypertension 12. Hyperlipidemia, treated, cholesterol 116, LDL 62 13. Diabetes mellitus type 2, hemoglobin A1c 7.3% 14. Prostate disorder 15. GERD 16. Vitamin D deficiency 17. Generalized debilitation and weakness Plan: 1. Continue to optimize medical management with aspirin, beta crissy, diuresis. 2. Statin is currently on hold due to his elevated AST and ALT. Continue to monitor liver enzymes. 3. The patient is nothing by mouth for transesophageal echocardiogram for re- evaluation of his valves. 4. The patient would be considered very high risk candidate for re-do sternotomy and surgical aortic valve replacement. He may be considered for TAVR, will need gated computed tomography scan per TAVR protocol. 5. Atrial fibrillation, heart failure management per cardiology 6. Increase activity, ambulate as tolerated. Cardiac rehab following. 7. Encourage use of his incentive spirometry 10 times every hour while awake. 8. Medical management of other comorbidities per primary care service 9. More recommendations to follow based on patient's clinical course. Time with Patient: Greater than 30
--- NOTE | 2020-09-24 11:05 | P.PN ---
Subjective Mr. Monreal is a history pleasant 69-year-old male with a past medical history of bicuspid aortic wall status post bioprosthetic aortic wall replacement, persistent atrial fibrillation status post failed cardioversion, diabetes mellitus, hypertension, dyslipidemia, SVT s/p ablation, PVC ablation and recent worsening non-ischemic cardiomyopathy thought to be related to afib, who follows in the office with Dr. Perrin coming in with a chief complaint of exertional dyspnea. Patient was recently in the hospital from 09/05/2020 to 09/09/2020. During his hospital stay patient had large left pleural effusion. He was managed with IV Lasix, his symptoms improved and eventually the patient was started on Entresto, by cardiology and discharged home. Patient states that since being discharged he noticed that his difficulty in breathing has worsened along with his cough. Patient states that his cough that he has been having for the past 1 month is improving. He is bringing up white thick sputum. Patient denies having any fevers chills or rigors. He denies having orthopnea PND. He states that his lower extremity swelling has worsened. Patient denies having any abdominal pain, but states that he has feeling of butterflies in his belly when he takes metformin. He also states that for the past 2-3 days he has been having generalized weakness and fatigue. Patient denies having any nausea vomiting or diarrhea. No dysuria or hematuria. Denies having any sick contacts. In the ER, patient had a chest x-ray showing evidence of right lower lobe opacity concerning for atelectasis and an elevated BNP of 15,000. He was given a low dose of Lasix due to his low blood pressure and eventually started on 50 mL of IV normal saline and admitted for further management. On reviewing his labs white count of 7 hemoglobin 15.8, platelets 112. Sodium 135, potassium 5.14, chloride 104, bicarbonate 22, BUN 20, [place] [address]. Troponin 0.013. 09/14/2020 Patient remains on IV Lasix patient still has significant swelling in bilateral lower extremities patient is found to have persistent atrial fibrillation which may be contributing to his heart failure exacerbations. Cardiology evaluated the patient is recommending admitting the patient and starting patient on dofetilide. Patient was started back on Entresto. Patient the shortness of breath significantly improved and patient was apparently having abdominal discom fort at home and he believes it secondary to metformin and this discomfort completely resolved 09/15/2020 Patient's pedal edema significant improved. Patient is being started on dofetilide 09/16/2020 Patient will undergo cardioversion tomorrow patient is euvolemic patient was switched to oral Lasix. 09/17/2020 Patient underwent cardioversion presently and opiate allied which will be continued presently sinus rhythm patient will be monitored overnight possibility of discharge tomorrow patient remains on oral Lasix. 09/18/2020 Patient potassium is high at around 6 mildly hemolyzed. We will hold off on Entresto and Aldactone for now. 09/19/2020 Patient's potassium has come down patient appeared to be evaluated by electrophysiology unfortunately cannot discharge this patient as patient was not evaluated by Dr. Lopez yet. 09/20/2020 patient will undergo right heart catheterization patient's sodium is on 133 today. Patient is complaining of constipation and was started on MiraLAX 09/21/2020 patient will undergo right heart catheterization today, had Bowel movements yesterday. Patient's serum sodium is 133 stable at this level potassium is 5.2. 09/22/2020 Appears to be in heart failure today patient is coming of shortness of breath patient does have increased pedal edema also has elevated JVD and that did gain weight patient had a CT of the chest as part of workup for cardiac valve surgery or intervention which showed bilateral pleural effusions appears to have pulm onary edema on the CAT scan CAT scan was reviewed by me. Patient had a cardiac catheterization yesterday which showed severe diuretic insufficiency with mildly dilated aortic root. Cardio thoracic surgeries a valid in the patient patient has highly elevated liver enzymes probably secondary to hepatic congestion worse and the creatinine to 1.15 patient does appear to have acidosis with anion gap of 15. hyponatremic. Hyperkalemic although patient had hemolysis patient will be on low potassium diet. Ultrasound of the liver was ordered because of elevated liver enzymes 09/23/2020 Patient clinically looks okay but that definitely in heart failure clinically patient's went down a bit to 132 creatinine went up to 1.5 patient will be continued on IV Lasix. Patient still appears to have significant hepatic congestion with elevated AST and ALT although AST did improve a bit patient bilirubin is elevated as well and INR is elevated to 1.7 all secondary to hepatic congestion. Ultrasound of the gallbladder essentially within normal limits which is not expected. Patient was evaluated by pulmonary and patient will undergo thoracentesis on the right side patient does have bilateral pleural effusions. 09/24/2020 Patient had thoracentesis with removal of around 1.4 L of serous fluid. Patient is feeling bit better today, his metabolic profile showed improving ALT and AST Constitutional: Denied any fatigue denied any fever. Cardio vascular: denied any chest pain, palpitations Gastrointestinal denied any nausea vomiting Pulmonary: As mentioned in HPI Neurologic denied any new focal deficits All inpatient medications were reviewed and appropriate changes in these medications as dictated in the interval history and assessment and plan. Objective - Vital Signs Vital signs: Vital Signs Temp 98.0 F 09/24/20 03:29 Pulse 84 09/24/20 03:29 Resp 20 09/24/20 03:29 BP 89/59 09/24/20 03:29 Pulse Ox 94 L 09/24/20 03:29 Intake & Output 09/23/20 09/24/20 09/24/20 18:59 06:59 18:59 Intake Total 0 Output Total 400 Balance -400 0 Weight 86.2 kg Intake: Oral 0 Output: Urine 400 Other: Voiding Method Toilet Toilet # Bowel Movements 1 0 - Exam PHYSICAL EXAMINATION: GENERAL: The patient is alert and oriented x3, not in any acute distress. Well developed, well nourished. HEENT: Pupils are round and equally reacting to light. EOMI. No scleral icterus. No conjunctival pallor. Normocephalic, atraumatic. No pharyngeal erythema. No thyromegaly. CARDIOVASCULAR: S1 and S2 present. No murmurs, rubs, or gallops. Patient is presently sinus rhythm improved JVD PULMONARY: Bibasilar crackles ABDOMEN: Soft, nontender, nondistended, normoactive bowel sounds. No palpable organomegaly. MUSCULOSKELETAL: No joint swelling or deformity. EXTREMITIES: No cyanosis, clubbing, decreased bilateral pedal edema NEUROLOGICAL: Gross neurological examination did not reveal any focal deficits. SKIN: No rashes. - Labs CBC & Chem 7: 09/24/20 05:59 09/24/20 05:59 Labs: Abnormal Lab Results - Last 24 Hours (Table) 09/23/20 09/23/20 09/23/20 Range/Units 10:02 11:38 16:56 Plt Count (150-450) k/uL Sodium 132 L (137-145) mmol/L Carbon Dioxide (22-30) mmol/L BUN 61 H (9-20) mg/dL Creatinine 1.50 H (0.66-1.25) mg/dL Glucose 202 H (74-99) mg/dL POC Glucose (mg/dL) 146 H 124 H (75-99) mg/dL Total Bilirubin 1.4 H (0.2-1.3) mg/dL AST 1317 H (17-59) U/L ALT 1580 H (4-49) U/L Alkaline Phosphatase 176 H (38-126) U/L Total Protein 5.8 L (6.3-8.2) g/dL Albumin (3.5-5.0) g/dL 09/23/20 09/24/20 09/24/20 Range/Units 19:59 05:59 05:59 Plt Count 94 L (150-450) k/uL Sodium (137-145) mmol/L Carbon Dioxide 32 H (22-30) mmol/L BUN 48 H (9-20) mg/dL Creatinine (0.66-1.25) mg/dL Glucose (74-99) mg/dL POC Glucose (mg/dL) 162 H (75-99) mg/dL Total Bilirubin (0.2-1.3) mg/dL AST 522 H (17-59) U/L ALT 1151 H (4-49) U/L Alkaline Phosphatase 144 H (38-126) U/L Total Protein 5.2 L (6.3-8.2) g/dL Albumin 3.0 L (3.5-5.0) g/dL Microbiology - Last 24 Hours (Table) 09/22/20 17:14 Nasal Screen MRSA/MSSA - Final Nasal Swab Assessment and Plan Plan: Acute exacerbation of chronic systolic heart failure: She and is in acute exacerbation again today patient is on IV Lasix patient is status post cardioversion, sinus rhythm, And had cardiac catheterization which showed severe aortic insufficiency with a dilated aortic root. Patient went back into heart failure now again and went into atrial fibrillation again, patient probably undergo the at that time even undergo cardioversion. Systolic heart failure with ejection fraction less than 20% was treated for heart failure exacerbation Pleural effusions: Significant on the right side patient had thoracic sepsis with removal of around 1.4 L of fluid. -transaminitis with elevated zyme secondary to congestive heart failure and hepatic condition improving with IV Lasix. -Severe aortic regurgitation patient had a reticulocyte valvular surgery in the past and will need either valve replacement or TAVR -Hyperkalemia: Improved now Nonischemic cardiomyopathy Persistent atrial fibrillation status post cardioversion, patient of fluid back to atrial fibrillation again because of hypoxemia and CHF Thrombocytopenia Hypertension GERD Diabetes mellitus BPH Migraine headaches Scoliosis Chronic low back pain Vitamin D deficiency
[2020-09-24] MEDS ORDERED: ACETAMINOPHEN TAB 325 MG TAB PO PRN (11:09)
[2020-09-24 11:43] LABS: Glucose,Whole Blood 111 mg/dL (75-99)
[2020-09-24] MEDS ORDERED: IV FLUID CONTINUATION 1,000 ML IV ONE (11:50)
[2020-09-24] MEDS ORDERED: fentaNYL (PF) 50 MCG/ML 2 ML AMP ONE (11:52)
[2020-09-24] MEDS: BENZOCAINE SPRAY 1 CAN MUCOUS MEM ONE ×2 (12:11→12:13)
[2020-09-24] MEDS: fentaNYL (PF) 50 MCG/ML 2 ML AMP IVP ONE ×2 (12:11→12:14)
[2020-09-24] MEDS ORDERED: MIDAZOLAM 2 MG/2 ML VIAL IVP ONE (12:11)
[2020-09-24] MEDS: MIDAZOLAM 2 MG/2 ML VIAL IVP ONE ×2 (12:14→12:16)
--- NOTE | 2020-09-24 12:59 | P.TEE ---
Description of Procedure(s): Procedure performed: Transesophageal Echocardiogram with color flow doppler, pulsed wave doppler and continuous wave doppler, moderate conscious sedation Moderate conscious sedation: Moderate conscious sedation was supplied with direct supervision of myself using Versed and Fentanyl. Complications: none Indications: Moderate to severe aortic stenosis, severe aortic insufficiency, moderate to severe mitral regurgitation History: Patient is a pleasant 69 year old male with history of bioprosthetic aortic valve replacement with at least moderate to severe aortic stenosis, persistent atrial fibrillation, hypertension, hyperlipidemia. He has been having worsened SOB and found to have worsening of LV function. He was att empted to have PAULINE cardioversion a few months back however did not stay in sinus. He has had worsening of LV function, worsened heart failure, and RHC showed decreased cardiac output and aortogram showed 4+ aortic insufficiency. Therefore PAULINE was requested. PROCEDURE: After the risks, benefits and alternatives of the above mentioned procedure was explained in detail with the patient, informed consent was obtained. Patient was brought to the lab in a fasting state. Patient was given IV Versed and Fentanyl for sedation. The throat was sprayed with Hurricane to anesthetize the throat. A lubricated Omni probe was then introduced into the esophagus and stomach and multiple views were obtained. 2D echo with color flow doppler, pulsed wave doppler and continuous wave doppler was utilized. Agitated saline bubbles were injected to assess for any intra-atrial shunt. The probe was then removed. Patient tolerated the procedure well. Patient was transferred to the post procedure area in stable and satisfactory condition. FINDINGS: 1. There is a bioprostehtic aortic valve with moderate calcification and decreased leaflet excursion. There is moderate to severe aortic insufficiency with Vmax 3.2m/s however degree of stenosis likely underestimated due to cardiomyopathy. There is severe central aortic insufficiency. 2. The mitral valve appears be normal. There is tethering of the mitral valve leaflets related to cardiomyopathy. There is moderate central secondary mitral regurgition. There is blunting of 3/4 pulmonary veins however no systolic flow reversal. PISA radius of 0.8 with Nyquist limit 38 consistent with moderate mitral regurgitation. 3. Tricuspid valve appears to be normal. There is mild tricuspid regurgitation. 4. The interatrial septum is intact. No evidence of PFO. 5. Left atrial appendage is free of clot. 6. Left ventricle is mildly dilated. There is severe left ventricular dysfunction with EF 25% and global hypokinesis. 7. Left atrium is moderately dilated.
[2020-09-24 13:28] LABS: Appearance,BF Clear; Color,BF Yellow; RBC, Body Fluid 760 /uL
[2020-09-24 13:29] LABS: Nucleated Cells, Body Fluid 150 /uL
[2020-09-24 13:33] LABS: Mononuclear WBC,Body Fluid 86 %; Polynuclear WBC,Body Fluid 14 %; Total Cells Counted,Body Fluid 100
--- NOTE | 2020-09-24 14:02 | P.PN ---
Subjective This is a pleasant 69-year-old male past medical history significant for bicuspid aortic valve status post bioprosthetic aortic valve replacement, persistent atrial fibrillation s/p failed cardioversion, diabetes mellitus, hypertension, dyslipidemia, SVT s/p ablation, PVC ablation and recent worsening non-ischemic cardiomyopathy thought to be related to afib. He follows in the office with Dr. Perrin. Patient was recently in the hospital from 09/05/2020 to 09/09/2020. During his hospital stay patient had large left pleural effusion . He was managed with IV Lasix, his symptoms improved and eventually the patient was started on Entresto, by cardiology and discharged home. We have been asked to see in consultation for heart failure. Patient admitted on 09/15/20. In the ER, patient had a chest x-ray showing evidence of right lower lobe opacity concerning for atelectasis and an elevated BNP of 15,000. Patient was seen by Dr. Perrin, Tikosyn was initiated on 09/14/20. Patient was started back on Entresto. Patient underwent cardioversion on 09/17/20 with successful conversion to sinus rhythm. Tikosyn was stopped on 09/21/20 morning. Limited Echocardiogram on 09/17/20: severe global hypokinesis of LV, EF <20%. 09/18- patient was hyperkalemic - enresto and Aldactone was held 09/22/2020 Patient examined this morning at the bedside. He is status post cardiac catheterization with Dr. Camargo yesterday that revealed mild proximal LAD 30% stenosis, elevated left and right filling pressures, 4+ severe aortic insufficiency, mildly dilated aortic root, decreased cardiac output and cardiac index. Patient complaining of shortness of breath and 1+ lower extremity edema, and JVD noted. Per chart also with weight gain 87.6kg from 84kg. Telemetry reviewed- currently in sinus mechanism with occasional PVCs. HR 70s. Laboratory data reviewed, Sodium 134, K 5.9, sCr 1.15, BUN 53, Mag 2.6, Liver enzymes elevated previous normal on 09/20/20, AST >1500, ALD 1330, Alk Phos 185. 09/23/2020: Patient examined this morning at the bedside. States he feels better but continues to have ongoing consistent SOB. 1+lower extremity and edema and JVD. ultrasound of the chest- bilateral pleural effusions greater on the right. Ultrasound the gallbladder within normal limits. Telemetry reviewed- patient in atrial fibrillation, heart rate 6070s 09/24/2020: Patient s/p right sided thoracentesis with 1.4L dark yellow fluid removed. He states his breathing is improved. BP 99/56 HR 80s. Telemetry with 6-7 beat runs of Vtach. In atrial fibrillation/atrial flutter. HR 80s-90s. Lab data reviewed, sodium 137, serum creatinine 1.17 (1.50 yesterday) total bilirubin 1.1, LFTs are improving AST 522, ALT 1151, alkaline phosphates 144. PHYSICAL EXAM: VITAL SIGNS: BP 90/60 HR 60s, maintaining oxygen saturation is on room air. GENERAL: Patient appears short of breath. No acute distress on exam NECK: +JVD LUNGS: Respirations even and unlabored. Right lower base with crackles, other lung lees clear HEART: Regular rate and rhythm. S1 and S2 heard. Systolic murmur noted. EXTREMITIES: Normal range of motion. No clubbing or cyanosis. Peripheral pulses intact. 1+ bilateral lower extremity edema ASSESSMENT: Acute on chronic heart failure with reduced EF Non-ischemic cardiomyopathy Elevated Liver Enzymes - most likely hepatic congestion due to heart failure Persistent atrial fibrillation, s/p cardioversion, maintaining sinus mechanism - currently on heparin gtt 4+ severe aortic insufficiency Mildly dialted aortic root Pleural Effusions- pulmonary following Decreased cardiac output History of failed cardioversion Valvular heart disease s/p aortic valve replacement Mitral regurgitation history of Hypertension- currently hypotensive Dyslipidemia PLAN: -Continue IV Lasix -Continue heparin drip -Patient is currently being worked up for cardiac valve surgery -Plan for PAULINE with Dr. Camargo today -Statin on hold for elevated liver enzymes -Cardiothoracic surgery is following -Pulmonary is following -Will make further recommendations based on clinic course Nurse practitioner note has been reviewed by physician. Signing provider agrees with the documented findings, assessment, and plan of care. Objective - Vital Signs Vital signs: Vital Signs Temp 98.2 F 09/24/20 08:00 Pulse 101 H 09/24/20 08:00 Resp 20 09/24/20 08:00 BP 99/56 09/24/20 08:00 Pulse Ox 96 09/24/20 08:00 Intake & Output 09/23/20 09/24/20 09/24/20 18:59 06:59 18:59 Intake Total 0 Output Total 400 Balance -400 0 Weight 86.2 kg Intake: Oral 0 Output: Urine 400 Other: Voiding Method Toilet Toilet # Bowel Movements 1 0 - Labs CBC & Chem 7: 09/24/20 05:59 09/24/20 05:59 Labs: Abnormal Lab Results - Last 24 Hours (Table) 09/23/20 09/23/20 09/24/20 Range/Units 16:56 19:59 05:59 Plt Count 94 L (150-450) k/uL Carbon Dioxide (22-30) mmol/L BUN (9-20) mg/dL POC Glucose (mg/dL) 124 H 162 H (75-99) mg/dL AST (17-59) U/L ALT (4-49) U/L Alkaline Phosphatase (38-126) U/L Total Protein (6.3-8.2) g/dL Albumin (3.5-5.0) g/dL 09/24/20 09/24/20 Range/Units 05:59 11:42 Plt Count (150-450) k/uL Carbon Dioxide 32 H (22-30) mmol/L BUN 48 H (9-20) mg/dL POC Glucose (mg/dL) 111 H (75-99) mg/dL AST 522 H (17-59) U/L ALT 1151 H (4-49) U/L Alkaline Phosphatase 144 H (38-126) U/L Total Protein 5.2 L (6.3-8.2) g/dL Albumin 3.0 L (3.5-5.0) g/dL Microbiology - Last 24 Hours (Table) 09/22/20 17:14 Nasal Screen MRSA/MSSA - Final Nasal Swab
--- NOTE | 2020-09-24 14:19 | P.PN ---
Subjective Progress Note Date: 09/24/20 Principal diagnosis: Ongoing persistent shortness of breath Severe aortic bioprosthetic valve stenosis and severe aortic regurgitation Reduced cardiac output with cardiomyopathy ejection fraction of 20% Small to moderate right pleural effusion Very small left-sided pleural effusion Chronic atrial fibrillation 09/24/2020, patient seen eval reexamined during the rounds labs reviewed medications reviewed, no more chest pain is present shortness of breath significant improved patient has been on room air oxygen saturation is 95-96%, status post PAULINE, findings noted with bioprosthetic aortic well along with calcification, moderate to severe insufficiency noted, status post right thoracentesis is 1.4 L of fluid has been removed, cytology pending 09/23/2020, patient seen eval examined during the rounds labs reviewed medications reviewed, denies any chest pain but have cough and severe shortness of breath, surgical service evaluating however the valve surgery likely will occur a few weeks later, patient is being planned for PAULINE tomorrow patient would like to pursue and proceed with a right thoracentesis for diagnostic and therapeutic purposes Patient is a 69-year-old male with the prior medical history of bicuspid aortic valve status post to the bioprosthetic valve placement, patient has chronic atrial fibrillation, also has prior medical problems including diabetes mellitus hypertension hypertensive cardiovascular disease status post ablation, patient has a nonischemic cardiomyopathy thought to be related to A. fib, patient was hospitalized in August for shortness of breath found to have pleural effusion however responded well with conservative management, patient has been on direct oral anticoagulants which have been nonstop currently patient is on heparin, on arrival patient noted to have a right-sided pleural effusion some on the left side, are sound performed revealed moderate right-sided effusion also very small left-sided effusion, patient noted to have elevated AST and ALT with total bilirubin of 2, AST is 1500 ALT is 1330 alk phos 185, recent cardiac cath and angiogram shows mild coronary artery disease with LAD of 30% stenosis elevated right and left-sided pressures, 4+ severe aortic insufficiency, decreased carbonate output and cardiac index were noted, off respectively 2.89 and 1.4 to Objective - Vital Signs Vital signs: Vital Signs Temp 98.2 F 09/24/20 08:00 Pulse 102 H 09/24/20 12:30 Resp 16 09/24/20 12:30 BP 103/54 09/24/20 12:30 Pulse Ox 98 09/24/20 12:30 Intake & Output 09/23/20 09/24/20 09/24/20 18:59 06:59 18:59 Intake Total 50 Output Total 400 Balance -400 50 Weight 86.2 kg Intake: IV 50 Oral 0 Output: Urine 400 Other: Voiding Method Toilet Toilet # Bowel Movements 1 0 - Exam - Constitutional General appearance: average body habitus, cooperative, disheveled - EENT Eyes: PERRLA Ears: bilateral: normal - Neck Neck: normal ROM Carotids: bilateral: upstroke normal Thyroid: bilateral: normal size - Respiratory Respiratory: bilateral: diminished - Cardiovascular Heart sounds: normal: S1, S2 - Gastrointestinal General gastrointestinal: decreased bowel sounds - Integumentary Integumentary: decreased turgor - Neurologic Neurologic: CNII-XII intact - Musculoskeletal Musculoskeletal: gait normal, generalized weakness, strength equal bilaterally - Psychiatric Psychiatric: A&O x's 3, appropriate affect, intact judgment & insight - Labs CBC & Chem 7: 09/24/20 05:59 09/24/20 05:59 Labs: Abnormal Lab Results - Last 24 Hours (Table) 09/23/20 09/23/20 09/24/20 Range/Units 16:56 19:59 05:59 Plt Count 94 L (150-450) k/uL Carbon Dioxide (22-30) mmol/L BUN (9-20) mg/dL POC Glucose (mg/dL) 124 H 162 H (75-99) mg/dL AST (17-59) U/L ALT (4-49) U/L Alkaline Phosphatase (38-126) U/L Total Protein (6.3-8.2) g/dL Albumin (3.5-5.0) g/dL 09/24/20 09/24/20 Range/Units 05:59 11:42 Plt Count (150-450) k/uL Carbon Dioxide 32 H (22-30) mmol/L BUN 48 H (9-20) mg/dL POC Glucose (mg/dL) 111 H (75-99) mg/dL AST 522 H (17-59) U/L ALT 1151 H (4-49) U/L Alkaline Phosphatase 144 H (38-126) U/L Total Protein 5.2 L (6.3-8.2) g/dL Albumin 3.0 L (3.5-5.0) g/dL Microbiology - Last 24 Hours (Table) 09/22/20 17:14 Nasal Screen MRSA/MSSA - Final Nasal Swab Assessment and Plan Assessment: Ongoing persistent shortness of breath, significantly improved post right thoracentesis Severe aortic bioprosthetic valve stenosis and severe aortic regurgitation Reduced cardiac output with cardiomyopathy ejection fraction of 20% moderate right pleural effusion Very small left-sided pleural effusion Chronic atrial fibrillation Plan: Follow-up on cytology and culture results are pending, will monitor clinical course closely Time with Patient: Greater than 30
[2020-09-24] MEDS: HEPARIN SOD,PORK IN 0.45% NACL 25,000 UNIT in 0.45% NACL 1 250ML.BAG IV SCH (14:26)
[2020-09-24 16:43] LABS: Glucose,Whole Blood 240 mg/dL (75-99)
[2020-09-24 20:21] LABS: Glucose,Whole Blood 248 mg/dL (75-99)
[2020-09-24] MEDS: MELATONIN 3 MG TABLET PO SCH (20:42)
[2020-09-24 20:51] LABS: Glucose, BF Source Pleural Fluid; Glucose, Body Fluid 152 mg/dL; LDH, Body Fluid Source Pleural Fluid; Total Protein, Body Fluid 2200 mg/dL
[2020-09-24] MEDS: HEPARIN SODIUM 1,000 UN/ML (10ML VL) IV PRN (20:54)
[2020-09-25 03:10] LABS: AST 266 U/L (17-59); African American GFR (CKD) >90 (>60 ml/min/1.73 sqM); Albumin 3.2 g/dL (3.5-5.0); Alkaline Phosphatase 160 U/L (38-126); Anion Gap 9 mmol/L; Blood Urea Nitrogen 34 mg/dL (9-20); Calcium 8.8 mg/dL (8.4-10.2); Carbon Dioxide 26 mmol/L (22-30); Chloride 101 mmol/L (98-107); Glucose 92 mg/dL (74-99); Non-African American GFR(CKD) >90 (>60 ml/min/1.73 sqM); Potassium 3.5 mmol/L (3.5-5.1); Sodium 136 mmol/L (137-145); Total Bilirubin 1.6 mg/dL (0.2-1.3); Total Protein 5.5 g/dL (6.3-8.2)
[2020-09-25 04:10] LABS: ALT 918 U/L (4-49)
[2020-09-25] MEDS: INSULIN ASPART (NovoLOG) 100 UNIT/ML VIAL SQ SCH ×4 (06:06→21:03)
[2020-09-25 06:07] LABS: Glucose,Whole Blood 130 mg/dL (75-99)
[2020-09-25] MEDS: FUROSEMIDE 10 MG/ML 4 ML VIAL IV SCH ×2 (09:04→21:03)
[2020-09-25] MEDS: CHOLECALCIFEROL 25 MCG (1000 IU) TABLET PO SCH (10:18)
[2020-09-25] MEDS: ASPIRIN 81 MG PO SCH (10:18)
[2020-09-25] MEDS: METOPROLOL SUCCINATE (ER) 50 MG TAB.ER.24H PO SCH (10:19)
[2020-09-25] MEDS: FAMOTIDINE 20 MG TAB PO SCH (10:19)
[2020-09-25] MEDS: MUPIROCIN 2% OINT 22 GM TUBE NASAL SCH ×2 (10:20→21:04)
--- NOTE | 2020-09-25 11:12 | P.PN ---
Subjective Progress Note Date: 09/25/20 Principal diagnosis: Moderate to severe aortic bioprosthetic stenosis with severe aortic insufficiency and mildly dilated aortic root, mild to moderate mitral valve regurgitation, nonischemic cardiomyopathy, acute on chronic systolic heart failure, elevated transaminase enzymes, dyspnea, bilateral pleural effusions right greater than left. Previous medical history of persistent atrial fibrillation status post failed cardioversion and 2 ablations, chronic systolic heart failure with an ejection fraction < 20%, bicuspid aortic valve status post bioprosthetic aortic valve replacement in 2004, hypertension, hyperlipidemia, diabetes mellitus type 2, prostate disorder, GERD, vitamin D deficiency, generalized debilitation and weakness Patient's currently sitting up in a recliner on the cardiac stepdown unit in no acute distress. Denies any pain, states shortness of breath has significantly improved since thoracentesis, he is currently on room air with adequate oxygenat ion, and able to take deeper breaths on his incentive spirometer. States he was able to get sleep last night. PAULINE completed yesterday, results reviewed with Dr. Guaman. No new questions. Objective - Vital Signs Vital signs: Vital Signs Temp 96.5 F L 09/25/20 08:49 Pulse 106 H 09/25/20 08:49 Resp 14 09/25/20 08:49 BP 105/55 09/25/20 08:49 Pulse Ox 95 09/25/20 08:49 Intake & Output 09/24/20 09/25/20 09/25/20 18:59 06:59 18:59 Intake Total 590 153.424 Output Total 2600 225 Balance 590 -2446.576 -225 Weight 84.6 kg Intake: IV 50 Intake, IV Titration 0 153.424 Amount Heparin Sod,Pork in 0.45% 0 153.424 NaCl 25,000 unit In 0.45 % NaCl 1 250ml.bag @ 11. 41 UNITS/KG/HR 9.995 mls/ hr IV .Q24H E[facility]K Rx#: [id number] Oral 540 Output: Urine 2600 225 Other: Voiding Method Toilet Toilet # Voids 5 # Bowel Movements 0 - Exam CONSTITUTIONAL: Appears comfortable, cooperative, no acute distress RESPIRATORY: Lungs sounds diminished bilaterally. Respirations even, nonlabored. Currently on room air with oxygen saturation 97%. Strong dry cough. CARDIOVASCULAR: S1, S2 present, systolic murmur present. Regular rate and rhythm, controlled atrial flutter on telemetry. Palpable peripheral pulses bilaterally. Trace bilateral lower extremity edema present. No calf pain or tenderness noted. GASTROINTESTINAL: Abdomen soft, nontender, nondistended. Active bowel sounds present 4 quadrants. Tolerating diet GENITOURINARY: Continues to void clear, yellow urine. INTEGUMENTARY: Skin is warm and dry with evidence of good perfusion. NEUROLOGIC: Cranial nerves II through XII intact MUSKULOSKELETAL: Able to move all extremities, strength equal bilaterally, gait normal PSYCHIATRIC: Alert and oriented to person place and time, appropriate affect, intact judgment and insight - Allied health notes Allied health notes reviewed: nursing - Labs CBC & Chem 7: 09/24/20 05:59 09/25/20 02:30 Labs: Abnormal Lab Results - Last 24 Hours (Table) 09/24/20 09/24/20 09/24/20 Range/Units 11:42 16:40 20:18 APTT (22.0-30.0) sec Sodium (137-145) mmol/L BUN (9-20) mg/dL POC Glucose (mg/dL) 111 H 240 H 248 H (75-99) mg/dL Total Bilirubin (0.2-1.3) mg/dL AST (17-59) U/L ALT (4-49) U/L Alkaline Phosphatase (38-126) U/L Total Protein (6.3-8.2) g/dL Albumin (3.5-5.0) g/dL 09/25/20 09/25/20 09/25/20 Range/Units 02:30 02:30 06:00 APTT 99.6 H (22.0-30.0) sec Sodium 136 L (137-145) mmol/L BUN 34 H (9-20) mg/dL POC Glucose (mg/dL) 130 H (75-99) mg/dL Total Bilirubin 1.6 H (0.2-1.3) mg/dL AST 266 H (17-59) U/L ALT 918 H (4-49) U/L Alkaline Phosphatase 160 H (38-126) U/L Total Protein 5.5 L (6.3-8.2) g/dL Albumin 3.2 L (3.5-5.0) g/dL Microbiology - Last 24 Hours (Table) 09/23/20 19:30 Acid Fast Bacilli Smear - Final Pleural Fluid Acid Fast Bacilli Culture - Preliminary 09/23/20 19:30 Gram Stain - Preliminary Pleural Fluid Body Fluid Culture - Preliminary 09/23/20 19:30 Fungal Culture - Preliminary Pleural Fluid Assessment and Plan Assessment: 1. 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 Moderate central mitral valve regurgitation 3. Nonischemic cardiomyopathy, global hypokinesis of the LV, EF 25% 4. Acute on chronic systolic heart failure, BNP 15,500 on admission 5. Elevated transaminase enzymes, trending down 6. Dyspnea 7. Bilateral pleural effusions right greater than left, status post right sided thoracentesis with removal of 1.4 L fluid 8. History of persistent atrial fibrillation status post failed cardioversion and 2 ablations 9. Chronic systolic heart failure 10. History of bicuspid aortic valve status post bioprosthetic aortic valve replacement in 2004 11. Hypertension 12. Hyperlipidemia, treated, cholesterol 116, LDL 62 13. Diabetes mellitus type 2, hemoglobin A1c 7.3% 14. Prostate disorder 15. GERD 16. Vitamin D deficiency 17. Generalized debilitation and weakness Plan: 1. Continue to optimize medical management with aspirin, beta crissy, diuresis. 2. Statin is currently on hold due to his elevated AST and ALT. Continue to mo nitor liver enzymes. 3. The patient would be considered very high risk candidate for re-do sternoto my and surgical aortic valve replacement. He may be considered for TAVR, will need gated computed tomography scan per TAVR protocol when okay with primary and cardiology. Patient and his to determine preferred site for TAVR, [facility] versus [facility] 4. Atrial flutter, heart failure management per cardiology 5. Increase activity, ambulate as tolerated. Cardiac rehab following. 6. Encourage use of his incentive spirometry 10 times every hour while awake. 7. Medical management of other comorbidities per primary care service 8. More recommendations to follow based on patient's clinical course. Time with Patient: Greater than 30
[2020-09-25 11:58] LABS: Glucose,Whole Blood 199 mg/dL (75-99)
[2020-09-25] MEDS: HEPARIN SOD,PORK IN 0.45% NACL 25,000 UNIT in 0.45% NACL 1 250ML.BAG IV SCH (12:47)
--- NOTE | 2020-09-25 13:22 | P.PN ---
Subjective This is a pleasant 69-year-old male past medical history significant for bicuspid aortic valve status post bioprosthetic aortic valve replacement, persistent atrial fibrillation s/p failed cardioversion, diabetes mellitus, hypertension, dyslipidemia, SVT s/p ablation, PVC ablation and recent worsening non-ischemic cardiomyopathy thought to be related to afib. He follows in the office with Dr. Perrin. Patient was recently in the hospital from 09/05/2020 to 09/09/2020. During his hospital stay patient had large left pleural effusion . He was managed with IV Lasix, his symptoms improved and eventually the patient was started on Entresto, by cardiology and discharged home. We have been asked to see in consultation for heart failure. Patient admitted on 09/15/20. In the ER, patient had a chest x-ray showing evidence of right lower lobe opacity concerning for atelectasis and an elevated BNP of 15,000. Patient was seen by Dr. Perrin, Tikosyn was initiated on 09/14/20. Patient was started back on Entresto. Patient underwent cardioversion on 09/17/20 with successful conversion to sinus rhythm. Tikosyn was stopped on 09/21/20 morning. Limited Echocardiogram on 09/17/20: severe global hypokinesis of LV, EF <20%. 09/18- patient was hyperkalemic - enresto and Aldactone was held 09/22/2020 Patient examined this morning at the bedside. He is status post cardiac catheterization with Dr. Camargo yesterday that revealed mild proximal LAD 30% stenosis, elevated left and right filling pressures, 4+ severe aortic insufficiency, mildly dilated aortic root, decreased cardiac output and cardiac index. Patient complaining of shortness of breath and 1+ lower extremity edema, and JVD noted. Per chart also with weight gain 87.6kg from 84kg. Telemetry reviewed- currently in sinus mechanism with occasional PVCs. HR 70s. Laboratory data reviewed, Sodium 134, K 5.9, sCr 1.15, BUN 53, Mag 2.6, Liver enzymes elevated previous normal on 09/20/20, AST >1500, ALD 1330, Alk Phos 185. 09/23/2020: Patient examined this morning at the bedside. States he feels better but continues to have ongoing consistent SOB. 1+lower extremity and edema and JVD. ultrasound of the chest- bilateral pleural effusions greater on the right. Ultrasound the gallbladder within normal limits. Telemetry reviewed- patient in atrial fibrillation, heart rate 6070s 09/24/2020: Patient s/p right sided thoracentesis with 1.4L dark yellow fluid removed. He states his breathing is improved. BP 99/56 HR 80s. Telemetry with 6-7 beat runs of Vtach. In atrial fibrillation/atrial flutter. HR 80s-90s. Lab data reviewed, sodium 137, serum creatinine 1.17 (1.50 yesterday) total bilirubin 1.1, LFTs are improving AST 522, ALT 1151, alkaline phosphates 144. 09/25/2020: Patient underwent PAULINE yesterday which revealed bioprostehtic aortic valve with moderate calcification, severe central aortic insufficiency, tethering of the mitral valve leaflets related to cardiomyopathy, moderate central secondary mitral regurgition, mild tricuspid regurgitation. There is severe left ventricular dysfunction with EF 25% and global hypokinesis. LA is moderately dilated. No evidence of PFO. Left atrial appendage is free of clot. Patient seen and examined at bedside. Continues to have shortness of breath with activity and fatigue but feeling better. I/Os with good urine output (-1856mL urine output). Sodium 136, potassium 3.5, serum creatinine 0.81, LFTs are improving- AST 266, ALT 19, alkaline phosphatase 160 PHYSICAL EXAM: VITAL SIGNS: BP 106/66 HR 91 maintaining oxygen saturation 97% on room air, afebrile GENERAL: Patient appears short of breath. No acute distress on exam NECK: JVD improved LUNGS: Respirations even and unlabored. Right lower base with crackles, other lung lees clear HEART: Regular rate and rhythm. S1 and S2 heard. Systolic murmur noted. EXTREMITIES: Normal range of motion. No clubbing or cyanosis. Peripheral pulses intact. trace bilateral lower extremity edema- improving ASSESSMENT: Acute on chronic heart failure with reduced EF Non-ischemic cardiomyopathy Elevated Liver Enzymes - most likely hepatic congestion due to heart failure Persistent atrial fibrillation, s/p cardioversion, maintaining sinus mechanism - currently on heparin gtt 4+ severe aortic insufficiency Mildly dialted aortic root Pleural Effusions- pulmonary following Decreased cardiac output History of failed cardioversion Valvular heart disease s/p aortic valve replacement Mitral regurgitation history of Hypertension- currently hypotensive Dyslipidemia PLAN: -Continue IV Lasix -Continue heparin drip -Patient is currently being worked up for cardiac valve surgery -From cardiology perspective Ok to proceed with gated computed tomography scan per TAVR protocol in a 1-2 days to monitor kidney function. Patient should not be hydrated with IV fluids with risk of going into failure -Statin on hold for elevated liver enzymes -Cardiothoracic surgery is following -Pulmonary is following -Will make further recommendations based on clinic course Nurse practitioner note has been reviewed by physician. Signing provider agrees with the documented findings, assessment, and plan of care. Objective - Vital Signs Vital signs: Vital Signs Temp 97.7 F 09/24/20 19:23 Pulse 80 09/24/20 19:23 Resp 12 09/24/20 19:23 BP 99/62 09/24/20 19:23 Pulse Ox 97 09/24/20 19:23 Intake & Output 09/24/20 09/24/20 09/25/20 06:59 18:59 06:59 Intake Total 590 Balance 590 Weight 86.2 kg Intake: IV 50 Intake, IV Titration 0 Amount Heparin Sod,Pork in 0.45% 0 NaCl 25,000 unit In 0.45 % NaCl 1 250ml.bag @ 11. 41 UNITS/KG/HR 9.995 mls/ hr IV .Q24H ERI[facility] Rx#: [id number] Oral 540 Other: Voiding Method Toilet Toilet # Bowel Movements 0 - Labs CBC & Chem 7: 09/24/20 05:59 09/25/20 02:30 Labs: Abnormal Lab Results - Last 24 Hours (Table) 09/23/20 09/24/20 09/24/20 Range/Units 19:59 05:59 05:59 Plt Count 94 L (150-450) k/uL Carbon Dioxide 32 H (22-30) mmol/L BUN 48 H (9-20) mg/dL POC Glucose (mg/dL) 162 H (75-99) mg/dL AST 522 H (17-59) U/L ALT 1151 H (4-49) U/L Alkaline Phosphatase 144 H (38-126) U/L Total Protein 5.2 L (6.3-8.2) g/dL Albumin 3.0 L (3.5-5.0) g/dL 09/24/20 09/24/20 Range/Units 11:42 16:40 Plt Count (150-450) k/uL Carbon Dioxide (22-30) mmol/L BUN (9-20) mg/dL POC Glucose (mg/dL) 111 H 240 H (75-99) mg/dL AST (17-59) U/L ALT (4-49) U/L Alkaline Phosphatase (38-126) U/L Total Protein (6.3-8.2) g/dL Albumin (3.5-5.0) g/dL Microbiology - Last 24 Hours (Table) 09/23/20 19:30 Acid Fast Bacilli Culture - Preliminary Pleural Fluid 09/23/20 19:30 Fungal Culture - Preliminary Pleural Fluid 09/23/20 19:30 Body Fluid Culture - Preliminary Pleural Fluid 09/22/20 17:14 Nasal Screen MRSA/MSSA - Final Nasal Swab
--- NOTE | 2020-09-25 16:04 | P.PN ---
Subjective Mr. Monreal is a history pleasant 69-year-old male with a past medical history of bicuspid aortic wall status post bioprosthetic aortic wall replacement, persistent atrial fibrillation status post failed cardioversion, diabetes mellitus, hypertension, dyslipidemia, SVT s/p ablation, PVC ablation and recent worsening non-ischemic cardiomyopathy thought to be related to afib, who follows in the office with Dr. Perrin coming in with a chief complaint of exertional dyspnea. Patient was recently in the hospital from 09/05/2020 to 09/09/2020. During his hospital stay patient had large left pleural effusion. He was managed with IV Lasix, his symptoms improved and eventually the patient was started on Entresto, by cardiology and discharged home. Patient states that since being discharged he noticed that his difficulty in breathing has worsened along with his cough. Patient states that his cough that he has been having for the past 1 month is improving. He is bringing up white thick sputum. Patient denies having any fevers chills or rigors. He denies having orthopnea PND. He states that his lower extremity swelling has worsened. Patient denies having any abdominal pain, but states that he has feeling of butterflies in his belly when he takes metformin. He also states that for the past 2-3 days he has been having generalized weakness and fatigue. Patient denies having any nausea vomiting or diarrhea. No dysuria or hematuria. Denies having any sick contacts. In the ER, patient had a chest x-ray showing evidence of right lower lobe opacity concerning for atelectasis and an elevated BNP of 15,000. He was given a low dose of Lasix due to his low blood pressure and eventually started on 50 mL of IV normal saline and admitted for further management. On reviewing his labs white count of 7 hemoglobin 15.8, platelets 112. Sodium 135, potassium 5.14, chloride 104, bicarbonate 22, BUN 20, [place] [address]. Troponin 0.013. 09/14/2020 Patient remains on IV Lasix patient still has significant swelling in bilateral lower extremities patient is found to have persistent atrial fibrillation which may be contributing to his heart failure exacerbations. Cardiology evaluated the patient is recommending admitting the patient and starting patient on dofetilide. Patient was started back on Entresto. Patient the shortness of breath significantly improved and patient was apparently having abdominal discom fort at home and he believes it secondary to metformin and this discomfort completely resolved 09/15/2020 Patient's pedal edema significant improved. Patient is being started on dofetilide 09/16/2020 Patient will undergo cardioversion tomorrow patient is euvolemic patient was switched to oral Lasix. 09/17/2020 Patient underwent cardioversion presently and opiate allied which will be continued presently sinus rhythm patient will be monitored overnight possibility of discharge tomorrow patient remains on oral Lasix. 09/18/2020 Patient potassium is high at around 6 mildly hemolyzed. We will hold off on Entresto and Aldactone for now. 09/19/2020 Patient's potassium has come down patient appeared to be evaluated by electrophysiology unfortunately cannot discharge this patient as patient was not evaluated by Dr. Lopez yet. 09/20/2020 patient will undergo right heart catheterization patient's sodium is on 133 today. Patient is complaining of constipation and was started on MiraLAX 09/21/2020 patient will undergo right heart catheterization today, had Bowel movements yesterday. Patient's serum sodium is 133 stable at this level potassium is 5.2. 09/22/2020 Appears to be in heart failure today patient is coming of shortness of breath patient does have increased pedal edema also has elevated JVD and that did gain weight patient had a CT of the chest as part of workup for cardiac valve surgery or intervention which showed bilateral pleural effusions appears to have pulm onary edema on the CAT scan CAT scan was reviewed by me. Patient had a cardiac catheterization yesterday which showed severe diuretic insufficiency with mildly dilated aortic root. Cardio thoracic surgeries a valid in the patient patient has highly elevated liver enzymes probably secondary to hepatic congestion worse and the creatinine to 1.15 patient does appear to have acidosis with anion gap of 15. hyponatremic. Hyperkalemic although patient had hemolysis patient will be on low potassium diet. Ultrasound of the liver was ordered because of elevated liver enzymes 09/23/2020 Patient clinically looks okay but that definitely in heart failure clinically patient's went down a bit to 132 creatinine went up to 1.5 patient will be continued on IV Lasix. Patient still appears to have significant hepatic congestion with elevated AST and ALT although AST did improve a bit patient bilirubin is elevated as well and INR is elevated to 1.7 all secondary to hepatic congestion. Ultrasound of the gallbladder essentially within normal limits which is not expected. Patient was evaluated by pulmonary and patient will undergo thoracentesis on the right side patient does have bilateral pleural effusions. 09/24/2020 Patient had thoracentesis with removal of around 1.4 L of serous fluid. Patient is feeling bit better today, his metabolic profile showed improving ALT and AST 09/25/2020 Patient is feeling much better patient's renal function as well as liver function improved at this time. Commit cardio thoracic surgery is evaluating for TAVR, patient is a high risk for sternotomy as per cardio thoracic surgery. Constitutional: Denied any fatigue denied any fever. Cardio vascular: denied any chest pain, palpitations Gastrointestinal denied any nausea vomiting Pulmonary: Shortness of breath completely resolved at this time Neurologic denied any new focal deficits All inpatient medications were reviewed and appropriate changes in these medications as dictated in the interval history and assessment and plan. Objective - Vital Signs Vital signs: Vital Signs Temp 96.1 F L 09/25/20 15:57 Pulse 67 09/25/20 15:57 Resp 16 09/25/20 15:57 BP 91/56 09/25/20 15:57 Pulse Ox 97 09/25/20 15:57 Intake & Output 09/24/20 09/25/20 09/25/20 18:59 06:59 18:59 Intake Total 590 153.424 328.622 Output Total 2600 1475 Balance 590 -2446.576 -1146.378 Weight 84.6 kg Intake: IV 50 Intake, IV Titration 0 153.424 88.622 Amount Heparin Sod,Pork in 0.45% 0 153.424 88.622 NaCl 25,000 unit In 0.45 % NaCl 1 250ml.bag @ 11. 41 UNITS/KG/HR 9.995 mls/ hr IV .Q24H ERIK Rx#: [id number] Oral 540 240 Output: Urine 2600 1475 Other: Voiding Method Toilet Toilet Urinal # Voids 5 # Bowel Movements 0 - Exam PHYSICAL EXAMINATION: GENERAL: The patient is alert and oriented x3, not in any acute distress. Well developed, well nourished. HEENT: Pupils are round and equally reacting to light. EOMI. No scleral icterus. No conjunctival pallor. Normocephalic, atraumatic. No pharyngeal erythema. No thyromegaly. CARDIOVASCULAR: S1 and S2 present. No rubs, or gallops. Patient doesn't have any JVD today PULMONARY: Bibasilar crackles ABDOMEN: Soft, nontender, nondistended, normoactive bowel sounds. No palpable organomegaly. MUSCULOSKELETAL: No joint swelling or deformity. EXTREMITIES: No cyanosis, clubbing, no pedal edema today NEUROLOGICAL: Gross neurological examination did not reveal any focal deficits. SKIN: No rashes. - Labs CBC & Chem 7: 09/24/20 05:59 09/25/20 02:30 Labs: Abnormal Lab Results - Last 24 Hours (Table) 09/24/20 09/24/20 09/25/20 Range/Units 16:40 20:18 02:30 APTT 99.6 H (22.0-30.0) sec Sodium (137-145) mmol/L BUN (9-20) mg/dL POC Glucose (mg/dL) 240 H 248 H (75-99) mg/dL Total Bilirubin (0.2-1.3) mg/dL AST (17-59) U/L ALT (4-49) U/L Alkaline Phosphatase (38-126) U/L Total Protein (6.3-8.2) g/dL Albumin (3.5-5.0) g/dL 09/25/20 09/25/20 09/25/20 Range/Units 02:30 06:00 10:42 APTT 54.1 H (22.0-30.0) sec Sodium 136 L (137-145) mmol/L BUN 34 H (9-20) mg/dL POC Glucose (mg/dL) 130 H (75-99) mg/dL Total Bilirubin 1.6 H (0.2-1.3) mg/dL AST 266 H (17-59) U/L ALT 918 H (4-49) U/L Alkaline Phosphatase 160 H (38-126) U/L Total Protein 5.5 L (6.3-8.2) g/dL Albumin 3.2 L (3.5-5.0) g/dL 09/25/20 Range/Units 11:54 APTT (22.0-30.0) sec Sodium (137-145) mmol/L BUN (9-20) mg/dL POC Glucose (mg/dL) 199 H (75-99) mg/dL Total Bilirubin (0.2-1.3) mg/dL AST (17-59) U/L ALT (4-49) U/L Alkaline Phosphatase (38-126) U/L Total Protein (6.3-8.2) g/dL Albumin (3.5-5.0) g/dL Microbiology - Last 24 Hours (Table) 09/23/20 19:30 Gram Stain - Preliminary Pleural Fluid Body Fluid Culture - Preliminary 09/23/20 19:30 Acid Fast Bacilli Smear - Final Pleural Fluid Acid Fast Bacilli Culture - Preliminary 09/23/20 19:30 Fungal Culture - Preliminary Pleural Fluid Assessment and Plan Plan: Acute exacerbation of chronic systolic heart failure: She and is in acute exacerbation again today patient is on IV Lasix patient is status post cardioversion, sinus rhythm, And had cardiac catheterization which showed severe aortic insufficiency with a dilated aortic root. Patient's heart failure significantly improved. Patient had a PAULINE which showed moderate to severe aortic stenosis severe aortic insufficiency moderate to severe mitral re gurgitation. Patient is being considered for TAVR as he is at high risk for sternotomy. Systolic heart failure with ejection fraction less than 20% was treated for heart failure exacerbation.. Pleural effusions: Significant on the right side patient had thoracic sepsis with removal of around 1.4 L of fluid. -transaminitis with elevated zyme secondary to congestive heart failure and hepatic condition improving with IV Lasix. -Severe aortic regurgitation patient had a reticulocyte valvular surgery in the past and will need either valve replacement or TAVR -Hyperkalemia: Improved now Nonischemic cardiomyopathy Persistent atrial fibrillation status post cardioversion, patient of fluid back to atrial fibrillation again because of hypoxemia and CHF Thrombocytopenia Hypertension GERD Diabetes mellitus BPH Migraine headaches Scoliosis Chronic low back pain Vitamin D deficiency
[2020-09-25 17:07] LABS: Glucose,Whole Blood 179 mg/dL (75-99)
--- NOTE | 2020-09-25 17:59 | P.PN ---
Subjective Progress Note Date: 09/25/20 Principal diagnosis: Ongoing persistent shortness of breath Severe aortic bioprosthetic valve stenosis and severe aortic regurgitation Reduced cardiac output with cardiomyopathy ejection fraction of 20% Small to moderate right pleural effusion Very small left-sided pleural effusion Chronic atrial fibrillation 09/25/2020, patient seen eval examined during the rounds labs reviewed medications reviewed patient has been doing well oxygen saturation remains 9596%, denies any cough or sputum production denies any chest pain, pleural fluid cytology report remains pending, 09/24/2020, patient seen eval reexamined during the rounds labs reviewed medications reviewed, no more chest pain is present shortness of breath significant improved patient has been on room air oxygen saturation is 95-96%, status post PAULINE, findings noted with bioprosthetic aortic well along with calc ification, moderate to severe insufficiency noted, status post right thoracentesis is 1.4 L of fluid has been removed, cytology pending 09/23/2020, patient seen eval examined during the rounds labs reviewed medications reviewed, denies any chest pain but have cough and severe shortness of breath, surgical service evaluating however the valve surgery likely will occur a few weeks later, patient is being planned for PAULINE tomorrow patient would like to pursue and proceed with a right thoracentesis for diagnostic and therapeutic purposes Patient is a 69-year-old male with the prior medical history of bicuspid aortic valve status post to the bioprosthetic valve placement, patient has chronic atr ial fibrillation, also has prior medical problems including diabetes mellitus hypertension hypertensive cardiovascular disease status post ablation, patient has a nonischemic cardiomyopathy thought to be related to A. fib, patient was hospitalized in August for shortness of breath found to have pleural effusion however responded well with conservative management, patient has been on direct oral anticoagulants which have been nonstop currently patient is on heparin, on arrival patient noted to have a right-sided pleural effusion some on the left side, are sound performed revealed moderate right-sided effusion also very small left-sided effusion, patient noted to have elevated AST and ALT with total bilirubin of 2, AST is 1500 ALT is 1330 alk phos 185, recent cardiac cath and angiogram shows mild coronary artery disease with LAD of 30% stenosis elevated right and left-sided pressures, 4+ severe aortic insufficiency, decreased carbonate output and cardiac index were noted, off respectively 2.89 and 1.4 to Objective - Vital Signs Vital signs: Vital Signs Temp 96.1 F L 09/25/20 15:57 Pulse 67 09/25/20 15:57 Resp 16 09/25/20 16:35 BP 91/56 09/25/20 15:57 Pulse Ox 97 09/25/20 15:57 Intake & Output 09/24/20 09/25/20 09/25/20 18:59 06:59 18:59 Intake Total 590 153.424 328.622 Output Total 2600 1700 Balance 590 -2446.576 -1371.378 Weight 84.6 kg Intake: IV 50 Intake, IV Titration 0 153.424 88.622 Amount Heparin Sod,Pork in 0.45% 0 153.424 88.622 NaCl 25,000 unit In 0.45 % NaCl 1 250ml.bag @ 11. 41 UNITS/KG/HR 9.995 mls/ hr IV .Q24H ERIK Rx#: [id number] Oral 540 240 Output: Urine 2600 1700 Other: Voiding Method Toilet Toilet Toilet # Voids 5 # Bowel Movements 0 - Exam - Constitutional General appearance: average body habitus, cooperative, disheveled - EENT Eyes: PERRLA Ears: bilateral: normal - Neck Neck: normal ROM Carotids: bilateral: upstroke normal Thyroid: bilateral: normal size - Respiratory Respiratory: bilateral: diminished - Cardiovascular Heart sounds: normal: S1, S2 - Gastrointestinal General gastrointestinal: decreased bowel sounds - Integumentary Integumentary: decreased turgor - Neurologic Neurologic: CNII-XII intact - Musculoskeletal Musculoskeletal: gait normal, generalized weakness, strength equal bilaterally - Psychiatric Psychiatric: A&O x's 3, appropriate affect, intact judgment & insight - Labs CBC & Chem 7: 09/24/20 05:59 09/25/20 02:30 Labs: Abnormal Lab Results - Last 24 Hours (Table) 09/24/20 09/25/20 09/25/20 Range/Units 20:18 02:30 02:30 APTT 99.6 H (22.0-30.0) sec Sodium 136 L (137-145) mmol/L BUN 34 H (9-20) mg/dL POC Glucose (mg/dL) 248 H (75-99) mg/dL Total Bilirubin 1.6 H (0.2-1.3) mg/dL AST 266 H (17-59) U/L ALT 918 H (4-49) U/L Alkaline Phosphatase 160 H (38-126) U/L Total Protein 5.5 L (6.3-8.2) g/dL Albumin 3.2 L (3.5-5.0) g/dL 09/25/20 09/25/20 09/25/20 Range/Units 06:00 10:42 11:54 APTT 54.1 H (22.0-30.0) sec Sodium (137-145) mmol/L BUN (9-20) mg/dL POC Glucose (mg/dL) 130 H 199 H (75-99) mg/dL Total Bilirubin (0.2-1.3) mg/dL AST (17-59) U/L ALT (4-49) U/L Alkaline Phosphatase (38-126) U/L Total Protein (6.3-8.2) g/dL Albumin (3.5-5.0) g/dL 09/25/20 Range/Units 17:05 APTT (22.0-30.0) sec Sodium (137-145) mmol/L BUN (9-20) mg/dL POC Glucose (mg/dL) 179 H (75-99) mg/dL Total Bilirubin (0.2-1.3) mg/dL AST (17-59) U/L ALT (4-49) U/L Alkaline Phosphatase (38-126) U/L Total Protein (6.3-8.2) g/dL Albumin (3.5-5.0) g/dL Microbiology - Last 24 Hours (Table) 09/23/20 19:30 Gram Stain - Preliminary Pleural Fluid Body Fluid Culture - Preliminary 09/23/20 19:30 Acid Fast Bacilli Smear - Final Pleural Fluid Acid Fast Bacilli Culture - Preliminary 09/23/20 19:30 Fungal Culture - Preliminary Pleural Fluid Assessment and Plan Assessment: Ongoing persistent shortness of breath, significantly improved post right thoracentesis Severe aortic bioprosthetic valve stenosis and severe aortic regurgitation Reduced cardiac output with cardiomyopathy ejection fraction of 20% moderate right pleural effusion Very small left-sided pleural effusion Chronic atrial fibrillation Plan: Continue deep breathing exercise incentive spirometry Follow-up on cytology and culture results are pending, will monitor clinical course closely Time with Patient: Greater than 30
[2020-09-25 20:20] LABS: Glucose,Whole Blood 200 mg/dL (75-99)
[2020-09-25] MEDS: MELATONIN 3 MG TABLET PO SCH (21:03)
[2020-09-26 06:18] LABS: Glucose,Whole Blood 110 mg/dL (75-99)
[2020-09-26] MEDS: INSULIN ASPART (NovoLOG) 100 UNIT/ML VIAL SQ SCH ×4 (06:22→20:40)
--- NOTE | 2020-09-26 07:53 | P.PN ---
Subjective Progress Note Date: 09/26/20 Principal diagnosis: Moderate to severe aortic bioprosthetic stenosis with severe aortic insufficiency and mildly dilated aortic root, mild to moderate mitral valve regurgitation, nonischemic cardiomyopathy, acute on chronic systolic heart failure, elevated transaminase enzymes, dyspnea, bilateral pleural effusions right greater than left. Previous medical history of persistent atrial fibrillation status post failed cardioversion and 2 ablations, chronic systolic heart failure with an ejection fraction < 20%, bicuspid aortic valve status post bioprosthetic aortic valve replacement in 2004, hypertension, hyperlipidemia, diabetes mellitus type 2, prostate disorder, GERD, vitamin D deficiency, generalized debilitation and weakness Patient's currently sitting up in a recliner on the cardiac stepdown unit in no acute distress. Denies any pain, shortness of breath, he is currently on room air with adequate oxygenation, and able to take deeper breaths on his incentive spirometer. States he discussed where he would like his TAVR completed with his and they would prefer TAVR to be completed at [facility]. Patient will need gated CT, this was discussed with the patient. All questions answered Objective - Vital Signs Vital signs: Vital Signs Temp 97.7 F 09/26/20 04:00 Pulse 87 09/26/20 04:00 Resp 18 09/26/20 04:00 BP 90/53 09/26/20 04:00 Pulse Ox 98 09/26/20 04:00 Intake & Output 09/25/20 09/26/20 09/26/20 18:59 06:59 18:59 Intake Total 568.622 Output Total 1700 700 Balance -1131.378 -700 Weight 84.3 kg Intake: Intake, IV Titration 88.622 Amount Heparin Sod,Pork in 0.45% 88.622 NaCl 25,000 unit In 0.45 % NaCl 1 250ml.bag @ 11. 41 UNITS/KG/HR 9.995 mls/ hr IV .Q24H ERIK Rx#: [id number] Oral 480 Output: Urine 1700 700 Other: Voiding Method Toilet Toilet # Bowel Movements 1 - Exam CONSTITUTIONAL: Appears comfortable, cooperative, no acute distress RESPIRATORY: Lungs sounds diminished bilaterally. Respirations even, nonlabored. Currently on room air with oxygen saturation 98%. Strong dry cough. Able to achieve 1250 mL on his incentive spirometry CARDIOVASCULAR: S1, S2 present, systolic murmur present. Regular rate and rhythm, controlled atrial flutter on telemetry. Palpable peripheral pulses bilaterally. Trace bilateral lower extremity edema present. No calf pain or tenderness noted. GASTROINTESTINAL: Abdomen soft, nontender, nondistended. Active bowel sounds present 4 quadrants. Tolerating diet GENITOURINARY: Continues to void clear, yellow urine. INTEGUMENTARY: Skin is warm and dry with evidence of good perfusion. NEUROLOGIC: Cranial nerves II through XII intact MUSKULOSKELETAL: Able to move all extremities, strength equal bilaterally, gait normal PSYCHIATRIC: Alert and oriented to person place and time, appropriate affect, intact judgment and insight - Allied health notes Allied health notes reviewed: nursing - Labs CBC & Chem 7: 09/24/20 05:59 09/25/20 02:30 Labs: Abnormal Lab Results - Last 24 Hours (Table) 09/25/20 09/25/20 09/25/20 Range/Units 10:42 11:54 17:05 APTT 54.1 H (22.0-30.0) sec POC Glucose (mg/dL) 199 H 179 H (75-99) mg/dL 09/25/20 09/26/20 Range/Units 20:19 06:17 APTT (22.0-30.0) sec POC Glucose (mg/dL) 200 H 110 H (75-99) mg/dL Microbiology - Last 24 Hours (Table) 09/23/20 19:30 Gram Stain - Preliminary Pleural Fluid Body Fluid Culture - Preliminary 09/23/20 19:30 Acid Fast Bacilli Smear - Final Pleural Fluid Acid Fast Bacilli Culture - Preliminary Assessment and Plan Assessment: 1. 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 Moderate central mitral valve regurgitation 3. Nonischemic cardiomyopathy, global hypokinesis of the LV, EF 25% 4. Acute on chronic systolic heart failure, BNP 15,500 on admission 5. Elevated transaminase enzymes, trending down 6. Dyspnea 7. Bilateral pleural effusions right greater than left, status post right sided thoracentesis with removal of 1.4 L fluid 8. History of persistent atrial fibrillation status post failed cardioversion and 2 ablations 9. Chronic systolic heart failure 10. History of bicuspid aortic valve status post bioprosthetic aortic valve replacement in 2004 11. Hypertension 12. Hyperlipidemia, treated, cholesterol 116, LDL 62 13. Diabetes mellitus type 2, hemoglobin A1c 7.3% 14. Prostate disorder 15. GERD 16. Vitamin D deficiency 17. Generalized debilitation and weakness Plan: 1. Continue to optimize medical management with aspirin, beta crissy, diuresis. 2. Statin is currently on hold due to his elevated AST and ALT. Continue to monitor liver enzymes. 3. The patient would be considered very high risk candidate for re-do sternotomy and surgical aortic valve replacement. He may be considered for TAVR, will need gated computed tomography scan per TAVR protocol. Cardiology has cleared patient for gated CT in the next 24-48 hours, does not recommend hydration protocol due to increased risk for volume overload. Patient and his would like TAVR completed at [facility], once gated CT has been completed all studies will be forwarded to the TAVR coordinator at [facility] 4. Atrial flutter, heart failure management per cardiology 5. Increase activity, ambulate as tolerated. Cardiac rehab following. 6. Encourage use of his incentive spirometry 10 times every hour while awake. 7. Medical management of other comorbidities per primary care service 8. More recommendations to follow based on patient's clinical course. Time with Patient: Greater than 30
[2020-09-26 09:33] VITALS: RESP 16
[2020-09-26] MEDS: METOPROLOL SUCCINATE (ER) 50 MG TAB.ER.24H PO SCH (09:38)
[2020-09-26] MEDS: FAMOTIDINE 20 MG TAB PO SCH (09:38)
[2020-09-26] MEDS: CHOLECALCIFEROL 25 MCG (1000 IU) TABLET PO SCH (09:39)
[2020-09-26] MEDS: MUPIROCIN 2% OINT 22 GM TUBE NASAL SCH ×2 (09:39→21:08)
[2020-09-26] MEDS: ASPIRIN 81 MG PO SCH (09:39)
[2020-09-26] MEDS: FUROSEMIDE 10 MG/ML 4 ML VIAL IV SCH ×2 (09:39→21:08)
--- NOTE | 2020-09-26 11:22 | P.PN ---
Subjective Progress Note Date: 09/26/20 This is a pleasant 69-year-old gentleman with past medical history significant for bicuspid aortic valve status post bioprosthetic aortic valve replacement, persistent atrial fibrillation status post failed cardioversion, diabetes, hypertension, hyperlipidemia, prior SVT ablation, ischemic cardio myopathy, who follows with Dr. Perrin in the office. He presented to the hospital with symptoms of shortness of breath. He was noted to have a large pleural effusion, and was admitted with congestive cardiac failure. Patient underwent a right-sided thoracentesis. He also underwent a PAULINE on the eighth of this month which revealed bioprosthetic prosthetic aortic valve with moderate calcification, severe central aortic insufficiency, tethering of the mitral valve leaflets related to cardiomyopathy, moderate central secondary mitral regurgitation, mild tricuspid regurgitation. There is severe left ventricular dysfunction with an ejection fraction of 25% with global hypokinesia. No evidence of a PFO, left atrial appendage is free of clot. Patient will be scheduled for TAVR procedure at [facility]. He was seen and examined this morning, sitting up in a chair at bedside. His breathing is overall stable, no palpitations, no dizziness or lightheadedness. Blood pressure 110/60 with a heart rate of 90, 96% on room air. No laboratory data today. Objective - Vital Signs Vital signs: Vital Signs Temp 97.6 F 09/26/20 09:33 Pulse 109 H 09/26/20 09:33 Resp 16 09/26/20 09:33 BP 109/68 09/26/20 09:33 Pulse Ox 96 09/26/20 09:33 Intake & Output 09/25/20 09/26/20 09/26/20 18:59 06:59 18:59 Intake Total 568.622 240 Output Total 1700 700 Balance -1131.378 -700 240 Weight 84.3 kg Intake: Intake, IV Titration 88.622 Amount Heparin Sod,Pork in 0.45% 88.622 NaCl 25,000 unit In 0.45 % NaCl 1 250ml.bag @ 11. 41 UNITS/KG/HR 9.995 mls/ hr IV .Q24H ERIK Rx#: [id number] Oral 480 240 Output: Urine 1700 700 Other: Voiding Method Toilet Toilet Toilet # Voids 1 # Bowel Movements 1 - Exam PHYSICAL EXAMINATION: GENERAL: 69-year-old gentleman in no acute distress at the time of my examination HEENT: Head is atraumatic, normocephalic. Pupils equal, round. Sclera anicteric. Conjunctiva are clear. Mucous membranes of the mouth are moist. Neck is supple. There is no elevated jugular venous pressure. No carotid] bruit is heard. HEART EXAMINATION: Heart S1, S2 normal. Systolic murmur is heard . CHEST EXAMINATION: Lungs are clear to auscultation and precussion. No chest wall tenderness is noted on palpation or with deep breathing. ABDOMEN: Soft, nontender. Bowel sounds are heard. No organomegaly noted. EXTREMITIES: 2+ peripheral pulses with no evidence of peripheral edema and no calf tenderness noted. NEUROLOGIC patient is awake, alert and oriented 3 . . - Labs CBC & Chem 7: 09/24/20 05:59 09/25/20 02:30 Labs: Abnormal Lab Results - Last 24 Hours (Table) 09/25/20 09/25/20 09/25/20 Range/Units 10:42 11:54 17:05 APTT 54.1 H (22.0-30.0) sec POC Glucose (mg/dL) 199 H 179 H (75-99) mg/dL 09/25/20 09/26/20 Range/Units 20:19 06:17 APTT (22.0-30.0) sec POC Glucose (mg/dL) 200 H 110 H (75-99) mg/dL Microbiology - Last 24 Hours (Table) 09/23/20 19:30 Gram Stain - Preliminary Pleural Fluid Body Fluid Culture - Preliminary Assessment and Plan Plan: Assessment and plan #1 systolic congestive heart failure acute on chronic #2 right-sided pleural effusion status post thoracentesis #3 persistent atrial fibrillation #4 4+ severe aortic insufficiency in a patient with prior bioprosthetic aortic valve replacement #5 mitral regurgitation #6 history of hypertension #7 hyperlipidemia #8 diabetes Plan We will continue the patient on IV diuretics at this time, he currently on heparin, Xarelto on hold. Patient will need to have a CAT scan performed, this has not yet been ordered. He will also require a TAVR procedure. We will continue to monitor the patient's intake and output along with daily weights. Further recommendations to follow. DNP note has been reviewed, I agree with a documented findings and plan of care. Patient was seen and examined.
--- NOTE | 2020-09-26 11:35 | P.PN ---
Subjective Mr. Monreal is a history pleasant 69-year-old male with a past medical history of bicuspid aortic wall status post bioprosthetic aortic wall replacement, persistent atrial fibrillation status post failed cardioversion, diabetes mellitus, hypertension, dyslipidemia, SVT s/p ablation, PVC ablation and recent worsening non-ischemic cardiomyopathy thought to be related to afib, who follows in the office with Dr. Perrin coming in with a chief complaint of exertional dyspnea. Patient was recently in the hospital from 09/05/2020 to 09/09/2020. During his hospital stay patient had large left pleural effusion. He was managed with IV Lasix, his symptoms improved and eventually the patient was started on Entresto, by cardiology and discharged home. Patient states that since being discharged he noticed that his difficulty in breathing has worsened along with his cough. Patient states that his cough that he has been having for the past 1 month is improving. He is bringing up white thick sputum. Patient denies having any fevers chills or rigors. He denies having orthopnea PND. He states that his lower extremity swelling has worsened. Patient denies having any abdominal pain, but states that he has feeling of butterflies in his belly when he takes metformin. He also states that for the past 2-3 days he has been having generalized weakness and fatigue. Patient denies having any nausea vomiting or diarrhea. No dysuria or hematuria. Denies having any sick contacts. In the ER, patient had a chest x-ray showing evidence of right lower lobe opacity concerning for atelectasis and an elevated BNP of 15,000. He was given a low dose of Lasix due to his low blood pressure and eventually started on 50 mL of IV normal saline and admitted for further management. On reviewing his labs white count of 7 hemoglobin 15.8, platelets 112. Sodium 135, potassium 5.14, chloride 104, bicarbonate 22, BUN 20, [place] [address]. Troponin 0.013. 09/14/2020 Patient remains on IV Lasix patient still has significant swelling in bilateral lower extremities patient is found to have persistent atrial fibrillation which may be contributing to his heart failure exacerbations. Cardiology evaluated the patient is recommending admitting the patient and starting patient on dofetilide. Patient was started back on Entresto. Patient the shortness of breath significantly improved and patient was apparently having abdominal discom fort at home and he believes it secondary to metformin and this discomfort completely resolved 09/15/2020 Patient's pedal edema significant improved. Patient is being started on dofetilide 09/16/2020 Patient will undergo cardioversion tomorrow patient is euvolemic patient was switched to oral Lasix. 09/17/2020 Patient underwent cardioversion presently and opiate allied which will be continued presently sinus rhythm patient will be monitored overnight possibility of discharge tomorrow patient remains on oral Lasix. 09/18/2020 Patient potassium is high at around 6 mildly hemolyzed. We will hold off on Entresto and Aldactone for now. 09/19/2020 Patient's potassium has come down patient appeared to be evaluated by electrophysiology unfortunately cannot discharge this patient as patient was not evaluated by Dr. Lopez yet. 09/20/2020 patient will undergo right heart catheterization patient's sodium is on 133 today. Patient is complaining of constipation and was started on MiraLAX 09/21/2020 patient will undergo right heart catheterization today, had Bowel movements yesterday. Patient's serum sodium is 133 stable at this level potassium is 5.2. 09/22/2020 Appears to be in heart failure today patient is coming of shortness of breath patient does have increased pedal edema also has elevated JVD and that did gain weight patient had a CT of the chest as part of workup for cardiac valve surgery or intervention which showed bilateral pleural effusions appears to have pulm onary edema on the CAT scan CAT scan was reviewed by me. Patient had a cardiac catheterization yesterday which showed severe diuretic insufficiency with mildly dilated aortic root. Cardio thoracic surgeries a valid in the patient patient has highly elevated liver enzymes probably secondary to hepatic congestion worse and the creatinine to 1.15 patient does appear to have acidosis with anion gap of 15. hyponatremic. Hyperkalemic although patient had hemolysis patient will be on low potassium diet. Ultrasound of the liver was ordered because of elevated liver enzymes 09/23/2020 Patient clinically looks okay but that definitely in heart failure clinically patient's went down a bit to 132 creatinine went up to 1.5 patient will be continued on IV Lasix. Patient still appears to have significant hepatic congestion with elevated AST and ALT although AST did improve a bit patient bilirubin is elevated as well and INR is elevated to 1.7 all secondary to hepatic congestion. Ultrasound of the gallbladder essentially within normal limits which is not expected. Patient was evaluated by pulmonary and patient will undergo thoracentesis on the right side patient does have bilateral pleural effusions. 09/24/2020 Patient had thoracentesis with removal of around 1.4 L of serous fluid. Patient is feeling bit better today, his metabolic profile showed improving ALT and AST 09/25/2020 Patient is feeling much better patient's renal function as well as liver function improved at this time. Commit cardio thoracic surgery is evaluating for TAVR, patient is a high risk for sternotomy as per cardio thoracic surgery. 09/26/2020 I do not have any labs available from today patient does have bibasilar basilar crackles patient will be continued on IV Lasix. Constitutional: Denied any fatigue denied any fever. Cardio vascular: denied any chest pain, palpitations Gastrointestinal denied any nausea vomiting Pulmonary: Shortness of breath completely resolved at this time Neurologic denied any new focal deficits All inpatient medications were reviewed and appropriate changes in these medications as dictated in the interval history and assessment and plan. Objective - Vital Signs Vital signs: Vital Signs Temp 97.6 F 09/26/20 09:33 Pulse 109 H 09/26/20 09:33 Resp 16 09/26/20 09:33 BP 109/68 09/26/20 09:33 Pulse Ox 96 09/26/20 09:33 Intake & Output 09/25/20 09/26/20 09/26/20 18:59 06:59 18:59 Intake Total 568.622 240 Output Total 1700 700 Balance -1131.378 -700 240 Weight 84.3 kg Intake: Intake, IV Titration 88.622 Amount Heparin Sod,Pork in 0.45% 88.622 NaCl 25,000 unit In 0.45 % NaCl 1 250ml.bag @ 11. 41 UNITS/KG/HR 9.995 mls/ hr IV .Q24H ERIK Rx#: [id number] Oral 480 240 Output: Urine 1700 700 Other: Voiding Method Toilet Toilet Toilet # Voids 1 # Bowel Movements 1 - Exam PHYSICAL EXAMINATION: GENERAL: The patient is alert and oriented x3, not in any acute distress. Well developed, well nourished. HEENT: Pupils are round and equally reacting to light. EOMI. No scleral icterus. No conjunctival pallor. Normocephalic, atraumatic. No pharyngeal erythema. No thyromegaly. CARDIOVASCULAR: S1 and S2 present. No rubs, or gallops. Patient doesn't have any JVD today PULMONARY: Bibasilar crackles ABDOMEN: Soft, nontender, nondistended, normoactive bowel sounds. No palpable organomegaly. MUSCULOSKELETAL: No joint swelling or deformity. EXTREMITIES: No cyanosis, clubbing, no pedal edema today NEUROLOGICAL: Gross neurological examination did not reveal any focal deficits. SKIN: No rashes. - Labs CBC & Chem 7: 09/24/20 05:59 09/25/20 02:30 Labs: Abnormal Lab Results - Last 24 Hours (Table) 09/25/20 09/25/20 09/25/20 Range/Units 10:42 11:54 17:05 APTT 54.1 H (22.0-30.0) sec POC Glucose (mg/dL) 199 H 179 H (75-99) mg/dL 09/25/20 09/26/20 Range/Units 20:19 06:17 APTT (22.0-30.0) sec POC Glucose (mg/dL) 200 H 110 H (75-99) mg/dL Microbiology - Last 24 Hours (Table) 09/23/20 19:30 Gram Stain - Preliminary Pleural Fluid Body Fluid Culture - Preliminary Assessment and Plan Plan: Acute exacerbation of chronic systolic heart failure: She and is in acute exacerbation again today patient is on IV Lasix patient is status post cardioversion, sinus rhythm, And had cardiac catheterization which showed severe aortic insufficiency with a dilated aortic root. Patient's heart failure significantly improved. Patient had a PAULINE which showed moderate to severe aortic stenosis severe aortic insufficiency moderate to severe mitral regurgitation. Patient is being considered for TAVR as he is at high risk for sternotomy. Systolic heart failure with ejection fraction less than 20% was treated for heart failure exacerbation.. Pleural effusions: Significant on the right side patient had thoracic sepsis with removal of around 1.4 L of fluid. -transaminitis with elevated zyme secondary to congestive heart failure and hepatic condition improving with IV Lasix. -Severe aortic regurgitation patient had a reticulocyte valvular surgery in the past and will need either valve replacement or TAVR -Hyperkalemia: Improved now Nonischemic cardiomyopathy Persistent atrial fibrillation status post cardioversion, patient of fluid back to atrial fibrillation again because of hypoxemia and CHF Thrombocytopenia Hypertension GERD Diabetes mellitus BPH Migraine headaches Scoliosis Chronic low back pain Vitamin D deficiency
[2020-09-26 11:59] LABS: Glucose,Whole Blood 249 mg/dL (75-99)
[2020-09-26 12:22] LABS: ALT 599 U/L (4-49); AST 128 U/L (17-59); African American GFR (CKD) >90 (>60 ml/min/1.73 sqM); Albumin 3.1 g/dL (3.5-5.0); Alkaline Phosphatase 136 U/L (38-126); Anion Gap 5 mmol/L; Blood Urea Nitrogen 29 mg/dL (9-20); Calcium 8.6 mg/dL (8.4-10.2); Carbon Dioxide 31 mmol/L (22-30); Chloride 98 mmol/L (98-107); Glucose 307 mg/dL (74-99); Non-African American GFR(CKD) >90 (>60 ml/min/1.73 sqM); Potassium 3.4 mmol/L (3.5-5.1); Sodium 134 mmol/L (137-145); Total Bilirubin 1.4 mg/dL (0.2-1.3); Total Protein 5.5 g/dL (6.3-8.2)
[2020-09-26] MEDS: HEPARIN SODIUM 1,000 UN/ML (10ML VL) IV PRN (12:55)
--- NOTE | 2020-09-26 15:25 | P.PN ---
Subjective Progress Note Date: 09/26/20 Principal diagnosis: Ongoing persistent shortness of breath Severe aortic bioprosthetic valve stenosis and severe aortic regurgitation Reduced cardiac output with cardiomyopathy ejection fraction of 20% Small to moderate right pleural effusion Very small left-sided pleural effusion Chronic atrial fibrillation 09/26/2020, patient seen eval examined during rounds labs reviewed medications reviewed care plan discussed, shortness of breath remains stable, swelling in the lower extremity improve, patient remains on room air, cardiovascular surgery and cardiology evaluating for valve replacement surgery contemplated sometime next week at a tertiary care center 09/25/2020, patient seen eval examined during the rounds labs reviewed medications reviewed patient has been doing well oxygen saturation remains 9596%, denies any cough or sputum production denies any chest pain, pleural fluid cytology report remains pending, 09/24/2020, patient seen eval reexamined during the rounds labs reviewed medications reviewed, no more chest pain is present shortness of breath sign ificant improved patient has been on room air oxygen saturation is 95-96%, status post PAULINE, findings noted with bioprosthetic aortic well along with calcification, moderate to severe insufficiency noted, status post right thoracentesis is 1.4 L of fluid has been removed, cytology pending 09/23/2020, patient seen eval examined during the rounds labs reviewed medications reviewed, denies any chest pain but have cough and severe shortness of breath, surgical service evaluating however the valve surgery likely will occur a few weeks later, patient is being planned for PAULINE tomorrow patient would like to pursue and proceed with a right thoracentesis for diagnostic and therapeutic purposes Patient is a 69-year-old male with the prior medical history of bicuspid aortic valve status post to the bioprosthetic valve placement, patient has chronic atrial fibrillation, also has prior medical problems including diabetes mellitus hypertension hypertensive cardiovascular disease status post ablation, patient has a nonischemic cardiomyopathy thought to be related to A. fib, patient was hospitalized in August for shortness of breath found to have pleural effusion however responded well with conservative management, patient has been on direct oral anticoagulants which have been nonstop currently patient is on heparin, on arrival patient noted to have a right-sided pleural effusion some on the left side, are sound performed revealed moderate right-sided effusion also very small left-sided effusion, patient noted to have elevated AST and ALT with total bilirubin of 2, AST is 1500 ALT is 1330 alk phos 185, recent cardiac cath and angiogram shows mild coronary artery disease with LAD of 30% stenosis elevated right and left-sided pressures, 4+ severe aortic insufficiency, decreased carbonate output and cardiac index were noted, off respectively 2.89 and 1.4 to Objective - Vital Signs Vital signs: Vital Signs Temp 97.6 F 09/26/20 09:33 Pulse 110 H 09/26/20 11:25 Resp 16 09/26/20 11:25 BP 95/60 09/26/20 11:25 Pulse Ox 97 09/26/20 11:25 Intake & Output 09/25/20 09/26/20 09/26/20 18:59 06:59 18:59 Intake Total 568.622 721.213 Output Total 2517 561 2209 Balance -1131.378 -700 -528.787 Weight 84.3 kg Intake: Intake, IV Titration 88.622 241.213 Amount Heparin Sod,Pork in 0.45% 88.622 241.213 NaCl 25,000 unit In 0.45 % NaCl 1 250ml.bag @ 11. 41 UNITS/KG/HR 9.995 mls/ hr IV .Q24H ERIK Rx#: [id number] Oral 480 480 Output: Urine 7658 053 7975 Other: Voiding Method Toilet Toilet Toilet # Voids 1 # Bowel Movements 1 - Exam - Constitutional General appearance: average body habitus, cooperative, disheveled - EENT Eyes: PERRLA Ears: bilateral: normal - Neck Neck: normal ROM Carotids: bilateral: upstroke normal Thyroid: bilateral: normal size - Respiratory Respiratory: bilateral: diminished - Cardiovascular Heart sounds: normal: S1, S2 - Gastrointestinal General gastrointestinal: decreased bowel sounds - Integumentary Integumentary: decreased turgor - Neurologic Neurologic: CNII-XII intact - Musculoskeletal Musculoskeletal: gait normal, generalized weakness, strength equal bilaterally - Psychiatric Psychiatric: A&O x's 3, appropriate affect, intact judgment & insight - Labs CBC & Chem 7: 09/24/20 05:59 09/26/20 11:12 Labs: Abnormal Lab Results - Last 24 Hours (Table) 09/25/20 09/25/20 09/26/20 Range/Units 17:05 20:19 06:17 APTT (22.0-30.0) sec Sodium (137-145) mmol/L Potassium (3.5-5.1) mmol/L Carbon Dioxide (22-30) mmol/L BUN (9-20) mg/dL Glucose (74-99) mg/dL POC Glucose (mg/dL) 179 H 200 H 110 H (75-99) mg/dL Total Bilirubin (0.2-1.3) mg/dL AST (17-59) U/L ALT (4-49) U/L Alkaline Phosphatase (38-126) U/L Total Protein (6.3-8.2) g/dL Albumin (3.5-5.0) g/dL 09/26/20 09/26/20 09/26/20 Range/Units 11:12 11:12 11:58 APTT 40.1 H (22.0-30.0) sec Sodium 134 L (137-145) mmol/L Potassium 3.4 L (3.5-5.1) mmol/L Carbon Dioxide 31 H (22-30) mmol/L BUN 29 H (9-20) mg/dL Glucose 307 H (74-99) mg/dL POC Glucose (mg/dL) 249 H (75-99) mg/dL Total Bilirubin 1.4 H (0.2-1.3) mg/dL AST 128 H (17-59) U/L ALT 599 H (4-49) U/L Alkaline Phosphatase 136 H (38-126) U/L Total Protein 5.5 L (6.3-8.2) g/dL Albumin 3.1 L (3.5-5.0) g/dL Assessment and Plan Assessment: Ongoing persistent shortness of breath, significantly improved post right thoracentesis Severe aortic bioprosthetic valve stenosis and severe aortic regurgitation Reduced cardiac output with cardiomyopathy ejection fraction of 20% moderate right pleural effusion Very small left-sided pleural effusion Chronic atrial fibrillation Plan: Continue deep breathing exercise incentive spirometry Follow-up on cytology and culture results are pending, will monitor clinical course closely
[2020-09-26 16:57] LABS: Glucose,Whole Blood 120 mg/dL (75-99)
[2020-09-26] MEDS: HEPARIN SOD,PORK IN 0.45% NACL 25,000 UNIT in 0.45% NACL 1 250ML.BAG IV SCH ×2 (17:07→22:50)
[2020-09-26 20:38] LABS: Glucose,Whole Blood 128 mg/dL (75-99)
[2020-09-26] MEDS: MELATONIN 3 MG TABLET PO SCH (21:08)
[2020-09-27 06:13] LABS: ALT 463 U/L (4-49); AST 89 U/L (17-59); African American GFR (CKD) >90 (>60 ml/min/1.73 sqM); Alkaline Phosphatase 128 U/L (38-126); Anion Gap 5 mmol/L; Blood Urea Nitrogen 27 mg/dL (9-20); Calcium 8.6 mg/dL (8.4-10.2); Carbon Dioxide 32 mmol/L (22-30); Chloride 99 mmol/L (98-107); Glucose 135 mg/dL (74-99); Non-African American GFR(CKD) >90 (>60 ml/min/1.73 sqM); Potassium 3.5 mmol/L (3.5-5.1); Sodium 136 mmol/L (137-145); Total Bilirubin 1.5 mg/dL (0.2-1.3); Total Protein 5.4 g/dL (6.3-8.2)
[2020-09-27 06:29] LABS: Glucose,Whole Blood 138 mg/dL (75-99)
[2020-09-27] MEDS: INSULIN ASPART (NovoLOG) 100 UNIT/ML VIAL SQ SCH ×4 (06:34→21:27)
--- NOTE | 2020-09-27 07:31 | P.PN ---
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 Previous medical history of persistent atrial fibrillation status post failed cardioversion and 2 ablations, chronic systolic heart failure with an ejection fraction < 20%, bicuspid aortic valve status post bioprosthetic aortic valve replacement in 2004, hypertension, hyperlipidemia, diabetes mellitus type 2, prostate disorder, GERD, vitamin D deficiency, generalized debilitation and weakness Patient's currently sitting up in a recliner on the cardiac stepdown unit in no acute distress. Denies any pain, shortness of breath, he is currently on room air with adequate oxygenation, and able to take deeper breaths on his incentive spirometer. Teaching continues regarding TAVR. Patient will need gated CT, scheduled for Monday. All questions answered Objective - Vital Signs Vital signs: Vital Signs Temp 97.8 F 09/27/20 04:00 Pulse 94 09/27/20 04:00 Resp 16 09/27/20 04:00 BP 103/62 09/27/20 04:00 Pulse Ox 95 09/27/20 04:00 Intake & Output 09/26/20 09/27/20 09/27/20 18:59 06:59 18:59 Intake Total 961.213 8.787 74.624 Output Total 1425 Balance -463.787 8.787 74.624 Weight 84.1 kg Intake: Intake, IV Titration 241.213 8.787 74.624 Amount Heparin Sod,Pork in 0.45% 241.213 8.787 74.624 NaCl 25,000 unit In 0.45 % NaCl 1 250ml.bag @ 11. 41 UNITS/KG/HR 9.995 mls/ hr IV .Q24H [facility] Rx#: [id number] Oral 720 Output: Urine 1425 Other: Voiding Method Toilet Toilet # Voids 1 - Exam CONSTITUTIONAL: Appears comfortable, cooperative, no acute distress RESPIRATORY: Lungs sounds diminished bilaterally. Respirations even, nonlabored. Currently on room air with oxygen saturation 95%. Strong dry cough. Able to achieve 1000 mL on his incentive spirometry CARDIOVASCULAR: S1, S2 present, systolic murmur present. Regular rate and rhythm, controlled atrial flutter on telemetry. Palpable peripheral pulses bilaterally. Trace bilateral lower extremity edema present. No calf pain or tenderness noted. GASTROINTESTINAL: Abdomen soft, nontender, nondistended. Active bowel sounds present 4 quadrants. Tolerating diet GENITOURINARY: Continues to void clear, yellow urine. INTEGUMENTARY: Skin is warm and dry with evidence of good perfusion. NEUROLOGIC: Cranial nerves II through XII intact MUSKULOSKELETAL: Able to move all extremities, strength equal bilaterally, gait normal PSYCHIATRIC: Alert and oriented to person place and time, appropriate affect, intact judgment and insight - Allied health notes Allied health notes reviewed: nursing - Labs CBC & Chem 7: 09/24/20 05:59 09/27/20 05:12 Labs: Abnormal Lab Results - Last 24 Hours (Table) 09/26/20 09/26/20 09/26/20 Range/Units 11:12 11:12 11:58 APTT 40.1 H (22.0-30.0) sec Sodium 134 L (137-145) mmol/L Potassium 3.4 L (3.5-5.1) mmol/L Carbon Dioxide 31 H (22-30) mmol/L BUN 29 H (9-20) mg/dL Glucose 307 H (74-99) mg/dL POC Glucose (mg/dL) 249 H (75-99) mg/dL Total Bilirubin 1.4 H (0.2-1.3) mg/dL AST 128 H (17-59) U/L ALT 599 H (4-49) U/L Alkaline Phosphatase 136 H (38-126) U/L Total Protein 5.5 L (6.3-8.2) g/dL Albumin 3.1 L (3.5-5.0) g/dL 09/26/20 09/26/20 09/26/20 Range/Units 16:56 19:27 20:36 APTT 93.8 H (22.0-30.0) sec Sodium (137-145) mmol/L Potassium (3.5-5.1) mmol/L Carbon Dioxide (22-30) mmol/L BUN (9-20) mg/dL Glucose (74-99) mg/dL POC Glucose (mg/dL) 120 H 128 H (75-99) mg/dL Total Bilirubin (0.2-1.3) mg/dL AST (17-59) U/L ALT (4-49) U/L Alkaline Phosphatase (38-126) U/L Total Protein (6.3-8.2) g/dL Albumin (3.5-5.0) g/dL 09/27/20 09/27/20 09/27/20 Range/Units 05:12 05:12 06:28 APTT 49.7 H (22.0-30.0) sec Sodium 136 L (137-145) mmol/L Potassium (3.5-5.1) mmol/L Carbon Dioxide 32 H (22-30) mmol/L BUN 27 H (9-20) mg/dL Glucose 135 H (74-99) mg/dL POC Glucose (mg/dL) 138 H (75-99) mg/dL Total Bilirubin 1.5 H (0.2-1.3) mg/dL AST 89 H (17-59) U/L ALT 463 H (4-49) U/L Alkaline Phosphatase 128 H (38-126) U/L Total Protein 5.4 L (6.3-8.2) g/dL Albumin 3.0 L (3.5-5.0) g/dL Microbiology - Last 24 Hours (Table) 09/23/20 19:30 Gram Stain - Preliminary Pleural Fluid Body Fluid Culture - Preliminary Assessment and Plan Assessment: 1. 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 Moderate central mitral valve regurgitation 3. Nonischemic cardiomyopathy, global hypokinesis of the LV, EF 25% 4. Acute on chronic systolic heart failure, BNP 15,500 on admission 5. Elevated transaminase enzymes, trending down 6. Dyspnea 7. Bilateral pleural effusions right greater than left, status post right sided thoracentesis with removal of 1.4 L fluid 8. History of persistent atrial fibrillation status post failed cardioversion and 2 ablations 9. Chronic systolic heart failure 10. History of bicuspid aortic valve status post bioprosthetic aortic valve replacement in 2004 11. Hypertension 12. Hyperlipidemia, treated, cholesterol 116, LDL 62 13. Diabetes mellitus type 2, hemoglobin A1c 7.3% 14. Prostate disorder 15. GERD 16. Vitamin D deficiency 17. Generalized debilitation and weakness Plan: 1. Continue to optimize medical management with aspirin, beta crissy, diuresis. 2. Statin is currently on hold due to his elevated AST and ALT. Continue to monitor liver enzymes. 3. The patient would be considered very high risk candidate for re-do sternotomy and surgical aortic valve replacement. He may be considered for TAVR, will need gated computed tomography scan per TAVR protocol. Gated CT scheduled for Monday. 4. Atrial flutter, heart failure management per cardiology. May discontinue IV heparin and restart Xarelto from our standpoint 5. Increase activity, ambulate as tolerated. Cardiac rehab following. 6. Encourage use of his incentive spirometry 10 times every hour while awake. 7. Once TAVR CT is completed we will send all information to TAVR coordinator at [facility]. From cardiothoracic surgery standpoint patient may be discharged to home after gated CT as TAVR is an outpatient elective procedure. This was discussed in detail with the patient. 8. Medical management of other comorbidities per primary care service 9. More recommendations to follow based on patient's clinical course. Time with Patient: Greater than 30
[2020-09-27] MEDS: FUROSEMIDE 10 MG/ML 4 ML VIAL IV SCH ×2 (09:20→21:27)
[2020-09-27] MEDS: CHOLECALCIFEROL 25 MCG (1000 IU) TABLET PO SCH (09:20)
[2020-09-27] MEDS: METOPROLOL SUCCINATE (ER) 50 MG TAB.ER.24H PO SCH (09:20)
[2020-09-27] MEDS: FAMOTIDINE 20 MG TAB PO SCH (09:20)
[2020-09-27] MEDS: ASPIRIN 81 MG PO SCH (09:20)
[2020-09-27] MEDS: MUPIROCIN 2% OINT 22 GM TUBE NASAL SCH ×2 (09:21→21:27)
--- NOTE | 2020-09-27 09:30 | P.PN ---
Subjective Progress Note Date: 09/27/20 This is a pleasant 69-year-old gentleman with past medical history significant for bicuspid aortic valve status post bioprosthetic aortic valve replacement, persistent atrial fibrillation status post failed cardioversion, diabetes, hypertension, hyperlipidemia, prior SVT ablation, ischemic cardio myopathy, who follows with Dr. Perrin in the office. He presented to the hospital with symptoms of shortness of breath. He was noted to have a large pleural effusion, and was admitted with congestive cardiac failure. Patient underwent a right-sided thoracentesis. He also underwent a PAULINE on the eighth of this month which revealed bioprosthetic prosthetic aortic valve with moderate calcification, severe central aortic insufficiency, tethering of the mitral valve leaflets related to cardiomyopathy, moderate central secondary mitral regurgitation, mild tricuspid regurgitation. There is severe left ventricular dysfunction with an ejection fraction of 25% with global hypokinesia. No evidence of a PFO, left atrial appendage is free of clot. Patient will be scheduled for TAVR procedure at [facility]. He was seen and examined this morning, sitting up in a chair at bedside. His breathing is overall stable, no palpitations, no dizziness or lightheadedness. Blood pressure 110/60 with a heart rate of 90, 96% on room air. No laboratory data today. 09/27/2020 Patient seen and examined this morning, diuresed well through the night last night. Breathing is stable. Liver functions continued to improve. Sodium this morning 136, potassium 3.5, BUN 27, creatinine 0.8. Total bilirubin 1.5 AST 89 ALT 463 alk phos 128. Patient continues to be on IV Lasix. We will order a re peat chest x-ray today, continue IV Lasix. Objective - Vital Signs Vital signs: Vital Signs Temp 97.9 F 09/27/20 09:19 Pulse 94 09/27/20 09:19 Resp 16 09/27/20 09:19 BP 99/65 09/27/20 09:19 Pulse Ox 95 09/27/20 09:19 Intake & Output 09/26/20 09/27/20 09/27/20 18:59 06:59 18:59 Intake Total 961.213 8.787 74.624 Output Total 1425 Balance -463.787 8.787 74.624 Weight 84.1 kg Intake: Intake, IV Titration 241.213 8.787 74.624 Amount Heparin Sod,Pork in 0.45% 241.213 8.787 74.624 NaCl 25,000 unit In 0.45 % NaCl 1 250ml.bag @ 11. 41 UNITS/KG/HR 9.995 mls/ hr IV .Q24H [facility] Rx#: [id number] Oral 720 Output: Urine 1425 Other: Voiding Method Toilet Toilet # Voids 1 - Exam PHYSICAL EXAMINATION: GENERAL: 69-year-old gentleman in no acute distress at the time of my examination HEENT: Head is atraumatic, normocephalic. Pupils equal, round. Sclera anic teric. Conjunctiva are clear. Mucous membranes of the mouth are moist. Neck is supple. There is no elevated jugular venous pressure. No carotid] bruit is heard. HEART EXAMINATION: Heart S1, S2 normal. Systolic murmur is heard . CHEST EXAMINATION: Lungs are clear with mild diminished air entry to the bases . No chest wall tenderness is noted on palpation or with deep breathing. ABDOMEN: Soft, nontender. Bowel sounds are heard. No organomegaly noted. EXTREMITIES: 2+ peripheral pulses with trace evidence of peripheral edema and no calf tenderness noted. NEUROLOGIC patient is awake, alert and oriented 3 . . - Labs CBC & Chem 7: 09/24/20 05:59 09/27/20 05:12 Labs: Abnormal Lab Results - Last 24 Hours (Table) 09/26/20 09/26/20 09/26/20 Range/Units 11:12 11:12 11:58 APTT 40.1 H (22.0-30.0) sec Sodium 134 L (137-145) mmol/L Potassium 3.4 L (3.5-5.1) mmol/L Carbon Dioxide 31 H (22-30) mmol/L BUN 29 H (9-20) mg/dL Glucose 307 H (74-99) mg/dL POC Glucose (mg/dL) 249 H (75-99) mg/dL Total Bilirubin 1.4 H (0.2-1.3) mg/dL AST 128 H (17-59) U/L ALT 599 H (4-49) U/L Alkaline Phosphatase 136 H (38-126) U/L Total Protein 5.5 L (6.3-8.2) g/dL Albumin 3.1 L (3.5-5.0) g/dL 09/26/20 09/26/20 09/26/20 Range/Units 16:56 19:27 20:36 APTT 93.8 H (22.0-30.0) sec Sodium (137-145) mmol/L Potassium (3.5-5.1) mmol/L Carbon Dioxide (22-30) mmol/L BUN (9-20) mg/dL Glucose (74-99) mg/dL POC Glucose (mg/dL) 120 H 128 H (75-99) mg/dL Total Bilirubin (0.2-1.3) mg/dL AST (17-59) U/L ALT (4-49) U/L Alkaline Phosphatase (38-126) U/L Total Protein (6.3-8.2) g/dL Albumin (3.5-5.0) g/dL 09/27/20 09/27/20 09/27/20 Range/Units 05:12 05:12 06:28 APTT 49.7 H (22.0-30.0) sec Sodium 136 L (137-145) mmol/L Potassium (3.5-5.1) mmol/L Carbon Dioxide 32 H (22-30) mmol/L BUN 27 H (9-20) mg/dL Glucose 135 H (74-99) mg/dL POC Glucose (mg/dL) 138 H (75-99) mg/dL Total Bilirubin 1.5 H (0.2-1.3) mg/dL AST 89 H (17-59) U/L ALT 463 H (4-49) U/L Alkaline Phosphatase 128 H (38-126) U/L Total Protein 5.4 L (6.3-8.2) g/dL Albumin 3.0 L (3.5-5.0) g/dL Microbiology - Last 24 Hours (Table) 09/23/20 19:30 Gram Stain - Preliminary Pleural Fluid Body Fluid Culture - Preliminary Assessment and Plan Plan: Assessment and plan #1 systolic congestive heart failure acute on chronic #2 right-sided pleural effusion status post thoracentesis #3 persistent atrial fibrillation #4 4+ severe aortic insufficiency in a patient with prior bioprosthetic aortic valve replacement #5 mitral regurgitation #6 history of hypertension #7 hyperlipidemia #8 diabetes Plan We will continue the patient on IV diuretics at this time, he currently on heparin, Xarelto on hold. Patient will need to have a CAT scan performed, this has been scheduled for tomorrow. We will repeat a chest x-ray today. DNP note has been reviewed, I agree with a documented findings and plan of care. Patient was seen and examined.
[2020-09-27 12:09] LABS: Glucose,Whole Blood 162 mg/dL (75-99)
--- NOTE | 2020-09-27 12:45 | P.PN ---
Subjective Mr. Monreal is a history pleasant 69-year-old male with a past medical history of bicuspid aortic wall status post bioprosthetic aortic wall replacement, persistent atrial fibrillation status post failed cardioversion, diabetes mellitus, hypertension, dyslipidemia, SVT s/p ablation, PVC ablation and recent worsening non-ischemic cardiomyopathy thought to be related to afib, who follows in the office with Dr. Perrin coming in with a chief complaint of exertional dyspnea. Patient was recently in the hospital from 09/05/2020 to 09/09/2020. During his hospital stay patient had large left pleural effusion. He was managed with IV Lasix, his symptoms improved and eventually the patient was started on Entresto, by cardiology and discharged home. Patient states that since being discharged he noticed that his difficulty in breathing has worsened along with his cough. Patient states that his cough that he has been having for the past 1 month is improving. He is bringing up white thick sputum. Patient denies having any fevers chills or rigors. He denies having orthopnea PND. He states that his lower extremity swelling has worsened. Patient denies having any abdominal pain, but states that he has feeling of butterflies in his belly when he takes metformin. He also states that for the past 2-3 days he has been having generalized weakness and fatigue. Patient denies having any nausea vomiting or diarrhea. No dysuria or hematuria. Denies having any sick contacts. In the ER, patient had a chest x-ray showing evidence of right lower lobe opacity concerning for atelectasis and an elevated BNP of 15,000. He was given a low dose of Lasix due to his low blood pressure and eventually started on 50 mL of IV normal saline and admitted for further management. On reviewing his labs white count of 7 hemoglobin 15.8, platelets 112. Sodium 135, potassium 5.14, chloride 104, bicarbonate 22, BUN 20, [place] [address]. Troponin 0.013. 09/14/2020 Patient remains on IV Lasix patient still has significant swelling in bilateral lower extremities patient is found to have persistent atrial fibrillation which may be contributing to his heart failure exacerbations. Cardiology evaluated the patient is recommending admitting the patient and starting patient on dofetilide. Patient was started back on Entresto. Patient the shortness of breath significantly improved and patient was apparently having abdominal discom fort at home and he believes it secondary to metformin and this discomfort completely resolved 09/15/2020 Patient's pedal edema significant improved. Patient is being started on dofetilide 09/16/2020 Patient will undergo cardioversion tomorrow patient is euvolemic patient was switched to oral Lasix. 09/17/2020 Patient underwent cardioversion presently and opiate allied which will be continued presently sinus rhythm patient will be monitored overnight possibility of discharge tomorrow patient remains on oral Lasix. 09/18/2020 Patient potassium is high at around 6 mildly hemolyzed. We will hold off on Entresto and Aldactone for now. 09/19/2020 Patient's potassium has come down patient appeared to be evaluated by electrophysiology unfortunately cannot discharge this patient as patient was not evaluated by Dr. Lopez yet. 09/20/2020 patient will undergo right heart catheterization patient's sodium is on 133 today. Patient is complaining of constipation and was started on MiraLAX 09/21/2020 patient will undergo right heart catheterization today, had Bowel movements yesterday. Patient's serum sodium is 133 stable at this level potassium is 5.2. 09/22/2020 Appears to be in heart failure today patient is coming of shortness of breath patient does have increased pedal edema also has elevated JVD and that did gain weight patient had a CT of the chest as part of workup for cardiac valve surgery or intervention which showed bilateral pleural effusions appears to have pulm onary edema on the CAT scan CAT scan was reviewed by me. Patient had a cardiac catheterization yesterday which showed severe diuretic insufficiency with mildly dilated aortic root. Cardio thoracic surgeries a valid in the patient patient has highly elevated liver enzymes probably secondary to hepatic congestion worse and the creatinine to 1.15 patient does appear to have acidosis with anion gap of 15. hyponatremic. Hyperkalemic although patient had hemolysis patient will be on low potassium diet. Ultrasound of the liver was ordered because of elevated liver enzymes 09/23/2020 Patient clinically looks okay but that definitely in heart failure clinically patient's went down a bit to 132 creatinine went up to 1.5 patient will be continued on IV Lasix. Patient still appears to have significant hepatic congestion with elevated AST and ALT although AST did improve a bit patient bilirubin is elevated as well and INR is elevated to 1.7 all secondary to hepatic congestion. Ultrasound of the gallbladder essentially within normal limits which is not expected. Patient was evaluated by pulmonary and patient will undergo thoracentesis on the right side patient does have bilateral pleural effusions. 09/24/2020 Patient had thoracentesis with removal of around 1.4 L of serous fluid. Patient is feeling bit better today, his metabolic profile showed improving ALT and AST 09/25/2020 Patient is feeling much better patient's renal function as well as liver function improved at this time. Commit cardio thoracic surgery is evaluating for TAVR, patient is a high risk for sternotomy as per cardio thoracic surgery. 09/26/2020 I do not have any labs available from today patient does have bibasilar basilar crackles patient will be continued on IV Lasix. 09/27/2020 Patient still has crackles predominantly in the right posterior lower lung lees although he appears to be significantly better. And will undergo graded CT tomorrow after that patient probably will be discharged to follow-up as an outpatient for TAVR Constitutional: Denied any fatigue denied any fever. Cardio vascular: denied any chest pain, palpitations Gastrointestinal denied any nausea vomiting Pulmonary: Shortness of breath completely resolved at this time Neurologic denied any new focal deficits All inpatient medications were reviewed and appropriate changes in these medications as dictated in the interval history and assessment and plan. Objective - Vital Signs Vital signs: Vital Signs Temp 97.9 F 09/27/20 09:19 Pulse 94 09/27/20 09:20 Resp 16 09/27/20 09:20 BP 99/65 09/27/20 09:19 Pulse Ox 95 09/27/20 09:19 Intake & Output 09/26/20 09/27/20 09/27/20 18:59 06:59 18:59 Intake Total 961.213 8.787 314.624 Output Total 1425 700 Balance -463.787 8.787 -385.376 Weight 84.1 kg Intake: Intake, IV Titration 241.213 8.787 74.624 Amount Heparin Sod,Pork in 0.45% 241.213 8.787 74.624 NaCl 25,000 unit In 0.45 % NaCl 1 250ml.bag @ 11. 41 UNITS/KG/HR 9.995 mls/ hr IV .Q24H [facility] Rx#: [id number] Oral 720 240 Output: Urine 1425 700 Other: Voiding Method Toilet Toilet Toilet # Voids 1 - Exam PHYSICAL EXAMINATION: GENERAL: The patient is alert and oriented x3, not in any acute distress. Well developed, well nourished. HEENT: Pupils are round and equally reacting to light. EOMI. No scleral icterus. No conjunctival pallor. Normocephalic, atraumatic. No pharyngeal erythema. No thyromegaly. CARDIOVASCULAR: S1 and S2 present. No rubs, or gallops. Patient doesn't have any JVD today PULMONARY: Bibasilar crackles ABDOMEN: Soft, nontender, nondistended, normoactive bowel sounds. No palpable organomegaly. MUSCULOSKELETAL: No joint swelling or deformity. EXTREMITIES: No cyanosis, clubbing, no pedal edema today NEUROLOGICAL: Gross neurological examination did not reveal any focal deficits. SKIN: No rashes. - Labs CBC & Chem 7: 09/24/20 05:59 09/27/20 05:12 Labs: Abnormal Lab Results - Last 24 Hours (Table) 09/26/20 09/26/20 09/26/20 Range/Units 11:12 16:56 19:27 APTT 40.1 H 93.8 H (22.0-30.0) sec Sodium (137-145) mmol/L Carbon Dioxide (22-30) mmol/L BUN (9-20) mg/dL Glucose (74-99) mg/dL POC Glucose (mg/dL) 120 H (75-99) mg/dL Total Bilirubin (0.2-1.3) mg/dL AST (17-59) U/L ALT (4-49) U/L Alkaline Phosphatase (38-126) U/L Total Protein (6.3-8.2) g/dL Albumin (3.5-5.0) g/dL 09/26/20 09/27/20 09/27/20 Range/Units 20:36 05:12 05:12 APTT 49.7 H (22.0-30.0) sec Sodium 136 L (137-145) mmol/L Carbon Dioxide 32 H (22-30) mmol/L BUN 27 H (9-20) mg/dL Glucose 135 H (74-99) mg/dL POC Glucose (mg/dL) 128 H (75-99) mg/dL Total Bilirubin 1.5 H (0.2-1.3) mg/dL AST 89 H (17-59) U/L ALT 463 H (4-49) U/L Alkaline Phosphatase 128 H (38-126) U/L Total Protein 5.4 L (6.3-8.2) g/dL Albumin 3.0 L (3.5-5.0) g/dL 09/27/20 09/27/20 Range/Units 06:28 11:51 APTT (22.0-30.0) sec Sodium (137-145) mmol/L Carbon Dioxide (22-30) mmol/L BUN (9-20) mg/dL Glucose (74-99) mg/dL POC Glucose (mg/dL) 138 H 162 H (75-99) mg/dL Total Bilirubin (0.2-1.3) mg/dL AST (17-59) U/L ALT (4-49) U/L Alkaline Phosphatase (38-126) U/L Total Protein (6.3-8.2) g/dL Albumin (3.5-5.0) g/dL Microbiology - Last 24 Hours (Table) 09/23/20 19:30 Gram Stain - Preliminary Pleural Fluid Body Fluid Culture - Preliminary Assessment and Plan Plan: Acute exacerbation of chronic systolic heart failure: She and is in acute exacerbation again today patient is on IV Lasix patient is status post cardioversion, sinus rhythm, And had cardiac catheterization which showed severe aortic insufficiency with a dilated aortic root. Patient's heart failure significantly improved. Patient had a PAULINE which showed moderate to severe aortic stenosis severe aortic insufficiency moderate to severe mitral regurgitation. Patient is being considered for TAVR as he is at high risk for sternotomy. Systolic heart failure with ejection fraction less than 20% was treated for heart failure exacerbation.. Pleural effusions: Significant on the right side patient had thoracic sepsis with removal of around 1.4 L of fluid. -transaminitis with elevated zyme secondary to congestive heart failure and hepatic condition improving with IV Lasix. -Severe aortic regurgitation patient had a reticulocyte valvular surgery in the past and will need either valve replacement or TAVR -Hyperkalemia: Improved now Nonischemic cardiomyopathy Persistent atrial fibrillation status post cardioversion, patient of fluid back to atrial fibrillation again because of hypoxemia and CHF Thrombocytopenia Hypertension GERD Diabetes mellitus BPH Migraine headaches Scoliosis Chronic low back pain Vitamin D deficiency
[2020-09-27] MEDS ORDERED: Magnesium Replacement Protocol 1 EACH MISC MISCELLANE PRN (12:53)
[2020-09-27] MEDS ORDERED: Potassium Replacement Protocol 1 EACH MISC MISCELLANE PRN (12:53)
[2020-09-27] MEDS: POTASSIUM CHLORIDE ER 20 MEQ TAB.ER PO SCH ×2 (13:54→15:40)
[2020-09-27] MEDS: MAGNESIUM SULFATE-D5W PMX 1 GM in DEXTROSE/WATER 1 100ML.BAG IVPB SCH ×2 (13:54→15:40)
--- NOTE | 2020-09-27 13:56 | XR ---
EXAMINATION TYPE: XR chest 2V DATE OF EXAM: 09/27/2020 COMPARISON: 09/23/2020 INDICATION: Follow-up CHF TECHNIQUE: Frontal and lateral views of the chest are obtained. FINDINGS: The heart size is enlarged. The pulmonary vasculature is normal. There is improved left lower lobe infiltrate. Centimeters from cardiac valve surgery are evident.. IMPRESSION: 1. No radiographic suspicious acute congestive heart failure. 2. Mild cardiomegaly
--- NOTE | 2020-09-27 14:28 | P.PN ---
Subjective Progress Note Date: 09/27/20 Principal diagnosis: Ongoing persistent shortness of breath Severe aortic bioprosthetic valve stenosis and severe aortic regurgitation Reduced cardiac output with cardiomyopathy ejection fraction of 20% Small to moderate right pleural effusion Very small left-sided pleural effusion Chronic atrial fibrillation 09/27/2020, patient seen eval examined during the rounds labs reviewed medications reviewed care plan discussed, stridor status remains stable oxygen saturation 96% on room air, hemodynamic stable blood pressure slightly running on the low side, chest x-ray cardiomegaly atelectasis in the left lower lobe improved 09/26/2020, patient seen eval examined during rounds labs reviewed medications reviewed care plan discussed, shortness of breath remains stable, swelling in the lower extremity improve, patient remains on room air, cardiovascular surgery and cardiology evaluating for valve replacement surgery contemplated sometime next week at a tertiary care center 09/25/2020, patient seen eval examined during the rounds labs reviewed medications reviewed patient has been doing well oxygen saturation remains 9596%, denies any cough or sputum production denies any chest pain, pleural fluid cytology report remains pending, 09/24/2020, patient seen eval reexamined during the rounds labs reviewed medications reviewed, no more chest pain is present shortness of breath significant improved patient has been on room air oxygen saturation is 95-96%, status post PAULINE, findings noted with bioprosthetic aortic well along with calcification, moderate to severe insufficiency noted, status post right thoracentesis is 1.4 L of fluid has been removed, cytology pending 09/23/2020, patient seen eval examined during the rounds labs reviewed medications reviewed, denies any chest pain but have cough and severe shortness of breath, surgical service evaluating however the valve surgery likely will occur a few weeks later, patient is being planned for PAULINE tomorrow patient would like to pursue and proceed with a right thoracentesis for diagnostic and therapeutic purposes Patient is a 69-year-old male with the prior medical history of bicuspid aortic valve status post to the bioprosthetic valve placement, patient has chronic atrial fibrillation, also has prior medical problems including diabetes mellitus hypertension hypertensive cardiovascular disease status post ablation, patient has a nonischemic cardiomyopathy thought to be related to A. fib, patient was hospitalized in August for shortness of breath found to have pleural effusion however responded well with conservative management, patient has been on direct oral anticoagulants which have been nonstop currently patient is on heparin, on arrival patient noted to have a right-sided pleural effusion some on the left side, are sound performed revealed moderate right-sided effusion also very small left-sided effusion, patient noted to have elevated AST and ALT with total bilirubin of 2, AST is 1500 ALT is 1330 alk phos 185, recent cardiac cath and angiogram shows mild coronary artery disease with LAD of 30% stenosis elevated right and left-sided pressures, 4+ severe aortic insufficiency, decreased carbonate output and cardiac index were noted, off respectively 2.89 and 1.4 to Objective - Vital Signs Vital signs: Vital Signs Temp 98.1 F 09/27/20 12:25 Pulse 75 09/27/20 12:25 Resp 16 09/27/20 12:25 BP 92/62 09/27/20 12:25 Pulse Ox 96 09/27/20 12:25 Intake & Output 09/26/20 09/27/20 09/27/20 18:59 06:59 18:59 Intake Total 961.213 8.787 554.624 Output Total 1425 700 Balance -463.787 8.787 -145.376 Weight 84.1 kg Intake: Intake, IV Titration 241.213 8.787 74.624 Amount Heparin Sod,Pork in 0.45% 241.213 8.787 74.624 NaCl 25,000 unit In 0.45 % NaCl 1 250ml.bag @ 11. 41 UNITS/KG/HR 9.995 mls/ hr IV .Q24H [facility] Rx#: [id number] Oral 720 480 Output: Urine 1425 700 Other: Voiding Method Toilet Toilet Toilet # Voids 1 - Exam - Constitutional General appearance: average body habitus, cooperative, disheveled - EENT Eyes: PERRLA Ears: bilateral: normal - Neck Neck: normal ROM Carotids: bilateral: upstroke normal Thyroid: bilateral: normal size - Respiratory Respiratory: bilateral: diminished - Cardiovascular Heart sounds: normal: S1, S2 - Gastrointestinal General gastrointestinal: decreased bowel sounds - Integumentary Integumentary: decreased turgor - Neurologic Neurologic: CNII-XII intact - Musculoskeletal Musculoskeletal: gait normal, generalized weakness, strength equal bilaterally - Psychiatric Psychiatric: A&O x's 3, appropriate affect, intact judgment & insight - Labs CBC & Chem 7: 04/08/21 05:59 09/27/20 05:12 Labs: Abnormal Lab Results - Last 24 Hours (Table) 09/26/20 09/26/20 09/26/20 Range/Units 16:56 19:27 20:36 APTT 93.8 H (22.0-30.0) sec Sodium (137-145) mmol/L Carbon Dioxide (22-30) mmol/L BUN (9-20) mg/dL Glucose (74-99) mg/dL POC Glucose (mg/dL) 120 H 128 H (75-99) mg/dL Total Bilirubin (0.2-1.3) mg/dL AST (17-59) U/L ALT (4-49) U/L Alkaline Phosphatase (38-126) U/L Total Protein (6.3-8.2) g/dL Albumin (3.5-5.0) g/dL 09/27/20 09/27/20 09/27/20 Range/Units 05:12 05:12 06:28 APTT 49.7 H (22.0-30.0) sec Sodium 136 L (137-145) mmol/L Carbon Dioxide 32 H (22-30) mmol/L BUN 27 H (9-20) mg/dL Glucose 135 H (74-99) mg/dL POC Glucose (mg/dL) 138 H (75-99) mg/dL Total Bilirubin 1.5 H (0.2-1.3) mg/dL AST 89 H (17-59) U/L ALT 463 H (4-49) U/L Alkaline Phosphatase 128 H (38-126) U/L Total Protein 5.4 L (6.3-8.2) g/dL Albumin 3.0 L (3.5-5.0) g/dL 09/27/20 Range/Units 11:51 APTT (22.0-30.0) sec Sodium (137-145) mmol/L Carbon Dioxide (22-30) mmol/L BUN (9-20) mg/dL Glucose (74-99) mg/dL POC Glucose (mg/dL) 162 H (75-99) mg/dL Total Bilirubin (0.2-1.3) mg/dL AST (17-59) U/L ALT (4-49) U/L Alkaline Phosphatase (38-126) U/L Total Protein (6.3-8.2) g/dL Albumin (3.5-5.0) g/dL Microbiology - Last 24 Hours (Table) 09/23/20 19:30 Gram Stain - Preliminary Pleural Fluid Body Fluid Culture - Preliminary Assessment and Plan Assessment: Right-sided pleural effusion Left lower lobe subsegmental atelectasis Ongoing persistent shortness of breath, significantly improved post right thor acentesis Severe aortic bioprosthetic valve stenosis and severe aortic regurgitation Reduced cardiac output with cardiomyopathy ejection fraction of 20% Very small left-sided pleural effusion Chronic atrial fibrillation Plan: Continue deep breathing exercise incentive spirometry will follow clinical course closely x-ray finding as noted above Time with Patient: Greater than 30
[2020-09-27 17:06] LABS: Glucose,Whole Blood 198 mg/dL (75-99)
[2020-09-27 20:58] LABS: Glucose,Whole Blood 204 mg/dL (75-99)
[2020-09-27] MEDS: MELATONIN 3 MG TABLET PO SCH (21:27)
[2020-09-28 06:33] LABS: Glucose,Whole Blood 122 mg/dL (75-99)
[2020-09-28] MEDS: INSULIN ASPART (NovoLOG) 100 UNIT/ML VIAL SQ SCH ×2 (06:41→12:02)
--- NOTE | 2020-09-28 08:58 | CT ---
EXAMINATION TYPE: CT TAVR Planning DATE OF EXAM: 09/28/2020 HISTORY: 69-year-old male Heart failure, TAVR planning CT DLP: 2052.40 mGycm Automated Exposure Control for Dose Reduction was Utilized. TECHNIQUE: Helical CT scan of the chest, abdomen and pelvis is performed with IV Contrast, arterial p hase imaging is utilized, patient injected with 125 mL of Isovue 370. Coronal and sagittal MIP recons tructions performed. COMPARISON: CT chest and abdomen 09/22/2020 and radiograph 09/27/2020 FINDINGS: See report from [email or web address] regarding preprocedural planning CHEST: Lower Neck and Thyroid: No significant findings Lungs: Patchy groundglass changes are present in the left upper and lower lobes. Central Airway: No significant findings Pleura: Moderate right and small left effusions with adjacent atelectasis. Pulmonary Arteries: No significant findings Heart and Pericardium: Median sternotomy wires with prosthetic aortic valve. Surgical clips are prese nt in the prevascular space. Retained epicardial pacer leads. Heart mildly enlarged without pericardi al effusion. LCA and LAD coronary artery calcifications. Ascending aorta is aneurysmal at 4.37 m. Lymph Nodes: A few prominent but nonenlarged lymph nodes measuring up to 9 mm in the precarinal regio n. Mediastinum & Esophagus: Tiny hiatal hernia. Otherwise, no significant findings ABDOMEN/PELVIS: Please note arterial phase of the imaging limits detailed evaluation of the solid abdominal organs. Liver: A couple subcentimeter hypodensities in the left liver lobe too small for accurate CT characte rization, probable cysts. Spleen: No significant findings Kidneys: No significant findings Adrenal Glands: No significant findings Pancreas: No significant findings Gallbladder: No abnormal distention. There may be mild wall thickening which is nonspecific and may r elate to fluid overload state. Bowel and Mesentery: Trace to mild perihepatic ascites. Mild pelvic ascites. Small periumbilical jasper ia. Very mild stool burden. Lymph Nodes: No significant findings Urinary Bladder: Incompletely distention but with mild circumferential wall thickening. Pelvic Organs: Prostate gland mildly enlarged at 4.9 cm wide. Other: Presacral edema is noted. Generalized anasarca changes. Mild bridging anterior endplate spondy losis lower thoracic spine. Moderate degenerative disc disease lower lumbar spine. Mild degenerative change of both hips. Other Lines/Tubes/Devices/Hardware: Again, retained epicardial pacer leads. Surgical clips in the pre vascular space. Median sternotomy wires. Prosthetic aortic valve. IMPRESSION: 1. Retained epicardial pacer leads. Surgical clips in the prevascular space. Median sternotomy wires and prosthetic aortic valve. 2. Correlate for fluid overload state and mild CHF given moderate right and small left effusions, gen eralized anasarca, and trace to mild ascites fluid. 3. LCA and LAD coronary artery calcifications and aneurysmal ascending aorta at 4.3 cm. 4. Some patchy opacities throughout the left lung could represent early patchy pulmonary edema. 5. Circumferential bladder wall thickening could relate to chronic bladder hypertrophy or cystitis. C linically correlate.
--- NOTE | 2020-09-28 09:13 | P.PN ---
Subjective Progress Note Date: 09/28/20 Principal diagnosis: Moderate to severe aortic bioprosthetic stenosis with severe aortic insufficiency and mildly dilated aortic root, mild to moderate mitral valve regurgitation, nonischemic cardiomyopathy, acute on chronic systolic heart failure, elevated transaminase enzymes, dyspnea, bilateral pleural effusions right greater than left. Previous medical history of persistent atrial fibrillation status post failed cardioversion and 2 ablations, chronic systolic heart failure with an ejection fraction < 20%, bicuspid aortic valve status post bioprosthetic aortic valve replacement in 2004, hypertension, hyperlipidemia, diabetes mellitus type 2, prostate disorder, GERD, vitamin D deficiency, generalized debilitation and weakness Patient's currently sitting up in a recliner on the cardiac stepdown unit in no acute distress. Denies any pain, shortness of breath, he is currently on room air with adequate oxygenation. Teaching continues regarding TAVR, education [place] given to patient. Patient had gated CT this morning. All questions answered Objective - Vital Signs Vital signs: Vital Signs Temp 97.8 F 09/28/20 04:00 Pulse 101 H 09/28/20 04:00 Resp 16 09/28/20 04:00 BP 107/64 09/28/20 04:00 Pulse Ox 96 09/28/20 04:00 Intake & Output 09/27/20 09/28/20 09/28/20 18:59 06:59 18:59 Intake Total 1154.624 Output Total 1300 300 600 Balance -145.376 -300 -600 Weight 82.9 kg Intake: Intake, IV Titration 74.624 Amount Heparin Sod,Pork in 0.45% 74.624 NaCl 25,000 unit In 0.45 % NaCl 1 250ml.bag @ 11. 41 UNITS/KG/HR 9.995 mls/ hr IV .Q24H [facility] Rx#: [id number] Oral 1080 Output: Urine 1300 300 600 Other: Voiding Method Toilet Toilet - Exam CONSTITUTIONAL: Appears comfortable, cooperative, no acute distress RESPIRATORY: Lungs sounds diminished bilaterally. Respirations even, nonlabored. Currently on room air with oxygen saturation 96%. Strong dry cough. CARDIOVASCULAR: S1, S2 present, systolic murmur present. Irregular rate and rhythm, controlled atrial fibrillation on telemetry. Palpable peripheral pulses bilaterally. Trace bilateral lower extremity edema present. No calf pain or tenderness noted. GASTROINTESTINAL: Abdomen soft, nontender, nondistended. Active bowel sounds present 4 quadrants. Tolerating diet GENITOURINARY: Continues to void clear, yellow urine. INTEGUMENTARY: Skin is warm and dry with evidence of good perfusion. NEUROLOGIC: Cranial nerves II through XII intact MUSKULOSKELETAL: Able to move all extremities, strength equal bilaterally, gait normal PSYCHIATRIC: Alert and oriented to person place and time, appropriate affect, intact judgment and insight - Allied health notes Allied health notes reviewed: nursing - Labs CBC & Chem 7: 09/24/20 05:59 09/27/20 05:12 Labs: Abnormal Lab Results - Last 24 Hours (Table) 09/27/20 09/27/20 09/27/20 Range/Units 11:51 16:48 20:57 POC Glucose (mg/dL) 162 H 198 H 204 H (75-99) mg/dL 09/28/20 Range/Units 06:32 POC Glucose (mg/dL) 122 H (75-99) mg/dL Microbiology - Last 24 Hours (Table) 09/23/20 19:30 Gram Stain - Preliminary Pleural Fluid Body Fluid Culture - Preliminary - Imaging and Cardiology CT scan - abdomen: report reviewed, image reviewed CT scan - chest: report reviewed, image reviewed CT Scan - head: report reviewed, image reviewed Assessment and Plan Assessment: 1. 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 Moderate central mitral valve regurgitation 3. Nonischemic cardiomyopathy, global hypokinesis of the LV, EF 25% 4. Acute on chronic systolic heart failure, BNP 15,500 on admission 5. Elevated transaminase enzymes, trending down 6. Dyspnea 7. Bilateral pleural effusions right greater than left, status post right sided thoracentesis with removal of 1.4 L fluid 8. History of persistent atrial fibrillation status post failed cardioversion and 2 ablations 9. Chronic systolic heart failure 10. History of bicuspid aortic valve status post bioprosthetic aortic valve replacement in 2004 11. Hypertension 12. Hyperlipidemia, treated, cholesterol 116, LDL 62 13. Diabetes mellitus type 2, hemoglobin A1c 7.3% 14. Prostate disorder 15. GERD 16. Vitamin D deficiency 17. Generalized debilitation and weakness Plan: 1. Continue to optimize medical management with aspirin, beta crissy, diuresis. 2. Statin remains on hold due to his elevated AST and ALT. Continue to monitor liver enzymes. 3. The patient would be considered very high risk candidate for re-do sternot vibha and surgical aortic valve replacement. He may be considered for TAVR. 4. Atrial fibrillation, heart failure management per cardiology. May discontinue IV heparin and restart Xarelto from our standpoint 5. Increase activity, ambulate as tolerated. Cardiac rehab following. 6. Encourage use of his incentive spirometry 10 times every hour while awake. 7. We will send all information to TAVR coordinator at [facility] who will contact the patient for TAVR clinic and scheduling of TAVR procedure. Patient asked to let us know size/copyright clerk of his previous valve, will pass that information on to TAVR coordinator and device reps. From cardiothoracic surgery standpoint patient may be discharged to home as TAVR is an outpatient elective procedure. This was discussed in detail with the patient. 8. Medical management of other comorbidities per primary care service 9. Will continue to see patient as needed. Please call with any further questions Time with Patient: Greater than 30
[2020-09-28] MEDS: FUROSEMIDE 10 MG/ML 4 ML VIAL IV SCH (09:57)
[2020-09-28] MEDS: ASPIRIN 81 MG PO SCH (09:58)
[2020-09-28] MEDS: CHOLECALCIFEROL 25 MCG (1000 IU) TABLET PO SCH (09:58)
[2020-09-28] MEDS: FAMOTIDINE 20 MG TAB PO SCH (09:58)
[2020-09-28] MEDS: METOPROLOL SUCCINATE (ER) 50 MG TAB.ER.24H PO SCH (09:58)
[2020-09-28] MEDS: HEPARIN SOD,PORK IN 0.45% NACL 25,000 UNIT in 0.45% NACL 1 250ML.BAG IV SCH (10:02)
[2020-09-28 10:18] LABS: ALT 345 U/L (4-49); AST 70 U/L (17-59); African American GFR (CKD) >90 (>60 ml/min/1.73 sqM); Albumin 3.2 g/dL (3.5-5.0); Alkaline Phosphatase 120 U/L (38-126); Anion Gap 6 mmol/L; Blood Urea Nitrogen 29 mg/dL (9-20); Calcium 8.6 mg/dL (8.4-10.2); Carbon Dioxide 31 mmol/L (22-30); Chloride 98 mmol/L (98-107); Glucose 130 mg/dL (74-99); Non-African American GFR(CKD) 89 (>60 ml/min/1.73 sqM); Potassium 4.2 mmol/L (3.5-5.1); Sodium 135 mmol/L (137-145); Total Bilirubin 1.2 mg/dL (0.2-1.3); Total Protein 5.6 g/dL (6.3-8.2)
[2020-09-28 11:28] LABS: Glucose,Whole Blood 139 mg/dL (75-99)
--- NOTE | 2020-09-28 11:59 | P.PN ---
Subjective This is a pleasant 69-year-old male past medical history significant for bicuspid aortic valve status post bioprosthetic aortic valve replacement, persistent atrial fibrillation s/p failed cardioversion, diabetes mellitus, hypertension, dyslipidemia, SVT s/p ablation, PVC ablation and recent worsening non-ischemic cardiomyopathy thought to be related to afib. He follows in the office with Dr. Perrin. Patient was recently in the hospital from 09/05/2020 to 09/09/2020. During his hospital stay patient had large left pleural effusion . He was managed with IV Lasix, his symptoms improved and eventually the patient was started on Entresto, by cardiology and discharged home. We have been asked to see in consultation for heart failure. Patient admitted on 09/15/20. In the ER, patient had a chest x-ray showing evidence of right lower lobe opacity concerning for atelectasis and an elevated BNP of 15,000. Patient was seen by Dr. Perrin, Tikosyn was initiated on 09/14/20. Patient was started back on Entresto. Patient underwent cardioversion on 09/17/20 with successful conversion to sinus rhythm. Tikosyn was stopped on 09/21/20 morning. Limited Echocardiogram on 09/17/20: severe global hypokinesis of LV, EF <20%. 09/18- patient was hyperkalemic - enresto and Aldactone was held 09/22/2020 Patient examined this morning at the bedside. He is status post cardiac catheterization with Dr. Camargo yesterday that revealed mild proximal LAD 30% stenosis, elevated left and right filling pressures, 4+ severe aortic insufficiency, mildly dilated aortic root, decreased cardiac output and cardiac index. Patient complaining of shortness of breath and 1+ lower extremity edema, and JVD noted. Per chart also with weight gain 87.6kg from 84kg. Telemetry reviewed- currently in sinus mechanism with occasional PVCs. HR 70s. Laboratory data reviewed, Sodium 134, K 5.9, sCr 1.15, BUN 53, Mag 2.6, Liver enzymes elevated previous normal on 09/20/20, AST >1500, ALD 1330, Alk Phos 185. 09/23/2020: Patient examined this morning at the bedside. States he feels better but continues to have ongoing consistent SOB. 1+lower extremity and edema and JVD. ultrasound of the chest- bilateral pleural effusions greater on the right. Ultrasound the gallbladder within normal limits. Telemetry reviewed- patient in atrial fibrillation, heart rate 6070s 09/24/2020: Patient s/p right sided thoracentesis with 1.4L dark yellow fluid removed. He states his breathing is improved. BP 99/56 HR 80s. Telemetry with 6-7 beat runs of Vtach. In atrial fibrillation/atrial flutter. HR 80s-90s. Lab data reviewed, sodium 137, serum creatinine 1.17 (1.50 yesterday) total bilirubin 1.1, LFTs are improving AST 522, ALT 1151, alkaline phosphates 144. 09/25/2020: Patient underwent PAULINE yesterday which revealed bioprostehtic aortic valve with moderate calcification, severe central aortic insufficiency, tethering of the mitral valve leaflets related to cardiomyopathy, moderate central secondary mitral regurgition, mild tricuspid regurgitation. There is severe left ventricular dysfunction with EF 25% and global hypokinesis. LA is moderately dilated. No evidence of PFO. Left atrial appendage is free of clot. Patient seen and examined at bedside. Continues to have shortness of breath with activity and fatigue but feeling better. I/Os with good urine output (-1856mL urine output). Sodium 136, potassium 3.5, serum creatinine 0.81, LFTs are improving- AST 266, ALT 19, alkaline phosphatase 160 09/28/2020: Patient seen and examined at bedside today, up in chair, no acute distress. Vitals stable. Denies any pain, shortness of breath, he is currently on room air with adequate oxygenation. PHYSICAL EXAM: VITAL SIGNS: BP 95/66 HR 96 maintaining oxygen saturation 98% on room air, afebrile GENERAL: Patient appears short of breath. No acute distress on exam NECK: JVD improved LUNGS: Respirations even and unlabored. Right lower base with crackles, other lung lees clear HEART: Regular rate and rhythm. S1 and S2 heard. Systolic murmur noted. EXTREMITIES: Normal range of motion. No clubbing or cyanosis. Peripheral pulses intact. trace bilateral lower extremity edema- improving ASSESSMENT: Acute on chronic heart failure with reduced EF Non-ischemic cardiomyopathy Elevated Liver Enzymes - most likely hepatic congestion due to heart failure Persistent atrial fibrillation, s/p cardioversion, maintaining sinus mechanism 4+ severe aortic insufficiency Mildly dialted aortic root Pleural Effusions- pulmonary following Decreased cardiac output History of failed cardioversion Valvular heart disease s/p aortic valve replacement Mitral regurgitation History of Hypertension- currently hypotensive Dyslipidemia PLAN: -Discontinue heparin -Restart Xarelto -Discontinue IV Lasix, Resume PO Lasix -Statin - continues to be on hold due to elevated liver enzymes -ACEI being held due to hypotension -From cardiology perspective, ok to discharge patient with follow up with Dr. Perrin and follow up with cardiothoracic surgery -Patient is currently being worked up for cardiac valve surgery- fromom cardiothoracic surgery standpoint patient may be discharged to home as TAVR is an outpatient elective procedure. Nurse practitioner note has been reviewed by physician. Signing provider agrees with the documented findings, assessment, and plan of care. Objective - Vital Signs Vital signs: Vital Signs Temp 97.8 F 09/28/20 04:00 Pulse 101 H 09/28/20 04:00 Resp 16 09/28/20 04:00 BP 107/64 09/28/20 04:00 Pulse Ox 96 09/28/20 04:00 Intake & Output 09/27/20 09/28/20 09/28/20 18:59 06:59 18:59 Intake Total 1154.624 Output Total 1300 300 600 Balance -145.376 -300 -600 Weight 82.9 kg Intake: Intake, IV Titration 74.624 Amount Heparin Sod,Pork in 0.45% 74.624 NaCl 25,000 unit In 0.45 % NaCl 1 250ml.bag @ 11. 41 UNITS/KG/HR 9.995 mls/ hr IV .Q24H [facility] Rx#: [id number] Oral 1080 Output: Urine 1300 300 600 Other: Voiding Method Toilet Toilet - Labs CBC & Chem 7: 09/24/20 05:59 09/28/20 08:29 Labs: Abnormal Lab Results - Last 24 Hours (Table) 09/27/20 09/27/20 09/27/20 Range/Units 11:51 16:48 20:57 APTT (22.0-30.0) sec POC Glucose (mg/dL) 162 H 198 H 204 H (75-99) mg/dL 09/28/20 09/28/20 Range/Units 06:32 08:29 APTT 47.2 H (22.0-30.0) sec POC Glucose (mg/dL) 122 H (75-99) mg/dL Microbiology - Last 24 Hours (Table) 09/23/20 19:30 Gram Stain - Preliminary Pleural Fluid Body Fluid Culture - Preliminary
[2020-09-28] MEDS ORDERED: RIVAROXABAN 20 MG TAB PO STA (12:00)
[2020-09-28 12:13] VITALS: BP 93/59; PULSE 102; TEMP 97.9
--- NOTE | 2020-09-28 13:35 | P.DS ---
Providers Date of admission: 09/15/20 13:07 Attending physician: Yoseph Dodson MD Consults: 09/13/20 08:20 Consult Physician Stat Consulting Provider: Selvin Perrin Consult Reason/Comments: CHF Do you want consulting provider notified?: Yes 09/21/20 19:39 Consult Physician Routine Consulting Provider: Sami Guaman Consult Reason/Comments: aortic valve Do you want consulting provider notified?: Yes, Notify in am 09/22/20 10:38 Consult Physician Routine Consulting Provider: Felisa Ashley Consult Reason/Comments: Dental clearance for valve surgery Do you want consulting provider notified?: Yes 09/22/20 14:06 Consult Physician Routine Consulting Provider: Flip Contreras Consult Reason/Comments: Bilateral pleural effusions Do you want consulting provider notified?: Yes Primary care physician: [facility] Course: Mr. Monreal is a history pleasant 69-year-old male with a past medical history of bicuspid aortic wall status post bioprosthetic aortic wall replacement, persistent atrial fibrillation status post failed cardioversion, diabetes mellitus, hypertension, dyslipidemia, SVT s/p ablation, PVC ablation and recent worsening non-ischemic cardiomyopathy thought to be related to afib, who follows in the office with Dr. Perrin coming in with a chief complaint of exertional dyspnea. Patient was recently in the hospital from 09/05/2020 to 09/09/2020. During his hospital stay patient had large left pleural effusion. He was managed with IV Lasix, his symptoms improved and eventually the patient was started on Entresto, by cardiology and discharged home. Patient states that since being discharged he noticed that his difficulty in breathing has worsened along with his cough. Patient states that his cough that he has been having for the past 1 month is improving. He is bringing up white thick sputum. Patient denies having any fevers chills or rigors. He denies having orthopnea PND. He states that his lower extremity swelling has worsened. Patient denies having any abdominal pain, but states that he has feeling of butterflies in his belly when he takes metformin. He also states that for the past 2-3 days he has been having generalized weakness and fatigue. Patient denies having any nausea vomiting or diarrhea. No dysuria or hematuria. Denies having any sick contacts. In the ER, patient had a chest x-ray showing evidence of right lower lobe opacity concerning for atelectasis and an elevated BNP of 15,000. He was given a low dose of Lasix due to his low blood pressure and eventually started on 50 mL of IV normal saline and admitted for further management. On reviewing his labs white count of 7 hemoglobin 15.8, platelets 112. Sodium 135, potassium 5.14, chloride 104, bicarbonate 22, BUN 20, [place] [address]. T roponin 0.013. 09/14/2020 Patient remains on IV Lasix patient still has significant swelling in bilateral lower extremities patient is found to have persistent atrial fibrillation which may be contributing to his heart failure exacerbations. Cardiology evaluated the patient is recommending admitting the patient and starting patient on dofetilide. Patient was started back on Entresto. Patient the shortness of breath significantly improved and patient was apparently having abdominal discomfort at home and he believes it secondary to metformin and this discomfort completely resolved 09/15/2020 Patient's pedal edema significant improved. Patient is being started on dofetilide 09/16/2020 Patient will undergo cardioversion tomorrow patient is euvolemic patient was switched to oral Lasix. 09/17/2020 Patient underwent cardioversion presently and opiate allied which will be continued presently sinus rhythm patient will be monitored overnight possibility of discharge tomorrow patient remains on oral Lasix. 09/18/2020 Patient potassium is high at around 6 mildly hemolyzed. We will hold off on Entresto and Aldactone for now. 09/19/2020 Patient's potassium has come down patient appeared to be evaluated by electrophysiology unfortunately cannot discharge this patient as patient was not evaluated by Dr. Lopez yet. 09/20/2020 patient will undergo right heart catheterization patient's sodium is on 133 today. Patient is complaining of constipation and was started on MiraLAX 09/21/2020 patient will undergo right heart catheterization today, had Bowel movements yesterday. Patient's serum sodium is 133 stable at this level potassium is 5.2. 09/22/2020 Appears to be in heart failure today patient is coming of shortness of breath patient does have increased pedal edema also has elevated JVD and that did gain weight patient had a CT of the chest as part of workup for cardiac valve surgery or intervention which showed bilateral pleural effusions appears to have pulmonary edema on the CAT scan CAT scan was reviewed by me. Patient had a cardiac catheterization yesterday which showed severe diuretic insufficiency with mildly dilated aortic root. Cardio thoracic surgeries a valid in the patient patient has highly elevated liver enzymes probably secondary to hepatic congestion worse and the creatinine to 1.15 patient does appear to have acidosis with anion gap of 15. hyponatremic. Hyperkalemic although patient had hemolysis patient will be on low potassium diet. Ultrasound of the liver was ordered because of elevated liver enzymes 09/23/2020 Patient clinically looks okay but that definitely in heart failure clinically patient's went down a bit to 132 creatinine went up to 1.5 patient will be continued on IV Lasix. Patient still appears to have significant hepatic congestion with elevated AST and ALT although AST did improve a bit patient bilirubin is elevated as well and INR is elevated to 1.7 all secondary to hepatic congestion. Ultrasound of the gallbladder essentially within normal limits which is not expected. Patient was evaluated by pulmonary and patient will undergo thoracentesis on the right side patient does have bilateral pleural effusions. 09/24/2020 Patient had thoracentesis with removal of around 1.4 L of serous fluid. Patient is feeling bit better today, his metabolic profile showed improving ALT and AST 09/25/2020 Patient is feeling much better patient's renal function as well as liver function improved at this time. Commit cardio thoracic surgery is evaluating for TAVR, patient is a high risk for sternotomy as per cardio thoracic surgery. 09/26/2020 I do not have any labs available from today patient does have bibasilar basilar crackles patient will be continued on IV Lasix. 09/27/2020 Patient still has crackles predominantly in the right posterior lower lung lees although he appears to be significantly better. And will undergo graded CT tomorrow after that patient probably will be discharged to follow-up as an outpatient for TAVR 09/28/2020 Patient had workup for T aVR. Patient is a clinic at this time patient will be discharged today although patient is definitely high risk for readmission bec ause of a his heart failure and associated aortic regurgitation. Patient will be discharged on 40 mg oral twice a day of Lasix his liver enzymes are coming down. Patient is not being discharged on any Robson inhibitor at this time because of his issues with hyperkalemia and continued hypotension ROBSON inhibitor can be initiated slowly at a low dose upon discharge patient is also on a beta crissy dose was reduced during this hospitalization patient is being discharged on reduced dose of beta crissy. His heart rate is in 90s to low 100s. Repeat to compress metabolic profile will be obtained in couple days potassium replacement is not being ordered upon discharge because of his hyperkalemia issues during hospitalization depending on his electrolytes this can be initiated. PHYSICAL EXAMINATION: GENERAL: The patient is alert and oriented x3, not in any acute distress. Well developed, well nourished. HEENT: Pupils are round and equally reacting to light. EOMI. No scleral icterus. No conjunctival pallor. Normocephalic, atraumatic. No pharyngeal erythema. No thyromegaly. CARDIOVASCULAR: S1 and S2 present. No rubs, or gallops. Patient doesn't have any JVD today PULMONARY: Bibasilar crackles ABDOMEN: Soft, nontender, nondistended, normoactive bowel sounds. No palpable organomegaly. MUSCULOSKELETAL: No joint swelling or deformity. EXTREMITIES: No cyanosis, clubbing, no pedal edema today NEUROLOGICAL: Gross neurological examination did not reveal any focal deficits. SKIN: No rashes. Assessment and Plan Plan: Acute exacerbation of chronic systolic heart failure: She and is presently is euvolemic. Patient is cardioversion for atrial fibrillation and patient is presently sinus rhythm. patient is status post cardioversion, sinus rhythm, And had cardiac catheterization which showed severe aortic insufficiency with a dilated aortic root. Patient's heart failure significantly improved. Patient had a PAULINE which showed moderate to severe aortic stenosis severe aortic insufficiency moderate to severe mitral regurgitation. Patient is being considered for TAVR as he is at high risk for sternotomy. Systolic heart failure with ejection fraction less than 20% was treated for heart failure exacerbation.. Pleural effusions: Significant on the right side patient had thoracic sepsis with removal of around 1.4 L of fluid. -transaminitis with elevated zyme secondary to congestive heart failure and hepatic condition improving , patient will be resumed back on statin -Severe aortic regurgitation patient had a reticulocyte valvular surgery in the past and will need either valve replacement or TAVR -Hyperkalemia: Improved now Nonischemic cardiomyopathy Persistent atrial fibrillation status post cardioversion, patient of fluid back to atrial fibrillation again because of hypoxemia and CHF Thrombocytopenia Hypertension GERD Diabetes mellitus BPH Migraine headaches Scoliosis Chronic low back pain Vitamin D deficiency Patient Condition at Discharge: Stable Plan - Discharge Summary Discharge Rx Participant: Yes New Discharge Prescriptions: New Metoprolol Succinate (ER) [Toprol XL] 50 mg PO DAILY tab.er.24h Continue Aspirin [Adult Low Dose Aspirin EC] 81 mg PO DAILY metFORMIN HCL [Glucophage] 500 mg PO BID@0800,1200 Rivaroxaban [Xarelto] 20 mg PO HS Rosuvastatin [Crestor] 20 mg PO HS Cholecalciferol [Vitamin D3 (25 Mcg = 1000 Iu)] 50 mcg PO DAILY Changed Furosemide [Lasix] 40 mg PO BID #0 tab Discontinued Metoprolol Succinate [Toprol XL] 100 mg PO DAILY Potassium Chloride [Klor-Con 20] 20 meq PO BID@0530,1200 Spironolactone [Aldactone] 25 mg PO DAILY #90 tab Sacubitril/Valsartan [Entresto 24 mg-26 mg Tablet] 1 tab PO BID Discharge Medication List Aspirin [Adult Low Dose Aspirin EC] 81 mg PO DAILY 07/26/16 [History] Rivaroxaban [Xarelto] 20 mg PO HS 07/17/20 [History] metFORMIN HCL [Glucophage] 500 mg PO BID@0800,1200 07/17/20 [History] Rosuvastatin [Crestor] 20 mg PO HS 08/02/20 [History] Cholecalciferol [Vitamin D3 (25 Mcg = 1000 Iu)] 50 mcg PO DAILY 09/03/20 [History] Furosemide [Lasix] 40 mg PO BID #0 tab 09/28/20 [Rx] Metoprolol Succinate (ER) [Toprol XL] 50 mg PO DAILY tab.er.24h 09/28/20 [Rx] Follow up Appointment(s)/Referral(s): Vance Lopez DO [Primary Care Provider] - 3 Days Ambulatory/Diagnostic Orders: Comprehensive Metabolic Panel [LAB.AMB] Time Frame: 3 Days, Location: None Selected
[2020-09-28] MEDS ORDERED: FUROSEMIDE 40 MG TAB PO SCH (16:00)
[2020-09-28] MEDS ORDERED: RIVAROXABAN 20 MG TAB PO SCH (17:30)
[2020-09-29] MEDS ORDERED: FUROSEMIDE 40 MG TAB PO SCH (09:00)
--- NOTE | 2020-09-30 11:53 | P.PN ---
Subjective Progress Note Date: 09/28/20 Principal diagnosis: Ongoing persistent shortness of breath Severe aortic bioprosthetic valve stenosis and severe aortic regurgitation Reduced cardiac output with cardiomyopathy ejection fraction of 20% Small to moderate right pleural effusion Very small left-sided pleural effusion Chronic atrial fibrillation 09/28/2020, patient seen eval examined shortness of breath stable patient has some nausea vomiting otherwise has been doing well cardiothoracic surgery is following being planned for aortic surgery at a tertiary care center 09/27/2020, patient seen eval examined during the rounds labs reviewed medications reviewed care plan discussed, stridor status remains stable oxygen saturation 96% on room air, hemodynamic stable blood pressure slightly running on the low side, chest x-ray cardiomegaly atelectasis in the left lower lobe improved 09/26/2020, patient seen eval examined during rounds labs reviewed medications reviewed care plan discussed, shortness of breath remains stable, swelling in the lower extremity improve, patient remains on room air, cardiovascular surgery and cardiology evaluating for valve replacement surgery contemplated sometime next week at a tertiary care center 09/25/2020, patient seen eval examined during the rounds labs reviewed medications reviewed patient has been doing well oxygen saturation remains 9596%, denies any cough or sputum production denies any chest pain, pleural fluid cytology report remains pending, 09/24/2020, patient seen eval reexamined during the rounds labs reviewed medications reviewed, no more chest pain is present shortness of breath significant improved patient has been on room air oxygen saturation is 95-96%, status post PAULINE, findings noted with bioprosthetic aortic well along with calcification, moderate to severe insufficiency noted, status post right thoracentesis is 1.4 L of fluid has been removed, cytology pending 09/23/2020, patient seen eval examined during the rounds labs reviewed medications reviewed, denies any chest pain but have cough and severe shortness of breath, surgical service evaluating however the valve surgery likely will occur a few weeks later, patient is being planned for PAULINE tomorrow patient would like to pursue and proceed with a right thoracentesis for diagnostic and therapeutic purposes Patient is a 69-year-old male with the prior medical history of bicuspid aortic valve status post to the bioprosthetic valve placement, patient has chronic atrial fibrillation, also has prior medical problems including diabetes mellitus hypertension hypertensive cardiovascular disease status post ablation, patient has a nonischemic cardiomyopathy thought to be related to A. fib, patient was hospitalized in August for shortness of breath found to have pleural effusion however responded well with conservative management, patient has been on direct oral anticoagulants which have been nonstop currently patient is on heparin, on arrival patient noted to have a right-sided pleural effusion some on the left side, are sound performed revealed moderate right-sided effusion also very small left-sided effusion, patient noted to have elevated AST and ALT with total bilirubin of 2, AST is 1500 ALT is 1330 alk phos 185, recent cardiac cath and angiogram shows mild coronary artery disease with LAD of 30% stenosis elevated right and left-sided pressures, 4+ severe aortic insufficiency, decreased carbonate output and cardiac index were noted, off respectively 2.89 and 1.4 to Objective - Vital Signs Vital signs: Vital Signs Temp 97.9 F 09/28/20 12:00 Pulse 102 H 09/28/20 12:00 Resp 16 09/28/20 14:00 BP 93/59 09/28/20 12:00 Pulse Ox 97 09/28/20 12:00 Intake & Output 09/27/20 09/28/20 09/28/20 18:59 06:59 18:59 Intake Total 1154.624 295.376 Output Total 1300 300 600 Balance -145.376 -300 -304.624 Weight 82.9 kg Intake: Intake, IV Titration 74.624 175.376 Amount Heparin Sod,Pork in 0.45% 74.624 175.376 NaCl 25,000 unit In 0.45 % NaCl 1 250ml.bag @ 11. 41 UNITS/KG/HR 9.995 mls/ hr IV .Q24H [facility] Rx#: [id number] Oral 1080 120 Output: Urine 1300 300 600 Other: Voiding Method Toilet Toilet Toilet - Exam - Constitutional General appearance: average body habitus, cooperative, disheveled - EENT Eyes: PERRLA Ears: bilateral: normal - Neck Neck: normal ROM Carotids: bilateral: upstroke normal Thyroid: bilateral: normal size - Respiratory Respiratory: bilateral: diminished - Cardiovascular Heart sounds: normal: S1, S2 - Gastrointestinal General gastrointestinal: decreased bowel sounds - Integumentary Integumentary: decreased turgor - Neurologic Neurologic: CNII-XII intact - Musculoskeletal Musculoskeletal: gait normal, generalized weakness, strength equal bilaterally - Psychiatric Psychiatric: A&O x's 3, appropriate affect, intact judgment & insight - Labs CBC & Chem 7: 09/24/20 05:59 09/28/20 08:29 Labs: Abnormal Lab Results - Last 24 Hours (Table) 09/27/20 09/27/20 09/28/20 Range/Units 16:48 20:57 06:32 APTT (22.0-30.0) sec Sodium (137-145) mmol/L Carbon Dioxide (22-30) mmol/L BUN (9-20) mg/dL Glucose (74-99) mg/dL POC Glucose (mg/dL) 198 H 204 H 122 H (75-99) mg/dL AST (17-59) U/L ALT (4-49) U/L Total Protein (6.3-8.2) g/dL Albumin (3.5-5.0) g/dL 09/28/20 09/28/20 09/28/20 Range/Units 08:29 08:29 11:26 APTT 47.2 H (22.0-30.0) sec Sodium 135 L (137-145) mmol/L Carbon Dioxide 31 H (22-30) mmol/L BUN 29 H (9-20) mg/dL Glucose 130 H (74-99) mg/dL POC Glucose (mg/dL) 139 H (75-99) mg/dL AST 70 H (17-59) U/L ALT 345 H (4-49) U/L Total Protein 5.6 L (6.3-8.2) g/dL Albumin 3.2 L (3.5-5.0) g/dL Microbiology - Last 24 Hours (Table) 09/23/20 19:30 Gram Stain - Final Pleural Fluid Body Fluid Culture - Final Assessment and Plan Assessment: Right-sided pleural effusion Left lower lobe subsegmental atelectasis Ongoing persistent shortness of breath, significantly improved post right thoracentesis Severe aortic bioprosthetic valve stenosis and severe aortic regurgitation Reduced cardiac output with cardiomyopathy ejection fraction of 20% Very small left-sided pleural effusion Chronic atrial fibrillation Plan: Continue deep breathing exercise incentive spirometry will follow clinical course closely x-ray finding as noted above Time with Patient: Greater than 30
== END 2020-09-28 17:42 | disposition home health service (06) | DRG 287 ==
LOC: EC 05:09 → 6NMEDSUR 08:14 → 3SCARD 09-14 13:31 → OBSVTOIN 09-15 13:07
PROVIDERS: ADMIT Internal Medicine; ATTEND Internal Medicine
PROC: 5A2204Z Restoration of Cardiac Rhythm, Single (ICD-10-PCS; 2020-09-17)
PROC: 4A023N7 Measurement of Cardiac Sampling and Pressure, Left Heart, Percutaneous Approach (ICD-10-PCS; principal; 2020-09-21 12:00)
PROC: B2111ZZ Fluoroscopy of Multiple Coronary Arteries using Low Osmolar Contrast (ICD-10-PCS; 2020-09-21 12:00)
PROC: B24BZZ4 Ultrasonography of Heart with Aorta, Transesophageal (ICD-10-PCS; 2020-09-21 12:00)
PROC: 0W993ZZ Drainage of Right Pleural Cavity, Percutaneous Approach (ICD-10-PCS; 2020-09-23)
DX: I11.0 Hypertensive heart disease with heart failure (principal); I48.19 Other persistent atrial fibrillation; E87.1 Hypo-osmolality and hyponatremia; I48.92 Unspecified atrial flutter; I47.2 Ventricular tachycardia; E87.2 Acidosis; J98.11 Atelectasis; T82.857A Stenosis of other cardiac prosthetic devices, implants and grafts, initial encounter; T82.897A Other specified complication of cardiac prosthetic devices, implants and grafts, initial encounter; Z79.82 Long term (current) use of aspirin; Z79.01 Long term (current) use of anticoagulants; Z79.84 Long term (current) use of oral hypoglycemic drugs; E11.9 Type 2 diabetes mellitus without complications; Z82.49 Family history of ischemic heart disease and other diseases of the circulatory system; Z87.01 Personal history of pneumonia (recurrent); I50.23 Acute on chronic systolic (congestive) heart failure; D69.6 Thrombocytopenia, unspecified; G89.29 Other chronic pain; Z20.822 Contact with and (suspected) exposure to COVID-19; E55.9 Vitamin D deficiency, unspecified; G43.909 Migraine, unspecified, not intractable, without status migrainosus; I08.0 Rheumatic disorders of both mitral and aortic valves; Z95.3 Presence of xenogenic heart valve; E78.5 Hyperlipidemia, unspecified; I42.8 Other cardiomyopathies; E87.5 Hyperkalemia; K59.00 Constipation, unspecified; N40.0 Benign prostatic hyperplasia without lower urinary tract symptoms; I95.9 Hypotension, unspecified; K21.9 Gastro-esophageal reflux disease without esophagitis; K76.1 Chronic passive congestion of liver; M41.9 Scoliosis, unspecified; I25.10 Atherosclerotic heart disease of native coronary artery without angina pectoris; I25.5 Ischemic cardiomyopathy; I49.3 Ventricular premature depolarization; I77.810 Thoracic aortic ectasia; R79.1 Abnormal coagulation profile; Y83.1 Surgical operation with implant of artificial internal device as the cause of abnormal reaction of the patient, or of later complication, without mention of misadventure at the time of the procedure
CPT/HCPCS: 36415; 70486; 71045; 71046; 71260; 71275; 74160; 74174; 76604; 76705; 76937; 80048; 80053; 80061; 80074; 81001; 82810; 82945; 83036; 83605; 83615; 83735; 83880; 84132; 84157; 84443; 84484; 85018; 85025; 85027; 85610; 85730; 87070; 87102; 87116; 87205; 87206; 87635; 88108; 88305; 89050; 92960; 93005; 93308; 93312; 93320; 93325; 93456; 93567; 93880; 94060; 94726; 94729; 96374; 99285

== ENCOUNTER 2020-09-30 10:37 | Inpatient (IN) | payer MEDICAID, MEDICARE ==
[2020-09-30 10:44] VITALS: TEMP 97.9
[2020-09-30 11:09] LABS: Basophils % (A) 0 %; Eosinophils # (A) 0.1 k/uL (0-0.7); Eosinophils % (A) 1 %; HCT 46.9 % (39.0-53.0); HGB 15.5 gm/dL (13.0-17.5); Lymphocytes # (A) 1.3 k/uL (1.0-4.8); Lymphocytes % (A) 17 %; MCH 28.8 pg (25.0-35.0); MCV 87.1 fL (80.0-100.0); Mean Platelet Volume 10.6; Monocytes # (A) 0.5 k/uL (0-1.0); Monocytes % (A) 7 %; Neutrophils # (A) 5.7 k/uL (1.3-7.7); Neutrophils % (A) 74 %; Platelet Count 106 k/uL (150-450); RBC 5.39 m/uL (4.30-5.90); RDW 15.7 % (11.5-15.5); WBC 7.7 k/uL (3.8-10.6)
[2020-09-30 11:23] LABS: Albumin 3.9 g/dL (3.5-5.0); Calcium 9.4 mg/dL (8.4-10.2); Magnesium 2.4 mg/dL (1.6-2.3); Potassium 4.5 mmol/L (3.5-5.1); Total Bilirubin 1.4 mg/dL (0.2-1.3); Total Protein 6.4 g/dL (6.3-8.2)
--- NOTE | 2020-09-30 11:26 | ED ---
General Adult HPI - General Chief complaint: Weakness Stated complaint: revisit Time Seen by Provider: 09/30/20 10:39 Source: patient, EMS, RN notes reviewed Mode of arrival: EMS Limitations: no limitations - History of Present Illness Initial comments: This a 69-year-old male presents emergency Department with chief complaint of jaundice weakness, shortness breath, swelling. Patient was recently discharged for CHF exacerbation. Patient states he went home his been taking Lasix 40 mg twice daily states that is not helping. He states is keeping weight, increased shortness breath and weakness. Patient states he also is scheduled for cardiac valve replacement. He states that he's scheduled for scanning of his mouth. Patient hasn't went to chest pain states he just feels heart was racing he has a history of A. fib recent cardioversion but states that he was told he went back and A. fib. Patient is currently on Xarelto. He states she's noticed leg swelling, abdominal swelling. - Related Data Home Medications Medication Instructions Recorded Confirmed Aspirin [Adult Low Dose Aspirin EC] 81 mg PO DAILY 07/26/16 09/13/20 Rivaroxaban [Xarelto] 20 mg PO HS 07/17/20 09/13/20 metFORMIN HCL [Glucophage] 500 mg PO BID@0800,1200 07/17/20 09/13/20 Rosuvastatin [Crestor] 20 mg PO HS 08/02/20 09/13/20 Cholecalciferol [Vitamin D3 (25 50 mcg PO DAILY 09/03/20 09/13/20 Mcg = 1000 Iu)] Previous Rx's Medication Instructions Recorded Furosemide [Lasix] 40 mg PO BID #0 tab 09/28/20 Metoprolol Succinate (ER) [Toprol 50 mg PO DAILY tab.er.24h 09/28/20 XL] Allergies Allergy/AdvReac Type Severity Reaction Status Date / Time atorvastatin [From Lipitor] AdvReac muscle Verified 09/13/20 07:43 weakness Review of Systems ROS Statement: Those systems with pertinent positive or pertinent negative responses have been documented in the HPI. ROS Other: All systems not noted in ROS Statement are negative. Past Medical History Past Medical History: Atrial Fibrillation, Heart Failure, Diabetes Mellitus, GERD/Reflux, Hyperlipidemia, Hypertension, Musculoskeletal Disorder, Osteoarthritis (OA), Prostate Disorder, Respiratory Disorder, Skin Disorder Additional Past Medical History / Comment(s): Recent pneumonia treated with antibiotic, nonischemic cardiomyopathy, mitral valve regurg, NIDDM type II, BPH, occasional migraines, occasional cervical/shoulder pain, lower back pain/DDD, psoriasis, vitamin D deficiency. History of Any Multi-Drug Resistant Organisms: None Reported Past Surgical History: Cardiac Ablation, Cardiac Valve Replacement, Heart Catheterization Additional Past Surgical History / Comment(s): 07/21/20 PAULINE/cardioverson, 2005 Bovine aortic valve, cardiac ablation for SVT and another for PVCs, colonoscopies, anal fistula repair. Past Anesthesia/Blood Transfusion Reactions: Family History of Problems w/ Anesthesia Additional Past Anesthesia/Blood Transfusion Reaction / Comment(s): Mother - PONV Past Psychological History: No Psychological Hx Reported Smoking Status: Never smoker Past Alcohol Use History: Occasional Past Drug Use History: None Reported - Past Family History Mother Family Medical History: AFIB Additional Family Medical History / Comment(s): Mother lived to be 86yrs old. Father Family Medical History: Congestive Heart Failure (CHF) Brother(s) Family Medical History: AFIB Sister(s) Family Medical History: AFIB General Exam Limitations: no limitations General appearance: alert, in no apparent distress Head exam: Present: atraumatic, normocephalic, normal inspection Eye exam: Present: normal appearance, PERRL, EOMI. Absent: scleral icterus, conjunctival injection, periorbital swelling ENT exam: Present: normal exam, normal oropharynx, mucous membranes moist Neck exam: Present: normal inspection, full ROM. Absent: tenderness, meningismus, lymphadenopathy Respiratory exam: Present: normal lung sounds bilaterally. Absent: respiratory distress, wheezes, rales, rhonchi, stridor Cardiovascular Exam: Present: tachycardia, irregular rhythm, systolic murmur. Absent: regular rate, normal rhythm, normal heart sounds, diastolic murmur, rubs, gallop, clicks GI/Abdominal exam: Present: soft, distended, normal bowel sounds. Absent: tenderness, guarding, rebound, rigid Extremities exam: Present: pedal edema Neurological exam: Present: alert, oriented X3, CN II-XII intact Skin exam: Present: warm, dry, intact, normal color. Absent: rash Course Vital Signs 09/30/20 09/30/20 09/30/20 10:41 11:01 12:30 Temperature 97.9 F Pulse Rate 120 H 108 H 111 H Respiratory 16 16 16 Rate Blood Pressure 107/38 102/68 103/82 O2 Sat by Pulse 97 98 97 Oximetry EKG Findings - EKG Comments: EKG Findings:: EKG shows evidence of A. fib RVR Medical Decision Making - Medical Decision Making 69-year-old presented for increased shortness breath weakness. Patient has acute CHF exacerbation EMP is 21,900, troponin is 0.046 EKG shows evidence of A. fib patient is currently anticoagulated. Patient will be admitted for diuresis, further evaluation and treatment. - Lab Data Result diagrams: 09/30/20 11:00 09/30/20 11:00 Lab Results 09/30/20 09/30/20 09/30/20 Range/Units 11:00 11:00 11:00 WBC 7.7 (3.8-10.6) k/uL RBC 5.39 (4.30-5.90) m/uL Hgb 15.5 (13.0-17.5) gm/dL Hct 46.9 (39.0-53.0) % MCV 87.1 (80.0-100.0) fL MCH 28.8 (25.0-35.0) pg MCHC 33.0 (31.0-37.0) g/dL RDW 15.7 H (11.5-15.5) % Plt Count 106 L (150-450) k/uL MPV 10.6 Neutrophils % 74 % Lymphocytes % 17 % Monocytes % 7 % Eosinophils % 1 % Basophils % 0 % Neutrophils # 5.7 (1.3-7.7) k/uL Lymphocytes # 1.3 (1.0-4.8) k/uL Monocytes # 0.5 (0-1.0) k/uL Eosinophils # 0.1 (0-0.7) k/uL Basophils # 0.0 (0-0.2) k/uL PT 17.1 H (9.0-12.0) sec INR 1.7 H (<1.2) APTT 27.6 (22.0-30.0) sec Sodium 132 L (137-145) mmol/L Potassium 4.5 (3.5-5.1) mmol/L Chloride 95 L (98-107) mmol/L Carbon Dioxide 26 (22-30) mmol/L Anion Gap 11 mmol/L BUN 44 H (9-20) mg/dL Creatinine 1.00 (0.66-1.25) mg/dL Est GFR (CKD-EPI)AfAm 89 (>60 ml/min/1.73 sqM) Est GFR (CKD-EPI)NonAf 77 (>60 ml/min/1.73 sqM) Glucose 199 H (74-99) mg/dL Calcium 9.4 (8.4-10.2) mg/dL Magnesium 2.4 H (1.6-2.3) mg/dL Total Bilirubin 1.4 H (0.2-1.3) mg/dL AST 111 H (17-59) U/L ALT 276 H (4-49) U/L Alkaline Phosphatase 134 H (38-126) U/L Troponin I (0.000-0.034) ng/mL NT-Pro-B Natriuret Pep pg/mL Total Protein 6.4 (6.3-8.2) g/dL Albumin 3.9 (3.5-5.0) g/dL 09/30/20 09/30/20 Range/Units 11:00 11:00 WBC (3.8-10.6) k/uL RBC (4.30-5.90) m/uL Hgb (13.0-17.5) gm/dL Hct (39.0-53.0) % MCV (80.0-100.0) fL MCH (25.0-35.0) pg MCHC (31.0-37.0) g/dL RDW (11.5-15.5) % Plt Count (150-450) k/uL MPV Neutrophils % % Lymphocytes % % Monocytes % % Eosinophils % % Basophils % % Neutrophils # (1.3-7.7) k/uL Lymphocytes # (1.0-4.8) k/uL Monocytes # (0-1.0) k/uL Eosinophils # (0-0.7) k/uL Basophils # (0-0.2) k/uL PT (9.0-12.0) sec INR (<1.2) APTT (22.0-30.0) sec Sodium (137-145) mmol/L Potassium (3.5-5.1) mmol/L Chloride (98-107) mmol/L Carbon Dioxide (22-30) mmol/L Anion Gap mmol/L BUN (9-20) mg/dL Creatinine (0.66-1.25) mg/dL Est GFR (CKD-EPI)AfAm (>60 ml/min/1.73 sqM) Est GFR (CKD-EPI)NonAf (>60 ml/min/1.73 sqM) Glucose (74-99) mg/dL Calcium (8.4-10.2) mg/dL Magnesium (1.6-2.3) mg/dL Total Bilirubin (0.2-1.3) mg/dL AST (17-59) U/L ALT (4-49) U/L Alkaline Phosphatase (38-126) U/L Troponin I 0.046 H* (0.000-0.034) ng/mL NT-Pro-B Natriuret Pep 90605 pg/mL Total Protein (6.3-8.2) g/dL Albumin (3.5-5.0) g/dL Disposition Clinical Impression: Atrial fibrillation with RVR, CHF (congestive heart failure), Pleural effusion Disposition: ADMITTED IP TO THIS HOSP Condition: Fair Referrals: Vance Lopez DO [Primary Care Provider] - 1-2 days
--- NOTE | 2020-09-30 11:35 | XR ---
EXAMINATION TYPE: XR chest 2V DATE OF EXAM: 09/30/2020 COMPARISON: Chest x-ray 3 days ago. HISTORY: Chest pain and weakness. TECHNIQUE: Frontal and lateral views of the chest are obtained. FINDINGS: There is no cardiomegaly with metallic aortic valve redemonstrated. Overlying sternal wire s and mediastinal clips again seen. Persistent small to tiny right pleural effusion. More prominent central vascular congestion. The osseous structures are intact. IMPRESSION: Persistent cardiomegaly with small to tiny right pleural effusion. More prominent centra l vascular congestion. Correlate for CHF exacerbation.
[2020-09-30 11:40] LABS: INR 1.7 (<1.2); Partial Thromboplastin Time 27.6 sec (22.0-30.0); Prothrombin Time 17.1 sec (9.0-12.0)
[2020-09-30] MEDS ORDERED: FUROSEMIDE 10 MG/ML 4 ML VIAL IV STA (12:39)
[2020-09-30] MEDS ORDERED: METOPROLOL TARTRATE 5 MG/5 ML VIAL IVP STA (13:03)
[2020-09-30] MEDS ORDERED: SPIRONOLACTONE 25 MG TAB PO SCH (14:00)
[2020-09-30] MEDS ORDERED: LORazepam 2 MG/ML INJ IV STA (14:21)
--- NOTE | 2020-09-30 14:27 | P.CRDCN ---
History of Present Illness History of present illness: This is a pleasant 69-year-old male past medical history significant for bicuspid aortic valve status post bioprosthetic aortic valve replacement (in 2004), persistent atrial fibrillation s/p failed cardioversion, type 2 diabetes mellitus, hypertension, dyslipidemia, SVT s/p ablation, PVC ablation and recent worsening non-ischemic cardiomyopathy. He follows in the office with Dr. Perrin. We are being consulted for congestive heart failure. Patient was recently in the hospital from 09/13/2020 to 09/28/2020. During his hospital stay patient was initiated on Tikosyn (09/14/20), underwent cardioversion on 09/17/20 with successful conversion to sinus rhythm at first, but then converted back to atrial fibrillation. Tikosyn was stopped on 09/21/20 morning. Limited Echocardiogram on 09/17/20: severe global hypokinesis of LV, EF <20%. He underwent cardiac catheterization with results below. He converted back to atrial fibrillation. His liver enzymes were severely elevated. He was diuresed for worsening congestive heart failure and hepatic congestion. He also was found to have Right sided pleural effusion and underwent thoracentesis on 09/24 with 1.4L dark yellow fluid removed. He was followed by CT surgery for TAVR procedure outpatient. Patient seen and examined today in the emergency department. He states that since discharge has been having increased shortness of breath, worsening bilateral lower extremity edema, symptoms of orthopnea, symptoms of PND, and 1 pound weight gain each day. BP 100/77 HR 100, afebrile, SpO2 99% on room air. EKG revealed atrial fibrillation HR 114. Laboratory data reviewed, sodium 132, potassium 4.5, serum creatinine 1.00, BUN 44, BNP 21,900 (32865 last admission), troponin mildly elevated 0.04, WBC 7.7, Hgb 15.5, Plt 106. DIAGNOSTICS: 09/17/20: Limited Echo revealed severe global hypokinesis of LV, EF <20%. 09/24/20: PAULINE- revealed bioprostehtic aortic valve with moderate calcification, severe central aortic insufficiency, tethering of the mitral valve leaflets related to cardiomyopathy, moderate central secondary mitral regurgition, mild tricuspid regurgitation. There is severe left ventricular dysfunction with EF 25% and global hypokinesis. LA is moderately dilated. No evidence of PFO. Left atrial appendage is free of clot. 09/28/20: cardiac catheterization with Dr. Camargo yesterday that revealed mild proximal LAD 30% stenosis, elevated left and right filling pressures, 4+ severe aortic insufficiency, mildly dilated aortic root, decreased cardiac output and cardiac index. REVIEW OF SYSTEMS At the time of my exam: CONSTITUTIONAL: Denies fever or chills. CARDIOVASCULAR: Complains of shortness of breath, orthopnea and PND. Denies chest pain or palpitations. RESPIRATORY: Complains of cough and sputum GASTROINTESTINAL: Denies abdominal pain, diarrhea, constipation, nausea or vomiting. MUSCULOSKELETAL: Denies myalgias. NEUROLOGIC: Denies numbness, tingling, headacbe or weakness. ENDOCRINE: Continues to have fatigue. Endorses weight increase 1lb per day for the past 2 days. Denies polydipsia or polyurina. GENITOURINARY: Denies burning, hematuria or urgency with micturation. HEMATOLOGIC: Denies history of anemia or bleeding. PHYSICAL EXAMINATION CONSTITUTIONAL: No apparent distress. HEENT: +JVD, Head is normocephalic. Pupils are equal, round. Sclerae anicteric. Mucous membranes of the mouth are moist. No carotid bruit. CHEST EXAMINATION: Lungs are diminished, Crackles Bilateral bases. no wheezes or rhonchi. No chest wall tenderness is noted on palpation or with deep breathing. HEART EXAMINATION: Irregular rate and rhythm. S1, S2 heard. Systolic and diastolic murmur at the base, no gallops or rub. ABDOMEN: Soft, Liver is enlarged, non-tender some tenderness with palpation. Positive bowel sounds. EXTREMITIES: 2+ peripheral pulses,2-3+ lower extremity edema up to patient's thighs and no calf tenderness. NEUROLOGIC EXAMINATION: Patient is awake, alert and oriented x3. ASSESSMENT Acute on chronic systolic heart failure with worsening LV function LV EF 25% Non-ischemic cardiomyopathy with global hypokinesis Persistent atrial fibrillation s/p failed cardioversion - on Xarelto Severe Aortic bioprostheic stenosis with severe aortic insufficiency Moderate central mitral valve regurgitation Mildly elevated troponin- not likely acute coronary syndrome History of Hypertension- currently hypotensive Dyslipidemia Type 2 Diabetes PLAN -Will increase diuresis -IV Lasix 40mg Q8hr -Toprol 50mg daily- will increase as tolerated -Spironolactone 25mg daily -Xarelto 20mg nightly -Statin has been on hold due to elevated Liver enzymes -ACEI on hold due to hypotension -Will continue IV Lasix today -Follow renal function and electrolytes in the morning. -Document accurate intake and output along with daily weights. -Will let CT surgery know that patient is re-admitted -Further recommendations to follow based on clinical course. Nurse Practitioner note has been reviewed, I agree with a documented findings and plan of care. Patient was seen and examined. Past Medical History Past Medical History: Atrial Fibrillation, Heart Failure, Diabetes Mellitus, GERD/Reflux, Hyperlipidemia, Hypertension, Musculoskeletal Disorder, Osteoarthritis (OA), Pneumonia, Prostate Disorder, Respiratory Disorder, Skin Disorder Additional Past Medical History / Comment(s): Pt recently admitted to [facility] on 09/15/20 with acute exacerbation CHF/pleural effusion with R thoracentesis. Other hx: Nonischemic cardiomyopathy, cardiac valve disease (pt needs another aortic valve replacement), NIDDM type II, BPH, occasional migraines, occasional cervical/shoulder pain (hdz's neck), lower back pain/DDD, psoriasis, vitamin D deficiency. History of Any Multi-Drug Resistant Organisms: None Reported Past Surgical History: Cardiac Ablation, Cardiac Valve Replacement, Heart Estrellita terization Additional Past Surgical History / Comment(s): 07/21/20 PAULINE/cardioverson, 2005 aortic valve replacement, cardiac ablation for SVT and another for PVCs, colonoscopies/benign polypectomy, anal fistula repair. Past Anesthesia/Blood Transfusion Reactions: Family History of Problems w/ Anesthesia Additional Past Anesthesia/Blood Transfusion Reaction / Comment(s): Mother - PONV Smoking Status: Never smoker - Past Family History Mother Family Medical History: AFIB Additional Family Medical History / Comment(s): Mother lived to be 86yrs old. Father Family Medical History: Congestive Heart Failure (CHF), Myocardial Infarction (AK), Respiratory Disorder Additional Family Medical History / Comment(s): Father had a AK at the age of 79yrs. He of pulmonary fibrosis at the age of 86yrs. Brother(s) Family Medical History: AFIB Sister(s) Family Medical History: AFIB Medications and Allergies Home Medications Medication Instructions Recorded Confirmed Type Aspirin [Adult Low Dose Aspirin EC] 81 mg PO DAILY 07/26/16 09/30/20 History Rivaroxaban [Xarelto] 20 mg PO HS 07/17/20 09/30/20 History metFORMIN HCL [Glucophage] 500 mg PO BID@0800,1200 07/17/20 09/30/20 History Rosuvastatin [Crestor] 20 mg PO HS 08/02/20 09/30/20 History Cholecalciferol [Vitamin D3 (25 50 mcg PO DAILY 09/03/20 09/30/20 History Mcg = 1000 Iu)] Furosemide [Lasix] 40 mg PO BID #0 tab 09/28/20 09/30/20 Rx Metoprolol Succinate (ER) [Toprol 50 mg PO DAILY tab.er.24h 09/28/20 09/30/20 Rx XL] Allergies Allergy/AdvReac Type Severity Reaction Status Date / Time atorvastatin [From Lipitor] AdvReac muscle Verified 09/30/20 12:51 weakness Physical Exam Vitals: Vital Signs Temp Pulse Resp BP Pulse Ox 09/30/20 13:31 110 H 16 100/77 99 09/30/20 12:30 111 H 16 103/82 97 09/30/20 11:01 108 H 16 102/68 98 09/30/20 10:41 97.9 F 120 H 16 107/38 97 Intake and Output 09/29/20 09/30/20 09/30/20 22:59 06:59 14:59 Other: Weight 83.461 kg Results 09/30/20 11:00 09/30/20 11:00 Cardiac Enzymes 09/30/20 09/30/20 Range/Units 11:00 11:00 AST 111 H (17-59) U/L Troponin I 0.046 H* (0.000-0.034) ng/mL Coagulation 09/30/20 Range/Units 11:00 PT 17.1 H (9.0-12.0) sec APTT 27.6 (22.0-30.0) sec CBC 09/30/20 Range/Units 11:00 WBC 7.7 (3.8-10.6) k/uL RBC 5.39 (4.30-5.90) m/uL Hgb 15.5 (13.0-17.5) gm/dL Hct 46.9 (39.0-53.0) % Plt Count 106 L (150-450) k/uL Comprehensive Metabolic Panel 09/30/20 Range/Units 11:00 Sodium 132 L (137-145) mmol/L Potassium 4.5 (3.5-5.1) mmol/L Chloride 95 L (98-107) mmol/L Carbon Dioxide 26 (22-30) mmol/L BUN 44 H (9-20) mg/dL Creatinine 1.00 (0.66-1.25) mg/dL Glucose 199 H (74-99) mg/dL Calcium 9.4 (8.4-10.2) mg/dL AST 111 H (17-59) U/L ALT 276 H (4-49) U/L Alkaline Phosphatase 134 H (38-126) U/L Total Protein 6.4 (6.3-8.2) g/dL Albumin 3.9 (3.5-5.0) g/dL Current Medications Generic Name Dose Route Start Last Admin Trade Name Freq PRN Reason Stop Dose Admin Furosemide 40 mg 09/30/20 16:00 Furosemide 10 Mg/Ml 4 Ml Vial IV Q8HR [facility] Metformin HCl 500 mg 10/01/20 08:00 Metformin 500 Mg Tab PO BID@0800,1200 [facility] Metoprolol Succinate 50 mg 10/01/20 09:00 Metoprolol Succinate (Er) 50 Mg Tab.Er.24h PO DAILY [facility] Rosuvastatin 20 Mg 20 mg 09/30/20 21:00 Tablet PO HS [facility] Rivaroxaban 20 mg 09/30/20 21:00 Rivaroxaban 20 Mg Tab PO HS [facility] Spironolactone 25 mg 09/30/20 14:00 Spironolactone 25 Mg Tab PO DAILY [facility]RIK Intake and Output 09/29/20 09/30/20 09/30/20 22:59 06:59 14:59 Other: Weight 83.461 kg Patient Weight 10/01/20 06:59 Weight 83.461 kg 09/30/20 11:00 09/30/20 11:00
[2020-09-30 14:57] VITALS: BP 98/66; PULSE 117
[2020-09-30 15:05] VITALS: RESP 16
--- NOTE | 2020-09-30 15:11 | P.GSCN ---
History of Present Illness Consult date: 09/30/20 Reason for Consult: 4+ severe aortic valve insufficiency, history of bioprosthetic valve replacement with moderate to severe aortic valve stenosis. Requesting physician: Selvin Perrin History of present illness: This is a 61-year-old gentleman who is followed by Dr. Giles Lopez for primary care on an outpatient basis. He also follows with Dr. Selvin Perrin for his cardiology care. He is a past medical history significant for a bicuspid aortic valve status post bioprosthetic aortic valve replacement by Dr. Riley'magdy in 2005, persistent atrial fibrillation status post failed cardioversion and status post 2 previous ablations, hypertension, hyperlipidemia, diabetes mellitus type 2, nonischemic cardiomyopathy, osteoarthritis, prostate disorder and GERD. He presented to the emergency department here at [facility] today with complaints of generalized weakness, fatigue, shortness of breath and swelling to his abdomen and to his bilateral lower extremities. The patient was recently discharged from the hospital on 09/28/2020 with an acute exacerbation of chronic systolic heart failure. During his last hospitalization he also underwent a cardioversion for atrial fibrillation performed by Dr. Perrin and he also underwent a right thoracentesis performed by Dr. Contreras from [facility] with 1.4 L of fluid drained. He denies any complaints of fever, chills, nausea, vomiting, hematemesis, hemoptysis, headache, chest pain or chest pressure, presyncope or syncope. He does report though that he feels like his heart is racing and also feels like he has episodes of anxiety and panic attacks. Currently his bedside telemetry is showing atrial fibrillation with heart rate 112 bpm. A 12-lead EKG was completed in the emergency department which is showing atrial fibrillation with rapid ventricular response with a heart rate of 114 BPM. A chest x-ray was also completed which showed persistent cardiomegaly with a small tiny right pleural effusion, and prominent central vascular congestion. Also during his last stay he underwent a limited 2-D echocardiogram which showed severe global hypokinesis with an left ventricular ejection fraction less than 20%. On 09/24/2020 a transesophageal echocardiogram was completed which showed a bioprosthetic aortic valve with moderate juliet cification, severe central aortic valve insufficiency, tethering of the mitral valve leaflets related to cardiomyopathy, moderate central secondary mitral valve regurgitation, mild tricuspid valve regurgitation, left ventricle to be mildly dilated with severe left ventricular dysfunction with an ejection fraction 25% and global hypokinesis. For further evaluation on 09/28/2020 the patient underwent a cardiac catheterization which demonstrated a 30% stenosis to his proximal left anterior descending coronary artery, elevated left and right sided filling pressures, 4+ severe aortic valve insufficiency, mildly dilated aortic root and decreased cardiac output and cardiac index with a Myrna calcul ation for cardiac output 2.89 L/m and Myrna calculation for cardiac index 1.42 L/m/m. Subsequently, due to the patient's history of 4+ severe aortic valve insufficiency, history of bioprosthetic aortic valve replacement with moderate to severe aortic valve stenosis and a consult was placed to Dr. Sami Guaman from cardiothoracic surgery for further evaluation and workup for TAVR. Review of Systems A 14 point review of systems was completed and was negative except as mentioned in the HPI. Past Medical History Past Medical History: Atrial Fibrillation, Heart Failure, Diabetes Mellitus, GERD/Reflux, Hyperlipidemia, Hypertension, Musculoskeletal Disorder, Osteoarthritis (OA), Pneumonia, Prostate Disorder, Respiratory Disorder, Skin Disorder Additional Past Medical History / Comment(s): Pt recently admitted to [facility] on 09/15/20 with acute exacerbation CHF/pleural effusion with R thoracentesis. Other hx: Nonischemic cardiomyopathy, cardiac valve disease (pt needs another aortic valve replacement), NIDDM type II, BPH, occasional migraines, occasional cervical/shoulder pain (hdz's neck), lower back pain/DDD, psoriasis, vitamin D deficiency. History of Any Multi-Drug Resistant Organisms: None Reported Past Surgical History: Cardiac Ablation, Cardiac Valve Replacement, Heart Catheterization Additional Past Surgical History / Comment(s): 07/21/20 PAULINE/cardioverson, 2005 aortic valve replacement, cardiac ablation for SVT and another for PVCs, colonoscopies/benign polypectomy, anal fistula repair. Past Anesthesia/Blood Transfusion Reactions: Family History of Problems w/ Anesthesia Additional Past Anesthesia/Blood Transfusion Reaction / Comm: Mother - PONV Smoking Status: Never smoker - Past Family History Mother Family Medical History: AFIB Additional Family Medical History / Comment(s): Mother lived to be 86yrs old. Father Family Medical History: Congestive Heart Failure (CHF), Myocardial Infarction (SC), Respiratory Disorder Additional Family Medical History / Comment(s): Father had a SC at the age of 79yrs. He of pulmonary fibrosis at the age of 86yrs. Brother(s) Family Medical History: AFIB Sister(s) Family Medical History: AFIB Medications and Allergies Home Medications Medication Instructions Recorded Confirmed Type Aspirin [Adult Low Dose Aspirin EC] 81 mg PO DAILY 07/26/16 09/30/20 History Rivaroxaban [Xarelto] 20 mg PO HS 07/17/20 09/30/20 History metFORMIN HCL [Glucophage] 500 mg PO BID@0800,1200 07/17/20 09/30/20 History Rosuvastatin [Crestor] 20 mg PO HS 08/02/20 09/30/20 History Cholecalciferol [Vitamin D3 (25 50 mcg PO DAILY 09/03/20 09/30/20 History Mcg = 1000 Iu)] Furosemide [Lasix] 40 mg PO BID #0 tab 09/28/20 09/30/20 Rx Metoprolol Succinate (ER) [Toprol 50 mg PO DAILY tab.er.24h 09/28/20 09/30/20 Rx XL] Allergies Allergy/AdvReac Type Severity Reaction Status Date / Time atorvastatin [From Lipitor] AdvReac muscle Verified 09/30/20 12:51 weakness Surgical - Exam Vital Signs Temp Pulse Resp BP Pulse Ox 97.9 F 120 H 16 107/38 97 09/30/20 10:41 09/30/20 10:41 09/30/20 10:41 09/30/20 10:41 09/30/20 10:41 - General well developed, well nourished, no distress, no pain, obese - Eyes PERRL, normal ocular movement, no icteric - ENT normal pinna, normal nares, normal mucosa, no hearing loss, no congestion - Neck Neck is supple, no lymphadenopathy. no masses, no bruits, trachea midline, no venous distension - Respiratory Lungs sounds essentially clear to his bilateral upper lobes, few scattered crackles to his bilateral bases. No wheezes or rhonchi. Respirations are symmetrical and nonlabored. Oxygen saturation are 100% on room air. - Cardiovascular Irregular rhythm and tachycardic rate. S1 and S2 present, negative for S3 or gallop. Positive systolic and diastolic murmur heard best to his left sternal border. +1 edema to his bilateral lower extremities. - Abdomen Abdomen is soft, nontender and slightly distended. Active bowel sounds present in all 4 abdominal quadrants. No guarding or rigidity. No organomegaly appreciated. - Genitourinary Deferred - Rectum Deferred - Integumentary Pale, skin is warm and dry. No clubbing or cyanosis is present. no rash, no growths, no abnormal pigmentation - Neurologic Cranial nerves II through XII intact. - Musculoskeletal Generalized weakness. normal gait, normal posture - Psychiatric oriented to time, oriented to person, oriented to place, speech is normal, memory intact Results - Labs 09/30/20 11:00 09/30/20 11:00 Abnormal Lab Results - Last 24 Hours (Table) 09/30/20 09/30/20 09/30/20 Range/Units 11:00 11:00 11:00 RDW 15.7 H (11.5-15.5) % Plt Count 106 L (150-450) k/uL PT 17.1 H (9.0-12.0) sec INR 1.7 H (<1.2) Sodium 132 L (137-145) mmol/L Chloride 95 L (98-107) mmol/L BUN 44 H (9-20) mg/dL Glucose 199 H (74-99) mg/dL Magnesium 2.4 H (1.6-2.3) mg/dL Total Bilirubin 1.4 H (0.2-1.3) mg/dL AST 111 H (17-59) U/L ALT 276 H (4-49) U/L Alkaline Phosphatase 134 H (38-126) U/L Troponin I (0.000-0.034) ng/mL 09/30/20 Range/Units 11:00 RDW (11.5-15.5) % Plt Count (150-450) k/uL PT (9.0-12.0) sec INR (<1.2) Sodium (137-145) mmol/L Chloride (98-107) mmol/L BUN (9-20) mg/dL Glucose (74-99) mg/dL Magnesium (1.6-2.3) mg/dL Total Bilirubin (0.2-1.3) mg/dL AST (17-59) U/L ALT (4-49) U/L Alkaline Phosphatase (38-126) U/L Troponin I 0.046 H* (0.000-0.034) ng/mL Diabetes panel 09/30/20 Range/Units 11:00 Sodium 132 L (137-145) mmol/L Potassium 4.5 (3.5-5.1) mmol/L Chloride 95 L (98-107) mmol/L Carbon Dioxide 26 (22-30) mmol/L BUN 44 H (9-20) mg/dL Creatinine 1.00 (0.66-1.25) mg/dL Glucose 199 H (74-99) mg/dL Calcium 9.4 (8.4-10.2) mg/dL AST 111 H (17-59) U/L ALT 276 H (4-49) U/L Alkaline Phosphatase 134 H (38-126) U/L Total Protein 6.4 (6.3-8.2) g/dL Albumin 3.9 (3.5-5.0) g/dL Calcium panel 09/30/20 Range/Units 11:00 Calcium 9.4 (8.4-10.2) mg/dL Albumin 3.9 (3.5-5.0) g/dL Pituitary panel 09/30/20 Range/Units 11:00 Sodium 132 L (137-145) mmol/L Potassium 4.5 (3.5-5.1) mmol/L Chloride 95 L (98-107) mmol/L Carbon Dioxide 26 (22-30) mmol/L BUN 44 H (9-20) mg/dL Creatinine 1.00 (0.66-1.25) mg/dL Glucose 199 H (74-99) mg/dL Calcium 9.4 (8.4-10.2) mg/dL Adrenal panel 09/30/20 Range/Units 11:00 Sodium 132 L (137-145) mmol/L Potassium 4.5 (3.5-5.1) mmol/L Chloride 95 L (98-107) mmol/L Carbon Dioxide 26 (22-30) mmol/L BUN 44 H (9-20) mg/dL Creatinine 1.00 (0.66-1.25) mg/dL Glucose 199 H (74-99) mg/dL Calcium 9.4 (8.4-10.2) mg/dL Total Bilirubin 1.4 H (0.2-1.3) mg/dL AST 111 H (17-59) U/L ALT 276 H (4-49) U/L Alkaline Phosphatase 134 H (38-126) U/L Total Protein 6.4 (6.3-8.2) g/dL Albumin 3.9 (3.5-5.0) g/dL - Imaging Chest x-ray: report reviewed, image reviewed EKG: image reviewed Assessment and Plan Assessment: 1. 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 Moderate central mitral valve regurgitation 3. Nonischemic cardiomyopathy, global hypokinesis of the LV, EF 25% 4. Acute on chronic systolic heart failure, BNP 21,900 on admission 5. Elevated transaminase enzymes, AST 111, ALT 276 6. Decreased cardiac output and cardiac index, 2.8 L/m and 1.42 L/m/m per second calculation on his last cardiac catheterization on 09/21/2020 7. Dyspnea 8. Bilateral pleural effusions right greater than left, status post right sided thoracentesis with removal of 1.4 L fluid 9. History of persistent atrial fibrillation status post failed cardioversion and 2 ablations, currently in atrial fibrillation heart rate 112 bpm 10. History of bicuspid aortic valve status post bioprosthetic aortic valve replacement in 2004 11. Hypertension 12. Hyperlipidemia, treated, cholesterol 116, LDL 62 13. Diabetes mellitus type 2, hemoglobin A1c 7.3% 14. Prostate disorder 15. GERD 16. Vitamin D deficiency 17. Generalized debilitation and weakness, with a 5 m walk test completed on 09/23/2020 showing time 1: 16.20 seconds, time 2: 13.10 seconds, time 3: 11.42 seconds Plan: The patient was seen and examined at his bedside in the emergency room department here at [facility]. His chart and diagnostics were reviewed. His case was discussed in detail with Dr. Sami Guaman from cardiothoracic surgery and Dr. Perrin from cardiology associates. The patient is going to be transferred to [facility] for further evaluation for TAVR procedure. The patient preoperative studies has been transferred to Mian Keenan nurse practitioner at [facility]. We will obtain a copy of his most recent transesophageal echocardiogram and cardiac catheterization films which will be sent with the patient over to [facility]. Medical management and other comorbidities per primary care service. More recommendations to follow based on patient's clinical course. Thank you Dr. Perrin for this consult and we look forward to working with you in the care of this patient. Time with Patient: Greater than 30
[2020-09-30] MEDS ORDERED: FUROSEMIDE 10 MG/ML 4 ML VIAL IV SCH (16:00)
--- NOTE | 2020-09-30 20:58 | P.HPIM ---
History of Present Illness H&P Date: 09/30/20 Chief Complaint: WAQAS Patient is a 69-year-old male with a known history of hypertension, hyperlipidemia, GERD, diabetes type 2, persistent atrial fibrillation status post cardioversion and currently on anticoagulation with Xarelto, severe aortic bioprosthetic stenosis with severe aortic insufficiency and diastolic CHF and recent acute exacerbation of CHF and pleural effusion, nonischemic cardiomyopathy and other multiple medical problems presents to ER with complaints of worsening shortness of breath and increased abdominal girth for the past 2 to 3 days. Patient was recently admitted to the hospital from 09/13/2020 2 09/28/2020. During his hospital stay patient was initiated on Tikosyn and also underwent cardioversion on 09/17/2020 with successful conversion to sinus rhythm but then converted back to atrial fibrillation. Tikosyn was stopped on 09/21/2020. Echocardiogram showed ejection fraction less than 20% patient also underwent cardiac catheterization which showed mild proximal LAD 30% stenosis, elevated left and right filling pressures, 4+ severe aortic in sufficiency, mildly dilated aortic root, and decreased cardiac output and cardiac index. Denies any fever or chills. Patient has been having increasing leg swelling. No cough or sputum production. No nausea vomiting or abdominal pain or diarrhea. Blood pressure is 102/68 pulse is 108 respiration 16 and pulse ox 98% on room air Chest x-ray showed persistent cardiomegaly with small to tiny right pleural effusion. More prominent central vascular congestion. Correlate for CHF exacerbation EKG showed atrial fibrillation with rapid regular rate. Laboratory data showed INR 1.7 Sodium 132 potassium 4.5 chloride 95 BUN 44 and creatinine 1.00 Blood sugar is 199 magnesium 2.4 bilirubin 1.4 AST 111 ALT 276 and alk phos 134 and troponin 0 0.046 proBNP 51851. COVID-19 PCR not detected. Review of Systems Constitutional: Patient denies any fever or chills . No generalized weakness or weight loss. Abdomen: Patient denied nausea vomiting and diarrhea and abdominal pain. increased abdominal girth Cardiovascular: Patient denies any chest pain . + short of breath no palpitations. + leg swelling Respiratory: patient denied any cough or sputum production. No shortness of breath Neurologic: Patient denied any numbness or tingling headache. Musculoskeletal: Patient denies any complaints of joint swelling or deformity. Skin: Negative Psychiatric: Negative Endocrine: No heat or cold intolerance. No recent weight gain. Genitourinary: No dysuria or hematuria. All other 14 point ROS negative except the above Past Medical History Past Medical History: Atrial Fibrillation, Heart Failure, Diabetes Mellitus, GERD/Reflux, Hyperlipidemia, Hypertension, Musculoskeletal Disorder, Osteoarthritis (OA), Pneumonia, Prostate Disorder, Respiratory Disorder, Skin Disorder Additional Past Medical History / Comment(s): Pt recently admitted to [facility] on 09/15/20 with acute exacerbation CHF/pleural effusion with R thoracentesis. Other hx: Nonischemic cardiomyopathy, cardiac valve disease (pt needs another aortic valve replacement), NIDDM type II, BPH, occasional migraines, occasional cervical/shoulder pain (hdz's neck), lower back pain/DDD, psoriasis, vitamin D deficiency. History of Any Multi-Drug Resistant Organisms: None Reported Past Surgical History: Cardiac Ablation, Cardiac Valve Replacement, Heart Catheterization Additional Past Surgical History / Comment(s): 07/21/20 PAULINE/cardioverson, 2005 aortic valve replacement, cardiac ablation for SVT and another for PVCs, colonoscopies/benign polypectomy, anal fistula repair. Past Anesthesia/Blood Transfusion Reactions: Family History of Problems w/ Anesthesia Additional Past Anesthesia/Blood Transfusion Reaction / Comment(s): Mother - PONV Smoking Status: Never smoker - Past Family History Mother Family Medical History: AFIB Additional Family Medical History / Comment(s): Mother lived to be 86yrs old. Father Family Medical History: Congestive Heart Failure (CHF), Myocardial Infarction (NH), Respiratory Disorder Additional Family Medical History / Comment(s): Father had a NH at the age of 79yrs. He of pulmonary fibrosis at the age of 86yrs. Brother(s) Family Medical History: AFIB Sister(s) Family Medical History: AFIB Medications and Allergies Home Medications Medication Instructions Recorded Confirmed Type Aspirin [Adult Low Dose Aspirin EC] 81 mg PO DAILY 07/26/16 09/30/20 History Rivaroxaban [Xarelto] 20 mg PO HS 07/17/20 09/30/20 History metFORMIN HCL [Glucophage] 500 mg PO BID@0800,1200 07/17/20 09/30/20 History Rosuvastatin [Crestor] 20 mg PO HS 08/02/20 09/30/20 History Cholecalciferol [Vitamin D3 (25 50 mcg PO DAILY 09/03/20 09/30/20 History Mcg = 1000 Iu)] Furosemide [Lasix] 40 mg PO BID #0 tab 09/28/20 09/30/20 Rx Metoprolol Succinate (ER) [Toprol 50 mg PO DAILY tab.er.24h 09/28/20 09/30/20 Rx XL] Allergies Allergy/AdvReac Type Severity Reaction Status Date / Time atorvastatin [From Lipitor] AdvReac muscle Verified 09/30/20 12:51 weakness Physical Exam Vitals: Vital Signs Temp Pulse Pulse Resp BP BP Pulse Ox 09/30/20 15:05 117 H 16 98/66 100 09/30/20 14:55 117 H 18 98/66 100 09/30/20 13:31 110 H 16 100/77 99 09/30/20 12:30 111 H 16 103/82 97 09/30/20 11:01 108 H 16 102/68 98 09/30/20 10:41 97.9 F 120 H 16 107/38 97 Intake and Output 09/30/20 09/30/20 09/30/20 06:59 14:59 22:59 Output Total 200 Balance -200 Output: Urine 200 Other: Weight 83.461 kg PHYSICAL EXAMINATION: Patient is lying in the bed comfortably, no acute distress, awake alert and oriented.. HEENT: Normocephalic. Neck is supple. Pupils reactive. Nostrils clear. Oral cavity is moist. Ears reveal no drainage. Neck reveals no JVD, carotid bruits, or thyromegaly. CHEST EXAMINATION: Trachea is central. Symmetrical expansion. Bibasilar diminished sounds.. CARDIAC: Normal S1, S2 with no gallops. No murmurs ABDOMEN: Soft. mild distension, Bowel sounds normal. No organomegaly. No abdom inal bruits. Extremities: reveal 2+ pedal edema. No clubbing or cyanosis Neurologically awake, alert, oriented x3 with well-coordinated movements. No focal deficits noted Skin: No rash or skin lesions. Psychiatric: Coperative. Nonsuicidal Musculoskeletal: No joint swelling or deformity. Normal range of motion. Results CBC & Chem 7: 09/30/20 11:00 09/30/20 11:00 Labs: Abnormal Lab Results - Last 24 Hours (Table) 09/30/20 09/30/20 09/30/20 Range/Units 11:00 11:00 11:00 RDW 15.7 H (11.5-15.5) % Plt Count 106 L (150-450) k/uL PT 17.1 H (9.0-12.0) sec INR 1.7 H (<1.2) Sodium 132 L (137-145) mmol/L Chloride 95 L (98-107) mmol/L BUN 44 H (9-20) mg/dL Glucose 199 H (74-99) mg/dL Magnesium 2.4 H (1.6-2.3) mg/dL Total Bilirubin 1.4 H (0.2-1.3) mg/dL AST 111 H (17-59) U/L ALT 276 H (4-49) U/L Alkaline Phosphatase 134 H (38-126) U/L Troponin I (0.000-0.034) ng/mL 09/30/20 Range/Units 11:00 RDW (11.5-15.5) % Plt Count (150-450) k/uL PT (9.0-12.0) sec INR (<1.2) Sodium (137-145) mmol/L Chloride (98-107) mmol/L BUN (9-20) mg/dL Glucose (74-99) mg/dL Magnesium (1.6-2.3) mg/dL Total Bilirubin (0.2-1.3) mg/dL AST (17-59) U/L ALT (4-49) U/L Alkaline Phosphatase (38-126) U/L Troponin I 0.046 H* (0.000-0.034) ng/mL Thrombosis Risk Factor Assmnt - DVT/VTE Prophylaxis DVT/VTE Prophylaxis: Pharmacologic Prophylaxis ordered - Choose All That Apply Any of the Below Risk Factors Present?: Yes Each Factor Represents 1 point: Heart failure (<1month), Obesity (BMI >25), Serious lung disease incl. pneumonia (< 1month) Other Risk Factors: Yes Each Risk Factor Represents 2 Points: Age 61-74 years Other congenital or acquired thrombophilia - If yes, enter type in comment: No Thrombosis Risk Factor Assessment Total Risk Factor Score: 5 Thrombosis Risk Factor Assessment Level: High Risk Assessment and Plan Assessment: Acute on chronic CHF with systolic dysfunction ejection fraction less than 20% Nonischemic cardiomyopathy Severe aortic bioprosthetic stenosis and severe aortic insufficiency Elevated liver enzymes possible hepatic congestion due to CHF Persistent atrial fibrillation status post recent cardioversion with conversion to sinus rhythm but converted back to atrial fibrillation Atrial fibrillation with rapid ventricular rate Moderate central mitral valve regurgitation Mildly elevated troponin level unlikely ACS Hypertension currently hypotensive Hyperlipidemia Diabetes type 2 History of cardiac ablation DVT prophylaxis patient is already on Xarelto Plan: Patient will be continued Lasix 40 mg every 8 hourly. Continue with Toprol, spironolactone, Xarelto. Monitor renal function Follow-up liver enzymes and continue with insulin sliding scale and monitor blood sugars closely. Cardiology and CT surgery has seen the patient. Patient is supposed to follow-up with [facility] for TAVR at [place] but did not get any appointment yet. Time with Patient: Greater than 30
[2020-09-30] MEDS ORDERED: RIVAROXABAN 20 MG TAB PO SCH (21:00)
[2020-10-01] MEDS ORDERED: FUROSEMIDE 10 MG/ML 4 ML VIAL IV SCH (01:00)
[2020-10-01] MEDS ORDERED: metFORMIN 500 MG TAB PO SCH (08:00)
[2020-10-01] MEDS ORDERED: METOPROLOL SUCCINATE (ER) 50 MG TAB.ER.24H PO SCH (09:00)
[2020-10-01] MEDS ORDERED: CHOLECALCIFEROL 25 MCG (1000 IU) TABLET PO SCH (09:00)
[2020-10-01] MEDS ORDERED: ASPIRIN 81 MG PO SCH (09:00)
--- NOTE | 2020-10-20 09:56 | P.DS ---
Providers Date of admission: 09/30/20 12:43 Expected date of discharge: 09/30/20 Attending physician: Braxton Barrera Consults: 09/30/20 12:40 Consult Physician Routine Consulting Provider: Elroy Johns Consult Reason/Comments: CHF/AFIB Do you want consulting provider notified?: Yes Primary care physician: Vance Lopez Hospital Course: Discharge diagnosis Acute on chronic CHF with systolic dysfunction ejection fraction less than 20% Nonischemic cardiomyopathy Severe aortic bioprosthetic stenosis and severe aortic insufficiency Elevated liver enzymes possible hepatic congestion due to CHF Persistent atrial fibrillation status post recent cardioversion with conversion to sinus rhythm but converted back to atrial fibrillation Atrial fibrillation with rapid ventricular rate Moderate central mitral valve regurgitation Mildly elevated troponin level unlikely ACS Hypertension currently hypotensive Hyperlipidemia Diabetes type 2 History of cardiac ablation DVT prophylaxis patient is already on Xarelto Hospital course Patient is a 69-year-old male with a known history of hypertension, hyperlipidemia, GERD, diabetes type 2, persistent atrial fibrillation status post cardioversion and currently on anticoagulation with Xarelto, severe aortic bioprosthetic stenosis with severe aortic insufficiency and diastolic CHF and recent acute exacerbation of CHF and pleural effusion, nonischemic cardiomyopathy and other multiple medical problems presents to ER with complaints of worsening shortness of breath and increased abdominal girth for the past 2 to 3 days. Patient was recently admitted to the hospital from 09/13/2020 2 09/28/2020. During his hospital stay patient was initiated on Tikosyn and also underwent cardioversion on 09/17/2020 with successful conversion to sinus rhythm but then converted back to atrial fibrillation. Tikosyn was stopped on 09/21/2020. Echocardiogram showed ejection fraction less than 20% patient also underwent cardiac catheterization which showed mild proximal LAD 30% stenosis, elevated left and right filling pressures, 4+ severe aortic insufficiency, mildly dilated aortic root, and decreased cardiac output and cardiac index. Denies any fever or chills. Patient has been having increasing leg swelling. No cough or sputum production. No nausea vomiting or abdominal pain or diarrhea. Blood pressure is 102/68 pulse is 108 respiration 16 and pulse ox 98% on room air Chest x-ray showed persistent cardiomegaly with small to tiny right pleural effusion. More prominent central vascular congestion. Correlate for CHF exacerbation EKG showed atrial fibrillation with rapid regular rate. Laboratory data showed INR 1.7 Sodium 132 potassium 4.5 chloride 95 BUN 44 and creatinine 1.00 Blood sugar is 199 magnesium 2.4 bilirubin 1.4 AST 111 ALT 276 and alk phos 134 and troponin 0 0.046 proBNP 51652. COVID-19 PCR not detected. Patient was continued Lasix 40 mg every 8 hourly. Continued with Toprol, spironolactone, Xarelto. Monitor renal function Follow-up liver enzymes and continue with insulin sliding scale and monitor blood sugars closely. Cardiology and CT surgery has seen the patient. Patient is supposed to follow-up with [facility] for TAVR at [place] but did not get any appointment yet.Discussed with transfer team for transfer to [facility] due to her acute CHF and need for urgent valve surgery as per cardiology. Cardiology discussed with breeding manager at [facility]. Patient will be transferred to outside hospital facility for further management. PHYSICAL EXAMINATION: Patient is lying in the bed comfortably, no acute distress, awake alert and oriented.. HEENT: Normocephalic. Neck is supple. Pupils reactive. Nostrils clear. Oral cavity is moist. Ears reveal no drainage. Neck reveals no JVD, carotid bruits, or thyromegaly. CHEST EXAMINATION: Trachea is central. Symmetrical expansion. Bibasilar diminished sounds.. CARDIAC: Normal S1, S2 with no gallops. No murmurs ABDOMEN: Soft. mild distension, Bowel sounds normal. No organomegaly. No abdominal bruits. Extremities: reveal 2+ pedal edema. No clubbing or cyanosis Neurologically awake, alert, oriented x3 with well-coordinated movements. No focal deficits noted Skin: No rash or skin lesions. Psychiatric: Coperative. Nonsuicidal Musculoskeletal: No joint swelling or deformity. Normal range of motion. Discharge vitals reviewed. Patient Condition at Discharge: Fair Plan - Discharge Summary Discharge Rx Participant: No New Discharge Prescriptions: No Action Aspirin [Adult Low Dose Aspirin EC] 81 mg PO DAILY metFORMIN HCL [Glucophage] 500 mg PO BID@0800,1200 Rivaroxaban [Xarelto] 20 mg PO HS Rosuvastatin [Crestor] 20 mg PO HS Cholecalciferol [Vitamin D3 (25 Mcg = 1000 Iu)] 50 mcg PO DAILY Metoprolol Succinate (ER) [Toprol XL] 50 mg PO DAILY tab.er.24h Furosemide [Lasix] 40 mg PO BID #0 tab Discharge Medication List Aspirin [Adult Low Dose Aspirin EC] 81 mg PO DAILY 07/26/16 [History] Rivaroxaban [Xarelto] 20 mg PO HS 07/17/20 [History] metFORMIN HCL [Glucophage] 500 mg PO BID@0800,1200 07/17/20 [History] Rosuvastatin [Crestor] 20 mg PO HS 08/02/20 [History] Cholecalciferol [Vitamin D3 (25 Mcg = 1000 Iu)] 50 mcg PO DAILY 09/03/20 [His tory] Furosemide [Lasix] 40 mg PO BID #0 tab 09/28/20 [Rx] Metoprolol Succinate (ER) [Toprol XL] 50 mg PO DAILY tab.er.24h 09/28/20 [Rx] Follow up Appointment(s)/Referral(s): Vance Lopez DO [Primary Care Provider] - 1-2 days Discharge Disposition: TRANSFER TO SHORT TERM HOSP
== END 2020-09-30 18:25 | disposition short-term general hospital (02) | DRG 292 ==
LOC: EC 10:37 → 3SCARD 12:43
PROVIDERS: ADMIT Internal Medicine; ATTEND Internal Medicine
DX: I11.0 Hypertensive heart disease with heart failure (principal); I48.19 Other persistent atrial fibrillation; I42.8 Other cardiomyopathies; K21.9 Gastro-esophageal reflux disease without esophagitis; E78.5 Hyperlipidemia, unspecified; M19.90 Unspecified osteoarthritis, unspecified site; G43.909 Migraine, unspecified, not intractable, without status migrainosus; L40.9 Psoriasis, unspecified; E55.9 Vitamin D deficiency, unspecified; E11.9 Type 2 diabetes mellitus without complications; N40.0 Benign prostatic hyperplasia without lower urinary tract symptoms; K76.1 Chronic passive congestion of liver; I95.9 Hypotension, unspecified; F41.0 Panic disorder [episodic paroxysmal anxiety]; I08.3 Combined rheumatic disorders of mitral, aortic and tricuspid valves; I25.10 Atherosclerotic heart disease of native coronary artery without angina pectoris; R77.8 Other specified abnormalities of plasma proteins; E66.9 Obesity, unspecified; Z20.822 Contact with and (suspected) exposure to COVID-19; I50.43 Acute on chronic combined systolic (congestive) and diastolic (congestive) heart failure; Z79.84 Long term (current) use of oral hypoglycemic drugs; Z79.01 Long term (current) use of anticoagulants; Z79.82 Long term (current) use of aspirin; Z79.899 Other long term (current) drug therapy; Z88.8 Allergy status to other drugs, medicaments and biological substances; Z82.49 Family history of ischemic heart disease and other diseases of the circulatory system; Z95.3 Presence of xenogenic heart valve; Z87.01 Personal history of pneumonia (recurrent); Z98.890 Other specified postprocedural states; Z87.39 Personal history of other diseases of the musculoskeletal system and connective tissue; Z86.010 Personal history of colon polyps; Z83.6 Family history of other diseases of the respiratory system; Z68.28 Body mass index [BMI] 28.0-28.9, adult
CPT/HCPCS: 36415; 71046; 80053; 83735; 83880; 84484; 85025; 85610; 85730; 87635; 93005; 99285

== ENCOUNTER → 2020-10-22 | Outpatient (CLI) | payer MEDICAID, MEDICARE ==
--- NOTE | 2020-10-22 13:01 | ECHOF ---
Referral Reason:I35.1 Aortic valve insufficiency MEASUREMENTS -------- HEIGHT: 172.7 cm WEIGHT: 73.9 kg BP: 108/67 RVIDd: 3.4 cm (< 3.3) IVSd: 1.4 cm (0.6 - 1.1) LVIDd: 5.7 cm (3.9 - 5.3) LVPWd: 1.4 cm (0.6 - 1.1) IVSs: 1.7 cm LVIDs: 4.5 cm LVPWs: 1.8 cm LA Diam: 4.2 cm (2.7 - 3.8) LAESV Index (A-L): 33.22 ml/m Ao Diam: 3.3 cm (2.0 - 3.7) MV EXCURSION: 19.089 mm (> 18.000) MV EF SLOPE: 124 mm/s (70 - 150) EPSS: 2.0 cm AV maxP.37 mmHg AV meanP.74 mmHg FINDINGS -------- This was a technically adequate study. The left ventricular size is normal. There is moderate concentric left ventricular hypertrophy. O verall left ventricular systolic function is moderate-severely impaired with, an EF between 30 - 35 % . The right ventricle is mildly enlarged. LA is midly dilated 29-33ml/m2. The right atrium is normal in size. Interatrial and interventricular septum intact. Peak/mean gradient across the Aortic Valve is 15.37mmHg / 8.74mmHg. Normally functioning bioprosthe tic valve. TAVR procedure September 2020 Mild mitral annular calcification present. There is trace to mild mitral regurgitation. Trace tricuspid regurgitation present. Unable to estimate RVSP due to inadequate TR jet spectral do ppler profile. Trace/mild (physiologic) pulmonic regurgitation. The aortic root size is normal. Normal inferior vena cava with normal inspiratory collapse consistent with estimated right atrial pre ssure of 5 mmHg. There is no pericardial effusion. CONCLUSIONS -------- 1. The left ventricular size is normal. 2. There is moderate concentric left ventricular hypertrophy. 3. Overall left ventricular systolic function is moderate-severely impaired with, an EF between 30 - 35 %. 4. The right ventricle is mildly enlarged. 5. LA is midly dilated 29-33ml/m2. 6. Peak/mean gradient across the Aortic Valve is 15.37mmHg / 8.74mmHg. 7. Normally functioning bioprosthetic valve. 8. TAVR procedure September 2020 9. Mild mitral annular calcification present. 10. There is trace to mild mitral regurgitation. 11. Trace tricuspid regurgitation present. 12. Unable to estimate RVSP due to inadequate TR jet spectral doppler profile. 13. Trace/mild (physiologic) pulmonic regurgitation. 14. There is no pericardial effusion. CAR WRECKER: Lay Castillo RDCS
[2020-10-22 13:06] LABS: African American GFR (CKD) >90 (>60 ml/min/1.73 sqM); Anion Gap 9 mmol/L; Blood Urea Nitrogen 18 mg/dL (9-20); Carbon Dioxide 28 mmol/L (22-30); Chloride 99 mmol/L (98-107); Glucose 112 mg/dL (74-99); Magnesium 1.8 mg/dL (1.6-2.3); Non-African American GFR(CKD) >90 (>60 ml/min/1.73 sqM); Sodium 136 mmol/L (137-145)
== END | disposition home or self-care (01) ==
LOC: RADECHMAIN 10:59
PROVIDERS: ATTEND Internal Medicine Clinical Cardiac Electrophysiology
DX: I08.8 Other rheumatic multiple valve diseases (principal)
CPT/HCPCS: 80048; 83735; 83880; 93225; 93226; 93306

== ENCOUNTER 2020-10-26 14:08 | Inpatient (IN) | payer MEDICAID ==
[2020-10-26] MEDS ORDERED: DOFETILIDE 250 MCG CAP PO STA (16:15)
[2020-10-26 16:57] LABS: Glucose,Whole Blood 110 mg/dL (75-99)
[2020-10-26] MEDS ORDERED: SODIUM CHLORIDE 0.9% 1,000 ML IV SCH (17:30)
[2020-10-26 20:07] LABS: Glucose,Whole Blood 114 mg/dL (75-99)
[2020-10-26] MEDS ORDERED: CLOPIDOGREL 75 MG TAB PO SCH (21:00)
[2020-10-26] MEDS ORDERED: DIGOXIN 250 MCG TAB PO SCH (21:00)
[2020-10-26] MEDS ORDERED: MAGNESIUM SULFATE-D5W PMX 1 GM in DEXTROSE/WATER 1 100ML.BAG IVPB ONE (21:10)
[2020-10-26] MEDS: NON FORMULARY DRUG (Rosuvastatin 20 MG Tablet) PO SCH (21:34)
[2020-10-26] MEDS: RIVAROXABAN 20 MG TAB PO SCH (21:37)
[2020-10-26] MEDS: SACUBITRIL/VALSARTAN 24 MG-26 MG TABLET PO SCH (21:37)
[2020-10-27 06:08] LABS: Glucose,Whole Blood 150 mg/dL (75-99)
[2020-10-27] MEDS: DOFETILIDE 250 MCG CAP PO SCH ×2 (06:13→18:08)
[2020-10-27] MEDS ORDERED: metFORMIN 500 MG TAB PO SCH ×2 (08:00)
[2020-10-27] MEDS: polyethylene glycoL 3350 17 GM POWD.PACK PO SCH (08:43)
[2020-10-27] MEDS: SPIRONOLACTONE 25 MG TAB PO SCH (08:43)
[2020-10-27] MEDS: SACUBITRIL/VALSARTAN 24 MG-26 MG TABLET PO SCH ×2 (08:43→21:08)
[2020-10-27] MEDS: CLOPIDOGREL 75 MG TAB PO SCH (08:43)
[2020-10-27] MEDS: CHOLECALCIFEROL 25 MCG (1000 IU) TABLET PO SCH (08:43)
[2020-10-27] MEDS: FUROSEMIDE 20 MG TAB PO SCH (08:43)
[2020-10-27] MEDS: METOPROLOL SUCCINATE (ER) 50 MG TAB.ER.24H PO SCH (08:43)
[2020-10-27] MEDS: metFORMIN 500 MG TAB PO SCH (08:43)
[2020-10-27 08:47] LABS: African American GFR (CKD) >90 (>60 ml/min/1.73 sqM); Anion Gap 7 mmol/L; Blood Urea Nitrogen 17 mg/dL (9-20); Calcium 9.2 mg/dL (8.4-10.2); Carbon Dioxide 31 mmol/L (22-30); Chloride 99 mmol/L (98-107); Glucose 193 mg/dL (74-99); Magnesium 1.9 mg/dL (1.6-2.3); Non-African American GFR(CKD) >90 (>60 ml/min/1.73 sqM); Potassium 4.8 mmol/L (3.5-5.1); Sodium 137 mmol/L (137-145)
[2020-10-27] MEDS ORDERED: ASPIRIN 81 MG PO SCH (09:00)
[2020-10-27] MEDS ORDERED: DIGOXIN 250 MCG TAB PO SCH (09:00)
[2020-10-27] MEDS ORDERED: MAGNESIUM OXIDE 400 MG TAB PO SCH (10:00)
[2020-10-27 10:06] LABS: HCT 51.4 % (39.0-53.0); HGB 16.2 gm/dL (13.0-17.5); MCH 27.6 pg (25.0-35.0); MCHC 31.5 g/dL (31.0-37.0); MCV 87.9 fL (80.0-100.0); Mean Platelet Volume 9.5; Platelet Count 140 k/uL (150-450); RBC 5.85 m/uL (4.30-5.90); RDW 15.7 % (11.5-15.5); WBC 5.5 k/uL (3.8-10.6)
--- NOTE | 2020-10-27 11:43 | P.HPCAR ---
History of Present Illness Please see office note as the admission note from yesterday Patient evaluated yesterday Labs are reviewed creatinine stable Dofetilide initiated at 250 g Patient in atrial fibrillation QT interval approximately 440 ms but difficult to measure on account of atrial fibrillation Electrolytes normal Magnesium oral initiated Digoxin held yesterday All other medications including anticoagulation continued Plan Dofetilide 250 g twice daily Electrical cardioversion on Monday Monitor for 24 hours thereafter Please see nurse practitioner notes for subsequent days Physical Exam Vitals: Vital Signs Temp Pulse Resp BP Pulse Ox 10/27/20 08:40 97.7 F 78 18 110/76 97 10/27/20 04:25 97.9 F 78 16 103/63 97 10/27/20 00:00 97.9 F 61 16 115/77 98 10/26/20 19:55 98.1 F 63 18 108/67 98 10/26/20 15:00 97.8 F 72 18 94/57 97 10/26/20 14:29 97.3 F L 96 Intake and Output 10/26/20 10/27/20 10/27/20 22:59 06:59 14:59 Intake Total 240 Balance 240 Intake: Oral 240 Other: Voiding Method Toilet Toilet Toilet # Voids 2 1 Weight 75.1 kg Past Medical History Past Medical History: Atrial Fibrillation, Heart Failure, Diabetes Mellitus, GERD/Reflux, Hyperlipidemia, Hypertension, Musculoskeletal Disorder, Osteoarthritis (OA), Pneumonia, Prostate Disorder, Respiratory Disorder, Skin Disorder Additional Past Medical History / Comment(s): Pt recently admitted to [facility] on 09/15/20 with acute exacerbation CHF/pleural effusion with R thoracentesis. Other hx: Nonischemic cardiomyopathy, cardiac valve disease (pt needs another aortic valve replacement), NIDDM type II, BPH, occasional migraines, occasional cervical/shoulder pain (hdz's neck), lower back pain/DDD, psoriasis, vitamin D deficiency. History of Any Multi-Drug Resistant Organisms: None Reported Past Surgical History: Cardiac Ablation, Cardiac Valve Replacement, Heart Catheterization Additional Past Surgical History / Comment(s): 07/21/20 PAULINE/cardioverson, 2005 aortic valve replacement, cardiac ablation for SVT and another for PVCs, colonoscopies/benign polypectomy, anal fistula repair. TAVR-[facility] 10/08/2020. LIFEVEST PRESENT 10/26/2020 Past Anesthesia/Blood Transfusion Reactions: Family History of Problems w/ Anesthesia Additional Past Anesthesia/Blood Transfusion Reaction / Comment(s): Mother - PONV Past Psychological History: No Psychological Hx Reported Additional Psychological History / Comment(s): Pt resides with his spouse. He is independent. Lately, d/t weakness he has been ambulating with a walker. Recent panic attacks at night. Smoking Status: Never smoker Past Alcohol Use History: Occasional Past Drug Use History: None Reported - Past Family History Mother Family Medical History: AFIB Additional Family Medical History / Comment(s): Mother lived to be 86yrs old. Father Family Medical History: Congestive Heart Failure (CHF), Myocardial Infarction ( MD), Respiratory Disorder Additional Family Medical History / Comment(s): Father had a MD at the age of 79yrs. He of pulmonary fibrosis at the age of 86yrs. Brother(s) Family Medical History: AFIB Sister(s) Family Medical History: AFIB Physical Examination Vital Signs Temp Pulse Resp BP Pulse Ox 10/27/20 08:40 97.7 F 78 18 110/76 97 10/27/20 04:25 97.9 F 78 16 103/63 97 10/27/20 00:00 97.9 F 61 16 115/77 98 10/26/20 19:55 98.1 F 63 18 108/67 98 10/26/20 15:00 97.8 F 72 18 94/57 97 10/26/20 14:29 97.3 F L 96 Intake and Output 10/26/20 10/27/20 10/27/20 22:59 06:59 14:59 Intake Total 240 Balance 240 Intake: Oral 240 Other: Voiding Method Toilet Toilet Toilet # Voids 2 1 Weight 75.1 kg Results 10/27/20 07:56 10/27/20 07:56 CBC 10/27/20 Range/Units 07:56 WBC 5.5 (3.8-10.6) k/uL RBC 5.85 (4.30-5.90) m/uL Hgb 16.2 (13.0-17.5) gm/dL Hct 51.4 (39.0-53.0) % Plt Count 140 L (150-450) k/uL Comprehensive Metabolic Panel 05/11/21 Range/Units 07:56 Sodium 137 (137-145) mmol/L Potassium 4.8 (3.5-5.1) mmol/L Chloride 99 (98-107) mmol/L Carbon Dioxide 31 H (22-30) mmol/L BUN 17 (9-20) mg/dL Creatinine 0.71 (0.66-1.25) mg/dL Glucose 193 H (74-99) mg/dL Calcium 9.2 (8.4-10.2) mg/dL Current Medications Generic Name Dose Route Start Last Admin Trade Name Mohitq PRN Reason Stop Dose Admin Cholecalciferol 50 mcg 10/27/20 09:00 10/27/20 08:43 Cholecalciferol 25 Mcg (1000 Iu) Tablet PO 50 mcg DAILY ERIK Administration Clopidogrel Bisulfate 75 mg 10/27/20 09:00 10/27/20 08:43 Clopidogrel 75 Mg Tab PO 75 mg DAILY ERIK Administration Dofetilide 250 mcg 10/27/20 06:00 10/27/20 06:13 Dofetilide 250 Mcg Cap PO 250 mcg Q12HR@0600,1800 ERIK Administration Furosemide 20 mg 10/27/20 09:00 10/27/20 08:43 Furosemide 20 Mg Tab PO 20 mg DAILY ERIK Administration Magnesium Oxide 400 mg 10/28/20 09:00 Magnesium Oxide 400 Mg Tab PO DAILY ERIK Metformin HCl 1,000 mg 10/27/20 09:00 10/27/20 08:43 Metformin 500 Mg Tab PO 1,000 mg DAILY ERIK Administration Metoprolol Succinate 50 mg 10/27/20 09:00 10/27/20 08:43 Metoprolol Succinate (Er) 50 Mg Tab.Er.24h PO 50 mg DAILY ERIK Administration Non-Formulary Medication 20 mg 10/26/20 21:00 10/26/20 21:34 Rosuvastatin PO Not Given HS ERIK Polyethylene Glycol 17 gm 10/27/20 09:00 10/27/20 08:43 Polyethylene Glycol 3350 17 Gm Powd.Pack PO 17 gm DAILY ERIK Administration Rivaroxaban 20 mg 10/26/20 21:00 10/26/20 21:37 Rivaroxaban 20 Mg Tab PO 20 mg HS ERIK Administration Sacubitril/Valsartan 1 each 10/26/20 21:00 10/27/20 08:43 Sacubitril/Valsartan 24 Mg-26 Mg Tablet PO 1 each BID ERIK Administration Spironolactone 25 mg 10/27/20 09:00 10/27/20 08:43 Spironolactone 25 Mg Tab PO 25 mg DAILY ERIK Administration Intake and Output 10/26/20 10/27/20 10/27/20 22:59 06:59 14:59 Intake Total 240 Balance 240 Intake: Oral 240 Other: Voiding Method Toilet Toilet Toilet # Voids 2 1 Weight 75.1 kg 10/27/20 07:56 10/27/20 07:56
[2020-10-27 12:14] LABS: Glucose,Whole Blood 75 mg/dL (75-99)
--- NOTE | 2020-10-27 12:41 | P.PN ---
Subjective This is a pleasant 69-year-old male past medical history significant for Severe Aortic bioprostheic stenosis with severe aortic insufficiency s/p TAVR at [facility], bicuspid aortic valve status post bioprosthetic aortic valve replacement (in 2004), persistent atrial fibrillation, type 2 diabetes mellitus, hypertension, dyslipidemia. He follows in the office with Dr. Perrin. Patient seen and examined at bedside, no acute distress. No complaints at this time BP 110/66, heart rate 78, afebrile, maintaining oxygen saturations 97% on room air. Laboratory data reviewed, WBC 5.5, hemoglobin 16.2, platelets 140, sodium 137, potassium 4.8, serum creatinine 0.71, magnesium 1.9. Telemetry reviewed, patient in atrial fibrillation ventricular rates are currently controlled. GENERAL: Well-appearing, well-nourished and in no acute distress. NECK: Supple without JVD or thyromegaly. LUNGS: Breath sounds clear to auscultation bilaterally. Respiration equal and unlabored. No wheezes, rales or rhonchi. HEART: Irregular rate and rhythm Diastolic murmuc, soft ejection systolic mumur . S1 and S2 heard. EXTREMITIES: Normal range of motion, no edema. No clubbing or cyanosis. Peripheral pulses intact. ASSESSMENT Persistent atrial fibrillation Non-ischemic cardiomyopathy with global hypokinesis Severe Aortic bioprostheic stenosis with severe aortic insufficiency s/p TAVR for bioprosthetic aortic valve dysfunction at [place] History of Hypertension Dyslipidemia Type 2 Diabetes PLAN Stopped Digoxin Dofetilide 250ug BID Start magnesium oxide 400 mg daily Daily BMP and magnesium Will continue Plavix 75 mg daily, Lasix 20 mg daily, metoprolol succinate 50 mg daily, Zaroxolyn 20 mg nightly, rosuvastatin 20 mg nightly, and chest to 24 mg26 mg twice a day, spironolactone 25 mg daily Plan for cardioversion tomorrow with Dr. Perrin I have discussed the risks, benefits and alternative therapies for the above-mentioned procedure and for both sedation/analgesia as well as necessary blood product administration, if indicated, as they pertain to this patient. The patient has indicated understanding and acceptance of the risks and procedures discussed. Questions have been answered appropriately and he is agreeable to move forward with the above-stated procedure. Nurse Practitioner note has been reviewed, I agree with a documented findings and plan of care. Patient was seen and examined. Objective - Vital Signs Vital signs: Vital Signs Temp 97.7 F 10/27/20 08:40 Pulse 78 10/27/20 08:40 Resp 18 10/27/20 08:40 BP 110/76 10/27/20 08:40 Pulse Ox 97 10/27/20 08:40 Intake & Output 10/26/20 10/27/20 10/27/20 18:59 06:59 18:59 Intake Total 240 Balance 240 Weight 74.843 kg 75.1 kg Intake: Oral 240 Other: Voiding Method Toilet Toilet Toilet # Voids 1 - Labs CBC & Chem 7: 10/27/20 07:56 10/27/20 07:56 Labs: Abnormal Lab Results - Last 24 Hours (Table) 10/26/20 10/26/20 10/27/20 Range/Units 16:52 20:05 06:04 RDW (11.5-15.5) % Plt Count (150-450) k/uL Carbon Dioxide (22-30) mmol/L Glucose (74-99) mg/dL POC Glucose (mg/dL) 110 H 114 H 150 H (75-99) mg/dL 10/27/20 10/27/20 Range/Units 07:56 07:56 RDW 15.7 H (11.5-15.5) % Plt Count 140 L (150-450) k/uL Carbon Dioxide 31 H (22-30) mmol/L Glucose 193 H (74-99) mg/dL POC Glucose (mg/dL) (75-99) mg/dL
[2020-10-27 17:17] LABS: Glucose,Whole Blood 115 mg/dL (75-99)
[2020-10-27 20:33] LABS: Glucose,Whole Blood 149 mg/dL (75-99)
[2020-10-27] MEDS: NON FORMULARY DRUG (Rosuvastatin 20 MG Tablet) PO SCH (21:08)
[2020-10-27] MEDS: RIVAROXABAN 20 MG TAB PO SCH (21:08)
[2020-10-28] MEDS: DOFETILIDE 250 MCG CAP PO SCH ×2 (06:01→18:02)
[2020-10-28 06:25] LABS: Glucose,Whole Blood 132 mg/dL (75-99)
[2020-10-28] MEDS ORDERED: PROPOFOL 10 MG/ML 20 ML VIAL IV ONE (07:15)
[2020-10-28] MEDS ORDERED: LIDOCAINE 1% INJ 10MG/ML (20 ML MDV) ONE (07:15)
[2020-10-28] MEDS ORDERED: SODIUM CHLORIDE 0.9% 500 ML 500 ML IV ONE (07:26)
--- NOTE | 2020-10-28 08:16 | P.EPPROC ---
- EP Procedure Note Electrophysiology Procedure Note: Diagnosis Persistent atrial fibrillation Nonischemic cardio myopathy Redo reticulocyte valve replacement with transfemoral approach Underlying bioprosthetic valvular dysfunction with severe aortic regurgitation, status postTAVR recently Patient on dofetilide 250 g twice daily as an inpatient Procedure Electrical cardioversion for atrial fibrillation Details Successful electrical cardioversion with a 360 J shock in the AP configuration, to sinus rhythm Plan Continue dofetilide Tikosyn protocol
[2020-10-28] MEDS: SACUBITRIL/VALSARTAN 24 MG-26 MG TABLET PO SCH ×2 (09:37→20:31)
[2020-10-28] MEDS: CLOPIDOGREL 75 MG TAB PO SCH (09:38)
[2020-10-28] MEDS: MAGNESIUM OXIDE 400 MG TAB PO SCH (09:38)
[2020-10-28] MEDS: METOPROLOL SUCCINATE (ER) 50 MG TAB.ER.24H PO SCH (09:38)
[2020-10-28] MEDS: FUROSEMIDE 20 MG TAB PO SCH (09:38)
[2020-10-28] MEDS: metFORMIN 500 MG TAB PO SCH (09:38)
[2020-10-28] MEDS: SPIRONOLACTONE 25 MG TAB PO SCH (09:39)
[2020-10-28] MEDS: CHOLECALCIFEROL 25 MCG (1000 IU) TABLET PO SCH (09:39)
[2020-10-28] MEDS: polyethylene glycoL 3350 17 GM POWD.PACK PO SCH (09:39)
[2020-10-28 09:47] LABS: African American GFR (CKD) >90 (>60 ml/min/1.73 sqM); Anion Gap 5 mmol/L; Blood Urea Nitrogen 19 mg/dL (9-20); Calcium 9.2 mg/dL (8.4-10.2); Carbon Dioxide 27 mmol/L (22-30); Chloride 103 mmol/L (98-107); Glucose 129 mg/dL (74-99); Non-African American GFR(CKD) >90 (>60 ml/min/1.73 sqM); Sodium 135 mmol/L (137-145)
[2020-10-28 12:28] LABS: Glucose,Whole Blood 185 mg/dL (75-99)
[2020-10-28 17:05] LABS: Glucose,Whole Blood 115 mg/dL (75-99)
[2020-10-28] MEDS: NON FORMULARY DRUG (Rosuvastatin 20 MG Tablet) PO SCH (20:26)
[2020-10-28] MEDS: RIVAROXABAN 20 MG TAB PO SCH (20:31)
[2020-10-28 20:44] LABS: Glucose,Whole Blood 146 mg/dL (75-99)
[2020-10-29] MEDS: DOFETILIDE 250 MCG CAP PO SCH (06:07)
[2020-10-29 06:16] LABS: Glucose,Whole Blood 122 mg/dL (75-99)
[2020-10-29 06:20] LABS: African American GFR (CKD) >90 (>60 ml/min/1.73 sqM); Anion Gap 6 mmol/L; Blood Urea Nitrogen 18 mg/dL (9-20); Calcium 9.5 mg/dL (8.4-10.2); Carbon Dioxide 29 mmol/L (22-30); Chloride 101 mmol/L (98-107); Glucose 117 mg/dL (74-99); Non-African American GFR(CKD) >90 (>60 ml/min/1.73 sqM); Potassium 4.7 mmol/L (3.5-5.1); Sodium 136 mmol/L (137-145)
[2020-10-29 08:57] VITALS: TEMP 98
[2020-10-29] MEDS ORDERED: SPIRONOLACTONE 25 MG TAB PO SCH (09:00)
[2020-10-29] MEDS: METOPROLOL SUCCINATE (ER) 50 MG TAB.ER.24H PO SCH (09:03)
[2020-10-29] MEDS: CLOPIDOGREL 75 MG TAB PO SCH (09:03)
[2020-10-29] MEDS: CHOLECALCIFEROL 25 MCG (1000 IU) TABLET PO SCH (09:03)
[2020-10-29] MEDS: MAGNESIUM OXIDE 400 MG TAB PO SCH (09:03)
[2020-10-29] MEDS: FUROSEMIDE 20 MG TAB PO SCH (09:03)
[2020-10-29] MEDS: metFORMIN 500 MG TAB PO SCH (09:03)
[2020-10-29] MEDS: polyethylene glycoL 3350 17 GM POWD.PACK PO SCH (09:03)
[2020-10-29] MEDS: SACUBITRIL/VALSARTAN 24 MG-26 MG TABLET PO SCH (09:05)
--- NOTE | 2020-10-29 11:00 | P.DS ---
Providers Date of admission: 10/26/20 14:08 Attending physician: Selvin Perrin Primary care physician: Vance [facility] Course: INTERVAL HISTORY: This is a pleasant 69-year-old male past medical history significant for Severe Aortic bioprostheic stenosis with severe aortic insufficiency s/p TAVR at [facility], bicuspid aortic valve status post bioprosthetic aortic valve replacement (in 2004), persistent atrial fibrillation, type 2 diabetes mellitus, hypertension, dyslipidemia. He follows in the office with Dr. Perrin. Patient admitted for administration of Dofetilide. Dofetilide administered per protocol. BMP and electrolytes were monitored daily. Patient underwent EKG BID per protocol. Patient underwent cardioversion with Dr. Perrin 10/28/2020- Successful electrical cardioversion with a 360 J shock in the AP configuration, to sinus rhythm. On 10/29/2020, Patient seen and examined at bedside, no acute distress. No complaints at this time. His EKG revealed sinus mechansim, QT 470. BP 98/62, heart rate 62, afebrile, maintaining oxygen saturations 99% on room air. Laboratory data reviewed, sodium 136, potassium 4.7, serum creatinine 0.58, magnesium 2.0 Telemetry reviewed, patient in sinus mechanism heart rate 60 to 70s. Patient walking around in room and ambulatory in halls, feeling well. Denies chest pain, palpitations, shortness of breath, lightheadedness or pre- syncope symptoms PHYSICAL EXAMINATION: HEART: S1, S2 normal. LUNGS: Clear to auscultation. NECK: Supple. ABDOMEN: Soft. EXTREMITIES: 2+ peripheral pulses. no edema LAB DATA: sodium 136, potassium 4.7, serum creatinine 0.58, magnesium 2.0 FINAL IMPRESSION: Persistent atrial fibrillation Nonischemic cardio myopathy Redo reticulocyte valve replacement with transfemoral approach Underlying bioprosthetic valvular dysfunction with severe aortic regurgitation, status postTAVR recently Patient on dofetilide 250 g twice daily as an inpatient History of Hypertension Dyslipidemia PLAN: Patient may be able to be discharged home today. Patient will be discharged on Dofetilide 250mcg BID, magnesium oxide 400mg daily and decreased dose of spironolactone at 12.5mg daily. Prescription for Dofetilide sent to [facility] pharmacy and Printed prescription given to patient for additional 3 month supply Patient will continue his Plavix and Xarelto- this will be continuously addressed in the office and adjusted if needed Continue home medications: Entresto, Statin, and his metoprolol succinate Patient educated on Dofetilide and the importance of information other providers that patient takes this medication. We will make him a follow-up appointment with Dr. Marychuy Nunez - Discharge Summary Discharge Rx Participant: Yes New Discharge Prescriptions: New Spironolactone [Aldactone] 12.5 mg PO DAILY 90 Days #90 tab Dofetilide [Tikosyn] 250 mcg PO Q12HR@0600,1800 7 Days #14 cap Magnesium Oxide [Mag-Ox] 400 mg PO DAILY 90 Days #90 tab Continue metFORMIN HCL [Glucophage] 1,000 mg PO BID@0800,1200 Rivaroxaban [Xarelto] 20 mg PO HS Rosuvastatin [Crestor] 20 mg PO HS Cholecalciferol [Vitamin D3 (25 Mcg = 1000 Iu)] 50 mcg PO DAILY Metoprolol Succinate (ER) [Toprol XL] 50 mg PO DAILY tab.er.24h Furosemide [Lasix] 20 mg PO DAILY polyethylene glycoL 3350 [Miralax] 17 gm PO DAILY Sacubitril/Valsartan [Entresto 24 mg-26 mg Tablet] 1 tab PO BID Clopidogrel Bisulfate [Plavix] 75 mg PO DAILY Discontinued Aspirin [Adult Low Dose Aspirin EC] 81 mg PO DAILY Spironolactone 25 mg PO DAILY Digoxin 250 mcg PO BID Discharge Medication List Rivaroxaban [Xarelto] 20 mg PO HS 07/17/20 [History] metFORMIN HCL [Glucophage] 1,000 mg PO BID@0800,1200 07/17/20 [History] Rosuvastatin [Crestor] 20 mg PO HS 08/02/20 [History] Cholecalciferol [Vitamin D3 (25 Mcg = 1000 Iu)] 50 mcg PO DAILY 09/03/20 [History] Metoprolol Succinate (ER) [Toprol XL] 50 mg PO DAILY tab.er.24h 09/28/20 [Rx] Clopidogrel Bisulfate [Plavix] 75 mg PO DAILY 10/26/20 [History] Furosemide [Lasix] 20 mg PO DAILY 10/26/20 [History] Sacubitril/Valsartan [Entresto 24 mg-26 mg Tablet] 1 tab PO BID 10/26/20 [History] polyethylene glycoL 3350 [Miralax] 17 gm PO DAILY 10/26/20 [History] Dofetilide [Tikosyn] 250 mcg PO Q12HR@0600,1800 7 Days #14 cap 10/29/20 [Rx] Magnesium Oxide [Mag-Ox] 400 mg PO DAILY 90 Days #90 tab 10/29/20 [Rx] Spironolactone [Aldactone] 12.5 mg PO DAILY 90 Days #90 tab 10/29/20 [Rx] Follow up Appointment(s)/Referral(s): Selvin Perrin MD [Family Provider] - 2 Weeks Patient Instructions/Handouts: Dofetilide (By mouth)
[2020-10-29 11:43] LABS: Glucose,Whole Blood 97 mg/dL (75-99)
[2020-10-29 16:11] VITALS: BP 108/66; PULSE 60; RESP 16
== END 2020-10-29 16:30 | disposition home or self-care (01) | DRG 309 ==
LOC: 3SCARD 14:08
PROVIDERS: ADMIT Internal Medicine Clinical Cardiac Electrophysiology; ATTEND Internal Medicine Clinical Cardiac Electrophysiology
PROC: 5A2204Z Restoration of Cardiac Rhythm, Single (ICD-10-PCS; principal; 2020-10-28 07:30)
DX: I48.19 Other persistent atrial fibrillation (principal); Q23.1 Congenital insufficiency of aortic valve; I42.8 Other cardiomyopathies; E11.9 Type 2 diabetes mellitus without complications; E78.5 Hyperlipidemia, unspecified; F41.0 Panic disorder [episodic paroxysmal anxiety]; I11.0 Hypertensive heart disease with heart failure; I50.9 Heart failure, unspecified; M54.5 Low back pain; G43.909 Migraine, unspecified, not intractable, without status migrainosus; L40.9 Psoriasis, unspecified; Z82.49 Family history of ischemic heart disease and other diseases of the circulatory system; Z79.84 Long term (current) use of oral hypoglycemic drugs; Z95.3 Presence of xenogenic heart valve; Z87.01 Personal history of pneumonia (recurrent); Z86.010 Personal history of colon polyps; Z83.6 Family history of other diseases of the respiratory system; Z79.01 Long term (current) use of anticoagulants; Z79.02 Long term (current) use of antithrombotics/antiplatelets; Z79.899 Other long term (current) drug therapy
CPT/HCPCS: 80048; 83735; 85027; 92960

== ENCOUNTER → 2020-12-14 | Outpatient (CLI) | payer MEDICARE ==
[2020-12-14 19:44] LABS: African American GFR (CKD) 118.9 (60.0-200.0); Anion Gap 4.2 mmol/L (4.00-12.00); BUN/Creat Ratio 31.67 Ratio (12.00-20.00); Calcium 9.5 mg/dL (8.7-10.3); Carbon Dioxide 28.8 mmol/L (21.6-31.8); Magnesium 1.8 mg/dL (1.5-2.4); Non-African American GFR(CKD) 102.6 (60.0-200.0); Potassium 4.4 mmol/L (3.5-5.5)
== END | disposition home or self-care (01) ==
LOC: LABWHC1 14:40
PROVIDERS: ATTEND Nurse Practitioner Adult Health
DX: I10 Essential (primary) hypertension (principal)
CPT/HCPCS: 36415; 80048; 83735

== ENCOUNTER 2022-03-15 19:42 | Emergency (ER) | payer MEDICARE ==
[2022-03-15 19:48] VITALS: TEMP 98.4
--- NOTE | 2022-03-15 20:24 | ED ---
Head Injury HPI - General Chief complaint: Head Injury Stated complaint: Fall,Head injury Time Seen by Provider: 03/15/22 20:03 Source: patient Mode of arrival: ambulatory Limitations: no limitations - Related Data Home Medications Medication Instructions Recorded Confirmed Rivaroxaban [Xarelto] 20 mg PO HS 07/17/20 10/26/20 metFORMIN HCL [Glucophage] 1,000 mg PO BID@0800,1200 07/17/20 10/26/20 Rosuvastatin [Crestor] 20 mg PO HS 08/02/20 10/26/20 Cholecalciferol [Vitamin D3 (25 50 mcg PO DAILY 09/03/20 10/26/20 Mcg = 1000 Iu)] Clopidogrel Bisulfate [Plavix] 75 mg PO DAILY 10/26/20 10/26/20 Furosemide [Lasix] 20 mg PO DAILY 10/26/20 10/26/20 Sacubitril/Valsartan [Entresto 24 1 tab PO BID 10/26/20 10/26/20 mg-26 mg Tablet] polyethylene glycoL 3350 [Miralax] 17 gm PO DAILY 10/26/20 10/26/20 Previous Rx's Medication Instructions Recorded Metoprolol Succinate (ER) [Toprol 50 mg PO DAILY tab.er.24h 09/28/20 XL] Dofetilide [Tikosyn] 250 mcg PO Q12HR@0600,1800 7 Days 10/29/20 #14 cap Magnesium Oxide [Mag-Ox] 400 mg PO DAILY 90 Days #90 tab 10/29/20 Spironolactone [Aldactone] 12.5 mg PO DAILY 90 Days #90 tab 10/29/20 Allergies/Adverse reactions: Allergies Allergy/AdvReac Type Severity Reaction Status Date / Time atorvastatin [From Lipitor] AdvReac muscle Verified 03/15/22 19:48 weakness Review of Systems ROS Statement: Those systems with pertinent positive or pertinent negative responses have been documented in the HPI. ROS Other: All systems not noted in ROS Statement are negative. Past Medical History Past Medical History: Atrial Fibrillation, Heart Failure, Diabetes Mellitus, GERD/Reflux, Hyperlipidemia, Hypertension, Musculoskeletal Disorder, Osteoarthritis (OA), Pneumonia, Prostate Disorder, Respiratory Disorder, Skin Disorder Additional Past Medical History / Comment(s): Pt recently admitted to [facility] on 09/15/20 with acute exacerbation CHF/pleural effusion with R thoracentesis. Other hx: Nonischemic cardiomyopathy, cardiac valve disease (pt needs another aortic valve replacement), NIDDM type II, BPH, occasional migraines, occasional cervical/shoulder pain (hdz's neck), lower back pain/DDD, psoriasis, vitamin D deficiency. History of Any Multi-Drug Resistant Organisms: None Reported Past Surgical History: Cardiac Ablation, Cardiac Valve Replacement, Heart Catheterization Additional Past Surgical History / Comment(s): 07/21/20 PAULINE/cardioverson, 2005 aortic valve replacement, cardiac ablation for SVT and another for PVCs, colonoscopies/benign polypectomy, anal fistula repair. TAVR-[place] 10/08/2020. [facility] PRESENT 10/26/2020 Past Anesthesia/Blood Transfusion Reactions: Family History of Problems w/ Anesthesia Additional Past Anesthesia/Blood Transfusion Reaction / Comment(s): Mother - PONV Past Psychological History: No Psychological Hx Reported Smoking Status: Never smoker Past Alcohol Use History: Occasional Past Drug Use History: None Reported - Past Family History Mother Family Medical History: AFIB Additional Family Medical History / Comment(s): Mother lived to be 86yrs old. Father Family Medical History: Congestive Heart Failure (CHF), Myocardial Infarction (VA), Respiratory Disorder Additional Family Medical History / Comment(s): Father had a VA at the age of 79yrs. He of pulmonary fibrosis at the age of 86yrs. Brother(s) Family Medical History: AFIB Sister(s) Family Medical History: AFIB General Exam - General Exam Comments Initial Comments: Patient with an occipital scalp hematoma with mild tenderness. No step-off. No crepitus. No break in skin integrity. Patient has tenderness to the posterior cervical paraspinals. No definitive midline tenderness. Cervical collar applied in triage. Limitations: no limitations General appearance: alert, in no apparent distress Head exam: Present: other (Occipital hematoma. Normocephalic atraumatic otherwise.) Eye exam: Present: normal appearance, PERRL, EOMI. Absent: scleral icterus, conjunctival injection, periorbital swelling ENT exam: Present: normal exam, normal oropharynx, mucous membranes moist. Absent: mucous membranes dry, normal external ear exam Neck exam: Present: normal inspection, other (Range of motion testing howled for computed tomography scan based on the patient's symptomology patient does have cervical paraspinal tenderness with no definitive midline tenderness.). Absent: tenderness, meningismus, lymphadenopathy Respiratory exam: Present: normal lung sounds bilaterally. Absent: respiratory distress, wheezes, rales, rhonchi, stridor Cardiovascular Exam: Present: regular rate, normal rhythm, normal heart sounds. Absent: systolic murmur, diastolic murmur, rubs, gallop, clicks GI/Abdominal exam: Present: soft, normal bowel sounds. Absent: distended, tenderness, guarding, rebound, rigid Extremities exam: Present: normal inspection, full ROM, normal capillary refill. Absent: tenderness, pedal edema, joint swelling, calf tenderness Back exam: Present: normal inspection Neurological exam: Present: alert, oriented X3, CN II-XII intact, normal gait, reflexes normal. Absent: abnormal gait, motor sensory deficit Expanded Neurological exam: Present: other (Cerebellar testing is normal. No evidence of ataxia.) Patient oriented to: Present: person, place, time Speech: Present: fluid speech Motor strength exam: RUE: 5, LUE: 5, RLE: 5, LLE: 5 Eye Response: (4) open spontaneously Motor Response: (6) obeys commands Verbal Response: (5) oriented [place] Total: 15 Psychiatric exam: Present: normal affect, normal mood Skin exam: Present: warm, dry, intact, normal color. Absent: rash Course Vital Signs 03/15/22 19:44 Temperature 98.4 F Pulse Rate 58 L Respiratory 20 Rate Blood Pressure 156/83 O2 Sat by Pulse 97 Oximetry - Reevaluation(s) Reevaluation #1: 03/15/22 21:36 Patient reevaluated prior to discharge. Cranial nerves II through XII intact. Alert and oriented 4. No distress. Discussed all findings. Medical Decision Making - Medical Decision Making Mechanical fall with injury to the occipital scalp and transient tingling in both hands. We'll obtain a computed tomography scan of the brain and cervical spine. Patient requires this because of age and the fact he is on anticoagulation. Patient also has exacerbated his chronic neck pain. I suspect the patient has some nerve impingement due to the radicular symptoms he had after the injury. However this has resolved. all findings discussed with the patient is . Head injury and directions discussed. Observation discussed. Patient and voice understanding. Patient was told to return to the ER for any signs or symptoms worsen. Told to return immediately if any other problems arise. All questions answered. Treatment plan discussed. Patient in agreement Every effort has been made to ensure accuracy of this dictation. However, due to the limitations of electronic medical records and dictation devices, errors in charting still occur. Pediatric Np Dr. Woods - Radiology Data Radiology results: report reviewed (No acute findings other than the superficial hematoma.. I did review this film myself.), image reviewed Disposition Clinical Impression: Closed head injury, Cervical radiculopathy, Cervical strain, acute, Hematoma of occipital region of scalp Disposition: HOME SELF-CARE Condition: Good Instructions (If sedation given, give patient instructions): Cervical Strain (ED), Head Injury (ED), Cervical Radiculopathy (ED) Additional Instructions: Follow-up with your regular physician as directed. Return to the ER immediately if any symptoms worsen, new symptoms arise, or any other problems develop. Make sure urine here to the head injury instructions. Makes you have a family member with Alvo times for the next 24 hours. Follow-up with your regular doctor. You can use Tylenol for pain control if needed. Is patient prescribed a controlled substance at d/c from ED?: No Referrals: Vance Lopez DO [Primary Care Provider] - 1-2 days Time of Disposition: 21:18
--- NOTE | 2022-03-15 20:27 | CT ---
EXAMINATION TYPE: CT brain zelda null con DATE OF EXAM: 03/15/2022 COMPARISON: None HISTORY: Head injury with neck pain CT DLP: 1593.6 mGycm Automated exposure control for dose reduction was used. Images of the brain and cervical spine obtained with no contrast. There is mild cerebral cortical atrophy. There is no mass effect or midline shift. No sign of intracr anial hemorrhage. There is occipital scalp soft tissue swelling. Skull base is intact. There is marielos l aeration of the mastoid sinuses. The cervical vertebra have normal alignment. There is degenerative disc space narrowing at C5-6 and C 6-7 with spur formation. Facet joints are intact. Prevertebral soft tissues are intact. 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 No fracture seen. Mild cerebral atrophy. No acute intracranial abnormality. Mild occipital scalp hematoma.
[2022-03-15 21:41] VITALS: BP 133/61; PULSE 60; RESP 16
== END 2022-03-15 21:41 | disposition home or self-care (01) ==
LOC: EC 19:42
DX: S13.4XXA Sprain of ligaments of cervical spine, initial encounter (principal); S00.03XA Contusion of scalp, initial encounter; M54.12 Radiculopathy, cervical region; I48.91 Unspecified atrial fibrillation; I11.0 Hypertensive heart disease with heart failure; I50.9 Heart failure, unspecified; E11.9 Type 2 diabetes mellitus without complications; K21.9 Gastro-esophageal reflux disease without esophagitis; M19.90 Unspecified osteoarthritis, unspecified site; Z88.8 Allergy status to other drugs, medicaments and biological substances; Z79.84 Long term (current) use of oral hypoglycemic drugs; Z79.899 Other long term (current) drug therapy; X58.XXXA Exposure to other specified factors, initial encounter
CPT/HCPCS: 70450; 72125; 99283

== ENCOUNTER → 2023-11-16 | Outpatient (CLI) | payer MEDICARE ==
[2023-11-17 03:58] LABS: Magnesium 1.7 mg/dL (1.5-2.4)
[2023-11-17 04:47] LABS: Blood Urea Nitrogen 9.6 mg/dL (9.0-27.0); Calcium 9.7 mg/dL (8.7-10.3); Carbon Dioxide 23.9 mmol/L (21.6-31.8); Chloride 101 mmol/L (96-109); Glucose 124 mg/dL (70-110); Potassium 4.2 mmol/L (3.5-5.5); Sodium 139 mmol/L (135-145)
== END | disposition home or self-care (01) ==
LOC: LABWHC1 16:11
PROVIDERS: ATTEND Nurse Practitioner Adult Health
DX: I48.19 Other persistent atrial fibrillation (principal)
CPT/HCPCS: 36415; 80048; 83735

== ENCOUNTER 2023-11-28 07:27 | Day surgery (SDC) | payer MEDICARE ==
[~2023-11-28 07:27] MED LIST changes: +HYDROmorphone 0.5 MG/0.5 ML SYRINGE IVP PRN; -LACTATED RINGERS 1,000 ML IV SCH; -ONDANSETRON 4 MG/2 ML VIAL IVP ONE; -SODIUM CHLORIDE 0.9% 1,000 ML IV SCH; -fentaNYL (PF) 50 MCG/ML 2 ML AMP IV PRN
[2023-11-28 08:05] LABS: Basophils % (A) 1 %; Eosinophils # (A) 0.1 k/uL (0-0.7); Eosinophils % (A) 1 %; HCT 47.1 % (39.0-53.0); HGB 15.4 gm/dL (13.0-17.5); Lymphocytes # (A) 2.1 k/uL (1.0-4.8); Lymphocytes % (A) 28 %; MCH 29.6 pg (25.0-35.0); MCHC 32.8 g/dL (31.0-37.0); MCV 90.4 fL (80.0-100.0); Mean Platelet Volume 9.3; Monocytes # (A) 0.4 k/uL (0-1.0); Monocytes % (A) 5 %; Neutrophils # (A) 4.7 k/uL (1.3-7.7); Neutrophils % (A) 63 %; Platelet Count 160 k/uL (150-450); RBC 5.21 m/uL (4.30-5.90); RDW 13.7 % (11.5-15.5); WBC 7.4 k/uL (3.8-10.6)
[2023-11-28 08:05] LABS: Glucose,Whole Blood 137 mg/dL (70-110)
[2023-11-28] MEDS: SODIUM CHLORIDE 0.9% 1,000 ML IV SCH (08:05)
[2023-11-28 08:59] LABS: ALT 25 U/L (4-49); AST 25 U/L (17-59); African American GFR (CKD) >90 (>60 ml/min/1.73 sqM); Albumin 4.6 g/dL (3.5-5.0); Alkaline Phosphatase 52 U/L (38-126); Anion Gap 9 mmol/L; Blood Urea Nitrogen 14 mg/dL (9-20); Calcium 9.5 mg/dL (8.4-10.2); Carbon Dioxide 25 mmol/L (22-30); Chloride 103 mmol/L (98-107); Glucose 146 mg/dL (74-99); Non-African American GFR(CKD) >90 (>60 ml/min/1.73 sqM); Potassium 4.3 mmol/L (3.5-5.1); Sodium 137 mmol/L (137-145); Total Bilirubin 0.9 mg/dL (0.2-1.3)
[2023-11-28] MEDS ORDERED: LIDOCAINE 1% INJ 10MG/ML (20 ML MDV) ONE ×2 (09:01→09:36)
[2023-11-28] MEDS ORDERED: fentaNYL (PF) 50 MCG/ML 2 ML AMP ONE (09:36)
[2023-11-28] MEDS ORDERED: MIDAZOLAM 2 MG/2 ML VIAL ONE (09:36)
[2023-11-28] MEDS ORDERED: ePHEDrine 50 MG/ML 1 ML VIAL ONE (09:36)
[2023-11-28] MEDS ORDERED: HEPARIN SODIUM,PORCINE 10,000 UNIT/ML 1 ML VIAL ONE (09:36)
[2023-11-28] MEDS ORDERED: SUCCINYLCHOLINE CHLORIDE 200 MG/10 ML VIAL IV ONE (09:36)
[2023-11-28] MEDS ORDERED: ceFAZolin 1 GM/50 ML BAG (PMX) ONE (09:36)
[2023-11-28] MEDS ORDERED: PROPOFOL 10 MG/ML 20 ML VIAL IV ONE (09:36)
[2023-11-28] MEDS: LIDOCAINE 1% INJ 10MG/ML (20 ML MDV) SQ ONE (10:17)
[2023-11-28] MEDS: HEPARIN SOD,PORK IN 0.45% NACL 25,000 UNIT in 0.45% NACL 1 250ML.BAG IV ONE (10:30)
[2023-11-28] MEDS: IOPAMIDOL-370 100ML BTL INJ ONE (12:00)
[2023-11-28] MEDS ORDERED: ACETAMINOPHEN TAB 325 MG TAB PO PRN (12:29)
--- NOTE | 2023-11-28 12:35 | P.HPCAR ---
History of Present Illness This is Dr. Perrin dictating an H/P on this patient The patient was interviewed and examined IMPRESSION / ASSESSMENT: Persistent atrial fibrillation, very symptomatic Breakthrough episodes on dofetilide Aortic valve replacement BJ Nonischemic cardiomyopathy ejection fraction of about 50% PLAN: A-fib ablation Continue dofetilide and Xarelto thereafter HPI Patient has been experiencing breakthrough episodes of atrial fibrillation despite being on dofetilide for suppression of atrial fibrillation He has undergone aortic valve replacement with BJ These are recent symptomatic episodes of atrial fibrillation Denies any fever chills cough expectoration or chest pain No orthopnea or PND ROS: No fever chills or rigors, no cough, phlegm or expectoration, no nausea, vomiting or diarrhea, no hematuria, dysuria, no musculoskeletal complaints, no strokes or seizures, no skin lesions. EXAMINATION: Afebrile 97.3 F pulse rate in the 70s blood pressure 147/79 mmHg Heart sounds S1-S2 normal soft ejection systolic murmur Clear lungs no rhonchi no crackles [place] S2 Abdomen soft nontender Extremities warm no edema No JVD REVIEW OF LABS, ECG & MEDICAL DATA Normal white count 7.4 thousand Normal hemoglobin 15.4, normal platelet count Normal electrolytes potassium 4.3 BUN 14 creatinine 0.54, both normal Liver function normal TSH normal 2.3 Physical Exam Vitals: Vital Signs Temp Pulse Resp BP Pulse Ox 11/28/23 07:46 97.3 F L 70 18 147/79 99 Intake and Output 11/27/23 11/28/23 11/28/23 22:59 06:59 14:59 Intake Total 667.5 Balance 667.5 Intake: IV 667.5 Other: Weight 89 kg Past Medical History Past Medical History: Atrial Fibrillation, Heart Failure, Diabetes Mellitus, GERD/Reflux, Hyperlipidemia, Hypertension, Musculoskeletal Disorder, Osteoarthritis (OA), Prostate Disorder, Respiratory Disorder, Skin Disorder Additional Past Medical History / Comment(s): Pt recently admitted to [facility] on 09/15/20 with acute exacerbation CHF/pleural effusion with R thoracentesis. Other hx: Nonischemic cardiomyopathy, cardiac valve disease (pt needs another aortic valve replacement), NIDDM type II, BPH, occasional migraines, occasional cervical/shoulder pain (hdz's neck), lower back pain/DDD, psoriasis, vitamin D deficiency. pre cancerous removed on skin see Dr Perrin's h & p History of Any Multi-Drug Resistant Organisms: None Reported Past Surgical History: Cardiac Ablation, Cardiac Valve Replacement, Heart Catheterization Additional Past Surgical History / Comment(s): 07/21/20 PAULINE/cardioverson, 2005 aortic valve replacement, cardiac ablation for SVT and another for PVCs, colonoscopies/benign polypectomy, anal fistula repair. TAVR-[place] 10/08/2020. Past Anesthesia/Blood Transfusion Reactions: Family History of Problems w/ Anesthesia Additional Past Anesthesia/Blood Transfusion Reaction / Comment(s): Mother - PONV Smoking Status: Never smoker - Past Family History Mother Family Medical History: AFIB Additional Family Medical History / Comment(s): Mother lived to be 86yrs old. Father Family Medical History: Congestive Heart Failure (CHF), Myocardial Infarction ([place]), Respiratory Disorder Additional Family Medical History / Comment(s): Father had a MD at the age of 79yrs. He of pulmonary fibrosis at the age of 86yrs. Brother(s) Family Medical History: AFIB Sister(s) Family Medical History: AFIB Physical Examination Vital Signs Temp Pulse Resp BP Pulse Ox 11/28/23 07:46 97.3 F L 70 18 147/79 99 Intake and Output 11/27/23 11/28/23 11/28/23 22:59 06:59 14:59 Intake Total 667.5 Balance 667.5 Intake: IV 667.5 Other: Weight 89 kg Results 11/28/23 07:00 11/28/23 07:00 Cardiac Enzymes 11/28/23 Range/Units 07:00 AST 25 (17-59) U/L CBC 11/28/23 Range/Units 07:00 WBC 7.4 (3.8-10.6) k/uL RBC 5.21 (4.30-5.90) m/uL Hgb 15.4 (13.0-17.5) gm/dL Hct 47.1 (39.0-53.0) % Plt Count 160 (150-450) k/uL Comprehensive Metabolic Panel 11/28/23 Range/Units 07:00 Sodium 137 (137-145) mmol/L Potassium 4.3 (3.5-5.1) mmol/L Chloride 103 (98-107) mmol/L Carbon Dioxide 25 (22-30) mmol/L BUN 14 (9-20) mg/dL Creatinine 0.54 L (0.66-1.25) mg/dL Glucose 146 H (74-99) mg/dL Calcium 9.5 (8.4-10.2) mg/dL AST 25 (17-59) U/L ALT 25 (4-49) U/L Alkaline Phosphatase 52 (38-126) U/L Total Protein 7.0 (6.3-8.2) g/dL Albumin 4.6 (3.5-5.0) g/dL Current Medications Generic Name Dose Route Start Last Admin Trade Name Freq PRN Reason Stop Dose Admin Acetaminophen 650 mg 11/28/23 12:29 Acetaminophen Tab 325 Mg Tab PO 12/28/23 12:30 Q6HR PRN Mild Pain (Scale 1 to 3) Dofetilide 250 mcg 11/28/23 18:00 Dofetilide 250 Mcg Cap PO 12/28/23 18:01 Q12HR@0600,1800 ERIK Hydromorphone HCl 0.5 mg 11/28/23 07:00 Hydromorphone 0.5 Mg/0.5 Ml Syringe IVP 11/28/23 23:00 Q5M PRN Phase 1 or 2 - Pain Control Sodium Chloride 1,000 mls @ 20 mls/hr 11/28/23 05:59 11/28/23 08:05 Saline 0.9% IV 12/28/23 06:00 650 mls .Q24H ERIK Administration Lactated Ringer's 1,000 mls @ 20 mls/hr 11/28/23 05:59 Lactated Ringers IV 12/28/23 06:00 .Q24H ERIK Acetaminophen 1,000 mg/ IV 100 mls @ 400 mls/hr 11/28/23 12:29 Solution IVPB 11/28/23 12:43 ONCE ONE Magnesium Oxide 400 mg 11/29/23 09:00 Magnesium Oxide 400 Mg Tab PO 12/29/23 09:01 DAILY ERIK Metoprolol Succinate 75 mg 11/29/23 09:00 Metoprolol Succinate (Er) 50 Mg Tab.Er.24h PO 12/29/23 09:01 DAILY ERIK Midazolam HCl 2 mg 11/28/23 07:00 Midazolam 2 Mg/2 Ml Vial IV 11/28/23 23:00 ONCE PRN Pre-Op Anxiety Non-Formulary Medication 81 mg 11/29/23 09:00 Aspirin [Adult Low Dose Aspirin Ec] PO 12/29/23 09:01 DAILY ERIK Non-Formulary Medication 1,000 mg 11/29/23 08:00 Metformin Hcl [Glucophage] PO 12/29/23 08:01 BID@0800,1200 ERIK Non-Formulary Medication 40 mg 11/29/23 09:00 Omeprazole [Omeprazole] PO 12/29/23 09:01 DAILY ERIK Non-Formulary Medication 20 mg 11/28/23 21:00 Rosuvastatin PO 12/28/23 21:01 HS [facility] Non-Formulary Medication 2 mg 12/02/23 12:28 Semaglutide [Ozempic] SQ 01/01/24 12:29 SA [facility] Rivaroxaban 20 mg 11/28/23 21:00 Rivaroxaban 20 Mg Tab PO 12/28/23 21:01 HS [facility] Protocol Sacubitril/Valsartan 1 each 11/28/23 21:00 Sacubitril/Valsartan 24 Mg-26 Mg Tablet PO 12/28/23 21:01 BID [facility] Sodium Chloride 12 ml 11/28/23 12:29 Sodium Chloride 0.9% Flush 10 Ml Syringe IV 12/28/23 12:30 Q12HR PRN Line Flush Spironolactone 25 mg 11/29/23 09:00 Spironolactone 25 Mg Tab PO 12/29/23 09:01 DAILY ERIK Intake and Output 11/27/23 11/28/23 11/28/23 22:59 06:59 14:59 Intake Total 667.5 Balance 667.5 Intake: IV 667.5 Other: Weight 89 kg Patient Weight 11/29/23 06:59 Weight 89 kg 11/28/23 07:00 11/28/23 07:00
[2023-11-28 12:36] LABS: Glucose,Whole Blood 118 mg/dL (70-110)
--- NOTE | 2023-11-28 12:40 | P.EPPROC ---
- EP Procedure Note Electrophysiology Procedure Note: PROCEDURE A. fib ablation DIAGNOSIS Persistent atrial fibrillation, symptomatic, refractory to therapy with dofetilide Aortic valve replacement, BJ Mild cardiomyopathy RESULT No left atrial appendage mass seen on intracardiac echo Successful A. fib ablation/pulmonary vein isolation of all veins using cryo- ablation Complete entrance block in all 4 veins confirmed Ablation of left atrial septum No evidence for phrenic nerve injury Esophageal deflection NO PROCEDURE DETAILS Written informed consent prior to procedure. Patient brought to the EP lab. General anesthesia given. Heparin administered. A city maintained above 300 seconds Both groins prepped and draped per protocol and venous sheaths placed. Esophagus intubated, circa catheter for temperature monitoring an endoscope for possible esophageal deflection. Phrenic nerve monitoring performed. Esophageal temperature monitoring performed. Esophageal deflection performed if circa catheter overlapping with the balloon or circa temperature less than 27.5C Intracardiac echocardiography performed. Pericardium evaluated. Left atrial appendage evaluated. Left atrium evaluated along with pulmonary veins Transseptal catheterization performed under fluoroscopic guidance and intracardiac echo guidance Cryoablation sheath exchanged, balloon catheter along with achieve catheter placed in the left atrium. Pulmonary veins isolated in the following sequence: Left superior pulmonary vein followed by left inferior pulmonary vein, followed by right inferior pulmonary vein and lastly right superior pulmonary vein. Phrenic nerve stimulation along with capture thresholds within the SVC and right superior pulmonary vein to identify the phrenic nerve proximity to the cryo- balloon. Pulmonary veins isolated and confirmed with entrance and exit block. Phrenic nerve integrity confirmed at the end of the procedure Ablation of the left atrial septum performed with cannulation of the superior branch of the right inferior and the inferior branch of the right superior vein to achieve ablation of the posterior septum of the left atrium. Ablation of electrograms confirmed Diagnostic catheters for the high right atrium, His bundle, coronary sinus placed. LA and RA pressures recorded RA pressure: 8/2/4 LA pressure: 7/0/3 Diagnostic EP study with coronary sinus pacing and recording Baseline measurements: AH interval 106 ms HV interval 48 ms Sinus cycle length 908 ms, ID interval 198 ms, QRS 103 ms and QT interval 470 ms Venous sheaths were removed and hemostasis assured with a closure device on the left side and Perclose on the right femoral vein. Patient extubated and transferred to recovery Increase procedural time Multiple attempts needed for successful cryoablation isolation of the right superior pulmonary vein. Multiple attempts were made for occlusion of the right superior pulmonary vein especially its superior tributary close to the roof Finally excellent occlusion and excellent cold temperatures were achieved with the use of the sheath culture, count o'clock rotation and use of the deflection knob PROCEDURES PERFORMED Diagnostic EP study CS pacing and recording Left and right transseptal catheterization Catheter the mapping of the tachycardia Intracardiac echocardiography Pulmonary vein isolation with transseptal and comprehensive EPS, [id number] Extended procedure duration Left atrial roof line, [id number] Linear ablation, left atrium, +[id number]
--- NOTE | 2023-11-28 12:43 | P.PRLE ---
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 He has a history of cardiomyopathy and valvular heart disease He underwent successful ablation of the pulmonary veins in the left atrial septum. He tolerated the procedure well without any acute complications He will continue dofetilide as well as anticoagulation other cardiac medications as before Thank you for entrusting me with the care of the patient Warm regards Sincerely Selvin Perrin
[2023-11-28] MEDS: ACETAMINOPHEN IV (For NPO) 1,000 MG in EMPTY BAG 1 BAG IVPB ONE (16:49)
[2023-11-28] MEDS: LACTATED RINGERS 1,000 ML IV SCH (16:49)
[2023-11-28] MEDS: DOFETILIDE 250 MCG CAP PO SCH (18:51)
[2023-11-28] MEDS: SACUBITRIL/VALSARTAN 24 MG-26 MG TABLET PO SCH (21:09)
[2023-11-28] MEDS: PATIENT'S OWN (Rosuvastatin 20 MG Tablet) PO SCH (21:09)
[2023-11-28] MEDS: RIVAROXABAN 20 MG TAB PO SCH (21:09)
[2023-11-29] MEDS: PANTOPRAZOLE 40 MG TABLET PO SCH (05:56)
[2023-11-29 08:03] VITALS: BP 134/90; PULSE 71; RESP 15; TEMP 98.3
[2023-11-29] MEDS: METOPROLOL SUCCINATE (ER) 25 MG TAB.ER.24H PO SCH (09:45)
[2023-11-29] MEDS: MAGNESIUM OXIDE 400 MG TAB PO SCH (09:45)
[2023-11-29] MEDS: SPIRONOLACTONE 25 MG TAB PO SCH (09:45)
[2023-11-29] MEDS: ASPIRIN 81 MG PO SCH (09:45)
--- NOTE | 2023-11-29 12:57 | P.DS ---
Providers Expected date of discharge: 11/29/23 Attending physician: Selvin Perrin Primary care physician: Vance Lopez [facility] Course: The patient was interviewed and examined IMPRESSION / ASSESSMENT: Persistent atrial fibrillation, very symptomatic Breakthrough episodes on dofetilide Aortic valve replacement BJ Nonischemic cardiomyopathy ejection fraction of about 50% PLAN: A-fib ablation Continue dofetilide and Xarelto HPI Patient has been experiencing breakthrough episodes of atrial fibrillation despite being on dofetilide for suppression of atrial fibrillation He has undergone aortic valve replacement with BJ These are recent symptomatic episodes of atrial fibrillation Denies any fever chills cough expectoration or chest pain No orthopnea or PND 11/28 Patient denies having any chest pain no shortness of breath. Bilateral groins show no sign of hematoma. EKG reviewed this morning. Vital signs have been stable. No change in his home cardiac medications. EXAMINATION: Afebrile 97.3 F pulse rate in the 77 blood pressure 112/77 mmHg, pulse ox 97% on room air Heart sounds S1-S2 normal soft ejection systolic murmur Clear lungs no rhonchi no crackles [place] S2 Abdomen soft nontender Extremities warm no edema No JVD REVIEW OF LABS, ECG & MEDICAL DATA Normal white count 7.4 thousand Normal hemoglobin 15.4, normal platelet count Normal electrolytes potassium 4.3 BUN 14 creatinine 0.54, both normal Liver function normal TSH normal 2.3 Nurse practitioner note has been reviewed, I agree with documented findings and plan of care. Patient was seen and examined. Plan - Discharge Summary Discharge Rx Participant: Yes New Discharge Prescriptions: Continue metFORMIN HCL [Glucophage] 1,000 mg PO BID@0800,1200 Rivaroxaban [Xarelto] 20 mg PO HS Rosuvastatin [Crestor] 20 mg PO HS Cholecalciferol [Vitamin D3 (25 Mcg = 1000 Iu)] 50 mcg PO DAILY Dofetilide [Tikosyn] 250 mcg PO Q12HR@0600,1800 7 Days #14 cap Metoprolol Succinate (ER) [Toprol XL] 75 mg PO DAILY Semaglutide [Ozempic] 2 mg SQ SA Aspirin [Adult Low Dose Aspirin EC] 81 mg PO DAILY Sacubitril/Valsartan [Entresto 24 mg-26 mg Tablet] 1 tab PO BID Magnesium Oxide [Mag-Ox] 400 mg PO DAILY 90 Days #90 tab Spironolactone [Aldactone] 25 mg PO DAILY Omeprazole 40 mg PO DAILY Discharge Medication List Rivaroxaban [Xarelto] 20 mg PO HS 07/17/20 [History] metFORMIN HCL [Glucophage] 1,000 mg PO BID@0800,1200 07/17/20 [History] Rosuvastatin [Crestor] 20 mg PO HS 08/02/20 [History] Cholecalciferol [Vitamin D3 (25 Mcg = 1000 Iu)] 50 mcg PO DAILY 09/03/20 [History] Sacubitril/Valsartan [Entresto 24 mg-26 mg Tablet] 1 tab PO BID 10/26/20 [History] Dofetilide [Tikosyn] 250 mcg PO Q12HR@0600,1800 7 Days #14 cap 10/29/20 [Rx] Magnesium Oxide [Mag-Ox] 400 mg PO DAILY 90 Days #90 tab 10/29/20 [Rx] Aspirin [Adult Low Dose Aspirin EC] 81 mg PO DAILY 11/27/23 [History] Metoprolol Succinate (ER) [Toprol XL] 75 mg PO DAILY 11/27/23 [History] Omeprazole 40 mg PO DAILY 11/27/23 [History] Semaglutide [Ozempic] 2 mg SQ SA 11/27/23 [History] Spironolactone [Aldactone] 25 mg PO DAILY 11/27/23 [History] Follow up Appointment(s)/Referral(s): Selvin Perrin MD [STAFF PHYSICIAN] - 12/06/23 11:15 am Activity/Diet/Wound Care/Special Instructions: Post EP study - Ablation instructions 1. Keep access sites dry for 2 days. 2. No heavy lifting or straining for 2 days. 3. Avoid bending the hips repeatedly for 2 days. 4. You may go up and down stairs slowly Call if the following is noted 1. Bleeding, increasing swelling or pain at the access sites. 2. Increasing chest discomfort, especially upon taking a deep breath. 3. Increasing shortness of breath, at rest or with exertion. 4. Undue cough / phlegm 5. Difficulty or pain while swallowing. 6. Pain or change in color in the extremities. 7. Fever, chills, rigors. 8. Increasing headache or neurologic symptoms. 9. Dizziness, fainting, palpitations Continue Xarelto and other cardiac medications Discharge Disposition: HOME SELF-CARE
[2023-11-30] MEDS ORDERED: metFORMIN 500 MG TAB PO SCH (12:00)
[2023-12-02] MEDS ORDERED: NON FORMULARY DRUG (Semaglutide [Ozempic] 2 MG/0.75 ML Pen.Injctr) SQ SCH (12:28)
== END 2023-11-29 10:27 | disposition home or self-care (01) ==
LOC: CATHEP 07:27 → 6NMEDSUR 12:10 → CATHEP 11-29 10:27
PROVIDERS: ATTEND Internal Medicine Clinical Cardiac Electrophysiology
DX: I48.19 Other persistent atrial fibrillation (principal); I42.8 Other cardiomyopathies; I11.0 Hypertensive heart disease with heart failure; I50.9 Heart failure, unspecified; Z95.2 Presence of prosthetic heart valve; Z82.49 Family history of ischemic heart disease and other diseases of the circulatory system; E11.69 Type 2 diabetes mellitus with other specified complication; E78.5 Hyperlipidemia, unspecified; K21.9 Gastro-esophageal reflux disease without esophagitis; Z88.8 Allergy status to other drugs, medicaments and biological substances; Z79.01 Long term (current) use of anticoagulants; Z79.82 Long term (current) use of aspirin; Z79.899 Other long term (current) drug therapy; Z79.84 Long term (current) use of oral hypoglycemic drugs; Z79.85 Long-term (current) use of injectable non-insulin antidiabetic drugs
CPT/HCPCS: 93656; 93657; 86900; 86901; 80053; 84443; 85025; 86850; C1894 ×2; C1769 ×3; C1760 ×2; C1730 ×2; C1759; C1893; C1733; C1766; J2001; Q9967; J1644

== ENCOUNTER → 2024-12-12 | Outpatient (CLI) | payer MEDICARE ==
[2024-12-12 22:01] LABS: BUN/Creat Ratio 21.62 Ratio (12.00-20.00); Blood Urea Nitrogen 17.3 mg/dL (9.0-27.0); Calcium 9.4 mg/dL (8.7-10.3); Carbon Dioxide 24.2 mmol/L (21.6-31.8); Chloride 102 mmol/L (96-109); Glucose 127 mg/dL (70-110); Magnesium 1.7 mg/dL (1.5-2.4); Potassium 4.8 mmol/L (3.5-5.5); Sodium 139 mmol/L (135-145)
== END | disposition home or self-care (01) ==
LOC: LABWHC1 12:14
PROVIDERS: ATTEND Internal Medicine Clinical Cardiac Electrophysiology
DX: I42.9 Cardiomyopathy, unspecified (principal); I48.91 Unspecified atrial fibrillation; Z79.899 Other long term (current) drug therapy
CPT/HCPCS: 36415; 80048; 83735

== ENCOUNTER 2025-01-01 11:31 | Emergency (ER) | payer MEDICARE ==
[2025-01-01] MEDS: ACETAMINOPHEN TAB 500 MG TAB PO STA (12:22)
--- NOTE | 2025-01-01 12:25 | ED ---
Fall HPI - General Chief Complaint: Fall Stated Complaint: Fall on thinners Time Seen by Provider: 01/01/25 12:21 Source: patient, EMS, RN notes reviewed Mode of arrival: EMS - History of Present Illness Initial Comments: 74-year-old male presenting for left upper leg injury. States this morning he was feeding the cows when a cow pushed him over. States he stumbled and hypere xtended his left knee and felt pain in his posterior left upper leg. He is able to minimally weight-bear. Denies head injury or loss of consciousness. He is on Xarelto and aspirin. Denies chest pain or shortness of breath. No other injuries. - Related Data Home Medications Medication Instructions Recorded Confirmed Rivaroxaban [Xarelto] 20 mg PO HS 07/17/20 11/28/23 metFORMIN HCL [Glucophage] 1,000 mg PO BID@0800,1200 07/17/20 11/28/23 Rosuvastatin [Crestor] 20 mg PO HS 08/02/20 11/28/23 Cholecalciferol [Vitamin D3 (25 50 mcg PO DAILY 09/03/20 11/28/23 Mcg = 1000 Iu)] Sacubitril/Valsartan [Entresto 24 1 tab PO BID 10/26/20 11/28/23 mg-26 mg Tablet] Aspirin [Adult Low Dose Aspirin EC] 81 mg PO DAILY 11/27/23 11/28/23 Metoprolol Succinate (ER) [Toprol 75 mg PO DAILY 11/27/23 11/28/23 XL] Omeprazole 40 mg PO DAILY 11/27/23 11/28/23 Semaglutide [Ozempic] 2 mg SQ SA 11/27/23 11/28/23 Spironolactone [Aldactone] 25 mg PO DAILY 11/27/23 11/28/23 Previous Rx's Medication Instructions Recorded Dofetilide [Tikosyn] 250 mcg PO Q12HR@0600,1800 7 Days 10/29/20 #14 cap Magnesium Oxide [Mag-Ox] 400 mg PO DAILY 90 Days #90 tab 10/29/20 Allergies Allergy/AdvReac Type Severity Reaction Status Date / Time atorvastatin [From Lipitor] AdvReac muscle Verified 01/01/25 11:53 weakness Review of Systems ROS Statement: Those systems with pertinent positive or pertinent negative responses have been documented in the HPI. ROS Other: All systems not noted in ROS Statement are negative. Past Medical History Past Medical History: Atrial Fibrillation, Heart Failure, Diabetes Mellitus, GERD/Reflux, Hyperlipidemia, Hypertension, Musculoskeletal Disorder, Osteoarthritis (OA), Pneumonia, Prostate Disorder, Respiratory Disorder, Skin Disorder Additional Past Medical History / Comment(s): Pt recently admitted to [facility] on 09/15/20 with acute exacerbation CHF/pleural effusion with R thoracentesis. Other hx: Nonischemic cardiomyopathy, cardiac valve disease (pt needs another aortic valve replacement), NIDDM type II, BPH, occasional migraines, occasional cervical/shoulder pain (hdz's neck), lower back pain/DDD, psoriasis, vitamin D deficiency. History of Any Multi-Drug Resistant Organisms: None Reported Past Surgical History: Cardiac Ablation, Cardiac Valve Replacement, Heart Catheterization Additional Past Surgical History / Comment(s): 07/21/20 PAULINE/cardioverson, 2005 aortic valve replacement, cardiac ablation for SVT and another for PVCs, colonoscopies/benign polypectomy, anal fistula repair. TAVR-[place] 10/08/2020. LIFEVEST PRESENT 10/26/2020 Past Anesthesia/Blood Transfusion Reactions: Family History of Problems w/ Anesthesia Additional Past Anesthesia/Blood Transfusion Reaction / Comment(s): Mother - PONV Past Psychological History: No Psychological Hx Reported Smoking Status: Never smoker Past Alcohol Use History: None Reported Past Drug Use History: None Reported - Past Family History Mother Family Medical History: AFIB Additional Family Medical History / Comment(s): Mother lived to be 86yrs old. Father Family Medical History: Congestive Heart Failure (CHF), Myocardial Infarction (UT), Respiratory Disorder Additional Family Medical History / Comment(s): Father had a UT at the age of 79yrs. He of pulmonary fibrosis at the age of 86yrs. Brother(s) Family Medical History: AFIB Sister(s) Family Medical History: AFIB General Exam Limitations: no limitations General appearance: alert, in no apparent distress Head exam: Present: atraumatic, normocephalic, normal inspection Eye exam: Present: normal appearance, PERRL, EOMI. Absent: scleral icterus, conjunctival injection, periorbital swelling Left Hip exam: Present: normal inspection, full ROM. Absent: tenderness, swelling Upper Leg exam: Present: normal inspection, full ROM (Pain with knee extension). Absent: tenderness, swelling, abrasion, laceration, deformity, dislocation, erythema Knee exam: Present: normal inspection, full ROM. Absent: tenderness, swelling Lower Leg exam: Present: normal inspection, full ROM. Absent: tenderness, swelling Ankle exam: Present: normal inspection, full ROM. Absent: tenderness, swelling Foot/Toe exam: Present: normal inspection, full ROM. Absent: tenderness, swelling Neurovascular tendon exam: Present: no vascular compromise. Absent: pulse deficit, abnormal cap refill, motor deficit Neurological exam: Present: alert, oriented X3 Psychiatric exam: Present: normal affect, normal mood Skin exam: Present: warm, dry, intact, normal color. Absent: rash Course Vital Signs 01/01/25 01/01/25 11:45 13:26 Temperature 97.9 F Pulse Rate 73 65 Respiratory 19 18 Rate Blood Pressure 107/74 95/63 O2 Sat by Pulse 98 99 Oximetry Medical Decision Making - Medical Decision Making Was pt. sent in by a medical professional or institution (Dr. PA, BIOCHEMISTRY SPECIALIST, urgent care, hospital, or half-way...) When possible be specific @ -No Did you speak to anyone other than the patient for history (EMS, parent, family, police, friend...)? What history was obtained from this source @ -No Did you review nursing and triage notes (agree or disagree)? Why? @ -I reviewed and agree with nursing and triage notes Were old charts reviewed (outside hosp., previous admission, EMS record, old EKG, old radiological studies, urgent care reports/EKG's, half-way records)? Report findings @ -No old charts were reviewed Differential Diagnosis (chest pain, altered mental status, abdominal pain women, abdominal pain men, vaginal bleeding, weakness, fever, dyspnea, syncope, headache, dizziness, GI bleed, back pain, seizure, CVA, palpatations, mental health, musculoskeletal)? @ -Differential Musculoskeletal Muscular strain, contusion, ligament sprain, fracture, arthritis, septic arthritis, bursitis, cellulitis, muscle spasm, nerve compression, DVT, arterial occlusion, herpes zoster, electrolyte abnormality, tumor.... This is not meant to be in all inclusive list EKG interpreted by me (3pts min.). @ -None X-rays interpreted by me (1pt min.). @ -X-ray left femur reveals no acute osseous abnormality CT interpreted by me (1pt min.). @ -None done U/S interpreted by me (1pt. min.). @ -None done What testing was considered but not performed or refused? (CT, X-rays, U/S, labs )? Why? @ -None What meds were considered but not given or refused? Why? @ -None Did you discuss the management of the patient with other professionals (professionals i.e. , PA, BIOCHEMISTRY SPECIALIST, lab, RT, psych nurse, manager social, site monitor, teacher, court security officer, case liner)? Give summary @ -No Was smoking cessation discussed for >3mins.? @ -No Was critical care preformed (if so, how long)? @ -No Were there social determinants of health that impacted care today? How? (Homelessness, low income, unemployed, alcoholism, drug addiction, transportation, low edu. Level, literacy, decrease access to med. care, prison, rehab)? @ -No Was there de-escalation of care discussed even if they declined (Discuss DNR or withdrawal of care, Hospice)? DNR status @ -No What co-morbidities impacted this encounter? (DM, HTN, Smoking, COPD, CAD, Cancer, CVA, ARF, Chemo, Hep., AIDS, mental health diagnosis, sleep apnea, morbid obesity)? @ -None Was patient admitted / discharged? Hospital course, mention meds given and route, prescriptions, significant lab abnormalities, going to OR and other pertinent info. @ -Discharge. 74-year-old male presenting for left upper leg injury this morning. Patient is experiencing posterior left upper leg pain after hyperextension injury. Neurovascularly intact to the left lower extremity. Left knee examination is unremarkable. Full range of motion, no popliteal tenderness or edema. Able to minimally weight-bear. X-ray left femur reveals no acute osseous abnormality. Discussed diagnosis of left hamstring strain. Patient was provided with knee immobilizer and crutches. Advised to follow-up with orthopedics. Appropriate return precautions and supportive care discussed. Case was discussed with my ED attending Dr. Lopez Undiagnosed new problem with uncertain prognosis? @ -No Drug Therapy requiring intensive monitoring for toxicity (Heparin, Nitro, Insulin, Cardizem)? @ -No Were any procedures done? @ -No Diagnosis/symptom? @ -Left hamstring strain Acute, or Chronic, or Acute on Chronic? @ -Acute Uncomplicated (without systemic symptoms) or Complicated (systemic symptoms)? @ -Uncomplicated Side effects of treatment? @ -No Exacerbation, Progression, or Severe Exacerbation? @ -No Poses a threat to life or bodily function? How? (Chest pain, USA, UT, pneumonia, PE, COPD, DKA, ARF, appy, cholecystitis, CVA, Diverticulitis, Homicidal, Suicidal, threat to staff... and all critical care pts) @ -No Disposition Clinical Impression: Strain of left hamstring Disposition: HOME SELF-CARE Condition: Stable Instructions (If sedation given, give patient instructions): Hamstring Injury (ED) Additional Instructions: Follow-up with orthopedics as discussed. Wear knee immobilizer and use crutches to limit weightbearing on the left side. Ice the affected area for 20 to 30 minutes at least 3 times daily. Take Tylenol as needed for pain. Please return to the Emergency Department if symptoms worsen or any other concerns. Is patient prescribed a controlled substance at d/c from ED?: No Referrals: Omi Hairston DO [Primary Care Provider] - 1-2 days Alfonso Rodriguez MD [STAFF PHYSICIAN] - 1-2 days Time of Disposition: 14:00
[2025-01-01 13:27] VITALS: RESP 18
--- NOTE | 2025-01-01 13:38 | XR ---
EXAMINATION TYPE: XR femur LT DATE OF EXAM: 01/01/2025 1:26 PM COMPARISON: None CLINICAL INDICATION: Male, 74 years old with history of Left upper leg injury, pain TECHNIQUE: XR femur LT examined in Frontal and lateral projections. FINDINGS: No evidence of acute osseous pathology, joint dislocation, or soft tissue swelling. Mild o steophyte formations of the superior acetabulum. Mild joint space narrowing. Mild degeneration with o steophyte formation and joint space narrowing of the left knee. IMPRESSION: 1. No acute osseous pathology. 2. Mild degeneration changes of the hip in the. [facility], , 01/01/2025 1:36 PM
[2025-01-01 14:22] VITALS: BP 101/68; PULSE 67; TEMP 98
== END 2025-01-01 14:23 | disposition home or self-care (01) ==
LOC: EC 11:31
DX: S76.312A Strain of muscle, fascia and tendon of the posterior muscle group at thigh level, left thigh, initial encounter (principal); Z88.8 Allergy status to other drugs, medicaments and biological substances; W55.29XA Other contact with cow, initial encounter
CPT/HCPCS: 73552; 99284; L1830